=== PATIENT | male | born 1945 | race Two or more races ===

== ENCOUNTER 2017-01-09 14:53 | Inpatient (IN) | payer MEDICARE, OTHER ==
[2017-01-09 14:56] VITALS: BMI 28.7
[2017-01-09 16:26] LABS: BASO # 0.1 K/uL (0.0-0.2); BASO % 0.3 % (0.0-2.0); EOS % 0.1 % (0.0-4.0); HEMATOCRIT 32.9 % (35.0-51.0); LYMPH # 0.8 K/uL (1.0-4.3); LYMPH % 2.4 % (20.0-40.0); MEAN CELL VOLUME 80.8 fL (80.0-94.0); MEAN CORPUSCULAR HEMOGLOBIN 25.4 pg (27.0-31.0); MEAN CORPUSCULAR HGB CONC 31.5 g/dL (33.0-37.0); MEAN PLATELET VOLUME 7.7 fL (7.2-11.7); MONO # 1.6 K/uL (0.0-0.8); MONO % 4.7 % (0.0-10.0); PLATELET COUNT 362 K/uL (130-400); RED CELL DISTRIBUTION WIDTH 16.2 % (11.5-14.5)
[2017-01-09 16:31] LABS: INR 3.8; WHITE BLOOD COUNT 33.8 K/uL (4.8-10.8)
[2017-01-09 16:37] LABS: POTASSIUM 5.7 mmol/L (3.6-5.2)
[2017-01-09 16:39] LABS: ALB/GLOB RATIO 0.7 (1.0-2.1); BILIRUBIN,TOTAL 1.9 mg/dL (0.2-1.3); TOTAL PROTEIN 7.3 g/dL (6.3-8.3)
[2017-01-09 16:40] LABS: CALCIUM 8.5 mg/dl (8.6-10.4)
[2017-01-09] MEDS ORDERED: Piperacillin/Tazobact 3.375 gm 100 ML IVPB STA (16:40)
[2017-01-09 16:59] LABS: NEUTROPHIL 92 % (50-75); TOTAL CELLS COUNTED 100
[2017-01-09] MEDS ORDERED: Piperacillin/Tazobact 3.375 gm 100 ML IVPB ONE (17:29)
[2017-01-09 17:30] LABS: ERYTHROCYTE SEDIMENTATION RATE 125 mm/hr (0-15)
[2017-01-09] MEDS ORDERED: Sodium Chloride 0.9% 500 ML IV ONE ×2 (17:36→18:03)
--- NOTE | 2017-01-09 19:06 | C.PDOC ---
History Of Present Illness Pt is here for worsening diabetic foot ulcers. Time Seen by Provider: 01/09/17 15:45 Chief Complaint (Nursing): Abnormal Skin Integrity History Per: Patient Onset/Duration Of Symptoms: Days (chronic) Current Symptoms Are (Timing): Worse Location Of Injury: Right: Foot, Leg, Left: Foot, Leg Quality Of Symptoms: Painful, Swollen, Draining Severity: Severe Additional History Per: Prior Records Past Medical History Reviewed: Historical Data, Nursing Documentation, Vital Signs Vital Signs: Last Vital Signs Temp 98.0 F 01/09/17 18:46 Pulse 60 01/09/17 18:46 Resp 20 01/09/17 18:46 BP 101/45 L 01/09/17 18:46 Pulse Ox 95 01/09/17 18:46 - Medical History PMH: Atrial Fibrillation, Diabetes, HTN, Hypercholesterolemia - [facility] Procedures DRAINAGE OF LEFT HAND SKIN, EXTERNAL APPROACH (03/23/16) INSERTION OF INFUSION DEV INTO SUP VENA CAVA, PERC APPROACH (03/23/16) ULTRASONOGRAPHY OF SUPERIOR VENA CAVA, GUIDANCE (03/23/16) Family History: States: Unknown Family Hx - Social History Hx Alcohol Use: No Hx Substance Use: No - Immunization History Hx Tetanus Toxoid Vaccination: No Hx Influenza Vaccination: No Hx Pneumococcal Vaccination: No Review Of Systems Except As Marked, All Systems Reviewed And Found Negative. Constitutional: Negative for: Fever Cardiovascular: Negative for: Chest Pain Respiratory: Negative for: Shortness of Breath Gastrointestinal: Negative for: Vomiting, Abdominal Pain Musculoskeletal: Positive for: Leg Pain, Foot Pain. Negative for: Neck Pain, Back Pain Skin: Positive for: Rash Neurological: Negative for: Weakness, Seizures, Altered Mental Status Physical Exam - Physical Exam Appears: No Acute Distress, Chronically Ill Skin: Warm, Other (Multiple draining ulcers on both legs and feet.) Head: Atraumatic, Normacephalic Eye(s): bilateral: PERRL, EOMI Neck: Normal ROM, Supple Cardiovascular: Rhythm Regular Respiratory: Normal Breath Sounds, No Accessory Muscle Use Gastrointestinal/Abdominal: Soft, No Tenderness Extremity: Normal ROM, Pedal Edema, Swelling Neurological/Psych: Oriented x3, Normal Motor Gait: Other (Unable to stand) ED Course And Treatment - Laboratory Results Result Diagrams: 01/09/17 16:20 01/09/17 16:20 Lab Interpretation: Abnormal Interpretation Of Abnormal: Leukocytosis with left shift. Elevated BUN/Cr. O2 Sat by Pulse Oximetry: 95 Pulse Ox Interpretation: Normal - Radiology CXR: Interpreted by Me, Viewed By Me CXR Interpretation: Yes: No Acute Disease Progress Note: I also consulted Dr. Blum and Dr. Granger. - Physician Consult Information Physician Contacted: Corbin Davenport Outcome Of Conversation: He will see pt in the hospital. Progress - Interventions Interventions:: Observation, Intravenous fluid - Medications Administered Intravenous: Other (Abx) - Data Reviewed Data Reviewed: Lab, Diagnostic imaging, Old records - Patient Status Patient status: Partially improved - Continuity of Care Discussed patient case with:: Patient, ED Nurse, PMD, Covering for PMD Discussed pt. case with retail consultant/specialty: Infectious Disease, Podiatry, Vascular Surgery - Patient Plan Patient Plan: Admission, Telemetry Disposition Discussed With DrEmir: Jose Beal Comment: He was called at the request of the PMD Dr. Holland. He accepted pt on his service. Counseled Patient/Family Regarding: Studies Performed, Diagnosis - Disposition Disposition: HOSPITALIZED Disposition Time: 19:11 Condition: SERIOUS - Clinical Impression Clinical Impression: Diabetic foot infection, Diabetic ulcer of both lower extremities, Acute renal failure, Leukocytosis
--- NOTE | 2017-01-09 20:21 | CP.PCM.HP ---
History of Present Illness - History of Present Illness History of Present Illness: 71-year-old male patient with past medical history of uncontrolled diabetes mellitus, diabetic foot ulcer with recurrent cellulitis, hypertension, CHF presented to the ED with complaint of worsening foot ulcer over the past couple of weeks. Patient overall is a poor historian regarding details about medical history. Patient states he had the wound for over a year. Patient states "nothing has made them better". Patient reports recent increase in swelling Denies much pain to the extremity. Patient does not report numbness. Patient states there are foul-smelling at documentation have increase in drainage amount. Denies fever, chills. Present on Admission - Present on Admission Any Indicators Present on Admission: No Past Patient History - Infectious Disease Hx of Infectious Diseases: None - Past Medical History & Family History Past Medical History?: Yes - Past Social History Smoking Status: Never Smoked - CARDIAC Hx Atrial Fibrillation: Yes Hx Hypercholesterolemia: Yes Hx Hypertension: Yes - PULMONARY Hx Respiratory Disorders: No - NEUROLOGICAL Hx Neurological Disorder: No - HEENT Hx HEENT Problems: Yes Other/Comment: hard of hearing - ENDOCRINE/METABOLIC Hx Endocrine Disorders: Yes Hx Diabetes Mellitus Type 2: Yes - HEMATOLOGICAL/ONCOLOGICAL Hx Blood Disorders: No - INTEGUMENTARY Hx Dermatological Problems: No - MUSCULOSKELETAL/RHEUMATOLOGICAL Hx Musculoskeletal Disorders: No Hx Falls: No - GASTROINTESTINAL Hx Gastrointestinal Disorders: No - GENITOURINARY/GYNECOLOGICAL Hx Genitourinary Disorders: No - PSYCHIATRIC Hx Substance Use: No - SURGICAL HISTORY Hx Surgeries: Yes Hx Orthopedic Surgery: Yes (right knee sx) Other/Comment: hernia repair - ANESTHESIA Hx Anesthesia: Yes Hx Anesthesia Reactions: No Hx Malignant Hyperthermia: No Meds Allergies/Adverse Reactions: Allergies Allergy/AdvReac Type Severity Reaction Status Date / Time No Known Allergies Allergy Verified 01/09/17 14:55 Results - Vital Signs Recent Vital Signs: Last Vital Signs Temp 97.7 F 01/09/17 20:12 Pulse 62 01/09/17 20:12 Resp 20 01/09/17 20:12 BP 107/48 L 01/09/17 20:12 Pulse Ox 98 01/09/17 20:12 - Labs Result Diagrams: 01/21/17 06:37 01/21/17 06:34 Assessment & Plan (1) Abdominal distension Status: Acute (2) Acute delirium Status: Acute (3) Acute respiratory failure Status: Acute (4) Acute respiratory failure with hypercapnia Status: Acute (5) Anemia Status: Acute (6) Bacteremia Status: Acute (7) CKD stage 4 due to type 2 diabetes mellitus Status: Acute (8) Cellulitis Status: Acute (9) Coagulopathy Status: Acute (10) Diabetic foot infection Status: Acute (11) Diabetic ulcer of both lower extremities Status: Acute (12) Hypernatremia Status: Acute (13) Leg ulcer Status: Acute (14) Leukocytosis Status: Acute (15) Paronychia of left thumb Status: Acute (16) Pneumonia Status: Acute (17) Prophylactic measure Status: Acute (18) Risk and functional assessment Status: Acute (19) Severe sepsis Status: Acute (20) Urinary dysfunction Status: Acute (21) Atrial fibrillation Status: Chronic (22) Atrial fibrillation with slow ventricular response Status: Chronic (23) DM2 (diabetes mellitus, type 2) Status: Chronic (24) HTN (hypertension) Status: Chronic (25) Pacemaker Status: Chronic - Assessment and Plan (Free Text) Plan: Consult cardiology Consult ID Consult podiatry follow-up with lab Follow-up arterial duplex Aspirin Pradaxa Colace Lasix Neurontin Vancomycin Protonix
[2017-01-09] MEDS ORDERED: Vancomycin 500 mg Inj IVPB SCH (20:30)
[2017-01-09] MEDS ORDERED: (Lantus) Insulin Glargine, Recombinant SC ONE (21:31)
[2017-01-09] MEDS: (Lantus) Insulin Glargine, Recombinant SC SCH (21:33)
--- NOTE | 2017-01-09 23:05 | CP.PCM.CON ---
History of Present Illness - History of Present Illness History of Present Illness: Surgery: Dr. Granger CC: worsening DM foot ulcers HPI: Patient is a 71 y/o male who presents complaining of worsening foot ulcers over the past couple of weeks. Patient overall is a poor historian regarding details about medical history. Patient states he has had the wounds for over a year. He states "nothing has made them better". He reports recent increase swelling. He denies much pain to the extremities. He does report numbness. He states they are foul smelling and per documentation have increased in drainage amount. Patient denies f/c. PMH: uncontrolled DM, diabetic foot ulcers w/ recurrent cellulitis, HTN, CHF PSH: knee arthroscopy, pacemaker Review of Systems - Review of Systems All systems: reviewed and no additional remarkable complaints except (stated in HPI) Past Patient History - Infectious Disease Hx of Infectious Diseases: None - Past Medical History & Family History Past Medical History?: Yes - Past Social History Smoking Status: Never Smoked - CARDIAC Hx Atrial Fibrillation: Yes Hx Hypercholesterolemia: Yes Hx Hypertension: Yes - PULMONARY Hx Respiratory Disorders: No - NEUROLOGICAL Hx Neurological Disorder: No - HEENT Hx HEENT Problems: Yes Other/Comment: hard of hearing - ENDOCRINE/METABOLIC Hx Endocrine Disorders: Yes Hx Diabetes Mellitus Type 2: Yes - HEMATOLOGICAL/ONCOLOGICAL Hx Blood Disorders: No - INTEGUMENTARY Hx Dermatological Problems: No - MUSCULOSKELETAL/RHEUMATOLOGICAL Hx Musculoskeletal Disorders: No Hx Falls: No - GASTROINTESTINAL Hx Gastrointestinal Disorders: No - GENITOURINARY/GYNECOLOGICAL Hx Genitourinary Disorders: No - PSYCHIATRIC Hx Substance Use: No - SURGICAL HISTORY Hx Surgeries: Yes Hx Orthopedic Surgery: Yes (right knee sx) Other/Comment: hernia repair - ANESTHESIA Hx Anesthesia: Yes Hx Anesthesia Reactions: No Hx Malignant Hyperthermia: No Meds Allergies/Adverse Reactions: Allergies Allergy/AdvReac Type Severity Reaction Status Date / Time No Known Allergies Allergy Verified 01/09/17 14:55 - Medications Medications: Current Medications Aspirin (Aspirin) 325 mg PO DAILY [facility] Dabigatran (Pradaxa) 150 mg PO BID [facility] Last Admin: 01/09/17 21:26 Dose: 150 mg Docusate Sodium (Colace) 100 mg PO BID [facility] Furosemide (Lasix) 40 mg IVP BID [facility] Gabapentin (Neurontin) 100 mg PO TID PRN PRN Reason: Pain, moderate (4-7) Vancomycin/Sodium Chloride (Vancocin) 200 mls @ 133 mls/hr IVPB Q12H [facility] Stop: 01/15/17 06:01 Insulin Aspart (Novolog) 15 unit SC TIDAC [facility] Insulin Glargine (Lantus) 25 unit SC HS [facility] Last Admin: 01/09/17 21:33 Dose: 25 units Mupirocin (Bactroban Ointment) 1 gm TOP BID [facility] Pantoprazole Sodium (Protonix Ec Tab) 40 mg PO DAILY [facility] Piperacillin Sod/Tazobactam Sod (Zosyn 3.375 Gm Iv Premix) 3.375 gm IVPB Q8H [facility] Physical Exam - Constitutional Appears: No Acute Distress, Chronically Ill - Head Exam Head Exam: ATRAUMATIC, NORMOCEPHALIC - Eye Exam Eye Exam: Normal appearance - ENT Exam ENT Exam: Mucous Membranes Moist - Respiratory Exam Respiratory Exam: NORMAL BREATHING PATTERN. absent: Respiratory Distress - Cardiovascular Exam Cardiovascular Exam: absent: Tachycardia - Extremities Exam Extremities exam: Positive for: calf tenderness (bilaterally ), pedal edema Additional comments: multiple wounds extending from feet to mid winkler bilaterally. Cellulitic skin changes L>R. palpable popliteal pulses bilaterally. DP not palpated. - Neurological Exam Neurological exam: Alert - Psychiatric Exam Psychiatric exam: Normal Affect, Normal Mood - Skin Skin Exam: Dry, Warm Results - Vital Signs Recent Vital Signs: Last Vital Signs Temp 97.8 F 01/09/17 22:17 Pulse 87 01/09/17 22:17 Resp 18 01/09/17 22:17 BP 95/51 L 01/09/17 22:17 Pulse Ox 95 01/09/17 22:17 - Labs Result Diagrams: 01/09/17 16:20 01/09/17 16:20 Labs: Laboratory Results - last 24 hr 01/09/17 21:31 POC Glucose (mg/dL) 99 Assessment & Plan - Assessment and Plan (Free Text) Assessment: 71 y/o male w/ bilateral LE nonhealing diabetic ulcers l Plan: -f/u arterial duplex -cont abx -podiatry consult -may need further imaging to evaluate extent of PVD -f/u am labs -further recs per Dr. Elkin Foley PGY1 - Date & Time Date: 01/09/17 Time: 23:10
[2017-01-10] MEDS ORDERED: DEXTROSE IVPB SCH (01:30)
[2017-01-10] MEDS ORDERED: Piperacill/Tazo 3.375gm in Dex 50 ML IVPB SCH (01:30)
[2017-01-10] MEDS ORDERED: TAZOBACTAM IVPB SCH (01:30)
[2017-01-10] MEDS ORDERED: PIPERACILLIN IVPB SCH (01:30)
[2017-01-10] MEDS ORDERED: Pneumococcal 23-Valent Vaccine IM ONE (03:57)
[2017-01-10] MEDS ORDERED: Influenza Virus Vaccine 45 mcg/0.5 ml Syr IM ONE (03:57)
[2017-01-10] MEDS ORDERED: Vancomycin 1 gm/NS 200 ml 200 ML IVPB SCH (06:00)
[2017-01-10] MEDS: (Novolog) Insulin Aspart, Recombinant 100 u/ml 10 ml vial SC SCH ×3 (08:30→17:29)
--- NOTE | 2017-01-10 09:18 | RAD ---
HISTORY: Renal failure COMPARISON: 03/31/2016 FINDINGS: LUNGS: No active pulmonary disease. PLEURA: No significant pleural effusion identified, no pneumothorax apparent. CARDIOVASCULAR: Permanent pacemaker. OSSEOUS STRUCTURES: No significant abnormalities. VISUALIZED UPPER ABDOMEN: Normal. OTHER FINDINGS: None. IMPRESSION: No active disease.
[2017-01-10] MEDS ORDERED: Enoxaparin 40 mg Syringe SC SCH (10:00)
--- NOTE | 2017-01-10 10:05 | CP.PCM.PN ---
Subjective - Date & Time of Evaluation Date of Evaluation: 01/10/17 Time of Evaluation: 10:03 - Subjective Subjective: Surgery: Dr. Granger Patient complains of mild pain in the lower extremities bilaterally. tolerated diet. otherwise no complaints. Objective - Vital Signs/Intake and Output Vital Signs (last 24 hours): Temp Pulse Resp BP Pulse Ox 97.9 F 60 20 112/60 96 01/10/17 07:30 01/10/17 07:30 01/10/17 07:30 01/10/17 07:30 01/10/17 07:30 - Medications Medications: Current Medications Aspirin (Aspirin) 325 mg PO DAILY [facility] Dabigatran (Pradaxa) 150 mg PO BID [facility] Last Admin: 01/09/17 21:26 Dose: 150 mg Docusate Sodium (Colace) 100 mg PO BID [facility] Furosemide (Lasix) 40 mg IVP BID [facility] Gabapentin (Neurontin) 100 mg PO TID PRN PRN Reason: Pain, moderate (4-7) Vancomycin/Sodium Chloride (Vancocin) 200 mls @ 133 mls/hr IVPB Q12H [facility] Stop: 01/15/17 06:01 Last Admin: 01/10/17 05:17 Dose: Not Given Insulin Aspart (Novolog) 15 unit SC TIDAC [facility] Last Admin: 01/10/17 08:30 Dose: Not Given Insulin Glargine (Lantus) 25 unit SC HS [facility] Last Admin: 01/09/17 21:33 Dose: 25 units Mupirocin (Bactroban Ointment) 1 gm TOP BID [facility] Pantoprazole Sodium (Protonix Ec Tab) 40 mg PO DAILY [facility] Piperacillin Sod/Tazobactam Sod (Zosyn 3.375 Gm Iv Premix) 3.375 gm IVPB Q8H [facility] Last Admin: 01/10/17 01:29 Dose: 3.375 gm - Labs Labs: PT 45.5 SECONDS (9.7-12.2) H* 01/09/17 16:20 INR 3.8 01/09/17 16:20 APTT 47 SECONDS (21-34) H 01/09/17 16:20 - Constitutional Appears: No Acute Distress, Chronically Ill - Head Exam Head Exam: ATRAUMATIC, NORMOCEPHALIC - Eye Exam Eye Exam: EOMI, Normal appearance - ENT Exam ENT Exam: Mucous Membranes Moist - Respiratory Exam Respiratory Exam: NORMAL BREATHING PATTERN. absent: Respiratory Distress - Cardiovascular Exam Cardiovascular Exam: absent: Tachycardia - Extremities Exam Additional comments: multiple wounds extending from feet to mid winkler bilaterally. Cellulitic skin changes L>R. palpable popliteal pulses bilaterally. DP not palpated. - Neurological Exam Neurological Exam: Alert, Awake - Skin Skin Exam: Dry, Warm Assessment and Plan - Assessment and Plan (Free Text) Assessment: 71 y/o male w/ bilateral LE nonhealing chronic diabetic ulcers Plan: -elevated affected extremities -dressing changes/wound care per podiatry recs -f/u arterial duplex -cont abx -f/u podiatry consult -may need further imaging to evaluate extent of PVD -f/u am labs -medical management per primary -further recs per Dr. Elkin Foley PGY1
--- NOTE | 2017-01-10 10:07 | CP.PCM.CON ---
History of Present Illness - History of Present Illness History of Present Illness: Pt admitted after being told to present for admission to Hospital after visit to wound center on 12/06/16. Pt has major compliance issues with following treatment protocols ,Diabetic diet and taking medications as prescribed .Patient has been warned by ,Dr.John Hunter and myself that this behavior will result in B/l amputations of limbs . Past Patient History - Infectious Disease Hx of Infectious Diseases: None - Past Medical History & Family History Past Medical History?: Yes - Past Social History Smoking Status: Never Smoked - CARDIAC Hx Cardiac Disorders: Yes Hx Atrial Fibrillation: Yes Hx Hypercholesterolemia: Yes Hx Hypertension: Yes - PULMONARY Hx Respiratory Disorders: No - NEUROLOGICAL Hx Neurological Disorder: No - HEENT Hx HEENT Problems: Yes Other/Comment: hard of hearing - RENAL Hx Chronic Kidney Disease: Yes - ENDOCRINE/METABOLIC Hx Endocrine Disorders: Yes Hx Diabetes Mellitus Type 2: Yes - HEMATOLOGICAL/ONCOLOGICAL Hx Blood Disorders: No - INTEGUMENTARY Hx Dermatological Problems: Yes Hx Cellulitis: Yes (BLE) Other/Comment: Diabetic foot ulcers - MUSCULOSKELETAL/RHEUMATOLOGICAL Hx Falls: No - GASTROINTESTINAL Hx Gastrointestinal Disorders: No - GENITOURINARY/GYNECOLOGICAL Hx Genitourinary Disorders: No - PSYCHIATRIC Hx Substance Use: No - SURGICAL HISTORY Hx Surgeries: Yes Hx Orthopedic Surgery: Yes (right knee sx) Other/Comment: hernia repair - ANESTHESIA Hx Anesthesia: Yes Hx Anesthesia Reactions: No Hx Malignant Hyperthermia: No Has any member of the family had a problem w/ anesthesia?: No Meds Allergies/Adverse Reactions: Allergies Allergy/AdvReac Type Severity Reaction Status Date / Time No Known Allergies Allergy Verified 01/09/17 14:55 - Medications Medications: Current Medications Aspirin (Aspirin) 325 mg PO DAILY [facility] Dabigatran (Pradaxa) 150 mg PO BID [facility] Last Admin: 01/09/17 21:26 Dose: 150 mg Docusate Sodium (Colace) 100 mg PO BID [facility] Furosemide (Lasix) 40 mg IVP BID [facility] Gabapentin (Neurontin) 100 mg PO TID PRN PRN Reason: Pain, moderate (4-7) Vancomycin/Sodium Chloride (Vancocin) 200 mls @ 133 mls/hr IVPB Q12H [facility] Stop: 01/15/17 06:01 Last Admin: 01/10/17 05:17 Dose: Not Given Insulin Aspart (Novolog) 15 unit SC TIDAC [facility] Last Admin: 01/10/17 08:30 Dose: Not Given Insulin Glargine (Lantus) 25 unit SC HS [facility] Last Admin: 01/09/17 21:33 Dose: 25 units Mupirocin (Bactroban Ointment) 1 gm TOP BID [facility] Pantoprazole Sodium (Protonix Ec Tab) 40 mg PO DAILY [facility] Piperacillin Sod/Tazobactam Sod (Zosyn 3.375 Gm Iv Premix) 3.375 gm IVPB Q8H [facility] Last Admin: 01/10/17 01:29 Dose: 3.375 gm Physical Exam - Extremities Exam Additional comments: 0/Gangrenous infected pressure ulcers of heels L>>R secondary to excessive dependent position of feet in wheel chair.malodor noted. Elevated WBC . Results - Vital Signs Recent Vital Signs: Last Vital Signs Temp 97.9 F 01/10/17 07:30 Pulse 60 01/10/17 07:30 Resp 20 01/10/17 07:30 BP 112/60 01/10/17 07:30 Pulse Ox 96 01/10/17 07:30 - Labs Result Diagrams: 01/09/17 16:20 01/09/17 16:20 Labs: Laboratory Results - last 24 hr 01/09/17 01/10/17 01/10/17 21:31 01:22 07:21 POC Glucose (mg/dL) 99 88 78
--- NOTE | 2017-01-10 10:17 | CP.PCM.CON ---
History of Present Illness - History of Present Illness History of Present Illness: PODIATRY CONSULT NOTE 71 y/o male seen at bedside concerning worsening Bilateral foot and leg ulcers. Pt follows up with Attedning Dr. Davenport at [facility] for theses diabetic ulcerations. Patient overall is a poor historian regarding details about medical history, pt is accompanied by neightboor who helps tend to patient and his medical needs. Pt was orriginaly ordered by Dr. Davenport to present to emergency room for potential hospitalization 1 week ago as symptoms worsened, and has only presented as neightbor forced him as he was unable to rise from dependent position of own volition. He denies pain to the extremities due to his neuropathy. He states they are foul smelling and per documentation have increased in drainage amount. Pt denies recent f/c/n/v/cp/ sob. Brother-Nicolas Ramos contact information obtained PMH: uncontrolled DM, diabetic foot ulcers w/ recurrent cellulitis, HTN, CHF PSH: knee arthroscopy, pacemaker Past Patient History - Infectious Disease Hx of Infectious Diseases: None - Past Medical History & Family History Past Medical History?: Yes - Past Social History Smoking Status: Never Smoked - CARDIAC Hx Cardiac Disorders: Yes Hx Atrial Fibrillation: Yes Hx Hypercholesterolemia: Yes Hx Hypertension: Yes - PULMONARY Hx Respiratory Disorders: No - NEUROLOGICAL Hx Neurological Disorder: No - HEENT Hx HEENT Problems: Yes Other/Comment: hard of hearing - RENAL Hx Chronic Kidney Disease: Yes - ENDOCRINE/METABOLIC Hx Endocrine Disorders: Yes Hx Diabetes Mellitus Type 2: Yes - HEMATOLOGICAL/ONCOLOGICAL Hx Blood Disorders: No - INTEGUMENTARY Hx Dermatological Problems: Yes Hx Cellulitis: Yes (BLE) Other/Comment: Diabetic foot ulcers - MUSCULOSKELETAL/RHEUMATOLOGICAL Hx Falls: No - GASTROINTESTINAL Hx Gastrointestinal Disorders: No - GENITOURINARY/GYNECOLOGICAL Hx Genitourinary Disorders: No - PSYCHIATRIC Hx Substance Use: No - SURGICAL HISTORY Hx Surgeries: Yes Hx Orthopedic Surgery: Yes (right knee sx) Other/Comment: hernia repair - ANESTHESIA Hx Anesthesia: Yes Hx Anesthesia Reactions: No Hx Malignant Hyperthermia: No Has any member of the family had a problem w/ anesthesia?: No Meds Allergies/Adverse Reactions: Allergies Allergy/AdvReac Type Severity Reaction Status Date / Time No Known Allergies Allergy Verified 01/09/17 14:55 - Medications Medications: Current Medications Aspirin (Aspirin) 325 mg PO DAILY [facility] Dabigatran (Pradaxa) 150 mg PO BID [facility] Last Admin: 01/09/17 21:26 Dose: 150 mg Docusate Sodium (Colace) 100 mg PO BID [facility] Furosemide (Lasix) 40 mg IVP BID [facility] Gabapentin (Neurontin) 100 mg PO TID PRN PRN Reason: Pain, moderate (4-7) Vancomycin/Sodium Chloride (Vancocin) 200 mls @ 133 mls/hr IVPB Q12H [facility] Stop: 01/15/17 06:01 Last Admin: 01/10/17 05:17 Dose: Not Given Insulin Aspart (Novolog) 15 unit SC TIDAC [facility] Last Admin: 01/10/17 08:30 Dose: Not Given Insulin Glargine (Lantus) 25 unit SC HS [facility] Last Admin: 01/09/17 21:33 Dose: 25 units Mupirocin (Bactroban Ointment) 1 gm TOP BID [facility] Pantoprazole Sodium (Protonix Ec Tab) 40 mg PO DAILY [facility] Piperacillin Sod/Tazobactam Sod (Zosyn 3.375 Gm Iv Premix) 3.375 gm IVPB Q8H [facility] Last Admin: 01/10/17 01:29 Dose: 3.375 gm Physical Exam - Constitutional Appears: Non-toxic, No Acute Distress, Agitated - Extremities Exam Additional comments: Lower extremity focused. DERM: Heavy [id number] present bilaterally, with active drainage noted bilaterally. Diffuse continuous erythema noted bilaterally extending distally from level of proximal 1/3 of legs, bilaterally. No interdigital maceratin or hyperkeratotic lesion noted bilaterally. Right: Lateral leg partial thickness ulceration measuring 7.5 x 6 cm with a 60% fibrotic to 40% granular wound base. Absent undermining margins. Heel necrotic eschar with active weeping drainage from posterior margin noted. Eschar measures 6.5 x 7 cm. 5 cm lateral magin fibrotic plaque extension noted. Left: Medial 1st metatarsal head region full thickness ulceration measuring 2 x 1.9 cm with 100% fibrotic base absent undermining margins. Heel necrotic eschar with active weeping drainage from posterior margin noted. Eschar measures 9 x 7.8 cm. Lateral leg full thickness ulceration measuring 13 x 7 cm with a 80% fibrotic to 20% necrotic base. VASC: DP and PT pulses non-palpable secondary to non-pitting edema. Absent pedal hair growth. Negative Homann and Talbot's signs bilaterally. Cappilarry refill time <5 seconds to digits. NERUO: Sensation grossly diminished distal to ankle joint bilaterally. Ortho: No gross deformities noted. Largely deferred to to patients refusal to participate. - Neurological Exam Neurological exam: Alert - Psychiatric Exam Psychiatric exam: Normal Affect, Normal Mood Results - Vital Signs Recent Vital Signs: Last Vital Signs Temp 97.9 F 01/10/17 07:30 Pulse 60 01/10/17 07:30 Resp 20 01/10/17 07:30 BP 112/60 01/10/17 07:30 Pulse Ox 96 01/10/17 07:30 - Labs Result Diagrams: 01/10/17 14:38 01/10/17 19:49 Labs: Laboratory Results - last 24 hr 01/09/17 01/10/17 01/10/17 21:31 01:22 07:21 POC Glucose (mg/dL) 99 88 78 Assessment & Plan - Assessment and Plan (Free Text) Assessment: 71 year old male with infected bilateral lower extremity wounds and cellulits. 3 total Gottlieb grade 2 ulceraions & 2 total non-stagable ulcerations to heels bilaterally, all secondary to diabetic neuropathy. Plan: Pt evaluated and treated with attending, Dr. Davenport present. Charts, labs, and vitals reviewed. Leukocytosis noted. Cleansed wound sites with sterile saline. Dressed wound sites w/ 1/4 Strength Dakins Solution wet-to-dry- dressing and DSD. Pt unable to obtain MRI due to pacemaker. potnetial for bone scan to r/o OM. Wound culture results pending. Continue IV abx per ID. Podiatry will continue to follow patient while inhouse. - Date & Time Date: 01/10/17 Time: 12:30
[2017-01-10] MEDS: Pantoprazole 40 mg EC Tab PO SCH (10:43)
--- NOTE | 2017-01-10 10:44 | CARD ---
APPROVED REPORT EKG Measurement Heart [id number] <Conclusion> Electronic Paced rhythm Abnormal ECG
[2017-01-10] MEDS: Sodium Chloride 0.9% 1,000 ML IV SCH (14:13)
[2017-01-10 14:36] LABS: BASO # 0.1 K/uL (0.0-0.2); BASO % 0.4 % (0.0-2.0); EOS # 0.1 K/uL (0.0-0.7); EOS % 0.3 % (0.0-4.0); HEMATOCRIT 32.9 % (35.0-51.0); LYMPH # 0.7 K/uL (1.0-4.3); MEAN CELL VOLUME 80.1 fL (80.0-94.0); MEAN CORPUSCULAR HEMOGLOBIN 25.7 pg (27.0-31.0); MEAN CORPUSCULAR HGB CONC 32.1 g/dL (33.0-37.0); MEAN PLATELET VOLUME 7.8 fL (7.2-11.7); MONO # 0.8 K/uL (0.0-0.8); MONO % 2.3 % (0.0-10.0); PLATELET COUNT 393 K/uL (130-400); RED CELL DISTRIBUTION WIDTH 16.1 % (11.5-14.5); WHITE BLOOD COUNT 33.6 K/uL (4.8-10.8)
[2017-01-10 14:45] LABS: ALB/GLOB RATIO 0.7 (1.0-2.1)
[2017-01-10 14:46] LABS: CALCIUM 8.2 mg/dl (8.6-10.4)
[2017-01-10 15:08] LABS: NEUTROPHIL 97 % (50-75); TOTAL CELLS COUNTED 100
[2017-01-10] MEDS ORDERED: Dextrose 50% SYRINGE Inj (50 ml) IV ONE (15:26)
[2017-01-10] MEDS ORDERED: (Novolin R) Insulin Human Regular 100 units/ml vial SC ONE (15:27)
--- NOTE | 2017-01-10 15:46 | VASCLAB ---
PROCEDURE: HISTORY: diabetic foot COMPARISON: None available. TECHNIQUE: Grayscale and duplex Doppler evaluation of the bilateral common femoral, femoral, profunda femoral, popliteal, posterior tibial, anterior tibial and dorsalis pedis arteries was performed. Report prepared by CHANNING Whitney, RVT FINDINGS: RIGHT LOWER EXTREMITY: * Common Femoral Artery: Peak Systolic Velocity - 124: Doppler Waveform: Triphasic.: Plaque description - Heterogeneous * Profunda Femoral Artery: Peak Systolic Velocity - 130: Doppler Waveform: Triphasic.: Plaque description - Heterogeneous * Femoral Artery o Proximal Segment: Peak Systolic Velocity - 114: Doppler Waveform: Triphasic.: Plaque description - Heterogeneous o Middle Segment: Peak Systolic Velocity - 104: Doppler Waveform: Triphasic.: Plaque description - Heterogeneous o Distal Segment: Peak Systolic Velocity - 118: Doppler Waveform: Triphasic.: Plaque description - Heterogeneous * Popliteal Artery o Proximal Segment: Peak Systolic Velocity - 85: Doppler Waveform: Triphasic.: Plaque description - Heterogeneous o Middle Segment: Peak Systolic Velocity - 76: Doppler Waveform: Triphasic.: Plaque description - Heterogeneous o Distal Segment: Peak Systolic Velocity - 97: Doppler Waveform: Triphasic.: Plaque description - Heterogeneous LEFT LOWER EXTREMITY: * Common Femoral Artery: Peak Systolic Velocity - 125: Doppler Waveform: Triphasic.: Plaque description - Heterogeneous * Profunda Femoral Artery: Peak Systolic Velocity - 109: Doppler Waveform: Triphasic.: Plaque description - Heterogeneous * Femoral Artery o Proximal Segment: Peak Systolic Velocity - 164: Doppler Waveform: Triphasic.: Plaque description - Heterogeneous o Middle Segment: Peak Systolic Velocity - 124: Doppler Waveform: Triphasic.: Plaque description - Heterogeneous o Distal Segment: Peak Systolic Velocity - 166: Doppler Waveform: Triphasic.: Plaque description - Heterogeneous * Popliteal Artery o Proximal Segment: Peak Systolic Velocity - 224: Doppler Waveform: Triphasic.: Plaque description - Heterogeneous o Middle Segment: Peak Systolic Velocity - 159: Doppler Waveform: Triphasic.: Plaque description - Heterogeneous o Distal Segment: Peak Systolic Velocity - 150: Doppler Waveform: Triphasic.: Plaque description - Heterogeneous OTHER FINDINGS: Bilateral anterior and posterior tibial arteries were not imaged due to bandages on the calves. IMPRESSION: There is no evidence of hemodynamically significant arterial insufficiency in both lower extremities.
[2017-01-10] MEDS ORDERED: Sod Polystyrene Sulf 15 gm/60 ml Oral Susp PO ONE (15:58)
[2017-01-10] MEDS ORDERED: (Novolin R) Insulin Human Regular 100 units/ml vial IV ONE (15:59)
--- NOTE | 2017-01-10 16:09 | CP.PCM.CON ---
History of Present Illness - History of Present Illness History of Present Illness: HPI: Patient is a 71 y/o male who presents complaining of worsening foot ulcers over the past couple of weeks. Patient overall is a poor historian regarding details about medical history. Patient states he has had the wounds for over a year. He states "nothing has made them better". He reports recent increase swelling. He denies much pain to the extremities. He does report numbness. He states they are foul smelling and per documentation have increased in drainage amount. Renal eval for rising bun/creatinine. Pt noted to have creatinine of 1.5 in 2016. Unclear if he is taking NSAIDS or ARB blockers. Pt presently confused and unable to answer any questions. Noted to have moderate hyperkalemia as well. Past Patient History - Infectious Disease Hx of Infectious Diseases: None - Past Medical History & Family History Past Medical History?: Yes - Past Social History Smoking Status: Never Smoked - CARDIAC Hx Cardiac Disorders: Yes Hx Atrial Fibrillation: Yes Hx Hypercholesterolemia: Yes Hx Hypertension: Yes - PULMONARY Hx Respiratory Disorders: No - NEUROLOGICAL Hx Neurological Disorder: No - HEENT Hx HEENT Problems: Yes Other/Comment: hard of hearing - RENAL Hx Chronic Kidney Disease: Yes - ENDOCRINE/METABOLIC Hx Endocrine Disorders: Yes Hx Diabetes Mellitus Type 2: Yes - HEMATOLOGICAL/ONCOLOGICAL Hx Blood Disorders: No - INTEGUMENTARY Hx Dermatological Problems: Yes Hx Cellulitis: Yes (BLE) Other/Comment: Diabetic foot ulcers - MUSCULOSKELETAL/RHEUMATOLOGICAL Hx Falls: No - GASTROINTESTINAL Hx Gastrointestinal Disorders: No - GENITOURINARY/GYNECOLOGICAL Hx Genitourinary Disorders: No - PSYCHIATRIC Hx Substance Use: No - SURGICAL HISTORY Hx Surgeries: Yes Hx Orthopedic Surgery: Yes (right knee sx) Other/Comment: hernia repair - ANESTHESIA Hx Anesthesia: Yes Hx Anesthesia Reactions: No Hx Malignant Hyperthermia: No Has any member of the family had a problem w/ anesthesia?: No Meds Allergies/Adverse Reactions: Allergies Allergy/AdvReac Type Severity Reaction Status Date / Time No Known Allergies Allergy Verified 01/09/17 14:55 - Medications Medications: Current Medications Apixaban (Eliquis) 2.5 mg PO BID [facility] Aspirin (Aspirin) 325 mg PO DAILY [facility] Last Admin: 01/10/17 10:42 Dose: 325 mg Docusate Sodium (Colace) 100 mg PO BID [facility] Last Admin: 01/10/17 10:43 Dose: 100 mg Gabapentin (Neurontin) 100 mg PO TID PRN PRN Reason: Pain, moderate (4-7) Piperacillin Sod/Tazobactam Sod (Zosyn 3.375 Gm Iv Premix) 50 mls @ 100 mls/hr IVPB Q8H [facility] Last Admin: 01/10/17 11:12 Dose: 100 mls/hr Sodium Chloride (Sodium Chloride 0.9%) 1,000 mls @ 100 mls/hr IV .Q10H [facility] Stop: 01/11/17 08:14 Last Admin: 01/10/17 14:13 Dose: 100 mls/hr Piperacillin Sod/Tazobactam Sod (Zosyn 2.25 Gm Iv Premix) 50 mls @ 100 mls/hr IVPB Q6H [facility] Vancomycin/Sodium Chloride (Vancocin) 200 mls @ 133 mls/hr IVPB DAILY [facility] Stop: 01/16/17 10:01 Insulin Aspart (Novolog) 15 unit SC TIDAC [facility] Last Admin: 01/10/17 08:30 Dose: Not Given Insulin Glargine (Lantus) 25 unit SC [facility] Last Admin: 01/09/17 21:33 Dose: 25 units Insulin Human Regular (Novolin R) 10 unit IV ONCE ONE Stop: 01/10/17 16:00 Mupirocin (Bactroban Ointment) 1 gm TOP BID [facility] Last Admin: 01/10/17 11:11 Dose: 1 applic Pantoprazole Sodium (Protonix Ec Tab) 40 mg PO DAILY [facility] Last Admin: 01/10/17 10:43 Dose: 40 mg Sodium Hypochlorite (Dakins Solution 0.125%) 0 appl TOP DAILY [facility] Physical Exam - Constitutional Appears: Confused, Chronically Ill - Head Exam Head Exam: ATRAUMATIC - Eye Exam Eye Exam: EOMI, Normal appearance - ENT Exam ENT Exam: Mucous Membranes Dry - Neck Exam Neck exam: Positive for: Full Rom. Negative for: Lymphadenopathy - Respiratory Exam Respiratory Exam: Decreased Breath Sounds. absent: Accessory Muscle Use - Cardiovascular Exam Cardiovascular Exam: Irregular Rhythm. absent: Rubs - GI/Abdominal Exam GI & Abdominal Exam: Distended, Firm. absent: Tenderness - Extremities Exam Additional comments: legs bandaged bilaterally foul smell bandages appear dry - Neurological Exam Neurological exam: Alert Additional comments: confused Results - Vital Signs Recent Vital Signs: Last Vital Signs Temp 97.9 F 01/10/17 07:30 Pulse 60 01/10/17 07:30 Resp 20 01/10/17 07:30 BP 112/60 01/10/17 10:43 Pulse Ox 96 01/10/17 07:30 - Labs Result Diagrams: 01/10/17 14:38 01/10/17 14:26 Labs: Laboratory Results - last 24 hr 01/09/17 01/10/17 01/10/17 21:31 01:22 07:21 WBC RBC Hgb Hct MCV MCH MCHC RDW Plt Count MPV Neut % (Auto) Lymph % (Auto) Price % (Auto) Eos % (Auto) Baso % (Auto) Neut # Lymph # Price # Eos # Baso # Neutrophils % (Manual) Lymphocytes % (Manual) Monocytes % (Manual) Platelet Estimate Polychromasia Hypochromasia (manual) Anisocytosis (manual) Ovalocytes [place] Cells Sodium Potassium Chloride Carbon Dioxide Anion Gap BUN Creatinine Est GFR ( Amer) Est GFR (Non-Af Amer) POC Glucose (mg/dL) 99 88 78 Random Glucose Lactic Acid Calcium Total Bilirubin AST ALT Alkaline Phosphatase Total Protein Albumin Globulin Albumin/Globulin Ratio 01/10/17 01/10/17 01/10/17 11:16 14:21 14:26 WBC RBC Hgb Hct MCV MCH MCHC RDW Plt Count MPV Neut % (Auto) Lymph % (Auto) Price % (Auto) Eos % (Auto) Baso % (Auto) Neut # Lymph # Price # Eos # Baso # Neutrophils % (Manual) Lymphocytes % (Manual) Monocytes % (Manual) Platelet Estimate Polychromasia Hypochromasia (manual) Anisocytosis (manual) Ovalocytes [place] Cells Sodium 131 L Potassium 6.0 H Chloride 95 L Carbon Dioxide 20 L Anion Gap 22 H BUN 113 H* Creatinine 3.1 H Est GFR ( Amer) 24 Est GFR (Non-Af Amer) 20 POC Glucose (mg/dL) 102 Random Glucose 82 Lactic Acid 1.1 Calcium 8.2 L Total Bilirubin 2.0 H AST 52 ALT 28 Alkaline Phosphatase 253 H Total Protein 7.0 Albumin 2.8 L Globulin 4.2 H Albumin/Globulin Ratio 0.7 L 01/10/17 14:38 WBC 33.6 H RBC 4.10 L Hgb 10.6 L Hct 32.9 L MCV 80.1 MCH 25.7 L MCHC 32.1 L RDW 16.1 H Plt Count 393 MPV 7.8 Neut % (Auto) 95.0 H Lymph % (Auto) 2.0 L Price % (Auto) 2.3 Eos % (Auto) 0.3 Baso % (Auto) 0.4 Neut # 31.9 H Lymph # 0.7 L Price # 0.8 Eos # 0.1 Baso # 0.1 Neutrophils % (Manual) 97 H Lymphocytes % (Manual) 1 L Monocytes % (Manual) 2 Platelet Estimate Normal Polychromasia Slight Hypochromasia (manual) Slight Anisocytosis (manual) Slight Ovalocytes Slight [place] Cells Slight Sodium Potassium Chloride Carbon Dioxide Anion Gap BUN Creatinine Est GFR ( Amer) Est GFR (Non-Af Amer) POC Glucose (mg/dL) Random Glucose Lactic Acid Calcium Total Bilirubin AST ALT Alkaline Phosphatase Total Protein Albumin Globulin Albumin/Globulin Ratio - Impressions Impression: diabetes htn afib dyslipidemia pacemaker gabriela on ckd with hyperkalemia infected foot ulcers with smell and leukocytosis altered mental status ivf medical management of hyperkalemia ab,dose for gfr< 25 cc/min renal sonogram hold lasix change pradaxa to elliquis in view of hyperkalemia suggest monitor technician u/o
[2017-01-10] MEDS: Piperacill/Tazo 2.25gm in Dex 50 ML IVPB SCH ×2 (17:42→22:26)
--- NOTE | 2017-01-10 17:43 | CP.PCM.PN ---
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 orellana consulted for worsening BUN/CR for foot ulcer- Dr. Johnson on board D/W Dr. Davenport- we will order bone scan r/o osteo Pt already on vanco and and Dr. Viktoria carreno on consult for further management will transfer patient to telemetry floor the above plan discussed with Dr. Octavia Beal Objective - Vital Signs/Intake and Output Vital Signs (last 24 hours): Temp Pulse Resp BP Pulse Ox 97.6 F 66 20 105/64 96 01/10/17 11:40 01/10/17 11:40 01/10/17 11:40 01/10/17 11:40 01/10/17 07:30 - Medications Medications: Current Medications Apixaban (Eliquis) 2.5 mg PO BID [facility] Aspirin (Aspirin) 325 mg PO DAILY [facility] Last Admin: 01/10/17 10:42 Dose: 325 mg Docusate Sodium (Colace) 100 mg PO BID [facility] Last Admin: 01/10/17 10:43 Dose: 100 mg Gabapentin (Neurontin) 100 mg PO TID PRN PRN Reason: Pain, moderate (4-7) Sodium Chloride (Sodium Chloride 0.9%) 1,000 mls @ 100 mls/hr IV .Q10H [facility] Stop: 01/11/17 08:14 Last Admin: 01/10/17 14:13 Dose: 100 mls/hr Piperacillin Sod/Tazobactam Sod (Zosyn 2.25 Gm Iv Premix) 50 mls @ 100 mls/hr IVPB Q6H [facility] Vancomycin/Sodium Chloride (Vancocin) 200 mls @ 133 mls/hr IVPB DAILY [facility] Stop: 01/16/17 10:01 Insulin Aspart (Novolog) 15 unit SC TIDAC [facility] Last Admin: 01/10/17 17:29 Dose: Not Given Insulin Glargine (Lantus) 25 unit SC HS [facility] Last Admin: 01/09/17 21:33 Dose: 25 units Mupirocin (Bactroban Ointment) 1 gm TOP BID [facility] Last Admin: 01/10/17 11:11 Dose: 1 applic Pantoprazole Sodium (Protonix Ec Tab) 40 mg PO DAILY [facility] Last Admin: 01/10/17 10:43 Dose: 40 mg Sodium Hypochlorite (Dakins Solution 0.125%) 0 appl TOP DAILY [facility] - Labs Labs: 01/10/17 14:38 01/10/17 14:26 PT 45.5 SECONDS (9.7-12.2) H* 01/09/17 16:20 INR 3.8 01/09/17 16:20 APTT 47 SECONDS (21-34) H 01/09/17 16:20
--- NOTE | 2017-01-10 18:12 | CP.PCM.PN ---
Subjective - Date & Time of Evaluation Date of Evaluation: 01/10/17 Time of Evaluation: 09:40 - Subjective Subjective: clinically same Objective - Vital Signs/Intake and Output Vital Signs (last 24 hours): Temp Pulse Resp BP Pulse Ox 98.1 F 60 20 118/57 L 94 L 01/10/17 15:05 01/10/17 15:05 01/10/17 15:05 01/10/17 15:05 01/10/17 15:05 Intake and Output: 01/10/17 01/10/17 06:59 18:59 Intake Total 500 Balance 500 - Medications Medications: Current Medications Apixaban (Eliquis) 2.5 mg PO BID [facility] Aspirin (Aspirin) 325 mg PO DAILY [facility] Last Admin: 01/10/17 10:42 Dose: 325 mg Docusate Sodium (Colace) 100 mg PO BID [facility] Last Admin: 01/10/17 10:43 Dose: 100 mg Gabapentin (Neurontin) 100 mg PO TID PRN PRN Reason: Pain, moderate (4-7) Sodium Chloride (Sodium Chloride 0.9%) 1,000 mls @ 100 mls/hr IV .Q10H [facility] Stop: 01/11/17 08:14 Last Admin: 01/10/17 14:13 Dose: 100 mls/hr Piperacillin Sod/Tazobactam Sod (Zosyn 2.25 Gm Iv Premix) 50 mls @ 100 mls/hr IVPB Q6H [facility] Last Admin: 01/10/17 17:42 Dose: 100 mls/hr Vancomycin/Sodium Chloride (Vancocin) 200 mls @ 133 mls/hr IVPB DAILY [facility] Stop: 01/16/17 10:01 Insulin Aspart (Novolog) 15 unit SC TIDAC [facility] Last Admin: 01/10/17 17:29 Dose: Not Given Insulin Glargine (Lantus) 25 unit SC HS [facility] Last Admin: 01/09/17 21:33 Dose: 25 units Mupirocin (Bactroban Ointment) 1 gm TOP BID [facility] Last Admin: 01/10/17 11:11 Dose: 1 applic Pantoprazole Sodium (Protonix Ec Tab) 40 mg PO DAILY [facility] Last Admin: 01/10/17 10:43 Dose: 40 mg Sodium Hypochlorite (Dakins Solution 0.125%) 0 appl TOP DAILY [facility] - Labs Labs: 03/29/17 14:38 01/10/17 14:26 PT 45.5 SECONDS (9.7-12.2) H* 01/09/17 16:20 INR 3.8 01/09/17 16:20 APTT 47 SECONDS (21-34) H 01/09/17 16:20 - Constitutional Appears: Well - Head Exam Head Exam: ATRAUMATIC, NORMAL INSPECTION, NORMOCEPHALIC - Eye Exam Eye Exam: EOMI, Normal appearance, PERRL Pupil Exam: NORMAL ACCOMODATION, PERRL - ENT Exam ENT Exam: Mucous Membranes Moist, Normal Exam - Neck Exam Neck Exam: Full ROM, Normal Inspection. absent: Lymphadenopathy - Respiratory Exam Respiratory Exam: Decreased Breath Sounds - Cardiovascular Exam Cardiovascular Exam: REGULAR RHYTHM, +S1, +S2 - GI/Abdominal Exam GI & Abdominal Exam: Soft, Diminished Bowel Sounds - Rectal Exam Rectal Exam: Deferred Assessment and Plan (1) Abdominal distension Status: Acute (2) Acute delirium Status: Acute (3) Acute respiratory failure Status: Acute (4) Acute respiratory failure with hypercapnia Status: Acute (5) Anemia Status: Acute (6) Bacteremia Status: Acute (7) CKD stage 4 due to type 2 diabetes mellitus Status: Acute (8) Cellulitis Status: Acute (9) Coagulopathy Status: Acute (10) Diabetic foot infection Status: Acute (11) Diabetic ulcer of both lower extremities Status: Acute (12) Hypernatremia Status: Acute (13) Leg ulcer Status: Acute (14) Leukocytosis Status: Acute (15) Paronychia of left thumb Status: Acute (16) Pneumonia Status: Acute (17) Prophylactic measure Status: Acute (18) Risk and functional assessment Status: Acute (19) Severe sepsis Status: Acute (20) Urinary dysfunction Status: Acute (21) Atrial fibrillation Status: Chronic (22) Atrial fibrillation with slow ventricular response Status: Chronic (23) DM2 (diabetes mellitus, type 2) Status: Chronic (24) HTN (hypertension) Status: Chronic (25) Pacemaker Status: Chronic - Assessment and Plan (Free Text) Plan: Follow-up with ID Follow-up with podiatry Wound care Aspirin Pradaxa Colace Lasix Neurontin Antibiotics Protonix
--- NOTE | 2017-01-10 18:56 | US ---
PROCEDURE: Ultrasound of the Kidneys HISTORY: acute kidney injury COMPARISON: None available. TECHNIQUE: Grayscale imaging was performed. FINDINGS: RIGHT KIDNEY: Enlarged and measures: 16.0 cm. Normal in size, contour with diffuse increased echogenicity. There are probable cortical calcifications. No stone, solid mass lesion or hydronephrosis visualized. There is a 2.8 x 1.7 x 2.9 cm cyst in the lower pole. LEFT KIDNEY: Enlarged and measures: 14.0 cm. Normal in size, contour with diffuse increased echogenicity. There are probable cortical calcifications. No stone, solid mass lesion or hydronephrosis visualized. OTHER FINDINGS: None. IMPRESSION: Bilateral enlarged kidneys and medical renal disease.
--- NOTE | 2017-01-10 19:32 | CP.PCM.CON ---
History of Present Illness - History of Present Illness History of Present Illness: 71 y/o male who presents complaining of worsening foot ulcers over the past couple of weeks. Patient overall is a poor historian regarding details about medical history. Patient states he has had the wounds for over a year. He states "nothing has made them better". He reports recent increase swelling. He denies much pain to the extremities. He does report numbness. He states they are foul smelling and per documentation have increased in drainage amount. Patient denies f/c. PMH: uncontrolled DM, diabetic foot ulcers w/ recurrent cellulitis, HTN, CHF PSH: knee arthroscopy, pacemaker Review of Systems - Constitutional Constitutional: As Per HPI - EENT Eyes: absent: As Per HPI, Blind Spots, Blurred Vision, Change in Vision, Decreased Night Vision, Diplopia, Discharge, Dry Eye, Exophthalmos, Floaters, Irritation, Itchy Eyes, Loss of Peripheral Vision, Pain, Photophobia, Requires Corrective Lenses, Sees Flashes, Spots in Vision, Tunnel Vision, Other Visual Disturbances, Loss of Vision, Other Ears: absent: As Per HPI, Decreased Hearing, Ear Discharge, Ear Pain, Tinnitus, Abnormal Hearing, Disequilibrium, Dizziness, Other Nose/Mouth/Throat: absent: As Per HPI, Epistaxis, Nasal Congestion, Nasal Discharge, Nasal Obstruction, Nasal Trauma, Nose Pain, Post Nasal Drip, Sinus Pain, Sinus Pressure, Bleeding Gums, Change in Voice, Dental Pain, Dry Mouth, Dysphagia, Halitosis, Hoarsness, Lip Swelling, Mouth Lesions, Mouth Pain, Odynophagia, Sore Throat, Throat Swelling, Tongue Swelling, Facial Pain, Neck Pain, Neck Mass, Other - Cardiovascular Cardiovascular: As Per HPI - Respiratory Respiratory: As Per HPI - Gastrointestinal Gastrointestinal: absent: As Per HPI, Abdominal Pain, Belching, Bloating, Change in Bowel Habits, Change in Stool Character, Coffee Ground Emesis, Constipation, Cramping, Diarrhea, Dyspepsia, Dysphagia, Early Satiety, Excessive Flatus, Fecal Incontinence, Heartburn, Hematemesis, Hematochezia, Loose Stools, Melena, Nausea, Odynophagia, Temesmus, Vomiting, Other - Genitourinary Genitourinary: absent: As Per HPI, Change in Urinary Stream, Difficulty Urinating, Dysuria, Flank Pain, Hematuria, Pyuria, Nocturia, Urinary Incontinence, Urinary Frequency, Urinary Hesitance, Urinary Urgency, Voiding Freq/Small Amts, Freq UTI, Hx Renal/Bladder Calculi, Hx /Renal Surgery, Bladder Distension, Other - Reproductive: Male Reproductive:Male: As Per HPI - Musculoskeletal Musculoskeletal: As Per HPI - Integumentary Integumentary: As Per HPI, Skin Pain, Wounds - Neurological Neurological: As Per HPI, Numbness - Psychiatric Psychiatric: absent: As Per HPI, Abnormal Sleep Pattern, Anhedonia, Anxiety, Auditory Hallucinations, Behavioral Changes, Change in Appetite, Change in Libido, Confusion, Depression, Difficulty Concentrating, Hallucinations, Homicidal Ideation, Hopelessness, Irritability, Memory Loss, Mood Swings, Panic Attacks, Paranoia, Suicidal Ideation, Visual Hallucinations, Tactile Hallucinations, Other - Endocrine Endocrine: absent: As Per HPI, Change in Body Appearance, Change in Libido, Cold Intolorance, Deepening of Voice, Excessive Sweating, Fatigue, Flushing, Heat Intolorance, Increase in Ring/Shoe/Hat Size, Palpitations, Polydipsia, Polyphagia, Polyuria, Other - Hematologic/Lymphatic Hematologic: absent: As Per HPI, Easy Bleeding, Easy Bruising, Lymphadenopathy, Other Past Patient History - Infectious Disease Hx of Infectious Diseases: None - Past Medical History & Family History Past Medical History?: Yes - Past Social History Smoking Status: Never Smoked - CARDIAC Hx Cardiac Disorders: Yes Hx Atrial Fibrillation: Yes Hx Hypercholesterolemia: Yes Hx Hypertension: Yes - PULMONARY Hx Respiratory Disorders: No - NEUROLOGICAL Hx Neurological Disorder: No - HEENT Hx HEENT Problems: Yes Other/Comment: hard of hearing - RENAL Hx Chronic Kidney Disease: Yes - ENDOCRINE/METABOLIC Hx Endocrine Disorders: Yes Hx Diabetes Mellitus Type 2: Yes - HEMATOLOGICAL/ONCOLOGICAL Hx Blood Disorders: No - INTEGUMENTARY Hx Dermatological Problems: Yes Hx Cellulitis: Yes (BLE) Other/Comment: Diabetic foot ulcers - MUSCULOSKELETAL/RHEUMATOLOGICAL Hx Falls: No - GASTROINTESTINAL Hx Gastrointestinal Disorders: No - GENITOURINARY/GYNECOLOGICAL Hx Genitourinary Disorders: No - PSYCHIATRIC Hx Substance Use: No - SURGICAL HISTORY Hx Surgeries: Yes Hx Orthopedic Surgery: Yes (right knee sx) Other/Comment: hernia repair - ANESTHESIA Hx Anesthesia: Yes Hx Anesthesia Reactions: No Hx Malignant Hyperthermia: No Has any member of the family had a problem w/ anesthesia?: No Meds Allergies/Adverse Reactions: Allergies Allergy/AdvReac Type Severity Reaction Status Date / Time No Known Allergies Allergy Verified 01/09/17 14:55 - Medications Medications: Current Medications Apixaban (Eliquis) 2.5 mg PO BID [facility] Aspirin (Aspirin) 325 mg PO DAILY [facility] Last Admin: 01/10/17 10:42 Dose: 325 mg Docusate Sodium (Colace) 100 mg PO BID [facility] Last Admin: 01/10/17 10:43 Dose: 100 mg Gabapentin (Neurontin) 100 mg PO TID PRN PRN Reason: Pain, moderate (4-7) Sodium Chloride (Sodium Chloride 0.9%) 1,000 mls @ 100 mls/hr IV .Q10H [facility] Stop: 01/11/17 08:14 Last Admin: 01/10/17 14:13 Dose: 100 mls/hr Piperacillin Sod/Tazobactam Sod (Zosyn 2.25 Gm Iv Premix) 50 mls @ 100 mls/hr IVPB Q6H [facility] Last Admin: 01/10/17 17:42 Dose: 100 mls/hr Vancomycin/Sodium Chloride (Vancocin) 200 mls @ 133 mls/hr IVPB DAILY [facility] Stop: 01/16/17 10:01 Insulin Aspart (Novolog) 15 unit SC TIDAC [facility] Last Admin: 01/10/17 17:29 Dose: Not Given Insulin Glargine (Lantus) 25 unit SC HS [facility] Last Admin: 01/09/17 21:33 Dose: 25 units Mupirocin (Bactroban Ointment) 1 gm TOP BID [facility] Last Admin: 01/10/17 11:11 Dose: 1 applic Pantoprazole Sodium (Protonix Ec Tab) 40 mg PO DAILY [facility] Last Admin: 01/10/17 10:43 Dose: 40 mg Sodium Hypochlorite (Dakins Solution 0.125%) 0 appl TOP DAILY [facility] Physical Exam - Constitutional Appears: Toxic, Chronically Ill - Head Exam Head Exam: NORMOCEPHALIC - Eye Exam Eye Exam: PERRL. absent: Scleral icterus - ENT Exam ENT Exam: Mucous Membranes Dry, Normal External Ear Exam, Normal Oropharynx - Neck Exam Neck exam: Negative for: Lymphadenopathy, Thyromegaly - Respiratory Exam Respiratory Exam: Decreased Breath Sounds, Rhonchi - Cardiovascular Exam Cardiovascular Exam: REGULAR RHYTHM, +S1, +S2 - GI/Abdominal Exam GI & Abdominal Exam: Distended, Soft. absent: Tenderness - Rectal Exam Rectal Exam: Deferred - Exam Exam: NORMAL INSPECTION - Extremities Exam Extremities exam: Positive for: pedal edema, tenderness. Negative for: calf tenderness, pedal pulses present Additional comments: multiple wounds extending from feet to mid winkler bilaterally. Cellulitic skin changes L>R. palpable popliteal pulses bilaterally. DP not palpated. - Back Exam Back exam: absent: CVA tenderness (L), CVA tenderness (R) - Neurological Exam Neurological exam: Alert, CN II-XII Intact, Oriented x3, Reflexes Normal - Psychiatric Exam Psychiatric exam: Normal Mood - Skin Skin Exam: Dry Results - Vital Signs Recent Vital Signs: Last Vital Signs Temp 98.1 F 01/10/17 18:00 Pulse 61 01/10/17 18:00 Resp 21 01/10/17 18:00 BP 113/63 01/10/17 18:00 Pulse Ox 96 01/10/17 18:00 - Labs Result Diagrams: 01/10/17 14:38 01/10/17 14:26 Labs: Laboratory Results - last 24 hr 01/09/17 01/10/17 01/10/17 21:31 01:22 07:21 WBC RBC Hgb Hct MCV MCH MCHC RDW Plt Count MPV Neut % (Auto) Lymph % (Auto) Potter % (Auto) Eos % (Auto) Baso % (Auto) Neut # Lymph # Potter # Eos # Baso # Neutrophils % (Manual) Lymphocytes % (Manual) Monocytes % (Manual) Platelet Estimate Polychromasia Hypochromasia (manual) Anisocytosis (manual) Ovalocytes Flushing Cells Sodium Potassium Chloride Carbon Dioxide Anion Gap BUN Creatinine Est GFR ( Amer) Est GFR (Non-Af Amer) POC Glucose (mg/dL) 99 88 78 Random Glucose Lactic Acid Calcium Total Bilirubin AST ALT Alkaline Phosphatase Total Protein Albumin Globulin Albumin/Globulin Ratio 01/10/17 01/10/17 01/10/17 11:16 14:21 14:26 WBC RBC Hgb Hct MCV MCH MCHC RDW Plt Count MPV Neut % (Auto) Lymph % (Auto) Potter % (Auto) Eos % (Auto) Baso % (Auto) Neut # Lymph # Potter # Eos # Baso # Neutrophils % (Manual) Lymphocytes % (Manual) Monocytes % (Manual) Platelet Estimate Polychromasia Hypochromasia (manual) Anisocytosis (manual) Ovalocytes Flushing Cells Sodium 131 L Potassium 6.0 H Chloride 95 L Carbon Dioxide 20 L Anion Gap 22 H BUN 113 H* Creatinine 3.1 H Est GFR ( Amer) 24 Est GFR (Non-Af Amer) 20 POC Glucose (mg/dL) 102 Random Glucose 82 Lactic Acid 1.1 Calcium 8.2 L Total Bilirubin 2.0 H AST 52 ALT 28 Alkaline Phosphatase 253 H Total Protein 7.0 Albumin 2.8 L Globulin 4.2 H Albumin/Globulin Ratio 0.7 L 01/10/17 01/10/17 14:38 16:27 WBC 33.6 H RBC 4.10 L Hgb 10.6 L Hct 32.9 L MCV 80.1 MCH 25.7 L MCHC 32.1 L RDW 16.1 H Plt Count 393 MPV 7.8 Neut % (Auto) 95.0 H Lymph % (Auto) 2.0 L Potter % (Auto) 2.3 Eos % (Auto) 0.3 Baso % (Auto) 0.4 Neut # 31.9 H Lymph # 0.7 L Potter # 0.8 Eos # 0.1 Baso # 0.1 Neutrophils % (Manual) 97 H Lymphocytes % (Manual) 1 L Monocytes % (Manual) 2 Platelet Estimate Normal Polychromasia Slight Hypochromasia (manual) Slight Anisocytosis (manual) Slight Ovalocytes Slight Flushing Cells Slight Sodium Potassium Chloride Carbon Dioxide Anion Gap BUN Creatinine Est GFR ( Amer) Est GFR (Non-Af Amer) POC Glucose (mg/dL) 80 Random Glucose Lactic Acid Calcium Total Bilirubin AST ALT Alkaline Phosphatase Total Protein Albumin Globulin Albumin/Globulin Ratio Assessment & Plan (1) Acute renal failure Status: Acute (2) Diabetic foot infection Status: Acute (3) Diabetic ulcer of both lower extremities Status: Acute (4) Leukocytosis Status: Acute (5) ARSENIO (acute kidney injury) Status: Acute (6) Abdominal distension Status: Acute (7) Atrial fibrillation with slow ventricular response Status: Acute (8) Cellulitis Status: Acute - Assessment and Plan (Free Text) Assessment: await cultures cont iv rx podiatry and vascular and renal eval
[2017-01-10 20:05] LABS: POTASSIUM 5.9 mmol/L (3.6-5.2)
[2017-01-10 20:08] LABS: CALCIUM 7.9 mg/dl (8.6-10.4)
[2017-01-10] MEDS: (Lantus) Insulin Glargine, Recombinant SC SCH (22:02)
[2017-01-11] MEDS: Sodium Chloride 0.9% 1,000 ML IV SCH (03:30)
[2017-01-11] MEDS: Piperacill/Tazo 2.25gm in Dex 50 ML IVPB SCH ×3 (04:52→18:38)
[2017-01-11 07:26] LABS: RBC URINE 457 /hpf (0-3); URINE BACTERIA RARE (<OCC); URINE BILIRUBIN NEGATIVE (NEGATIVE); URINE BLOOD 3+ (NEGATIVE); URINE COLOR Yellow (YELLOW); URINE GLUCOSE (UA) NORMAL (Normal); URINE KETONE NEGATIVE (NEGATIVE); URINE LEUKOCYTE ESTERASE 1+ Leu/uL (Negative); URINE PROTEIN NEGATIVE (NEGATIVE); URINE UROBILINOGEN NORMAL mg/dL (0.2-1.0); WBC URINE 13 /hpf (0-5)
--- NOTE | 2017-01-11 08:28 | CP.PCM.PN ---
Subjective - Date & Time of Evaluation Date of Evaluation: 01/11/17 Time of Evaluation: 08:26 - Subjective Subjective: PGY-1 note for General Surgery, Dr. Granger Pt S&E. He is awake but confused and disoriented. He reports continued mild pain and numbness in his extremities. Pt asking for mittens to be removed. Objective - Vital Signs/Intake and Output Vital Signs (last 24 hours): Temp Pulse Resp BP Pulse Ox 98.1 F 60 20 104/57 L 96 01/11/17 00:00 01/11/17 04:06 01/11/17 00:00 01/11/17 00:00 01/11/17 00:00 Intake and Output: 01/11/17 01/11/17 06:59 18:59 Intake Total 960 Balance 960 - Medications Medications: Current Medications Apixaban (Eliquis) 2.5 mg PO BID [facility] Last Admin: 01/10/17 18:00 Dose: Not Given Aspirin (Aspirin) 325 mg PO DAILY [facility] Last Admin: 01/10/17 10:42 Dose: 325 mg Docusate Sodium (Colace) 100 mg PO BID [facility] Last Admin: 01/10/17 18:00 Dose: Not Given Gabapentin (Neurontin) 100 mg PO TID PRN PRN Reason: Pain, moderate (4-7) Piperacillin Sod/Tazobactam Sod (Zosyn 2.25 Gm Iv Premix) 50 mls @ 100 mls/hr IVPB Q6H [facility] Last Admin: 01/11/17 04:52 Dose: 100 mls/hr Vancomycin/Sodium Chloride (Vancocin) 200 mls @ 133 mls/hr IVPB DAILY [facility] Stop: 01/16/17 10:01 Insulin Aspart (Novolog) 15 unit SC TIDAC [facility] Last Admin: 01/10/17 17:29 Dose: Not Given Insulin Glargine (Lantus) 25 unit SC HS [facility] Last Admin: 01/10/17 22:02 Dose: 25 units Mupirocin (Bactroban Ointment) 1 gm TOP BID [facility] Last Admin: 01/10/17 18:02 Dose: Not Given Pantoprazole Sodium (Protonix Ec Tab) 40 mg PO DAILY [facility] Last Admin: 01/10/17 10:43 Dose: 40 mg Sodium Hypochlorite (Dakins Solution 0.125%) 0 appl TOP DAILY [facility] - Labs Labs: 01/10/17 14:38 01/10/17 19:49 PT 45.5 SECONDS (9.7-12.2) H* 01/09/17 16:20 INR 3.8 01/09/17 16:20 APTT 47 SECONDS (21-34) H 01/09/17 16:20 - Head Exam Head Exam: ATRAUMATIC, NORMOCEPHALIC - Eye Exam Eye Exam: EOMI Pupil Exam: PERRL - ENT Exam ENT Exam: Mucous Membranes Moist - Respiratory Exam Respiratory Exam: NORMAL BREATHING PATTERN. absent: Respiratory Distress - GI/Abdominal Exam GI & Abdominal Exam: Soft, Normal Bowel Sounds - Extremities Exam Additional comments: multiple wounds extending from feet to mid winkler bilaterally. Cellulitic skin changes L>R. TTP appreciated - Neurological Exam Neurological Exam: Alert, Oriented x3 - Skin Skin Exam: Normal Color, Warm Assessment and Plan - Assessment and Plan (Free Text) Assessment: Please elevate affected extremities Dressing changes/wound care per podiatry recs Arterial duplex: No evidence of hemodynamically significant arterial insufficiency. Cont abx f/u podiatry consult may need further imaging to evaluate extent of PVD medical management per primary Surgical team d/w Dr. Elkin Underwood, PGY-1
[2017-01-11] MEDS: (Novolog) Insulin Aspart, Recombinant 100 u/ml 10 ml vial SC SCH ×4 (08:30→22:34)
[2017-01-11] MEDS ORDERED: Vancomycin 1 gm/NS 200 ml 200 ML IVPB SCH (10:00)
--- NOTE | 2017-01-11 10:11 | CP.PCM.PN ---
Subjective - Date & Time of Evaluation Date of Evaluation: 01/11/17 Time of Evaluation: 10:09 - Subjective Subjective: Remains obtunded; cannot provide information Renal function about same; K remains elevated Both LEs wounds bandaged- on wound care and IV ABs for diabetic foot wounds Renal US- large echogenic kidneys c/w CKD Objective - Vital Signs/Intake and Output Vital Signs (last 24 hours): Temp Pulse Resp BP Pulse Ox 97.4 F L 60 18 105/63 97 01/11/17 08:00 01/11/17 08:00 01/11/17 08:00 01/11/17 08:00 01/11/17 08:00 Intake and Output: 01/11/17 01/11/17 06:59 18:59 Intake Total 960 Balance 960 - Medications Medications: Current Medications Apixaban (Eliquis) 2.5 mg PO BID [facility] Last Admin: 01/10/17 18:00 Dose: Not Given Aspirin (Aspirin) 325 mg PO DAILY [facility] Last Admin: 01/10/17 10:42 Dose: 325 mg Docusate Sodium (Colace) 100 mg PO BID [facility] Last Admin: 01/10/17 18:00 Dose: Not Given Gabapentin (Neurontin) 100 mg PO TID PRN PRN Reason: Pain, moderate (4-7) Piperacillin Sod/Tazobactam Sod (Zosyn 2.25 Gm Iv Premix) 50 mls @ 100 mls/hr IVPB Q6H [facility] Last Admin: 01/11/17 04:52 Dose: 100 mls/hr Vancomycin/Sodium Chloride (Vancocin) 200 mls @ 133 mls/hr IVPB DAILY [facility] Stop: 01/16/17 10:01 Insulin Aspart (Novolog) 15 unit SC TIDAC [facility] Last Admin: 01/10/17 17:29 Dose: Not Given Insulin Glargine (Lantus) 25 unit SC HS [facility] Last Admin: 01/10/17 22:02 Dose: 25 units Mupirocin (Bactroban Ointment) 1 gm TOP BID [facility] Last Admin: 01/10/17 18:02 Dose: Not Given Pantoprazole Sodium (Protonix Ec Tab) 40 mg PO DAILY [facility] Last Admin: 01/10/17 10:43 Dose: 40 mg Sodium Hypochlorite (Dakins Solution 0.125%) 0 appl TOP DAILY [facility] - Labs Labs: 01/10/17 14:38 01/10/17 19:49 PT 45.5 SECONDS (9.7-12.2) H* 01/09/17 16:20 INR 3.8 01/09/17 16:20 APTT 47 SECONDS (21-34) H 01/09/17 16:20 - Constitutional Appears: Confused, Chronically Ill - Head Exam Head Exam: ATRAUMATIC, NORMAL INSPECTION - Neck Exam Neck Exam: Normal Inspection. absent: Tenderness - Respiratory Exam Respiratory Exam: Decreased Breath Sounds, Clear to Ausculation Bilateral - Cardiovascular Exam Cardiovascular Exam: REGULAR RHYTHM, +S1 - GI/Abdominal Exam GI & Abdominal Exam: Soft. absent: Tenderness - Extremities Exam Extremities Exam: Pedal Edema, Tenderness - Neurological Exam Neurological Exam: Altered, CN II-XII Intact - Skin Skin Exam: Dry, Warm Assessment and Plan (1) Acute renal failure Status: Acute (2) Diabetic ulcer of both lower extremities Status: Acute (3) ARSENIO (acute kidney injury) Status: Acute (4) Atrial fibrillation with slow ventricular response Status: Acute (5) Cellulitis Status: Acute (6) DM2 (diabetes mellitus, type 2) Status: Acute (7) HTN (hypertension) Status: Acute (8) CKD stage 4 due to type 2 diabetes mellitus Status: Acute - Assessment and Plan (Free Text) Plan: Trial IV saline Serial chemistries, check phos, PTH Recheck for proteinuria Wound care / IV ABs for diabetic foot wounds
[2017-01-11] MEDS ORDERED: Sodium Chloride 0.9% 1,000 ML IV SCH (10:15)
--- NOTE | 2017-01-11 10:38 | CP.PCM.PN ---
Subjective - Date & Time of Evaluation Date of Evaluation: 01/11/17 Time of Evaluation: 15:00 - Subjective Subjective: 71 y/o male seen at bedside concerning worsening Bilateral foot and leg ulcers. He denies passive pain to the extremities due to his neuropathy. Pt denies recent f/c/n/v/cp/sob. Pt has no other pedal complaints. Pt more compliant this AM with podiatry service. Objective - Vital Signs/Intake and Output Vital Signs (last 24 hours): Temp Pulse Resp BP Pulse Ox 97.4 F L 60 18 105/63 97 01/11/17 08:00 01/11/17 08:00 01/11/17 08:00 01/11/17 08:00 01/11/17 08:00 Intake and Output: 01/11/17 01/11/17 06:59 18:59 Intake Total 960 Balance 960 - Medications Medications: Current Medications Apixaban (Eliquis) 2.5 mg PO BID [facility] Last Admin: 01/10/17 18:00 Dose: Not Given Aspirin (Aspirin) 325 mg PO DAILY [facility] Last Admin: 01/10/17 10:42 Dose: 325 mg Docusate Sodium (Colace) 100 mg PO BID [facility] Last Admin: 01/10/17 18:00 Dose: Not Given Gabapentin (Neurontin) 100 mg PO TID PRN PRN Reason: Pain, moderate (4-7) Piperacillin Sod/Tazobactam Sod (Zosyn 2.25 Gm Iv Premix) 50 mls @ 100 mls/hr IVPB Q6H [facility] Last Admin: 01/11/17 04:52 Dose: 100 mls/hr Vancomycin/Sodium Chloride (Vancocin) 200 mls @ 133 mls/hr IVPB DAILY [facility] Stop: 01/16/17 10:01 Sodium Chloride (Sodium Chloride 0.9%) 1,000 mls @ 75 mls/hr IV .[id number] [facility] Insulin Aspart (Novolog) 15 unit SC TIDAC [facility] Last Admin: 01/10/17 17:29 Dose: Not Given Insulin Glargine (Lantus) 25 unit SC HS [facility] Last Admin: 01/10/17 22:02 Dose: 25 units Mupirocin (Bactroban Ointment) 1 gm TOP BID [facility] Last Admin: 03/29/17 18:02 Dose: Not Given Pantoprazole Sodium (Protonix Ec Tab) 40 mg PO DAILY [facility] Last Admin: 01/10/17 10:43 Dose: 40 mg Sodium Hypochlorite (Dakins Solution 0.125%) 0 appl TOP DAILY [facility] - Labs Labs: 01/10/17 14:38 01/10/17 19:49 PT 45.5 SECONDS (9.7-12.2) H* 01/09/17 16:20 INR 3.8 01/09/17 16:20 APTT 47 SECONDS (21-34) H 01/09/17 16:20 - Constitutional Appears: Well, Non-toxic, No Acute Distress - Extremities Exam Additional comments: Lower extremity focused. DERM: Heavy [id number] present bilaterally, with active drainage noted bilaterally. Diffuse continuous erythema noted bilaterally extending distally from level of proximal 1/3 of legs, bilaterally. No interdigital maceratin or hyperkeratotic lesion noted bilaterally. Right: Lateral leg partial thickness ulceration measuring 7.5 x 6 cm with a 60% fibrotic to 40% granular wound base. Absent undermining margins. Heel necrotic eschar with active weeping drainage from posterior margin noted. Eschar measures 6.5 x 7 cm. 5 cm lateral magin fibrotic plaque extension noted. Left: Medial 1st metatarsal head region full thickness ulceration measuring 2 x 1.9 cm with 100% fibrotic base absent undermining margins. Fluctuant necrotic heel eschar with active weeping drainage from posterior margin noted. Eschar measures 9 x 7.8 cm. Lateral leg full thickness ulceration measuring 13 x 7 cm with a 80% fibrotic to 20% necrotic base. VASC: DP and PT pulses non-palpable secondary to non-pitting edema. Absent pedal hair growth. Negative Homann and Talbot's signs bilaterally. Cappilarry refill time <5 seconds to digits. NERUO: Sensation grossly diminished distal to ankle joint bilaterally. Ortho: No gross deformities noted. Largely deferred to to patients refusal to participate. - Neurological Exam Neurological Exam: Alert, Awake, Oriented x3 - Psychiatric Exam Psychiatric exam: Normal Affect, Normal Mood Assessment and Plan - Assessment and Plan (Free Text) Assessment: 71 year old male with infected bilateral lower extremity wounds and cellulits. 3 total Gottlieb grade 2 ulcerations & 2 total non-stagable ulcerations to heels bilaterally, all secondary to diabetic neuropathy. Plan: Pt evaluated and treated. Charts, labs, and vitals reviewed. Leukocytosis noted. Discussed with attending, Dr. Davenport. Cleansed wound sites with sterile saline. Dressed wound sites w/ 10/18 Strength Dakins Solution wet-to-dry- dressing and DSD. Pt unable to obtain MRI due to pacemaker. Bone scan bilaterally negative for OM. Wound culture results-pending. Continue IV abx per ID. Vascular recommending potential knee level amputation. Podiatry will continue to follow patient while inhouse.
[2017-01-11] MEDS: Pantoprazole 40 mg EC Tab PO SCH (11:00)
[2017-01-11 11:12] LABS: BASO # 0.2 K/uL (0.0-0.2); BASO % 0.6 % (0.0-2.0); EOS # 0.1 K/uL (0.0-0.7); EOS % 0.4 % (0.0-4.0); HEMATOCRIT 31.7 % (35.0-51.0); LYMPH # 0.9 K/uL (1.0-4.3); LYMPH % 2.8 % (20.0-40.0); MEAN CELL VOLUME 80.7 fL (80.0-94.0); MEAN CORPUSCULAR HEMOGLOBIN 25.6 pg (27.0-31.0); MEAN CORPUSCULAR HGB CONC 31.7 g/dL (33.0-37.0); MEAN PLATELET VOLUME 7.4 fL (7.2-11.7); MONO % 3.1 % (0.0-10.0); PLATELET COUNT 360 K/uL (130-400); RED CELL DISTRIBUTION WIDTH 16.2 % (11.5-14.5); WHITE BLOOD COUNT 31.1 K/uL (4.8-10.8)
[2017-01-11 11:20] LABS: POTASSIUM 5.6 mmol/L (3.6-5.2)
[2017-01-11 11:23] LABS: ALB/GLOB RATIO 0.6 (1.0-2.1); BILIRUBIN,TOTAL 1.6 mg/dL (0.2-1.3); CALCIUM 8.1 mg/dl (8.6-10.4)
[2017-01-11 11:44] LABS: NEUTROPHIL 94 % (50-75); TOTAL CELLS COUNTED 100
--- NOTE | 2017-01-11 12:07 | CP.PCM.PN ---
Subjective - Date & Time of Evaluation Date of Evaluation: 01/11/17 Time of Evaluation: 12:00 - Subjective Subjective: clinically same Objective - Vital Signs/Intake and Output Vital Signs (last 24 hours): Temp Pulse Resp BP Pulse Ox 97.4 F L 60 18 105/63 97 01/11/17 08:00 01/11/17 08:00 01/11/17 08:00 01/11/17 08:00 01/11/17 08:00 Intake and Output: 01/11/17 01/11/17 06:59 18:59 Intake Total 960 Balance 960 - Medications Medications: Current Medications Apixaban (Eliquis) 2.5 mg PO BID [facility] Last Admin: 01/11/17 11:00 Dose: 2.5 mg Aspirin (Aspirin) 325 mg PO DAILY [facility] Last Admin: 01/11/17 11:00 Dose: 325 mg Docusate Sodium (Colace) 100 mg PO BID [facility] Last Admin: 01/11/17 11:00 Dose: 100 mg Gabapentin (Neurontin) 100 mg PO TID PRN PRN Reason: Pain, moderate (4-7) Piperacillin Sod/Tazobactam Sod (Zosyn 2.25 Gm Iv Premix) 50 mls @ 100 mls/hr IVPB Q6H [facility] Last Admin: 01/11/17 04:52 Dose: 100 mls/hr Vancomycin/Sodium Chloride (Vancocin) 200 mls @ 133 mls/hr IVPB DAILY [facility] Stop: 01/16/17 10:01 Last Admin: 01/11/17 11:00 Dose: 133 mls/hr Sodium Chloride (Sodium Chloride 0.9%) 1,000 mls @ 75 mls/hr IV .[id number] [facility] Last Admin: 01/11/17 10:00 Dose: 75 mls/hr Insulin Aspart (Novolog) 15 unit SC TIDAC [facility] Last Admin: 01/11/17 11:38 Dose: Not Given Insulin Glargine (Lantus) 25 unit SC HS [facility] Last Admin: 01/10/17 22:02 Dose: 25 units Mupirocin (Bactroban Ointment) 1 gm TOP BID [facility] Last Admin: 01/11/17 11:00 Dose: 1 applic Pantoprazole Sodium (Protonix Ec Tab) 40 mg PO DAILY [facility] Last Admin: 01/11/17 11:00 Dose: 40 mg Sodium Hypochlorite (Dakins Solution 0.125%) 0 appl TOP DAILY [facility] - Labs Labs: 01/11/17 11:04 01/11/17 11:04 PT 45.5 SECONDS (9.7-12.2) H* 01/09/17 16:20 INR 3.8 01/09/17 16:20 APTT 47 SECONDS (21-34) H 01/09/17 16:20 - Constitutional Appears: Well - Head Exam Head Exam: ATRAUMATIC, NORMAL INSPECTION, NORMOCEPHALIC - Eye Exam Eye Exam: EOMI, Normal appearance, PERRL Pupil Exam: NORMAL ACCOMODATION, PERRL - ENT Exam ENT Exam: Mucous Membranes Moist, Normal Exam - Neck Exam Neck Exam: Full ROM, Normal Inspection. absent: Lymphadenopathy - Respiratory Exam Respiratory Exam: Decreased Breath Sounds - Cardiovascular Exam Cardiovascular Exam: REGULAR RHYTHM, +S1, +S2 - GI/Abdominal Exam GI & Abdominal Exam: Soft, Diminished Bowel Sounds - Rectal Exam Rectal Exam: Deferred Assessment and Plan - Assessment and Plan (Free Text) Plan: tried to reach family as per nurse they were there for 15 to 20 min pt is refuses lot of thinkgs and wound with foul smelling seen by foot vascular md dr. orellana for renalfailrue pt has some uri retention robert as ordered will order ivb fluid and megace for apatite tried to reach on [phone] no which si disconnected and then called [phone] area no which says they dont know anybody name by bernice..thanks
--- NOTE | 2017-01-11 14:07 | NM ---
PROCEDURE: Three-phase bone scan HISTORY: Infected diabetic ulcers bilateral lower extremities. Anatomic area of interest: Left foot. COMPARISON: 03/27/2016 three-phase bone scan. Summary of findings on the comparison examination: Osteomyelitis left great toe TECHNIQUE: Radionuclide dose: 24.2 Tc99m MDP Site of administration: Right upper extremity Technique: Three-phase FINDINGS: Flow component: Symmetrical flow/profusion visualize lower extremity/feet Blood pool component: No focal accumulation of radionuclide visualized osseous structures including distal tibia and fibula/ankles and feet. Delayed images at 3:00: Degenerative changes both knees and feet. IMPRESSION: Negative study for acute osseous process. Specifically no evidence to suggest acute osteomyelitis left foot. Findings on the left 1st toe apparent on the prior study 03/27/2016 have resolved.
[2017-01-11 14:43] LABS: RBC URINE 852 /hpf (0-3); URINE BILIRUBIN NEGATIVE (NEGATIVE); URINE BLOOD 3+ (NEGATIVE); URINE COLOR Amber (YELLOW); URINE GLUCOSE (UA) NORMAL (Normal); URINE KETONE NEGATIVE (NEGATIVE); URINE LEUKOCYTE ESTERASE TRACE Leu/uL (Negative); URINE PROTEIN NEGATIVE (NEGATIVE); URINE UROBILINOGEN NORMAL mg/dL (0.2-1.0); WBC URINE 32 /hpf (0-5)
--- NOTE | 2017-01-11 15:41 | CP.PCM.PN ---
Subjective - Date & Time of Evaluation Date of Evaluation: 01/11/17 Time of Evaluation: 15:40 - Subjective Subjective: amputation may be safest treatment for patient Objective - Vital Signs/Intake and Output Vital Signs (last 24 hours): Temp Pulse Resp BP Pulse Ox 97.4 F L 60 18 105/63 97 01/11/17 08:00 01/11/17 15:20 01/11/17 08:00 01/11/17 08:00 01/11/17 08:00 Intake and Output: 01/11/17 01/11/17 06:59 18:59 Intake Total 960 Balance 960 - Medications Medications: Current Medications Apixaban (Eliquis) 2.5 mg PO BID [facility] Last Admin: 01/11/17 11:00 Dose: 2.5 mg Aspirin (Aspirin) 325 mg PO DAILY [facility] Last Admin: 01/11/17 11:00 Dose: 325 mg Docusate Sodium (Colace) 100 mg PO BID [facility] Last Admin: 01/11/17 11:00 Dose: 100 mg Gabapentin (Neurontin) 100 mg PO TID PRN PRN Reason: Pain, moderate (4-7) Piperacillin Sod/Tazobactam Sod (Zosyn 2.25 Gm Iv Premix) 50 mls @ 100 mls/hr IVPB Q6H [facility] Last Admin: 01/11/17 13:00 Dose: 100 mls/hr Vancomycin/Sodium Chloride (Vancocin) 200 mls @ 133 mls/hr IVPB DAILY [facility] Stop: 01/16/17 10:01 Last Admin: 01/11/17 11:00 Dose: 133 mls/hr Sodium Chloride (Sodium Chloride 0.9%) 1,000 mls @ 75 mls/hr IV .[id number] [facility] Last Admin: 01/11/17 10:00 Dose: 75 mls/hr Insulin Aspart (Novolog) 15 unit SC TIDAC [facility] Last Admin: 01/11/17 11:38 Dose: Not Given Insulin Glargine (Lantus) 25 unit SC HS [facility] Last Admin: 01/10/17 22:02 Dose: 25 units Mupirocin (Bactroban Ointment) 1 gm TOP BID [facility] Last Admin: 01/11/17 11:00 Dose: 1 applic Pantoprazole Sodium (Protonix Ec Tab) 40 mg PO DAILY [facility] Last Admin: 01/11/17 11:00 Dose: 40 mg Sodium Hypochlorite (Dakins Solution 0.125%) 0 appl TOP DAILY [facility] - Labs Labs: 01/11/17 11:04 01/11/17 11:04 PT 45.5 SECONDS (9.7-12.2) H* 01/09/17 16:20 INR 3.8 01/09/17 16:20 APTT 47 SECONDS (21-34) H 01/09/17 16:20
--- NOTE | 2017-01-11 18:42 | CP.PCM.PN ---
Subjective - Date & Time of Evaluation Date of Evaluation: 01/11/17 Time of Evaluation: 07:00 - Subjective Subjective: seen by Vascular IV rx in progress wbc trending down discussed with dr salguero Objective - Vital Signs/Intake and Output Vital Signs (last 24 hours): Temp Pulse Resp BP Pulse Ox 97.8 F 61 20 115/58 L 96 01/11/17 15:54 01/11/17 15:54 01/11/17 15:54 01/11/17 15:54 01/11/17 15:54 Intake and Output: 01/11/17 01/11/17 06:59 18:59 Intake Total 960 Balance 960 - Medications Medications: Current Medications Apixaban (Eliquis) 2.5 mg PO BID [facility] Last Admin: 01/11/17 18:05 Dose: Not Given Aspirin (Aspirin) 325 mg PO DAILY [facility] Last Admin: 01/11/17 11:00 Dose: 325 mg Docusate Sodium (Colace) 100 mg PO BID [facility] Last Admin: 01/11/17 11:00 Dose: 100 mg Gabapentin (Neurontin) 100 mg PO TID PRN PRN Reason: Pain, moderate (4-7) Piperacillin Sod/Tazobactam Sod (Zosyn 2.25 Gm Iv Premix) 50 mls @ 100 mls/hr IVPB Q6H [facility] Last Admin: 01/11/17 18:38 Dose: 100 mls/hr Vancomycin/Sodium Chloride (Vancocin) 200 mls @ 133 mls/hr IVPB DAILY [facility] Stop: 01/16/17 10:01 Last Admin: 01/11/17 11:00 Dose: 133 mls/hr Sodium Chloride (Sodium Chloride 0.9%) 1,000 mls @ 75 mls/hr IV .[id number] [facility] Last Admin: 01/11/17 10:00 Dose: 75 mls/hr Insulin Aspart (Novolog) 15 unit SC TIDAC [facility] Last Admin: 01/11/17 17:59 Dose: 15 unit Insulin Glargine (Lantus) 25 unit SC HS [facility] Last Admin: 01/10/17 22:02 Dose: 25 units Mupirocin (Bactroban Ointment) 1 gm TOP BID [facility] Last Admin: 01/11/17 18:03 Dose: 1 applic Pantoprazole Sodium (Protonix Ec Tab) 40 mg PO DAILY [facility] Last Admin: 01/11/17 11:00 Dose: 40 mg Sodium Hypochlorite (Dakins Solution 0.125%) 0 appl TOP DAILY [facility] - Labs Labs: 01/11/17 11:04 01/11/17 11:04 PT 45.5 SECONDS (9.7-12.2) H* 01/09/17 16:20 INR 3.8 01/09/17 16:20 APTT 47 SECONDS (21-34) H 01/09/17 16:20 - Constitutional Appears: Non-toxic, Chronically Ill - Head Exam Head Exam: NORMOCEPHALIC - Eye Exam Eye Exam: absent: Scleral icterus - ENT Exam ENT Exam: Mucous Membranes Dry - Neck Exam Neck Exam: absent: Lymphadenopathy - Respiratory Exam Respiratory Exam: Decreased Breath Sounds, Clear to Ausculation Bilateral - Cardiovascular Exam Cardiovascular Exam: REGULAR RHYTHM - GI/Abdominal Exam GI & Abdominal Exam: Distended, Soft. absent: Tenderness - Rectal Exam Rectal Exam: Deferred - Exam Exam: NORMAL INSPECTION Assessment and Plan (1) Acute renal failure Status: Acute (2) Diabetic foot infection Status: Acute (3) Diabetic ulcer of both lower extremities Status: Acute (4) Leukocytosis Status: Acute (5) ARSENIO (acute kidney injury) Status: Acute (6) Abdominal distension Status: Acute (7) Atrial fibrillation with slow ventricular response Status: Acute (8) Cellulitis Status: Acute
[2017-01-11] MEDS ORDERED: Dextrose 5%/0.45% NS 1,000 ML IV SCH (19:15)
[2017-01-11] MEDS: (Lantus) Insulin Glargine, Recombinant SC SCH (22:31)
[2017-01-12] MEDS: Piperacill/Tazo 2.25gm in Dex 50 ML IVPB SCH ×3 (00:46→13:39)
[2017-01-12] MEDS: (Novolog) Insulin Aspart, Recombinant 100 u/ml 10 ml vial SC SCH ×4 (07:30→11:30)
[2017-01-12 07:39] LABS: BASO # 0.1 K/uL (0.0-0.2); BASO % 0.5 % (0.0-2.0); EOS # 0.2 K/uL (0.0-0.7); EOS % 0.6 % (0.0-4.0); HEMATOCRIT 31.2 % (35.0-51.0); LYMPH # 1.2 K/uL (1.0-4.3); MEAN CELL VOLUME 81.9 fL (80.0-94.0); MEAN CORPUSCULAR HEMOGLOBIN 25.4 pg (27.0-31.0); MEAN CORPUSCULAR HGB CONC 31.1 g/dL (33.0-37.0); MEAN PLATELET VOLUME 7.5 fL (7.2-11.7); MONO % 3.6 % (0.0-10.0); PLATELET COUNT 349 K/uL (130-400); RED CELL DISTRIBUTION WIDTH 16.4 % (11.5-14.5); WHITE BLOOD COUNT 28.9 K/uL (4.8-10.8)
[2017-01-12 07:50] LABS: POTASSIUM 5.8 mmol/L (3.6-5.2)
[2017-01-12 07:52] LABS: BILIRUBIN,TOTAL 1.4 mg/dL (0.2-1.3); TOTAL PROTEIN 7.1 g/dL (6.3-8.3)
[2017-01-12] MEDS ORDERED: Sod Polystyrene Sulf 15 gm/60 ml Oral Susp PO ONE (07:53)
[2017-01-12 08:01] LABS: ALB/GLOB RATIO 0.7 (1.0-2.1); CALCIUM 7.8 mg/dl (8.6-10.4); PHOSPHOROUS 7.8 mg/dL (2.5-4.5)
[2017-01-12 08:02] LABS: MAGNESIUM 2.7 mg/dL (1.6-2.3)
[2017-01-12] MEDS ORDERED: Sodium Polystyrene Sulfonate Enema 30 gm/120 ml PR STA (08:07)
--- NOTE | 2017-01-12 08:21 | CP.PCM.PN ---
Subjective - Date & Time of Evaluation Date of Evaluation: 01/12/17 Time of Evaluation: 08:13 - Subjective Subjective: PGY-1 note for General Surgery, Dr. Granger Pt S&E. Complaining of mild pain in both extremities. Pt more arousable today, but remains confused. Left foot draining purulent fluid. Transferred to ICU for elevated INR. Objective - Vital Signs/Intake and Output Vital Signs (last 24 hours): Temp Pulse Resp BP Pulse Ox 97.4 F L 60 20 125/68 96 01/11/17 23:16 01/12/17 01:12 01/11/17 23:16 01/11/17 23:16 01/11/17 23:16 Intake and Output: 01/12/17 01/12/17 06:59 18:59 Intake Total 1050 Output Total 950 Balance 100 - Medications Medications: Current Medications Apixaban (Eliquis) 2.5 mg PO BID [facility] Last Admin: 01/11/17 18:05 Dose: Not Given Aspirin (Aspirin) 325 mg PO DAILY [facility] Last Admin: 01/11/17 11:00 Dose: 325 mg Docusate Sodium (Colace) 100 mg PO BID [facility] Last Admin: 01/11/17 18:00 Dose: 100 mg Gabapentin (Neurontin) 100 mg PO TID PRN PRN Reason: Pain, moderate (4-7) Piperacillin Sod/Tazobactam Sod (Zosyn 2.25 Gm Iv Premix) 50 mls @ 100 mls/hr IVPB Q6H [facility] Last Admin: 01/12/17 05:17 Dose: 100 mls/hr Vancomycin/Sodium Chloride (Vancocin) 200 mls @ 133 mls/hr IVPB DAILY [facility] Stop: 01/16/17 10:01 Last Admin: 01/11/17 11:00 Dose: 133 mls/hr Dextrose/Sodium Chloride (Dextrose 5%/0.45% Ns 1000 Ml) 1,000 mls @ 50 mls/hr IV .Q20H [facility] Last Admin: 01/11/17 19:20 Dose: 50 mls/hr Insulin Aspart (Novolog) 15 unit SC TIDAC [facility] Last Admin: 01/11/17 17:59 Dose: 15 unit Insulin Aspart (Novolog) 0 unit SC ACHS [facility] PRN Reason: Protocol Last Admin: 01/11/17 22:34 Dose: Not Given Insulin Glargine (Lantus) 25 unit SC HS [facility] Last Admin: 01/11/17 22:31 Dose: 25 units Mupirocin (Bactroban Ointment) 1 gm TOP BID [facility] Last Admin: 01/11/17 18:03 Dose: 1 applic Pantoprazole Sodium (Protonix Ec Tab) 40 mg PO DAILY [facility] Last Admin: 01/11/17 11:00 Dose: 40 mg Sodium Hypochlorite (Dakins Solution 0.125%) 0 appl TOP DAILY [facility] Sodium Polystyrene Sulfonate (Kayexalate Oral Susp) 30 gm PO ONCE ONE Stop: 01/12/17 07:54 Sodium Polystyrene Sulfonate (Kayexalate Enema) 30 gm [place] STAT STA Stop: 01/12/17 08:08 - Labs Labs: 01/12/17 07:29 01/12/17 07:29 PT 45.5 SECONDS (9.7-12.2) H* 01/09/17 16:20 INR 3.8 01/09/17 16:20 APTT 47 SECONDS (21-34) H 01/09/17 16:20 - Constitutional Appears: No Acute Distress, Chronically Ill - Head Exam Head Exam: ATRAUMATIC, NORMOCEPHALIC - Eye Exam Eye Exam: EOMI Pupil Exam: PERRL - ENT Exam ENT Exam: Mucous Membranes Moist - Respiratory Exam Respiratory Exam: NORMAL BREATHING PATTERN. absent: Respiratory Distress - Extremities Exam Extremities Exam: absent: Normal Inspection Additional comments: multiple wounds extending from feet to mid winkler bilaterally. Cellulitic skin changes L>R. TTP appreciated Eschar noted on right heel Malodor apparent when walking into room - Neurological Exam Neurological Exam: Alert, Awake. absent: Oriented x3 Assessment and Plan - Assessment and Plan (Free Text) Assessment: 71 yo Male with b/l non-healing, worsening chronic diabetic ulcers Plan: Per dr. Granger reccomendation: amputation may be safest treatment for pt Dressing changes/wound care per podiatry recs Arterial duplex: No evidence of hemodynamically significant arterial insufficiency. - may need further imaging to evaluate extent of PVD Cont abx Bone scan negative for OM. Pt unable to have MRI due to pacemaker. - Podiatry: ordered bilateral extremity xrays medical management per primary Surgical team d/w Dr. Elkin Underwood, PGY-1
[2017-01-12 08:30] LABS: DRAW SITE RB
[2017-01-12] MEDS ORDERED: Sodium Chloride 0.9% 1,000 ML IV SCH ×2 (09:00→14:56)
[2017-01-12 09:01] LABS: EOSINOPHIL 2 % (0-4); NEUTROPHIL 79 % (50-75); REACTIVE LYMPHOCYTES 1 % (0-0); TOTAL CELLS COUNTED 100
--- NOTE | 2017-01-12 09:56 | CP.PCM.PN ---
Subjective - Date & Time of Evaluation Date of Evaluation: 01/11/17 Time of Evaluation: 09:35 - Subjective Subjective: Pt seen this AM .Sleeping . at bedside . Bandages intact.Afebrile. Objective - Vital Signs/Intake and Output Vital Signs (last 24 hours): Temp Pulse Resp BP Pulse Ox 98.8 F 60 18 111/61 97 01/12/17 08:00 01/12/17 08:00 01/12/17 08:00 01/12/17 08:00 01/12/17 08:00 Intake and Output: 01/12/17 01/12/17 06:59 18:59 Intake Total 1050 Output Total 950 Balance 100 - Medications Medications: Current Medications Apixaban (Eliquis) 2.5 mg PO BID [facility] Last Admin: 01/11/17 18:05 Dose: Not Given Aspirin (Aspirin) 325 mg PO DAILY [facility] Last Admin: 01/11/17 11:00 Dose: 325 mg Calcium Acetate (Phoslo) 667 mg PO TIDAC [facility] Docusate Sodium (Colace) 100 mg PO BID [facility] Last Admin: 01/11/17 18:00 Dose: 100 mg Gabapentin (Neurontin) 100 mg PO TID PRN PRN Reason: Pain, moderate (4-7) Piperacillin Sod/Tazobactam Sod (Zosyn 2.25 Gm Iv Premix) 50 mls @ 100 mls/hr IVPB Q6H [facility] Last Admin: 01/12/17 05:17 Dose: 100 mls/hr Vancomycin/Sodium Chloride (Vancocin) 200 mls @ 133 mls/hr IVPB DAILY [facility] Stop: 01/16/17 10:01 Last Admin: 01/11/17 11:00 Dose: 133 mls/hr Sodium Chloride (Sodium Chloride 0.9%) 1,000 mls @ 125 mls/hr IV .Q8H [facility] Last Admin: 01/12/17 09:14 Dose: 125 mls/hr Insulin Aspart (Novolog) 15 unit SC TIDAC [facility] Last Admin: 01/11/17 17:59 Dose: 15 unit Insulin Aspart (Novolog) 0 unit SC ACHS [facility] PRN Reason: Protocol Last Admin: 01/11/17 22:34 Dose: Not Given Insulin Glargine (Lantus) 25 unit SC HS [facility] Last Admin: 01/11/17 22:31 Dose: 25 units Mupirocin (Bactroban Ointment) 1 gm TOP BID [facility] Last Admin: 01/11/17 18:03 Dose: 1 applic Pantoprazole Sodium (Protonix Ec Tab) 40 mg PO DAILY [facility] Last Admin: 01/11/17 11:00 Dose: 40 mg Sodium Hypochlorite (Dakins Solution 0.125%) 0 appl TOP DAILY [facility] - Labs Labs: 01/12/17 07:29 01/12/17 07:29 PT 45.5 SECONDS (9.7-12.2) H* 01/09/17 16:20 INR 3.8 01/09/17 16:20 APTT 47 SECONDS (21-34) H 01/09/17 16:20 - Extremities Exam Additional comments: O/ B/l gangrenous infected heel wounds b/l with malodor L>>R. Leg ulcers b/l extensive . Vascular status intact. DM neuropathy Assessment and Plan - Assessment and Plan (Free Text) Assessment: A/Gangrenous Heel ulcers infected/Infected extensive leg ulcers b/l . Plan: P/ apply Dakins wet/dry dressing b/l .Discussed with .Prognosis is poor and Amputation is safest treatment for patient.
--- NOTE | 2017-01-12 10:07 | CP.PCM.PN ---
Subjective - Date & Time of Evaluation Date of Evaluation: 01/12/17 Time of Evaluation: 11:20 - Subjective Subjective: clinically same Objective - Vital Signs/Intake and Output Vital Signs (last 24 hours): Temp Pulse Resp BP Pulse Ox 98.8 F 60 18 111/61 97 01/12/17 08:00 01/12/17 08:00 01/12/17 08:00 01/12/17 08:00 01/12/17 08:00 Intake and Output: 01/12/17 01/12/17 06:59 18:59 Intake Total 1050 Output Total 950 Balance 100 - Medications Medications: Current Medications Apixaban (Eliquis) 2.5 mg PO BID [facility] Last Admin: 01/11/17 18:05 Dose: Not Given Aspirin (Aspirin) 325 mg PO DAILY [facility] Last Admin: 01/11/17 11:00 Dose: 325 mg Calcium Acetate (Phoslo) 667 mg PO TIDAC [facility] Docusate Sodium (Colace) 100 mg PO BID [facility] Last Admin: 01/11/17 18:00 Dose: 100 mg Gabapentin (Neurontin) 100 mg PO TID PRN PRN Reason: Pain, moderate (4-7) Piperacillin Sod/Tazobactam Sod (Zosyn 2.25 Gm Iv Premix) 50 mls @ 100 mls/hr IVPB Q6H [facility] Last Admin: 01/12/17 05:17 Dose: 100 mls/hr Vancomycin/Sodium Chloride (Vancocin) 200 mls @ 133 mls/hr IVPB DAILY [facility] Stop: 01/16/17 10:01 Last Admin: 01/11/17 11:00 Dose: 133 mls/hr Sodium Chloride (Sodium Chloride 0.9%) 1,000 mls @ 125 mls/hr IV .Q8H [facility] Last Admin: 01/12/17 09:14 Dose: 125 mls/hr Insulin Aspart (Novolog) 15 unit SC TIDAC [facility] Last Admin: 01/11/17 17:59 Dose: 15 unit Insulin Aspart (Novolog) 0 unit SC ACHS [facility] PRN Reason: Protocol Last Admin: 01/11/17 22:34 Dose: Not Given Insulin Glargine (Lantus) 25 unit SC HS [facility] Last Admin: 01/11/17 22:31 Dose: 25 units Mupirocin (Bactroban Ointment) 1 gm TOP BID [facility] Last Admin: 01/11/17 18:03 Dose: 1 applic Pantoprazole Sodium (Protonix Ec Tab) 40 mg PO DAILY [facility] Last Admin: 01/11/17 11:00 Dose: 40 mg Sodium Hypochlorite (Dakins Solution 0.125%) 0 appl TOP DAILY [facility] - Labs Labs: 01/12/17 07:29 01/12/17 07:29 PT 45.5 SECONDS (9.7-12.2) H* 01/09/17 16:20 INR 3.8 01/09/17 16:20 APTT 47 SECONDS (21-34) H 01/09/17 16:20 - Constitutional Appears: Well - Head Exam Head Exam: ATRAUMATIC, NORMAL INSPECTION, NORMOCEPHALIC - Eye Exam Eye Exam: EOMI, Normal appearance, PERRL Pupil Exam: NORMAL ACCOMODATION, PERRL - ENT Exam ENT Exam: Mucous Membranes Moist, Normal Exam - Neck Exam Neck Exam: Full ROM, Normal Inspection. absent: Lymphadenopathy - Respiratory Exam Respiratory Exam: Decreased Breath Sounds - Cardiovascular Exam Cardiovascular Exam: +S1 - GI/Abdominal Exam GI & Abdominal Exam: Soft, Diminished Bowel Sounds - Rectal Exam Rectal Exam: Deferred Assessment and Plan (1) Abdominal distension Status: Acute (2) Acute delirium Status: Acute (3) Acute respiratory failure Status: Acute (4) Acute respiratory failure with hypercapnia Status: Acute (5) Anemia Status: Acute (6) Bacteremia Status: Acute (7) CKD stage 4 due to type 2 diabetes mellitus Status: Acute (8) Cellulitis Status: Acute (9) Coagulopathy Status: Acute (10) Diabetic foot infection Status: Acute (11) Diabetic ulcer of both lower extremities Status: Acute (12) Hypernatremia Status: Acute (13) Leg ulcer Status: Acute (14) Leukocytosis Status: Acute (15) Paronychia of left thumb Status: Acute (16) Pneumonia Status: Acute (17) Prophylactic measure Status: Acute (18) Risk and functional assessment Status: Acute (19) Severe sepsis Status: Acute (20) Urinary dysfunction Status: Acute (21) Atrial fibrillation Status: Chronic (22) Atrial fibrillation with slow ventricular response Status: Chronic (23) DM2 (diabetes mellitus, type 2) Status: Chronic (24) HTN (hypertension) Status: Chronic (25) Pacemaker Status: Chronic - Assessment and Plan (Free Text) Plan: Patient transferred to ICU for elevated INR Follow-up cardiology Follow-up ID Wound care Arterial duplexno evidence of hemodynamically significant arterial insufficiency excellent continue antibiotics Bone scan negative for osteomyelitis Left foot may need amputation Colace Neurontin Antibiotics IV fluid
--- NOTE | 2017-01-12 11:18 | RAD ---
HISTORY: Shortness of breath COMPARISON: 01/09/2017 FINDINGS: LUNGS: There are persistent low lung volumes. There is mild pulmonary venous congestion, improved since the prior examination. PLEURA: No significant pleural effusion identified, no pneumothorax apparent. CARDIOVASCULAR: There is persistent severe cardiomegaly OSSEOUS STRUCTURES: No significant abnormalities. VISUALIZED UPPER ABDOMEN: Normal. OTHER FINDINGS: None. IMPRESSION: Persistent severe cardiomegaly and interval improvement in pulmonary venous congestion.
[2017-01-12 11:45] LABS: POTASSIUM 5.7 mmol/L (3.6-5.2)
[2017-01-12 11:49] LABS: CALCIUM 7.8 mg/dl (8.6-10.4)
[2017-01-12] MEDS ORDERED: Phytonadione 10 mg/ml Inj (Adult) IVPB STA ×2 (11:54→12:12)
[2017-01-12] MEDS ORDERED: Pantoprazole 20 mg EC Tab PO SCH (12:00)
[2017-01-12] MEDS ORDERED: Phytonadione 5 MG in Sodium Chloride 0.9% 50 ML IV ONE (12:00)
[2017-01-12 12:09] LABS: BILIRUBIN,TOTAL 1.1 mg/dL (0.2-1.3); TOTAL PROTEIN 6.7 g/dL (6.3-8.3)
[2017-01-12] MEDS ORDERED: Phytonadione 10 MG in Sodium Chloride 0.9% 50 ML IV ONE (12:15)
[2017-01-12] MEDS: Sodium Chloride 0.9% 1,000 ML IV SCH (13:00)
--- NOTE | 2017-01-12 13:03 | CT ---
PROCEDURE: CT HEAD WITHOUT CONTRAST. HISTORY: AMS COMPARISON: None available. TECHNIQUE: Axial computed tomography images were obtained through the head/brain without intravenous contrast. This CT exam was performed using one or more of the following dose reduction techniques: Automated exposure control, adjustment of the mA and/or kV according to patient size, and/or use of iterative reconstruction technique. Radiation dose: Total exam DLP = 2623.41 mGy-cm. FINDINGS: HEMORRHAGE: No intracranial hemorrhage. BRAIN: No mass effect or edema. No atrophy or chronic microvascular ischemic changes. VENTRICLES: Unremarkable. No hydrocephalus. CALVARIUM: Unremarkable. PARANASAL SINUSES: Unremarkable as visualized. No significant inflammatory changes. MASTOID AIR CELLS: Partial opacification of the right mastoid is noted. OTHER FINDINGS: None. IMPRESSION: No evidence of acute intracranial hemorrhage territorial infarct mass effect or midline shift. Partial opacification of the right mastoid.
--- NOTE | 2017-01-12 13:04 | CP.PCM.PN ---
Subjective - Date & Time of Evaluation Date of Evaluation: 01/12/17 Time of Evaluation: 11:45 - Subjective Subjective: Hospitalist Note: Patient currently on Dr. Octavia Salguero service at time of the rapid. Responded to [employer] at 11:36AM, with colleague Dr. Nick Vidal, hospitalist and resident, Dr. Garcia who is working under patient's PMD: Dr. Emily Salguero. Per nursing, patient looked lethargic and possible obtunded. Patient responds to painful stimuli. General: Patient appears pale, conjunctiva, responsive to painful stimuli, will move extremities, dehydrated S1,S2 present Soft, distended habits, +BS present b/l LE wounds; erythema, wrapped in Amee, poor nail hygiene Pupils equal round and reactive to light, +gag reflex Peripheral line placed over the right upper and left upper extemities. Spoke with Riana, patient's at bedside-->indicated to patient's INR was 15. indicated patient has a history of atrial fibrillation. Patient is currently on Eliquis 2.5mg PO daily for atrial fibrillation. Patient is on IV abx for infected leg wounds and bactermeia. Per view of labs, patient has persistent leukocytosis. Per nephrology, patient's fluids increased 125 cc/ hr. Discussed with patient's , Riana, given patient's INR is 15, patient will need reversal with FFP and Vitamin K. Discussed risks associated with given blood products with patient's including fever, chills, and anaphylaxis. verbalized understanding and consents to blood products. Patient unable to consent given altered mental status. Witness by two nurses, blood transfusion consent. Per , she was here overnight, and patient appeared agitated and fighting and rested perfectly around 330AM per . The resident spoke with Dr. Emily Salguero per his recommendations, please refer to resident's note. Patient went to CT Head w/o contrast r/o bleed given elevated INR. I was present when Dr. Emily salguero spoke with patient's who explained briefly in regards anticoagulation, patient is on baby dose of Eliquis 2.5mg Po daily in light of atrial fibrillation.; discussed patient is on IV Abx for bactermia and leg wounds. verbalized understanding and reports she has spoken with several of the consultants on the case. Patient transferred to the hospitalist service on 12:56PM on 01/13/16 per family request. Objective - Vital Signs/Intake and Output Vital Signs (last 24 hours): Temp Pulse Resp BP Pulse Ox 98.8 F 60 18 111/61 97 01/12/17 08:00 01/12/17 08:00 01/12/17 08:00 01/12/17 08:00 01/12/17 08:00 Intake and Output: 01/12/17 01/12/17 06:59 18:59 Intake Total 1050 Output Total 950 Balance 100 - Medications Medications: Current Medications Apixaban (Eliquis) 2.5 mg PO BID [facility] Last Admin: 01/11/17 18:05 Dose: Not Given Aspirin (Aspirin) 325 mg PO DAILY [facility] Last Admin: 01/11/17 11:00 Dose: 325 mg Calcium Acetate (Phoslo) 667 mg PO TIDAC [facility] Docusate Sodium (Colace) 100 mg PO BID [facility] Last Admin: 01/11/17 18:00 Dose: 100 mg Gabapentin (Neurontin) 100 mg PO TID PRN PRN Reason: Pain, moderate (4-7) Piperacillin Sod/Tazobactam Sod (Zosyn 2.25 Gm Iv Premix) 50 mls @ 100 mls/hr IVPB Q6H [facility] Last Admin: 01/12/17 05:17 Dose: 100 mls/hr Vancomycin/Sodium Chloride (Vancocin) 200 mls @ 133 mls/hr IVPB DAILY [facility] Stop: 01/16/17 10:01 Last Admin: 01/11/17 11:00 Dose: 133 mls/hr Sodium Chloride (Sodium Chloride 0.9%) 1,000 mls @ 125 mls/hr IV .Q8H [facility] Last Admin: 01/12/17 09:14 Dose: 125 mls/hr Phytonadione 10 mg/ Sodium (Chloride) 51 mls @ 153 mls/hr IV ONCE ONE Stop: 01/12/17 12:34 Insulin Aspart (Novolog) 15 unit SC TIDAC [facility] Last Admin: 01/12/17 07:30 Dose: Not Given Insulin Aspart (Novolog) 0 unit SC ACHS [facility] PRN Reason: Protocol Last Admin: 01/12/17 07:30 Dose: Not Given Insulin Glargine (Lantus) 25 unit SC HS [facility] Last Admin: 01/11/17 22:31 Dose: 25 units Mupirocin (Bactroban Ointment) 1 gm TOP BID [facility] Last Admin: 01/11/17 18:03 Dose: 1 applic Pantoprazole Sodium (Protonix Ec Tab) 20 mg PO DAILY [facility] Sodium Hypochlorite (Dakins Solution 0.125%) 0 appl TOP DAILY [facility] - Labs Labs: 01/12/17 07:29 01/12/17 11:29 PT 191.8 SECONDS (9.7-12.2) H* D 01/12/17 11:09 INR 15.0 D 01/12/17 11:09 APTT 97 SECONDS (21-34) H D 01/12/17 11:09
--- NOTE | 2017-01-12 13:20 | CP.PCM.PN ---
Subjective - Date & Time of Evaluation Date of Evaluation: 01/12/17 Time of Evaluation: 11:45 - Subjective Subjective: Rapid response note: A rapid response was called for patient due to a change in his mentation per patient's visiting family memebers and his . Also his INR was shown this morning to be over 15 as well. Patient was seen by the rapid response team he was very obtuned and unable to answer questions. Patient was hooked up to a playground monitor and his vital signs were taken. His HR 100, BP 100/67, pulse ox 97% on 2L NC, and Temp 97.6. Physical exam: He appeared very pale and dry, dry mucus membranes, pupils were round each and reactive to light, heart had a regular S1 and S2, abdomen was midly distended. and his ulcers on both legs were wrapped in a dressing with no apparent drainage. There were was a malodorous odor from his ulcers though. According to the and family member in room he was very agitated all day long yesterday but that this morning appeared very drowsy. His chart was reviewed which included paste imaging studies, lab values along with all his current medication. Fresh Frozen Plasma Plasma (6 units) was ordered and vitamin K ordered to be given 10mg IVPB over [address] Stephenson was also notified. Critical care physician Dr. Alvarez also evaluated the patient and agreed for ICU transfer. A CT of the head was then ordered and he was taken to CT scan and then transferred to ICU Dr. Cheikh Beal primary medical attending was also notified as well. Objective - Vital Signs/Intake and Output Vital Signs (last 24 hours): Temp Pulse Resp BP Pulse Ox 98.8 F 60 18 111/61 97 01/12/17 08:00 01/12/17 08:00 01/12/17 08:00 01/12/17 08:00 01/12/17 08:00 Intake and Output: 01/12/17 01/12/17 06:59 18:59 Intake Total 1050 Output Total 950 Balance 100 - Medications Medications: Current Medications Docusate Sodium (Colace) 100 mg PO BID MICHAEL Last Admin: 01/11/17 18:00 Dose: 100 mg Gabapentin (Neurontin) 100 mg PO TID PRN PRN Reason: Pain, moderate (4-7) Piperacillin Sod/Tazobactam Sod (Zosyn 2.25 Gm Iv Premix) 50 mls @ 100 mls/hr IVPB Q6H [facility] Last Admin: 01/12/17 05:17 Dose: 100 mls/hr Sodium Chloride (Sodium Chloride 0.9%) 1,000 mls @ 125 mls/hr IV .Q8H MICHAEL Last Admin: 01/12/17 09:14 Dose: 125 mls/hr Vancomycin HCl 1,500 mg/ (Sodium Chloride) 500 mls @ 166.6 mls/hr IVPB Q24H [facility] Insulin Human Regular (Novolin R) 0 unit SC Q6 [facility] PRN Reason: Protocol Mupirocin (Bactroban Ointment) 1 gm TOP BID MICHAEL Last Admin: 01/11/17 18:03 Dose: 1 applic Pantoprazole Sodium (Protonix Ec Tab) 20 mg PO DAILY [facility] Sodium Hypochlorite (Dakins Solution 0.125%) 0 appl TOP DAILY [facility] - Labs Labs: 01/12/17 07:29 01/12/17 11:29 PT 191.8 SECONDS (9.7-12.2) H* D 01/12/17 11:09 INR 15.0 D 01/12/17 11:09 APTT 97 SECONDS (21-34) H D 01/12/17 11:09 - Constitutional Appears: Unkempt, Other (obtunded) - Head Exam Head Exam: ATRAUMATIC, NORMAL INSPECTION, NORMOCEPHALIC - Eye Exam Eye Exam: EOMI, Normal appearance, PERRL. absent: Nystagmus, Scleral icterus Pupil Exam: NORMAL ACCOMODATION - ENT Exam ENT Exam: Normal Exam - Neck Exam Neck Exam: Normal Inspection - Respiratory Exam Respiratory Exam: Decreased Breath Sounds, Clear to Ausculation Bilateral, Rales. absent: Rhonchi, Wheezes - Cardiovascular Exam Cardiovascular Exam: REGULAR RHYTHM, RRR, +S1, +S2. absent: Gallop, Rubs - GI/Abdominal Exam GI & Abdominal Exam: Distended (midly), Soft, Normal Bowel Sounds
--- NOTE | 2017-01-12 13:42 | CP.PCM.PN ---
Subjective - Date & Time of Evaluation Date of Evaluation: 01/12/17 Time of Evaluation: 13:37 - Subjective Subjective: Events noted- transferred to ICU with elevated INR, foot bleeding. Remains very pre-renal, hyperkalemic Appears volume-depleted- will receive many blood products and prbcs transfusions at this point for coagulapathy and bledding Left foot remains purulent, oozing- will need amputation. Appears to have CKD based on renal US, chemistries Remains obtunded Objective - Vital Signs/Intake and Output Vital Signs (last 24 hours): Temp Pulse Resp BP Pulse Ox 98.1 F 62 20 108/66 97 01/12/17 10:00 01/12/17 10:00 01/12/17 10:00 01/12/17 10:00 01/12/17 10:00 Intake and Output: 01/12/17 01/12/17 06:59 18:59 Intake Total 1050 Output Total 950 Balance 100 - Medications Medications: Current Medications Docusate Sodium (Colace) 100 mg PO BID [facility] Last Admin: 01/11/17 18:00 Dose: 100 mg Gabapentin (Neurontin) 100 mg PO TID PRN PRN Reason: Pain, moderate (4-7) Piperacillin Sod/Tazobactam Sod (Zosyn 2.25 Gm Iv Premix) 50 mls @ 100 mls/hr IVPB Q6H [facility] Last Admin: 01/12/17 05:17 Dose: 100 mls/hr Sodium Chloride (Sodium Chloride 0.9%) 1,000 mls @ 125 mls/hr IV .Q8H [facility] Last Admin: 01/12/17 09:14 Dose: 125 mls/hr Daptomycin 540 mg/ Sodium (Chloride) 100 mls @ 100 mls/hr IV Q48H [facility] Stop: 01/12/17 14:29 Insulin Human Regular (Novolin R) 0 unit SC Q6 [facility] PRN Reason: Protocol Mupirocin (Bactroban Ointment) 1 gm TOP BID [facility] Last Admin: 01/11/17 18:03 Dose: 1 applic Pantoprazole Sodium (Protonix Ec Tab) 20 mg PO DAILY [facility] Sodium Hypochlorite (Dakins Solution 0.125%) 0 appl TOP DAILY [facility] - Labs Labs: 01/12/17 07:29 01/12/17 11:29 PT 191.8 SECONDS (9.7-12.2) H* D 01/12/17 11:09 INR 15.0 D 01/12/17 11:09 APTT 97 SECONDS (21-34) H D 01/12/17 11:09 - Constitutional Appears: Toxic, Chronically Ill - Head Exam Head Exam: ATRAUMATIC, NORMAL INSPECTION - Neck Exam Neck Exam: Normal Inspection. absent: Tenderness - Respiratory Exam Respiratory Exam: Clear to Ausculation Bilateral, NORMAL BREATHING PATTERN - Cardiovascular Exam Cardiovascular Exam: REGULAR RHYTHM, +S1 - GI/Abdominal Exam GI & Abdominal Exam: Soft. absent: Tenderness - Extremities Exam Extremities Exam: Normal Inspection, Tenderness - Neurological Exam Neurological Exam: Awake, CN II-XII Intact - Skin Skin Exam: Dry, Mottled Assessment and Plan (1) Acute renal failure Status: Acute (2) Diabetic ulcer of both lower extremities Status: Acute (3) ARSENIO (acute kidney injury) Status: Acute (4) Atrial fibrillation with slow ventricular response Status: Acute (5) Cellulitis Status: Acute (6) DM2 (diabetes mellitus, type 2) Status: Acute (7) HTN (hypertension) Status: Acute (8) CKD stage 4 due to type 2 diabetes mellitus Status: Acute - Assessment and Plan (Free Text) Plan: discussed with ICU team- agree with hydration- at present to receive blood products if hyperkalemia cannot be adequately treated or CHF ensues might need [employer]
--- NOTE | 2017-01-12 14:06 | CP.PCM.CON ---
History of Present Illness - History of Present Illness History of Present Illness: 71 year old male with a history of afib on Eliquis, chronic b/l lower extremity cellulitis, admitted for cellulitis treatment found to have increased coagulopathy. The patient is currently obtunded and I am unable to obtain a history from the patient. Review of his medical records show he was admitted with prolonged PT/PTT which greatly prolonged to an INR of 15 and PTT of 97. He has a rising WBC and progressive anemia. He is s/p vit k and currently receiving FFP. He has some bleeding from his LE wounds. Past medical, surgical, family, social history cannot be obtained from the patient. Allergies: Per documentaiton NKA Review of systems cannot be obtained from the patient. Past Patient History - Infectious Disease Hx of Infectious Diseases: None - Past Medical History & Family History Past Medical History?: Yes - Past Social History Smoking Status: Never Smoked - CARDIAC Hx Cardiac Disorders: Yes Hx Hypercholesterolemia: Yes Hx Hypertension: Yes - PULMONARY Hx Respiratory Disorders: No - NEUROLOGICAL Hx Neurological Disorder: No - HEENT Hx HEENT Problems: Yes Other/Comment: hard of hearing - RENAL Hx Chronic Kidney Disease: Yes - ENDOCRINE/METABOLIC Hx Diabetes Mellitus Type 2: Yes - HEMATOLOGICAL/ONCOLOGICAL Hx Blood Disorders: No - INTEGUMENTARY Hx Dermatological Problems: Yes Hx Cellulitis: Yes (BLE) Other/Comment: Diabetic foot ulcers - MUSCULOSKELETAL/RHEUMATOLOGICAL Hx Falls: No - GASTROINTESTINAL Hx Gastrointestinal Disorders: No - GENITOURINARY/GYNECOLOGICAL Hx Genitourinary Disorders: No - PSYCHIATRIC Hx Substance Use: No - SURGICAL HISTORY Hx Surgeries: Yes Hx Orthopedic Surgery: Yes (right knee sx) Other/Comment: hernia repair - ANESTHESIA Hx Anesthesia: Yes Hx Anesthesia Reactions: No Hx Malignant Hyperthermia: No Has any member of the family had a problem w/ anesthesia?: No Meds Allergies/Adverse Reactions: Allergies Allergy/AdvReac Type Severity Reaction Status Date / Time No Known Allergies Allergy Verified 01/09/17 14:55 - Medications Medications: Current Medications Docusate Sodium (Colace) 100 mg PO BID MICHAEL Last Admin: 01/11/17 18:00 Dose: 100 mg Gabapentin (Neurontin) 100 mg PO TID PRN PRN Reason: Pain, moderate (4-7) Piperacillin Sod/Tazobactam Sod (Zosyn 2.25 Gm Iv Premix) 50 mls @ 100 mls/hr IVPB Q6H [facility] Last Admin: 01/12/17 05:17 Dose: 100 mls/hr Sodium Chloride (Sodium Chloride 0.9%) 1,000 mls @ 125 mls/hr IV .Q8H [facility]HAEL Last Admin: 01/12/17 09:14 Dose: 125 mls/hr Daptomycin 540 mg/ Sodium (Chloride) 100 mls @ 100 mls/hr IV Q48H [facility] Stop: 01/12/17 14:29 Insulin Human Regular (Novolin R) 0 unit SC Q6 [facility]HAEL PRN Reason: Protocol Mupirocin (Bactroban Ointment) 1 gm TOP BID MICHAEL Last Admin: 01/11/17 18:03 Dose: 1 applic Pantoprazole Sodium (Protonix Ec Tab) 20 mg PO DAILY [facility] Sodium Hypochlorite (Dakins Solution 0.125%) 0 appl TOP DAILY [facility] Physical Exam - Head Exam Head Exam: ATRAUMATIC - Eye Exam Eye Exam: Normal appearance - ENT Exam ENT Exam: Mucous Membranes Dry - Respiratory Exam Respiratory Exam: Decreased Breath Sounds - Cardiovascular Exam Cardiovascular Exam: +S1, +S2 - GI/Abdominal Exam GI & Abdominal Exam: Normal Bowel Sounds - Extremities Exam Additional comments: B/L LE dressings - Neurological Exam Neurological exam: Altered - Psychiatric Exam Psychiatric exam: Depressed, Normal Affect - Skin Skin Exam: Warm Results - Vital Signs Recent Vital Signs: Last Vital Signs Temp 98.1 F 01/12/17 10:00 Pulse 62 01/12/17 10:00 Resp 20 01/12/17 10:00 BP 108/66 01/12/17 10:00 Pulse Ox 97 01/12/17 10:00 - Labs Result Diagrams: 01/13/17 07:04 01/13/17 07:08 Labs: Laboratory Results - last 24 hr 01/11/17 01/11/17 01/11/17 14:25 16:52 21:23 WBC RBC Hgb Hct MCV MCH MCHC RDW Plt Count MPV Neut % (Auto) Lymph % (Auto) Ogle % (Auto) Eos % (Auto) Baso % (Auto) Neut # Lymph # Ogle # Eos # Baso # Neutrophils % (Manual) Band Neutrophils % Lymphocytes % (Manual) Reactive Lymphs % Monocytes % (Manual) Eosinophils % (Manual) Platelet Estimate Hypochromasia (manual) Poikilocytosis (manual Anisocytosis (manual) [place] Cells PT INR APTT Puncture Site pCO2 pO2 HCO3 ABG pH ABG Total CO2 ABG O2 Saturation ABG Base Excess Carter Test ABG Potassium A-a O2 Difference Respiratory Index Glucose Lactate Liter Flow FiO2 Sodium Potassium Chloride Carbon Dioxide Anion Gap BUN Creatinine Est GFR ( Amer) Est GFR (Non-Af Amer) POC Glucose (mg/dL) 179 H 146 H Random Glucose Calcium Phosphorus Magnesium Total Bilirubin AST ALT Alkaline Phosphatase Total Creatine Kinase Total Protein Albumin Globulin Albumin/Globulin Ratio Arterial Blood Potassium Urine Color Smita Urine Clarity Hazy Urine pH 5.0 Ur Specific [place] 1.013 Urine Protein Negative Urine Glucose (UA) Normal Urine Ketones Negative Urine Blood 3+ H Urine Nitrate Negative Urine Bilirubin Negative Urine Urobilinogen Normal Ur Leukocyte Esterase Trace Urine WBC (Auto) 32 H Urine RBC (Auto) 852 H Ur Squamous Epith Cells 1 Blood Type Blood Type Confirm Antibody Screen 01/12/17 01/12/17 01/12/17 05:56 07:29 08:26 WBC 28.9 H RBC 3.81 L Hgb 9.7 L Hct 31.2 L MCV 81.9 MCH 25.4 L MCHC 31.1 L RDW 16.4 H Plt Count 349 MPV 7.5 Neut % (Auto) 91.3 H Lymph % (Auto) 4.0 L Ogle % (Auto) 3.6 Eos % (Auto) 0.6 Baso % (Auto) 0.5 Neut # 26.4 H Lymph # 1.2 Ogle # 1.0 H Eos # 0.2 Baso # 0.1 Neutrophils % (Manual) 79 H Band Neutrophils % 1 Lymphocytes % (Manual) 14 L Reactive Lymphs % 1 H Monocytes % (Manual) 3 Eosinophils % (Manual) 2 Platelet Estimate Normal Hypochromasia (manual) Slight Poikilocytosis (manual Slight Anisocytosis (manual) Slight [place] Cells Slight PT INR APTT Puncture Site Rb pCO2 36 pO2 103 H HCO3 19.2 L ABG pH 7.31 L ABG Total CO2 19.2 L ABG O2 Saturation 99.9 H ABG Base Excess -7.4 L Carter Test Na ABG Potassium 4.6 A-a O2 Difference 66.0 Respiratory Index 0.6 Glucose 139 H Lactate 0.8 Liter Flow 3.0 FiO2 30.0 Sodium 139 140.0 Potassium 5.8 H Chloride 100 115.0 H Carbon Dioxide 24 Anion Gap 21 H BUN 114 H* Creatinine 3.3 H Est GFR ( Amer) 23 Est GFR (Non-Af Amer) 19 POC Glucose (mg/dL) 168 H Random Glucose 155 H Calcium 7.8 L Phosphorus 7.8 H Magnesium 2.7 H Total Bilirubin 1.4 H AST 53 ALT 30 Alkaline Phosphatase 224 H Total Creatine Kinase 371 H Total Protein 7.1 Albumin 2.8 L Globulin 4.3 H Albumin/Globulin Ratio 0.7 L Arterial Blood Potassium 4.6 Urine Color Urine Clarity Urine pH Ur Specific [place] Urine Protein Urine Glucose (UA) Urine Ketones Urine Blood Urine Nitrate Urine Bilirubin Urine Urobilinogen Ur Leukocyte Esterase Urine WBC (Auto) Urine RBC (Auto) Ur Squamous Epith Cells Blood Type Blood Type Confirm Antibody Screen 01/12/17 01/12/17 01/12/17 11:02 11:09 11:29 WBC RBC Hgb Hct MCV MCH MCHC RDW Plt Count MPV Neut % (Auto) Lymph % (Auto) Ogle % (Auto) Eos % (Auto) Baso % (Auto) Neut # Lymph # Ogle # Eos # Baso # Neutrophils % (Manual) Band Neutrophils % Lymphocytes % (Manual) Reactive Lymphs % Monocytes % (Manual) Eosinophils % (Manual) Platelet Estimate Hypochromasia (manual) Poikilocytosis (manual Anisocytosis (manual) [place] Cells PT 191.8 H* D INR 15.0 D APTT 97 H D Puncture Site pCO2 pO2 HCO3 ABG pH ABG Total CO2 ABG O2 Saturation ABG Base Excess Carter Test ABG Potassium A-a O2 Difference Respiratory Index Glucose Lactate Liter Flow FiO2 Sodium 136 Potassium 5.7 H Chloride 101 Carbon Dioxide 21 L Anion Gap 20 BUN 119 H* Creatinine 3.1 H Est GFR ( Amer) 24 Est GFR (Non-Af Amer) 20 POC Glucose (mg/dL) 171 H Random Glucose 161 H Calcium 7.8 L Phosphorus Magnesium Total Bilirubin 1.1 AST 41 ALT 24 Alkaline Phosphatase 188 H Total Creatine Kinase Total Protein 6.7 Albumin 2.5 L Globulin Albumin/Globulin Ratio Arterial Blood Potassium Urine Color Urine Clarity Urine pH Ur Specific [place] Urine Protein Urine Glucose (UA) Urine Ketones Urine Blood Urine Nitrate Urine Bilirubin Urine Urobilinogen Ur Leukocyte Esterase Urine WBC (Auto) Urine RBC (Auto) Ur Squamous Epith Cells Blood Type Blood Type Confirm Antibody Screen 01/12/17 12:06 WBC RBC Hgb Hct MCV MCH MCHC RDW Plt Count MPV Neut % (Auto) Lymph % (Auto) Ogle % (Auto) Eos % (Auto) Baso % (Auto) Neut # Lymph # [place] # Eos # Baso # Neutrophils % (Manual) Band Neutrophils % Lymphocytes % (Manual) Reactive Lymphs % Monocytes % (Manual) Eosinophils % (Manual) Platelet Estimate Hypochromasia (manual) Poikilocytosis (manual Anisocytosis (manual) [place] Cells PT INR APTT Puncture Site pCO2 pO2 HCO3 ABG pH ABG Total CO2 ABG O2 Saturation ABG Base Excess Carter Test ABG Potassium A-a O2 Difference Respiratory Index Glucose Lactate Liter Flow FiO2 Sodium Potassium Chloride Carbon Dioxide Anion Gap BUN Creatinine Est GFR ( Amer) Est GFR (Non-Af Amer) POC Glucose (mg/dL) Random Glucose Calcium Phosphorus Magnesium Total Bilirubin AST ALT Alkaline Phosphatase Total Creatine Kinase Total Protein Albumin Globulin Albumin/Globulin Ratio Arterial Blood Potassium Urine Color Urine Clarity Urine pH Ur Specific [place] Urine Protein Urine Glucose (UA) Urine Ketones Urine Blood Urine Nitrate Urine Bilirubin Urine Urobilinogen Ur Leukocyte Esterase Urine WBC (Auto) Urine RBC (Auto) Ur Squamous Epith Cells Blood Type O POSITIVE Blood Type Confirm O POSITIVE Antibody Screen Negative Assessment & Plan (1) Coagulopathy Assessment and Plan: likely nutritional and Eliquis; Eliquis held agree with vit k and FFP given LE wound bleeding repeat coags with fibrinogen Status: Acute (2) Leukocytosis Assessment and Plan: on antibiotics Status: Acute (3) Anemia Assessment and Plan: check ferritin, retic count, b12, folate, FOBT to further characterize Thank you for this interesting consult. Status: Acute
[2017-01-12] MEDS: (Novolin R) Insulin Human Regular 100 units/ml vial SC SCH ×2 (14:12→18:52)
--- NOTE | 2017-01-12 14:44 | CP.PCM.HP ---
<Damion Salguero H - Last Filed: 01/12/17 18:56> History of Present Illness - History of Present Illness History of Present Illness: CC: "Uclers" HPI: Patient cedrick 71 year old male admitted on 01/08 for worsening bilateral lower leg ulcers. He is a patient who has been seing Dr. Cheikh Birmingham for [facility] but has not been by him since February of last year according to Dr. Birmingham's staff. Patient was admitted under Dr. Beal and given IV antibiotics Vanc and Zosyn. He also had acute kidney injury as well. There were consults for Dr. Sanchez (Nephrology), Dr. Granger (Surgery), Dr. Blum for infectious disease, and Dr. Davenport for podiatry. He was mentating normally according to the patient's who does not live with him and according to his neighbor in the room had not seen him in 5 months since before the admission. A rapid reponse was called when it was noted by the nurse that he had become less responsive since admission. It was also found that his INR was over 15 as well. Patient was taking Eliquis for afib. He was then taken to ICU for further evaluation. The patient's Neighbor says that he sees Dr. Birmingham for primary care but did not know when the last time he saw him nor does she know all of the patient's medical problems. Patient was transferred to Dr. Olivera' s service after arriving in ICU. Unable to patient history from patient because of his delirium. Per patient's and chart reivew PMD: dr. Birmingham PMH: HTN, DM, A-fib with slow ventricular response and cataracts PSH: R knee arthroscopy 30yrs ago, double hernia repair in childhood, and cholecystecomy FHX: mother - Parkinsons; father - MS, stroke Social: no known smoking history, no known etoh abuse or illicit drug use but lives in [facility] taking care of her elderly mother Allergies: NKDA Home Medication: Present on Admission - Present on Admission Any Indicators Present on Admission: Yes History of DVT/PE: No History of Uncontrolled Diabetes: Yes Urinary Catheter: No Decubitus Ulcer Present: No Review of Systems - Review of Systems Systems not reviewed;Unavailable: Acuity of Condition Past Patient History - Infectious Disease Hx of Infectious Diseases: None - Past Medical History & Family History Past Medical History?: Yes - Past Social History Smoking Status: Never Smoked - CARDIAC Hx Cardiac Disorders: Yes Hx Hypercholesterolemia: Yes Hx Hypertension: Yes - PULMONARY Hx Respiratory Disorders: No - NEUROLOGICAL Hx Neurological Disorder: No - HEENT Hx HEENT Problems: Yes Other/Comment: hard of hearing - RENAL Hx Chronic Kidney Disease: Yes - ENDOCRINE/METABOLIC Hx Diabetes Mellitus Type 2: Yes - HEMATOLOGICAL/ONCOLOGICAL Hx Blood Disorders: No - INTEGUMENTARY Hx Dermatological Problems: Yes Hx Cellulitis: Yes (BLE) Other/Comment: Diabetic foot ulcers - MUSCULOSKELETAL/RHEUMATOLOGICAL Hx Falls: No - GASTROINTESTINAL Hx Gastrointestinal Disorders: No - GENITOURINARY/GYNECOLOGICAL Hx Genitourinary Disorders: No - PSYCHIATRIC Hx Substance Use: No - SURGICAL HISTORY Hx Surgeries: Yes Hx Orthopedic Surgery: Yes (right knee sx) Other/Comment: hernia repair - ANESTHESIA Hx Anesthesia: Yes Hx Anesthesia Reactions: No Hx Malignant Hyperthermia: No Has any member of the family had a problem w/ anesthesia?: No Meds Allergies/Adverse Reactions: Allergies Allergy/AdvReac Type Severity Reaction Status Date / Time No Known Allergies Allergy Verified 01/09/17 14:55 Physical Exam - Constitutional Appears: Unkempt, Chronically Ill - Head Exam Head Exam: ATRAUMATIC, NORMAL INSPECTION, NORMOCEPHALIC - Eye Exam Eye Exam: Normal appearance, PERRL. absent: Nystagmus, Scleral icterus Pupil Exam: NORMAL ACCOMODATION, PERRL - Respiratory Exam Respiratory Exam: Clear to Auscultation Bilateral. absent: Rhonchi, Wheezes - Cardiovascular Exam Cardiovascular Exam: REGULAR RHYTHM, RRR, +S1, +S2, Systolic Murmur. absent: Gallop, Rubs - GI/Abdominal Exam GI & Abdominal Exam: Firm, Normal Bowel Sounds, Soft. absent: Tenderness - Extremities Exam Extremities exam: Positive for: normal inspection. Negative for: calf tenderness, pedal edema - Back Exam Back exam: NORMAL INSPECTION - Neurological Exam Neurological exam: Alert - Psychiatric Exam Psychiatric exam: Normal Affect, Normal Mood - Skin Skin Exam: Dry (dry), Normal Color, Pallor Results - Vital Signs Recent Vital Signs: Last Vital Signs Temp 98.1 F 01/12/17 10:00 Pulse 62 01/12/17 10:00 Resp 20 01/12/17 10:00 BP 110/47 L 01/12/17 14:06 Pulse Ox 97 01/12/17 10:00 - Labs Result Diagrams: 01/12/17 07:29 01/12/17 11:29 Labs: Laboratory Results - last 24 hr 01/11/17 01/11/17 01/11/17 14:25 16:52 21:23 WBC RBC Hgb Hct MCV MCH MCHC RDW Plt Count MPV Neut % (Auto) Lymph % (Auto) [place] % (Auto) Eos % (Auto) Baso % (Auto) Neut # Lymph # [place] # Eos # Baso # Neutrophils % (Manual) Band Neutrophils % Lymphocytes % (Manual) Reactive Lymphs % Monocytes % (Manual) Eosinophils % (Manual) Platelet Estimate Hypochromasia (manual) Poikilocytosis (manual Anisocytosis (manual) Union Cells PT INR APTT Puncture Site pCO2 pO2 HCO3 ABG pH ABG Total CO2 ABG O2 Saturation ABG Base Excess Carter Test ABG Potassium A-a O2 Difference Respiratory Index Glucose Lactate Liter Flow FiO2 Sodium Potassium Chloride Carbon Dioxide Anion Gap BUN Creatinine Est GFR ( Amer) Est GFR (Non-Af Amer) POC Glucose (mg/dL) 179 H 146 H Random Glucose Calcium Phosphorus Magnesium Total Bilirubin AST ALT Alkaline Phosphatase Total Creatine Kinase Total Protein Albumin Globulin Albumin/Globulin Ratio Arterial Blood Potassium Urine Color Smita Urine Clarity Hazy Urine pH 5.0 Ur Specific [place] 1.013 Urine Protein Negative Urine Glucose (UA) Normal Urine Ketones Negative Urine Blood 3+ H Urine Nitrate Negative Urine Bilirubin Negative Urine Urobilinogen Normal Ur Leukocyte Esterase Trace Urine WBC (Auto) 32 H Urine RBC (Auto) 852 H Ur Squamous Epith Cells 1 Blood Type Blood Type Confirm Antibody Screen 01/12/17 01/12/17 01/12/17 05:56 07:29 08:26 WBC 28.9 H RBC 3.81 L Hgb 9.7 L Hct 31.2 L MCV 81.9 MCH 25.4 L MCHC 31.1 L RDW 16.4 H Plt Count 349 MPV 7.5 Neut % (Auto) 91.3 H Lymph % (Auto) 4.0 L [place] % (Auto) 3.6 Eos % (Auto) 0.6 Baso % (Auto) 0.5 Neut # 26.4 H Lymph # 1.2 [place] # 1.0 H Eos # 0.2 Baso # 0.1 Neutrophils % (Manual) 79 H Band Neutrophils % 1 Lymphocytes % (Manual) 14 L Reactive Lymphs % 1 H Monocytes % (Manual) 3 Eosinophils % (Manual) 2 Platelet Estimate Normal Hypochromasia (manual) Slight Poikilocytosis (manual Slight Anisocytosis (manual) Slight Union Cells Slight PT INR APTT Puncture Site Rb pCO2 36 pO2 103 H HCO3 19.2 L ABG pH 7.31 L ABG Total CO2 19.2 L ABG O2 Saturation 99.9 H ABG Base Excess -7.4 L Carter Test Na ABG Potassium 4.6 A-a O2 Difference 66.0 Respiratory Index 0.6 Glucose 139 H Lactate 0.8 Liter Flow 3.0 FiO2 30.0 Sodium 139 140.0 Potassium 5.8 H Chloride 100 115.0 H Carbon Dioxide 24 Anion Gap 21 H BUN 114 H* Creatinine 3.3 H Est GFR ( Amer) 23 Est GFR (Non-Af Amer) 19 POC Glucose (mg/dL) 168 H Random Glucose 155 H Calcium 7.8 L Phosphorus 7.8 H Magnesium 2.7 H Total Bilirubin 1.4 H AST 53 ALT 30 Alkaline Phosphatase 224 H Total Creatine Kinase 371 H Total Protein 7.1 Albumin 2.8 L Globulin 4.3 H Albumin/Globulin Ratio 0.7 L Arterial Blood Potassium 4.6 Urine Color Urine Clarity Urine pH Ur Specific [place] Urine Protein Urine Glucose (UA) Urine Ketones Urine Blood Urine Nitrate Urine Bilirubin Urine Urobilinogen Ur Leukocyte Esterase Urine WBC (Auto) Urine RBC (Auto) Ur Squamous Epith Cells Blood Type Blood Type Confirm Antibody Screen 01/12/17 01/12/17 01/12/17 11:02 11:09 11:29 WBC RBC Hgb Hct MCV MCH MCHC RDW Plt Count MPV Neut % (Auto) Lymph % (Auto) [place] % (Auto) Eos % (Auto) Baso % (Auto) Neut # Lymph # [place] # Eos # Baso # Neutrophils % (Manual) Band Neutrophils % Lymphocytes % (Manual) Reactive Lymphs % Monocytes % (Manual) Eosinophils % (Manual) Platelet Estimate Hypochromasia (manual) Poikilocytosis (manual Anisocytosis (manual) Union Cells PT 191.8 H* D INR 15.0 D APTT 97 H D Puncture Site pCO2 pO2 HCO3 ABG pH ABG Total CO2 ABG O2 Saturation ABG Base Excess Carter Test ABG Potassium A-a O2 Difference Respiratory Index Glucose Lactate Liter Flow FiO2 Sodium 136 Potassium 5.7 H Chloride 101 Carbon Dioxide 21 L Anion Gap 20 BUN 119 H* Creatinine 3.1 H Est GFR ( Amer) 24 Est GFR (Non-Af Amer) 20 POC Glucose (mg/dL) 171 H Random Glucose 161 H Calcium 7.8 L Phosphorus Magnesium Total Bilirubin 1.1 AST 41 ALT 24 Alkaline Phosphatase 188 H Total Creatine Kinase Total Protein 6.7 Albumin 2.5 L Globulin Albumin/Globulin Ratio Arterial Blood Potassium Urine Color Urine Clarity Urine pH Ur Specific [place] Urine Protein Urine Glucose (UA) Urine Ketones Urine Blood Urine Nitrate Urine Bilirubin Urine Urobilinogen Ur Leukocyte Esterase Urine WBC (Auto) Urine RBC (Auto) Ur Squamous Epith Cells Blood Type Blood Type Confirm Antibody Screen 01/12/17 12:06 WBC RBC Hgb Hct MCV MCH MCHC RDW Plt Count MPV Neut % (Auto) Lymph % (Auto) [place] % (Auto) Eos % (Auto) Baso % (Auto) Neut # Lymph # [place] # Eos # Baso # Neutrophils % (Manual) Band Neutrophils % Lymphocytes % (Manual) Reactive Lymphs % Monocytes % (Manual) Eosinophils % (Manual) Platelet Estimate Hypochromasia (manual) Poikilocytosis (manual Anisocytosis (manual) Vitor Cells PT INR APTT Puncture Site pCO2 pO2 HCO3 ABG pH ABG Total CO2 ABG O2 Saturation ABG Base Excess Carter Test ABG Potassium A-a O2 Difference Respiratory Index Glucose Lactate Liter Flow FiO2 Sodium Potassium Chloride Carbon Dioxide Anion Gap BUN Creatinine Est GFR ( Amer) Est GFR (Non-Af Amer) POC Glucose (mg/dL) Random Glucose Calcium Phosphorus Magnesium Total Bilirubin AST ALT Alkaline Phosphatase Total Creatine Kinase Total Protein Albumin Globulin Albumin/Globulin Ratio Arterial Blood Potassium Urine Color Urine Clarity Urine pH Ur Specific [place] Urine Protein Urine Glucose (UA) Urine Ketones Urine Blood Urine Nitrate Urine Bilirubin Urine Urobilinogen Ur Leukocyte Esterase Urine WBC (Auto) Urine RBC (Auto) Ur Squamous Epith Cells Blood Type O POSITIVE Blood Type Confirm O POSITIVE Antibody Screen Negative Assessment & Plan (1) Coagulopathy Assessment and Plan: INR 15.0, PT 191. Patient given 10mg of Vitamin K 6 units of fresh frozen plasma. Will need to monitor patient for signs of bleeding. CT scan of the head was negative for any intracrainal bleed. Follow up on INR, PT, aPTT,. He was on Eliqius 2.5mg bid since admission which was on 01/08. Dr. Stephenson consulted for Heme Onc. Patient given 6 units of Fresh Frozen Plasma and 10mg of Vitamin K IV Status: Acute (2) Diabetic ulcer of both lower extremities Assessment and Plan: Patient has severe ulcers on both legs. bone scan and x:ray were negative for osteomyltitis His wound culture does grow back multi species drug resistant gram negative rods. Dr. Blum consulted. Patient was admitted back in March and treated for osteomylititis of left toe. He was also found to have uncontrolled DM and afib. He was sent home to have long term care phlebotomist antibiotics. IV flagyl 500mg Q8H Primaxin 500mg Q12H due to reduced renal function IV Rifampin 500mg Q48H Status: Acute (3) Leukocytosis Assessment and Plan: see note on bilateral lower leg uclers, patient's wbc is very high at 28.9 but improving, at admission is 33.1 Status: Acute (4) Bacteremia Assessment and Plan: Patient's blood culture showed gram positive cocci in clusters Patient is on IV Cefepime 1 gram Q12H for low renal clearnce reasons. He was on Vancomycin 1 gram daily since the . Will need to follow up with Dr. Granger for possible amputation follow up with Dr. Blum for course of IV or possible PO antibiotics upon discharge. Will need continued wound care managment. IV flagyl 500mg Q8H Primaxin 500mg Q12H due to reduced renal function IV Rifampin 500mg Q48H Follow up repeat blood cultures IV fluids NS 50 cc/hr. Status: Acute (5) Acute delirium Assessment and Plan: Most likely secondary to Sepsis, have ordered 1mg of Ativan Q4H prn for agitation. Status: Acute (6) Acute renal failure Assessment and Plan: Creatine is now over 3 since admission. His baseline before that was around 0.8. Dr. Sanchez is consulted. impression from the renal ultrasound is that both kidneys are enlarged. IV fluids NS 125 cc/hr. Status: Acute (7) Atrial fibrillation with slow ventricular response Status: Chronic Comment: Patient has a pace maker, he was on Eliquis on admssion, have held this medication due to his INR at 15.0 and his PT 191. He was given Vitamin K 10mg and 6 units of Fresh Frozen plasma, monitered in ICU. Monitor patient on tele monitor. Patient has a pacemaker with a paced rythm. Follow up Echo ordered. (8) DM2 (diabetes mellitus, type 2) Status: Chronic Comment: Accu checks Q6H and sliding scale insulin Q6H per protocol. (9) HTN (hypertension) Status: Acute Comment: Have held his home htn medication for now due to hypotention. (10) Prophylactic measure Assessment and Plan: IV fluids NS 50 cc/hr. Status: Acute <Lilia Olivera V - Last Filed: 01/12/17 21:44> Results - Vital Signs Recent Vital Signs: Last Vital Signs Temp 97.3 F L 01/12/17 16:00 Pulse 60 01/12/17 17:00 Resp 18 01/12/17 17:00 BP 108/48 L 01/12/17 17:00 Pulse Ox 98 01/12/17 17:00 - Labs Result Diagrams: 01/12/17 07:29 01/12/17 18:52 Labs: Laboratory Results - last 24 hr 01/11/17 01/12/17 01/12/17 21:23 05:56 07:29 WBC 28.9 H RBC 3.81 L Hgb 9.7 L Hct 31.2 L MCV 81.9 MCH 25.4 L MCHC 31.1 L RDW 16.4 H Plt Count 349 MPV 7.5 Neut % (Auto) 91.3 H Lymph % (Auto) 4.0 L [place] % (Auto) 3.6 Eos % (Auto) 0.6 Baso % (Auto) 0.5 Neut # 26.4 H Lymph # 1.2 [place] # 1.0 H Eos # 0.2 Baso # 0.1 Neutrophils % (Manual) 79 H Band Neutrophils % 1 Lymphocytes % (Manual) 14 L Reactive Lymphs % 1 H Monocytes % (Manual) 3 Eosinophils % (Manual) 2 Platelet Estimate Normal Hypochromasia (manual) Slight Poikilocytosis (manual Slight Anisocytosis (manual) Slight Vitor Cells Slight PT INR APTT Fibrinogen Fibrin Degrad Products Fibrin Degrad Prod, Qt Puncture Site pCO2 pO2 HCO3 ABG pH ABG Total CO2 ABG O2 Saturation ABG Base Excess Carter Test ABG Potassium A-a O2 Difference Respiratory Index Glucose Lactate Liter Flow FiO2 Sodium 139 Potassium 5.8 H Chloride 100 Carbon Dioxide 24 Anion Gap 21 H BUN 114 H* Creatinine 3.3 H Est GFR ( Amer) 23 Est GFR (Non-Af Amer) 19 POC Glucose (mg/dL) 146 H 168 H Random Glucose 155 H Hemoglobin A1c Calcium 7.8 L Phosphorus 7.8 H Magnesium 2.7 H Total Bilirubin 1.4 H AST 53 ALT 30 Alkaline Phosphatase 224 H Total Creatine Kinase 371 H Total Protein 7.1 Albumin 2.8 L Globulin 4.3 H Albumin/Globulin Ratio 0.7 L Procalcitonin Arterial Blood Potassium Urine Collection Time Urine Total Volume Ur Protein 24 Hr Calc Blood Type Blood Type Confirm Antibody Screen 01/12/17 01/12/17 01/12/17 08:26 11:02 11:09 WBC RBC Hgb Hct MCV MCH MCHC RDW Plt Count MPV Neut % (Auto) Lymph % (Auto) [place] % (Auto) Eos % (Auto) Baso % (Auto) Neut # Lymph # [place] # Eos # Baso # Neutrophils % (Manual) Band Neutrophils % Lymphocytes % (Manual) Reactive Lymphs % Monocytes % (Manual) Eosinophils % (Manual) Platelet Estimate Hypochromasia (manual) Poikilocytosis (manual Anisocytosis (manual) Union Cells PT 191.8 H* D INR 15.0 D APTT 97 H D Fibrinogen Fibrin Degrad Products Fibrin Degrad Prod, Qt Puncture Site Rb pCO2 36 pO2 103 H HCO3 19.2 L ABG pH 7.31 L ABG Total CO2 19.2 L ABG O2 Saturation 99.9 H ABG Base Excess -7.4 L Carter Test Na ABG Potassium 4.6 A-a O2 Difference 66.0 Respiratory Index 0.6 Glucose 139 H Lactate 0.8 Liter Flow 3.0 FiO2 30.0 Sodium 140.0 Potassium Chloride 115.0 H Carbon Dioxide Anion Gap BUN Creatinine Est GFR ( Amer) Est GFR (Non-Af Amer) POC Glucose (mg/dL) 171 H Random Glucose Hemoglobin A1c Calcium Phosphorus Magnesium Total Bilirubin AST ALT Alkaline Phosphatase Total Creatine Kinase Total Protein Albumin Globulin Albumin/Globulin Ratio Procalcitonin Arterial Blood Potassium 4.6 Urine Collection Time Urine Total Volume Ur Protein 24 Hr Calc Blood Type Blood Type Confirm Antibody Screen 01/12/17 01/12/17 01/12/17 11:29 12:06 17:09 WBC RBC Hgb Hct MCV MCH MCHC RDW Plt Count MPV Neut % (Auto) Lymph % (Auto) [place] % (Auto) Eos % (Auto) Baso % (Auto) Neut # Lymph # [place] # Eos # Baso # Neutrophils % (Manual) Band Neutrophils % Lymphocytes % (Manual) Reactive Lymphs % Monocytes % (Manual) Eosinophils % (Manual) Platelet Estimate Hypochromasia (manual) Poikilocytosis (manual Anisocytosis (manual) Union Cells PT INR APTT Fibrinogen Fibrin Degrad Products Fibrin Degrad Prod, Qt Puncture Site pCO2 pO2 HCO3 ABG pH ABG Total CO2 ABG O2 Saturation ABG Base Excess Carter Test ABG Potassium A-a O2 Difference Respiratory Index Glucose Lactate Liter Flow FiO2 Sodium 136 Potassium 5.7 H Chloride 101 Carbon Dioxide 21 L Anion Gap 20 BUN 119 H* Creatinine 3.1 H Est GFR ( Amer) 24 Est GFR (Non-Af Amer) 20 POC Glucose (mg/dL) Random Glucose 161 H Hemoglobin A1c Calcium 7.8 L Phosphorus Magnesium Total Bilirubin 1.1 AST 41 ALT 24 Alkaline Phosphatase 188 H Total Creatine Kinase Total Protein 6.7 Albumin 2.5 L Globulin Albumin/Globulin Ratio Procalcitonin Arterial Blood Potassium Urine Collection Time 24 Urine Total Volume 1225 Ur Protein 24 Hr Calc 196.0 Blood Type O POSITIVE Blood Type Confirm O POSITIVE Antibody Screen Negative 01/12/17 01/12/17 17:59 18:52 WBC RBC Hgb Hct MCV MCH MCHC RDW Plt Count MPV Neut % (Auto) Lymph % (Auto) [place] % (Auto) Eos % (Auto) Baso % (Auto) Neut # Lymph # [place] # Eos # Baso # Neutrophils % (Manual) Band Neutrophils % Lymphocytes % (Manual) Reactive Lymphs % Monocytes % (Manual) Eosinophils % (Manual) Platelet Estimate Hypochromasia (manual) Poikilocytosis (manual Anisocytosis (manual) Vitor Cells PT 30.7 H* D INR 2.6 D APTT 57 H D Fibrinogen 934 H Fibrin Degrad Products Positive H Fibrin Degrad Prod, Qt >40 H Puncture Site pCO2 pO2 HCO3 ABG pH ABG Total CO2 ABG O2 Saturation ABG Base Excess Carter Test ABG Potassium A-a O2 Difference Respiratory Index Glucose Lactate Liter Flow FiO2 Sodium 139 Potassium 5.0 Chloride 101 Carbon Dioxide 22 Anion Gap 21 H BUN 107 H* Creatinine 3.1 H Est GFR ( Amer) 24 Est GFR (Non-Af Amer) 20 POC Glucose (mg/dL) 180 H Random Glucose 156 H Hemoglobin A1c 12.4 H D Calcium 8.2 L Phosphorus Magnesium Total Bilirubin AST ALT Alkaline Phosphatase Total Creatine Kinase Total Protein Albumin Globulin Albumin/Globulin Ratio Procalcitonin 2.11 H Arterial Blood Potassium Urine Collection Time Urine Total Volume Ur Protein 24 Hr Calc Blood Type Blood Type Confirm Antibody Screen Attending/Attestation - Attestation I have personally seen and examined this patient.: Yes I have fully participated in the care of the patient.: Yes I have reviewed all pertinent clinical information: Yes Notes (Text): Patient seen, examined at the rapid response and again in the ICU. Patient transferred to the hospitalist service following rapid response this morning (resident note: Dr. salguero 01/12/17 for rapid response and my note 01/12 for further details). Patient admitted under 01/08/17 for worsening bilateral leg wounds. Per review of EMR, patient sustained gar to his legs Nov 2015, requiring hospitalization at [facility], and then requiring hospitalization in March 2016 and was treated at that point for osteomyelitis. Patient has a hx of atrial fibrillation, previously on Eliquis and in March 2016 was on Pradaza. Patient lives at home byself; his of 42 years is a primary step finisher of her mother in [place] who has a cardiac hx and ICD. Patient has a history of ICD, atrial fibrillation, uncontrolled diabetes (prior a1c: 10), hypertension and cataracts. Per discussion with patient's PMD outpatient, Dr. Wyatt, patient has not been seen in the office since february 2016. Transferred to hospitalist service as of 12:56 PM today. Discussed with patient's , Riana at bedside given elevated INR 15, patient will need FFP and Vitamin K. Patient had CT head w/o contrast which was negative for acute bleed. Patient was on small dose of Eliquis 2.5mg PO daily during current hospitalization. Patient is paced on the monitor. Patient has worsening leg wounds, oozing, b/l leg wounds, putrid odor. recommended for amputation safest option. Patient received number of blood products to help reverse INR. Continue to monitor renal function; may need dialysis (1) Severe sepsis Assessment and Plan: Criteria: leukocytosis (28.6): RR>20, and confirmed source of infection including b/l lower extremities and bactermia; symptomatic: altered mental status, lethargic, responsive to painful stimuli; creatinine >0.5, coagulation abnormalities INR>1.5 Blood culture (01/09/17): gram positive cocci X2 Wound culture (01/09/17): Enterocloace, Bacilus cerus, and pending third organism bilaterally Chest xray (01/12/17): persistent severe cardiomegaly and interval improvement in pulmonary venous congestion Abx: Daptomycin 500mg IV 48 hours (started on 01/12/17) Primaxin 500mg IV Q 12hours (started on 01/12/17) Flagyl 500mg Iv Q 8hours (started on 01/11/17) ABG (01/12): mild metabolic acidosis; lactate: 0.8 Patient appears clinically dried. Patient transferred to ICU on 01/12/17. Patient may require amputation. Patient unable to get MRI given has pacemaker. Infectious disease (Dr. Blum) on board Nephrology (Dr. Sanchez) on board Podiatry (Dr. Davenport) on board Vascular surgery (Dr. Granger) on board---amputation safest treatment; poor prognosis Status: Acute (2) Coagulopathy Assessment and Plan: possible related to sepsis Today, INR 15.0, PT 191-->INR:2.6 Patient given 10mg of Vitamin K IV over one hour and 6 units of fresh frozen plasma today Will need to monitor patient for signs of bleeding. CT scan of the head was negative (01/12/17) for any intracrainal bleed. Follow up on INR, PT, aPTT in AM He was on Eliqius 2.5mg bid since admission which was on 01/08/17-01/12/17 Heme-onc (Dr. Stephenson) consult on case given coagulopathy. Patient did have BM during rapid which was NOT black and appeared nonbloody. Status: Acute (3) Diabetic ulcer of both lower extremities Assessment and Plan: Patient has severe ulcers on both legs. Hgba1c: 12.4 (uncontrolled) Accuchecks Q 6hours Regular insulin sliding scale subq 6hours 01/11/17 Bone scan: negative study for acute osseous process. Specifically no evidence to sugest acute osteomyelitis left foot. Findings on the left 1st toe apparent on the prior study 03/27/16. Patient unable to give MRI given he has ICD. Wound culture (01/09/17): Enterocloace, Bacilus cerus, and pending third organism bilaterally Dr. Blum (infectious disease) on board-->discussed with ICU, patient to receive one dose of Daptomycin today Abx: Daptomycin 500mg IV 48 hours (started on 01/12/17) Primaxin 500mg IV Q 12hours (started on 01/12/17) Flagyl 500mg Iv Q 8hours (started on 01/11/17) Previously on Zosyn/Vancomycin/Flagyl Uncontrolled diabetes Surgery on board (Dr. Granger) on board Podiatry on board (Dr. Davenport) on board Infectious disease on board (Dr. Blum) on board Status: Acute (4) Bacteremia Assessment and Plan: Patient's blood culture (01/09/17) showed gram positive cocci in clusters Repeat blood cultures (01/12/17) ordered today Prior, patient was on IV Cefepime 1 gram Q12H and on Vancomycin 1 gram daily since the . Abx changed: Daptomycin 500mg IV 48 hours (started on 01/12/17) Primaxin 500mg IV Q 12hours (started on 01/12/17) Flagyl 500mg Iv Q 8hours (started on 01/11/17) Will order echocardiogram check LV systolic function Status: Acute (5) Acute delirium Assessment and Plan: d/c ativan PRN; patient is septic and altered. Will need to be monitored Status: Acute (6) Acute renal failure Assessment and Plan: Creatinine is now over 3 since admission. His baseline before that was around 0.8. Nephrology: Dr. Sanchez is consulted. Patient appears volume depleted. Received 6 units of FFP and 10mg IV Vitamin K today; and then gentle IV hydration NS 50cc/hr Status: Acute (7) Atrial fibrillation with slow ventricular response Status: Chronic Comment: Patient has a pace maker, he was on Eliquis 2.5mg PO daily during this current admission; Held today given INR at 15.0 and his PT 191 ordered at time of the rapid response. He was given Vitamin K 10mg and 6 units of Fresh Frozen plasma. Follow-up INR: 2.6 Patient has a pacemaker with a paced rhythm. F Follow up Echo ordered. CHADS: 2 (HTN, DM) HASBLED: 4 (HTN, abnormal renal function, labile INR, and age>65) (8) DM2 (diabetes mellitus, type 2) Status: Chronic Comment: Accu checks Q6H and sliding scale insulin Q6H per protocol. Uncontrolled; 12.4 a1c (9) HTN (hypertension) Status: Acute Comment: Have held his home htn medication for now due to hypotension monitor vitals sign in light of severe sepsis (10) Prophylactic measure Assessment and Plan: IV fluids NS 50 cc/hr. OFF VTE given elevated INR Wound Care : Dolores Romero Eyal (contact number: [phone]) Consent for blood products in the hardcopy chart Status: Acute
[2017-01-12] MEDS ORDERED: Imipenem/Cilastatin 500 MG in Dextrose 5% In Water 100 ML IVPB SCH (15:00)
[2017-01-12] MEDS ORDERED: DAPTOmycin 500 MG in Sodium Chloride 0.9% 100 ML IV SCH (18:00)
--- NOTE | 2017-01-12 18:07 | CP.PCM.PN ---
Subjective - Date & Time of Evaluation Date of Evaluation: 01/12/17 Time of Evaluation: 09:00 - Subjective Subjective: worsening sepsis in icu weak lethargic bedridde needs amputation as per vascular cultures noted Objective - Vital Signs/Intake and Output Vital Signs (last 24 hours): Temp Pulse Resp BP Pulse Ox 97.3 F L 60 18 108/48 L 98 01/12/17 16:00 01/12/17 17:00 01/12/17 17:00 01/12/17 17:00 01/12/17 17:00 Intake and Output: 01/12/17 01/12/17 06:59 18:59 Intake Total 1050 850 Output Total 950 580 Balance 100 270 - Medications Medications: Current Medications Sodium Chloride (Sodium Chloride 0.9%) 1,000 mls @ 50 mls/hr IV .Q20H [facility] Imipenem/Cilastatin Sodium 500 (mg/ Sodium Chloride) 100 mls @ 100 mls/hr IVPB Q12H [facility] Daptomycin 500 mg/ Sodium (Chloride) 100 mls @ 100 mls/hr IV Q48H [facility] Stop: 01/17/17 18:16 Metronidazole (Flagyl) 100 mls @ 100 mls/hr IVPB Q8 [facility] Insulin Human Regular (Novolin R) 0 unit SC Q6 [facility] PRN Reason: Protocol Last Admin: 01/12/17 14:12 Dose: 2 unit Lorazepam (Ativan) 1 mg IVP Q4H PRN PRN Reason: Agitation Mupirocin (Bactroban Ointment) 1 gm TOP BID [facility] Last Admin: 01/12/17 10:00 Dose: Not Given Sodium Hypochlorite (Dakins Solution 0.125%) 0 appl TOP DAILY [facility] Last Admin: 01/12/17 10:00 Dose: Not Given - Labs Labs: 01/12/17 07:29 01/12/17 11:29 PT 191.8 SECONDS (9.7-12.2) H* D 01/12/17 11:09 INR 15.0 D 01/12/17 11:09 APTT 97 SECONDS (21-34) H D 01/12/17 11:09 - Constitutional Appears: Toxic, Confused - Head Exam Head Exam: NORMOCEPHALIC - Eye Exam Eye Exam: absent: Scleral icterus - ENT Exam ENT Exam: Mucous Membranes Dry - Neck Exam Neck Exam: absent: Lymphadenopathy - Respiratory Exam Respiratory Exam: Decreased Breath Sounds, Rhonchi - Cardiovascular Exam Cardiovascular Exam: Tachycardia, REGULAR RHYTHM, +S1, +S2 - GI/Abdominal Exam GI & Abdominal Exam: Distended, Soft. absent: Tenderness - Rectal Exam Rectal Exam: Deferred - Extremities Exam Extremities Exam: Pedal Edema Additional comments: Heavy [id number] present bilaterally, with active drainage noted bilaterally. Diffuse continuous erythema noted bilaterally extending distally from level of proximal 1/3 of legs, bilaterally. No interdigital maceratin or hyperkeratotic lesion noted bilaterally. Right: Lateral leg partial thickness ulceration measuring 7.5 x 6 cm with a 60% fibrotic to 40% granular wound base. Absent undermining margins. Heel necrotic eschar with active weeping drainage from posterior margin noted. Eschar measures 6.5 x 7 cm. 5 cm lateral magin fibrotic plaque extension noted. Left: Medial 1st metatarsal head region full thickness ulceration measuring 2 x 1.9 cm with 100% fibrotic base absent undermining margins. Fluctuant necrotic heel eschar with active weeping drainage from posterior margin noted. Eschar measures 9 x 7.8 cm. Lateral leg full thickness ulceration measuring 13 x 7 cm with a 80% fibrotic to 20% necrotic base. VASC: DP and PT pulses non-palpable secondary to non-pitting edema. Absent pedal hair growth. Negative Homann and Talbot's signs bilaterally. Cappilarry refill time <5 seconds to digits. NERUO: Sensation grossly diminished distal to ankle joint bilaterally. - Back Exam Back Exam: absent: CVA tenderness (L), CVA tenderness (R) - Neurological Exam Neurological Exam: Altered. absent: Oriented x3 Neuro motor strength exam: Left Upper Extremity: 2/1, Right Upper Extremity: 2/1 , Left Lower Extremity: 2/1, Right Lower Extremity: 2/1 - Psychiatric Exam Psychiatric exam: Depressed - Skin Additional comments: Heavy [id number] present bilaterally, with active drainage noted bilaterally. Diffuse continuous erythema noted bilaterally extending distally from level of proximal 1/3 of legs, bilaterally. No interdigital maceratin or hyperkeratotic lesion noted bilaterally. Right: Lateral leg partial thickness ulceration measuring 7.5 x 6 cm with a 60% fibrotic to 40% granular wound base. Absent undermining margins. Heel necrotic eschar with active weeping drainage from posterior margin noted. Eschar measures 6.5 x 7 cm. 5 cm lateral magin fibrotic plaque extension noted. Left: Medial 1st metatarsal head region full thickness ulceration measuring 2 x 1.9 cm with 100% fibrotic base absent undermining margins. Fluctuant necrotic heel eschar with active weeping drainage from posterior margin noted. Eschar measures 9 x 7.8 cm. Lateral leg full thickness ulceration measuring 13 x 7 cm with a 80% fibrotic to 20% necrotic base. VASC: DP and PT pulses non-palpable secondary to non-pitting edema. Absent pedal hair growth. Negative Homann and Talbot's signs bilaterally. Cappilarry refill time <5 seconds to digits. NERUO: Sensation grossly diminished distal to ankle joint bilaterally. Assessment and Plan (1) Acute renal failure Status: Acute (2) Diabetic foot infection Status: Acute (3) Diabetic ulcer of both lower extremities Status: Acute (4) Leukocytosis Status: Acute (5) ARSENIO (acute kidney injury) Status: Acute (6) Abdominal distension Status: Acute (7) Atrial fibrillation with slow ventricular response Status: Acute (8) Cellulitis Status: Acute
--- NOTE | 2017-01-12 18:53 | CP.PCM.CON ---
History of Present Illness - History of Present Illness History of Present Illness: This is a 71 year old male long standing bilateral leg cellulitis with poor care. He was admitted on 01/08/2017 for worsening bilateral leg cellulitis and was stated on antibiotics. Today rapid response was called for INR 15, previous value 3.5, he is currently taking eliquis for atrial fibrillation. On my exam the patient has ams, clinically dry, vs stable. He needs a lot of nursing care and close watch and was transferred to ICU. ros: unable due to am pe: bp 111/61 mmhg, hr 60 bpm, rr 18 bpm, t 98.8, T 97% on 2 L NC awakes when stimulated s1, s2 irregularly irregular, rate controlled lungs decreased bilateral air of entry, minimal crackles abdomen global, soft, non tender legs with ulcers draining pus, also present in left foot, foul smelling a/p: cellulitis: acute on chronic, change antibiotics to daptomycin (monitor cpk weekly) and imipemen, spoke to Dr. Blum and updated about events and new culture, spoke to Dr. Granger who was previously consulted for amputation. aware and considering it seriously acute on crf: pre-renal component, hydrate and recheck bmp, give kayexalate for hyperkalemia coagulopathy: most likely from sepsis: hold eliquis, not bleeding, reverse inr, 10 mg vitamin K give in 1 hour to avoid anaphylaxis a. fib: rate controlled dm htn: hold all bp meds severe sepsis Past Patient History - Infectious Disease Hx of Infectious Diseases: None - Past Medical History & Family History Past Medical History?: Yes - Past Social History Smoking Status: Never Smoked - CARDIAC Hx Cardiac Disorders: Yes Hx Hypercholesterolemia: Yes Hx Hypertension: Yes - PULMONARY Hx Respiratory Disorders: No - NEUROLOGICAL Hx Neurological Disorder: No - HEENT Hx HEENT Problems: Yes Other/Comment: hard of hearing - RENAL Hx Chronic Kidney Disease: Yes - ENDOCRINE/METABOLIC Hx Diabetes Mellitus Type 2: Yes - HEMATOLOGICAL/ONCOLOGICAL Hx Blood Disorders: No - INTEGUMENTARY Hx Dermatological Problems: Yes Hx Cellulitis: Yes (BLE) Other/Comment: Diabetic foot ulcers - MUSCULOSKELETAL/RHEUMATOLOGICAL Hx Falls: No - GASTROINTESTINAL Hx Gastrointestinal Disorders: No - GENITOURINARY/GYNECOLOGICAL Hx Genitourinary Disorders: No - PSYCHIATRIC Hx Substance Use: No - SURGICAL HISTORY Hx Surgeries: Yes Hx Orthopedic Surgery: Yes (right knee sx) Other/Comment: hernia repair - ANESTHESIA Hx Anesthesia: Yes Hx Anesthesia Reactions: No Hx Malignant Hyperthermia: No Has any member of the family had a problem w/ anesthesia?: No Meds Allergies/Adverse Reactions: Allergies Allergy/AdvReac Type Severity Reaction Status Date / Time No Known Allergies Allergy Verified 01/09/17 14:55 - Medications Medications: Current Medications Sodium Chloride (Sodium Chloride 0.9%) 1,000 mls @ 50 mls/hr IV .Q20H [facility] Imipenem/Cilastatin Sodium 500 (mg/ Sodium Chloride) 100 mls @ 100 mls/hr IVPB Q12H [facility] Daptomycin 500 mg/ Sodium (Chloride) 100 mls @ 100 mls/hr IV Q48H [facility] Stop: 01/19/17 15:01 Metronidazole (Flagyl) 100 mls @ 100 mls/hr IVPB Q8H [facility] Insulin Human Regular (Novolin R) 0 unit SC Q6 [facility] PRN Reason: Protocol Last Admin: 01/12/17 14:12 Dose: 2 unit Lorazepam (Ativan) 1 mg IVP Q4H PRN PRN Reason: Agitation Sodium Hypochlorite (Dakins Solution 0.125%) 0 appl TOP DAILY [facility] Last Admin: 01/12/17 10:00 Dose: Not Given Results - Vital Signs Recent Vital Signs: Last Vital Signs Temp 97.3 F L 01/12/17 16:00 Pulse 60 01/12/17 17:00 Resp 18 01/12/17 17:00 BP 108/48 L 01/12/17 17:00 Pulse Ox 98 01/12/17 17:00 - Labs Result Diagrams: 01/12/17 07:29 01/12/17 11:29 Labs: Laboratory Results - last 24 hr 01/11/17 01/12/17 01/12/17 21:23 05:56 07:29 WBC 28.9 H RBC 3.81 L Hgb 9.7 L Hct 31.2 L MCV 81.9 MCH 25.4 L MCHC 31.1 L RDW 16.4 H Plt Count 349 MPV 7.5 Neut % (Auto) 91.3 H Lymph % (Auto) 4.0 L [place] % (Auto) 3.6 Eos % (Auto) 0.6 Baso % (Auto) 0.5 Neut # 26.4 H Lymph # 1.2 [place] # 1.0 H Eos # 0.2 Baso # 0.1 Neutrophils % (Manual) 79 H Band Neutrophils % 1 Lymphocytes % (Manual) 14 L Reactive Lymphs % 1 H Monocytes % (Manual) 3 Eosinophils % (Manual) 2 Platelet Estimate Normal Hypochromasia (manual) Slight Poikilocytosis (manual Slight Anisocytosis (manual) Slight Arley Cells Slight PT INR APTT Puncture Site pCO2 pO2 HCO3 ABG pH ABG Total CO2 ABG O2 Saturation ABG Base Excess Carter Test ABG Potassium A-a O2 Difference Respiratory Index Glucose Lactate Liter Flow FiO2 Sodium 139 Potassium 5.8 H Chloride 100 Carbon Dioxide 24 Anion Gap 21 H BUN 114 H* Creatinine 3.3 H Est GFR ( Amer) 23 Est GFR (Non-Af Amer) 19 POC Glucose (mg/dL) 146 H 168 H Random Glucose 155 H Calcium 7.8 L Phosphorus 7.8 H Magnesium 2.7 H Total Bilirubin 1.4 H AST 53 ALT 30 Alkaline Phosphatase 224 H Total Creatine Kinase 371 H Total Protein 7.1 Albumin 2.8 L Globulin 4.3 H Albumin/Globulin Ratio 0.7 L Arterial Blood Potassium Urine Collection Time Urine Total Volume Blood Type Blood Type Confirm Antibody Screen 01/12/17 01/12/17 01/12/17 08:26 11:02 11:09 WBC RBC Hgb Hct MCV MCH MCHC RDW Plt Count MPV Neut % (Auto) Lymph % (Auto) [place] % (Auto) Eos % (Auto) Baso % (Auto) Neut # Lymph # [place] # Eos # Baso # Neutrophils % (Manual) Band Neutrophils % Lymphocytes % (Manual) Reactive Lymphs % Monocytes % (Manual) Eosinophils % (Manual) Platelet Estimate Hypochromasia (manual) Poikilocytosis (manual Anisocytosis (manual) Arley Cells PT 191.8 H* D INR 15.0 D APTT 97 H D Puncture Site Rb pCO2 36 pO2 103 H HCO3 19.2 L ABG pH 7.31 L ABG Total CO2 19.2 L ABG O2 Saturation 99.9 H ABG Base Excess -7.4 L Carter Test Na ABG Potassium 4.6 A-a O2 Difference 66.0 Respiratory Index 0.6 Glucose 139 H Lactate 0.8 Liter Flow 3.0 FiO2 30.0 Sodium 140.0 Potassium Chloride 115.0 H Carbon Dioxide Anion Gap BUN Creatinine Est GFR ( Amer) Est GFR (Non-Af Amer) POC Glucose (mg/dL) 171 H Random Glucose Calcium Phosphorus Magnesium Total Bilirubin AST ALT Alkaline Phosphatase Total Creatine Kinase Total Protein Albumin Globulin Albumin/Globulin Ratio Arterial Blood Potassium 4.6 Urine Collection Time Urine Total Volume Blood Type Blood Type Confirm Antibody Screen 01/12/17 01/12/17 01/12/17 11:29 12:06 17:09 WBC RBC Hgb Hct MCV MCH MCHC RDW Plt Count MPV Neut % (Auto) Lymph % (Auto) [place] % (Auto) Eos % (Auto) Baso % (Auto) Neut # Lymph # [place] # Eos # Baso # Neutrophils % (Manual) Band Neutrophils % Lymphocytes % (Manual) Reactive Lymphs % Monocytes % (Manual) Eosinophils % (Manual) Platelet Estimate Hypochromasia (manual) Poikilocytosis (manual Anisocytosis (manual) Vitor Cells PT INR APTT Puncture Site pCO2 pO2 HCO3 ABG pH ABG Total CO2 ABG O2 Saturation ABG Base Excess Carter Test ABG Potassium A-a O2 Difference Respiratory Index Glucose Lactate Liter Flow FiO2 Sodium 136 Potassium 5.7 H Chloride 101 Carbon Dioxide 21 L Anion Gap 20 BUN 119 H* Creatinine 3.1 H Est GFR ( Amer) 24 Est GFR (Non-Af Amer) 20 POC Glucose (mg/dL) Random Glucose 161 H Calcium 7.8 L Phosphorus Magnesium Total Bilirubin 1.1 AST 41 ALT 24 Alkaline Phosphatase 188 H Total Creatine Kinase Total Protein 6.7 Albumin 2.5 L Globulin Albumin/Globulin Ratio Arterial Blood Potassium Urine Collection Time 24 Urine Total Volume 1225 Blood Type O POSITIVE Blood Type Confirm O POSITIVE Antibody Screen Negative 01/12/17 17:59 WBC RBC Hgb Hct MCV MCH MCHC RDW Plt Count MPV Neut % (Auto) Lymph % (Auto) [place] % (Auto) Eos % (Auto) Baso % (Auto) Neut # Lymph # [place] # Eos # Baso # Neutrophils % (Manual) Band Neutrophils % Lymphocytes % (Manual) Reactive Lymphs % Monocytes % (Manual) Eosinophils % (Manual) Platelet Estimate Hypochromasia (manual) Poikilocytosis (manual Anisocytosis (manual) Arley Cells PT INR APTT Puncture Site pCO2 pO2 HCO3 ABG pH ABG Total CO2 ABG O2 Saturation ABG Base Excess Carter Test ABG Potassium A-a O2 Difference Respiratory Index Glucose Lactate Liter Flow FiO2 Sodium Potassium Chloride Carbon Dioxide Anion Gap BUN Creatinine Est GFR ( Amer) Est GFR (Non-Af Amer) POC Glucose (mg/dL) 180 H Random Glucose Calcium Phosphorus Magnesium Total Bilirubin AST ALT Alkaline Phosphatase Total Creatine Kinase Total Protein Albumin Globulin Albumin/Globulin Ratio Arterial Blood Potassium Urine Collection Time Urine Total Volume Blood Type Blood Type Confirm Antibody Screen
[2017-01-12 19:04] LABS: CALCIUM 8.2 mg/dl (8.6-10.4)
[2017-01-12 19:06] LABS: INR 2.6
[2017-01-12 19:32] LABS: FIBRINOGEN 934 mg/dL (200-400)
[2017-01-12 19:39] LABS: FDP INTERPRETATION POSITIVE (NEGATIVE); FDP QUANTITY >40 ug/mL (<10)
[2017-01-12] MEDS ORDERED: metroNIDAZOLE IV 500 mg/100 ml 100 ML IVPB SCH (20:00)
--- NOTE | 2017-01-12 23:23 | CP.PCM.PN ---
Subjective - Date & Time of Evaluation Date of Evaluation: 01/12/17 Time of Evaluation: 23:19 - Subjective Subjective: Patient intubated as he was very lethargic, rising end tidal co2 to 66. No sedation needed, intubated with ET 8, single attempt, Mac 4 blade used, tip visualized entering cords, placement confirmed by CO2 detector with color change. ET secured at 25 at the lip. Phelgm like fluid noticed on the airway. Og tube also passed, with aspiration of the bilious gastric contents. Post procedure VS stable vent at 450/14/40%, SPO2 99% Pending CXR. Objective - Vital Signs/Intake and Output Vital Signs (last 24 hours): Temp Pulse Resp BP Pulse Ox 96.3 F L 60 21 110/47 L 96 01/12/17 20:00 01/12/17 20:00 01/12/17 20:00 01/12/17 20:00 01/12/17 20:00 Intake and Output: 01/12/17 01/13/17 18:59 06:59 Intake Total 1200 560 Output Total 300 105 Balance 900 455 - Medications Medications: Current Medications Sodium Chloride (Sodium Chloride 0.9%) 1,000 mls @ 50 mls/hr IV .Q20H [facility] Last Admin: 01/12/17 13:00 Dose: 50 mls/hr Imipenem/Cilastatin Sodium 500 (mg/ Sodium Chloride) 100 mls @ 100 mls/hr IVPB Q12H [facility] Last Admin: 01/12/17 18:53 Dose: 100 mls/hr Daptomycin 500 mg/ Sodium (Chloride) 100 mls @ 100 mls/hr IV Q48H [facility] Stop: 01/19/17 15:01 Metronidazole (Flagyl) 100 mls @ 100 mls/hr IVPB Q8H [facility] Insulin Human Regular (Novolin R) 0 unit SC Q6 [facility] PRN Reason: Protocol Last Admin: 01/12/17 18:52 Dose: 2 unit Sodium Hypochlorite (Dakins Solution 0.125%) 0 appl TOP DAILY [facility] Last Admin: 01/12/17 10:00 Dose: Not Given - Labs Labs: 01/12/17 07:29 01/12/17 18:52 PT 30.7 SECONDS (9.7-12.2) H* D 01/12/17 18:52 INR 2.6 D 01/12/17 18:52 APTT 57 SECONDS (21-34) H D 01/12/17 18:52
[2017-01-12] MEDS: metroNIDAZOLE IV 500 mg/100 ml 100 ML IVPB SCH (23:52)
[2017-01-13] MEDS ORDERED: Sodium Chloride 0.9% 500 ML IV ONE (00:10)
[2017-01-13] MEDS: (Novolin R) Insulin Human Regular 100 units/ml vial SC SCH ×4 (00:47→17:34)
[2017-01-13] MEDS: Sodium Chloride 0.9% 1,000 ML IV SCH ×3 (00:53→20:17)
[2017-01-13 05:31] LABS: ABG ALLEN TEST POS; ABG MECHANICAL RATE 14; ARTERIAL BLOOD HGB O2 SAT 96.2 % (95.0-98.0); ATERIAL BLOOD GAS PEEP 5; CARBOXYHEMOGLOBIN 2.2 % (0.5-1.5); DRAW SITE RRAD; HHB 0.2 % (0.0-5.0); METHEMOGLOBIN 1.5 % (0.0-3.0)
[2017-01-13 07:15] LABS: BASO # 0.1 K/uL (0.0-0.2); BASO % 0.4 % (0.0-2.0); EOS # 0.1 K/uL (0.0-0.7); EOS % 0.5 % (0.0-4.0); HEMATOCRIT 25.8 % (35.0-51.0); LYMPH # 1.2 K/uL (1.0-4.3); LYMPH % 5.6 % (20.0-40.0); MEAN CORPUSCULAR HEMOGLOBIN 25.5 pg (27.0-31.0); MEAN CORPUSCULAR HGB CONC 31.5 g/dL (33.0-37.0); MEAN PLATELET VOLUME 7.3 fL (7.2-11.7); MONO # 0.8 K/uL (0.0-0.8); MONO % 3.6 % (0.0-10.0); PLATELET COUNT 270 K/uL (130-400); RED CELL DISTRIBUTION WIDTH 16.3 % (11.5-14.5); WHITE BLOOD COUNT 21.6 K/uL (4.8-10.8)
[2017-01-13 07:17] LABS: INR 1.8
--- NOTE | 2017-01-13 07:49 | RAD ---
HISTORY: post intubation COMPARISON: Comparison is made to the previous study dated 01/12/2017 FINDINGS: LUNGS: The ET tube is seen at appropriate position. [id number] pulmonary vascular congestion are noted. PLEURA: Possible small right pleural effusion. CARDIOVASCULAR: The cardiac silhouette is enlarged. OSSEOUS STRUCTURES: No significant abnormalities. VISUALIZED UPPER ABDOMEN: Normal. OTHER FINDINGS: Left-sided single wire ACD is again seen in place. IMPRESSION: Appropriate position of the ETT. Moderate pulmonary vascular congestion and cardiomegaly suspicious for CHF.
[2017-01-13 08:31] LABS: POTASSIUM 4.8 mmol/L (3.6-5.2)
[2017-01-13 08:33] LABS: ALB/GLOB RATIO 0.7 (1.0-2.1); BILIRUBIN,TOTAL 1.4 mg/dL (0.2-1.3); TOTAL PROTEIN 6.6 g/dL (6.3-8.3)
[2017-01-13 08:34] LABS: CALCIUM 7.8 mg/dl (8.6-10.4); MAGNESIUM 2.8 mg/dL (1.6-2.3); PHOSPHOROUS 7.3 mg/dL (2.5-4.5)
--- NOTE | 2017-01-13 08:39 | CP.PCM.PN ---
Subjective - Date & Time of Evaluation Date of Evaluation: 01/13/17 Time of Evaluation: 08:10 - Subjective Subjective: Medical Attending Note: Follow-up: severe sepsis, bactermia, coagulopathy, b/l cellulitis, diabetic foot ulcers and strong suspicion for osteomyelitis, atrial fibrillation; pacemaker Patient seen, examined, and discussed with ICU. Events noted overnight. Patient intubated on vent; Fio4:40% at bedside. Spoke with patient's at bedside regarding patient including downtrending white count, improving INR, and possibility of surgery for the legs. Patient's request to speak with Acid Pump Operator Sure regarding code status and discussion of POLST; Dolores () would like to make DNR but would like to go over POLST form. Sedated Objective - Vital Signs/Intake and Output Vital Signs (last 24 hours): Temp Pulse Resp BP Pulse Ox 96.3 F L 60 21 110/47 L 96 01/12/17 20:00 01/12/17 20:00 01/12/17 20:00 01/12/17 20:00 01/12/17 20:00 Intake and Output: 01/13/17 01/13/17 06:59 18:59 Intake Total 1710 100 Output Total 890 70 Balance 820 30 - Medications Medications: Current Medications Imipenem/Cilastatin Sodium 500 (mg/ Sodium Chloride) 100 mls @ 100 mls/hr IVPB Q12H [facility] Last Admin: 01/13/17 05:00 Dose: 100 mls/hr Daptomycin 500 mg/ Sodium (Chloride) 100 mls @ 100 mls/hr IV Q48H [facility] Stop: 01/19/17 15:01 Metronidazole (Flagyl) 100 mls @ 100 mls/hr IVPB Q8H [facility] Last Admin: 01/12/17 23:52 Dose: 100 mls/hr Propofol (Diprivan) 100 mls @ 2.722 mls/hr IV .Q24H PRN; Protocol; 5 MCG/KG/MIN PRN Reason: TITRATE PER MD ORDER Last Titration: 01/13/17 03:15 Dose: 10 mcg/kg/min Sodium Chloride (Sodium Chloride 0.9%) 1,000 mls @ 100 mls/hr IV .Q10H [facility] Last Admin: 01/13/17 00:53 Dose: 100 mls/hr Insulin Human Regular (Novolin R) 0 unit SC Q6 [facility] PRN Reason: Protocol Last Admin: 01/13/17 06:00 Dose: Not Given Sodium Hypochlorite (Dakins Solution 0.125%) 0 appl TOP DAILY [facility] Last Admin: 01/12/17 10:00 Dose: Not Given - Labs Labs: 01/13/17 07:04 01/13/17 07:08 PT 20.4 SECONDS (9.7-12.2) H D 01/13/17 07:04 INR 1.8 D 01/13/17 07:04 APTT 57 SECONDS (21-34) H D 01/12/17 18:52 - Constitutional Appears: Agitated, Chronically Ill - Head Exam Head Exam: NORMAL INSPECTION - Eye Exam Eye Exam: EOMI - ENT Exam ENT Exam: Mucous Membranes Dry - Respiratory Exam Respiratory Exam: Decreased Breath Sounds. absent: Rales, Rhonchi, Wheezes, Respiratory Distress Additional comments: intubated, vented - Cardiovascular Exam Cardiovascular Exam: REGULAR RHYTHM, +S1, +S2 - GI/Abdominal Exam GI & Abdominal Exam: Soft, Normal Bowel Sounds. absent: Distended, Firm, Guarding, Rigid, Tenderness, Rebound - Neurological Exam Additional comments: on sedation - Skin Skin Exam: Pallor, Warm Additional comments: b/l lower extremities; Wrapped in yue dressing; putrid foul smelling; associated erythema Assessment and Plan - Assessment and Plan (Free Text) Assessment: (1) Severe sepsis Assessment and Plan: Criteria: leukocytosis (28.6): RR>20, and confirmed source of infection including b/l lower extremities; bactermia and likely osteomyelitis and/or gangrene; symptomatic: altered mental status, lethargic, responsive to painful stimuli; creatinine >0.5, coagulation abnormalities INR>1.5 01/13: WBC: 21; afebrile, Cr: 2.7 Blood culture (01/09/17): gram positive, gram positive cocci in chains-->I spoke with lab 01/13 results should be finalized tomorrow Wound culture (01/09/17): Enterocloace X2, Bacilus cerus, Chest xray (01/12/17): persistent severe cardiomegaly and interval improvement in pulmonary venous congestion Abx: Daptomycin 500mg IV 48 hours (started on 01/12/17) Primaxin 500mg IV Q 12hours (started on 01/12/17) Flagyl 500mg Iv Q 8hours (started on 01/11/17) ABG (01/12): mild metabolic acidosis; lactate: 0.8 Patient appears clinically dried at time of rapid. Patient transferred to ICU on 01/12/17. Patient may require amputation. Patient unable to get MRI given has pacemaker. Infectious disease (Dr. Blum) on board Nephrology (Dr. Sanchez) on board Podiatry (Dr. Davenport) on board Vascular surgery (Dr. Granger) on board---amputation safest treatment; poor prognosis Procalcitonin: 2.11 Status: Acute (2) Coagulopathy Assessment and Plan: possible related to sepsis INR 15.0, PT 191-->INR:2.6-->1.8 Patient given 10mg of Vitamin K IV over one hour and 6 units of fresh frozen plasma 01/12 Patient to given additional 2 units of FFP prior central line placement for inr : 1.8 Will need to monitor patient for signs of bleeding. CT scan of the head was negative (01/12/17) for any intracrainal bleed. He was on Eliqius 2.5mg bid since admission which was on 01/08/17-01/12/17 for history of atrial fibrillation Heme-onc (Dr. Stephenson) consult on case given coagulopathy. Patient did have BM during rapid which was NOT black and appeared nonbloody. Status: Acute (3) Diabetic ulcer of both lower extremities Assessment and Plan: Patient has severe ulcers on both legs. Hgba1c: 12.4 (uncontrolled) Accuchecks Q 6hours Regular insulin sliding scale subq 6hours 01/11/17 Bone scan: negative study for acute osseous process. Specifically no evidence to suggest acute osteomyelitis left foot. Findings on the left 1st toe apparent on the prior study 03/27/16. Patient unable to give MRI given he has ICD Wound culture (01/09/17): Enterocloace, Bacilus cerus, and pending third organism bilaterally Dr. Blum (infectious disease) on board-->discussed with ICU, patient to receive one dose of Daptomycin today Abx: Daptomycin 500mg IV 48 hours (started on 01/12/17) Primaxin 500mg IV Q 12hours (started on 01/12/17) Flagyl 500mg Iv Q 8hours (started on 01/11/17) Previously on Zosyn/Vancomycin/Flagyl Uncontrolled diabetes Surgery on board (Dr. Granger) on board Podiatry on board (Dr. Davenport) on board Infectious disease on board (Dr. Blum) on board Status: Acute (4) Bacteremia Assessment and Plan: Patient's blood culture (01/09/17): gram positive, gram positive cocci in chains- ->I spoke with lab 01/13 results should be finalized tomorrow Repeat blood cultures (01/12/17) ordered Prior, patient was on IV Cefepime 1 gram Q12H and on Vancomycin 1 gram daily since the . Abx changed: Daptomycin 500mg IV 48 hours (started on 01/12/17) Primaxin 500mg IV Q 12hours (started on 01/12/17) Flagyl 500mg Iv Q 8hours (started on 01/11/17) Will order echocardiogram check LV systolic function-->pending Status: Acute (5) Acute delirium Assessment and Plan: d/c ativan PRN; patient is septic and altered. Will need to be monitored Status: Acute (6) Acute renal failure Assessment and Plan: monitor BUN/Cr; C 2.7 Cr baseline before that was around 0.8. Nephrology: Dr. Sanchez is consulted. Patient appears volume depleted. Received 6 units of FFP and 10mg IV Vitamin K and then gentle IV hydration NS 50cc/hr Will receive additional 2 units of FFP 01/13/17 Status: Acute (7) Atrial fibrillation with slow ventricular response Status: Chronic Comment: Patient has a pace maker, he was on Eliquis 2.5mg PO daily during this current admission; Held given INR at 15.0 and his PT 191 ordered at time of the rapid response. He was given Vitamin K 10mg and 6 units of Fresh Frozen plasma. Follow-up INR: 2.6 Patient has a pacemaker with a paced rhythm. Follow up Echo ordered. CHADS: 2 (HTN, DM) HASBLED: 4 (HTN, abnormal renal function, labile INR, and age>65) (8) DM2 (diabetes mellitus, type 2) Status: Chronic Comment: Accu checks Q6H and sliding scale insulin Q6H per protocol. Uncontrolled; 12.4 a1c (9) HTN (hypertension) Status: Acute Comment: Have held his home htn medication for now due to hypotension monitor vitals sign in light of severe sepsis (10) Prophylactic measure Assessment and Plan: IV fluids NS 100 cc/hr. OFF VTE given elevated INR Wound Care : Dolores Birch (contact number: [phone]) Consent for blood products in the hardcopy chart Intubated 01/12 Status: Acute Attending/Attestation - Attestation I have personally seen and examined this patient.: Yes I have fully participated in the care of the patient.: Yes I have reviewed all pertinent clinical information, including history, physical exam and plan: Yes
[2017-01-13] MEDS: metroNIDAZOLE IV 500 mg/100 ml 100 ML IVPB SCH ×3 (08:58→23:36)
[2017-01-13 09:45] LABS: NEUTROPHIL 90 % (50-75); TOTAL CELLS COUNTED 100
[2017-01-13 09:48] LABS: SPHEROCYTES SLIGHT
--- NOTE | 2017-01-13 10:46 | RAD ---
PROCEDURE: Bilateral Feet Radiographs. HISTORY: r/o gas COMPARISON: No prior similar exam available for comparison. FINDINGS: BONES: Right Foot: No evidence of acute fracture. Irregularity seen at the inferior aspect of the proximal calcaneus bone. Left Foot: No evidence of acute fracture. Small calcaneal spur and irregularity seen at the cortex of the inferior aspect of the calcaneus bone JOINTS: Right Foot: Arthritic degenerative changes Left Foot: Arthritic degenerative changes. SOFT TISSUES: Right Foot: Small subcutaneous air/emphysema seen at the right healed and plantar aspect of the proximal right foot. Left Foot: Moderate amount of subcutaneous and deep soft tissue gas/ emphysema seen at the plantar aspect of the proximal left foot. OTHER FINDINGS: None. IMPRESSION: Bilateral subcutaneous gas seen at the plantar aspect of the proximal feet larger on the left. The possibility of infection should be considered. The possibility of fasciitis also should be considered. Further assessment is recommended.
--- NOTE | 2017-01-13 10:50 | RAD ---
PROCEDURE: Radiographs of the bilateral Tibiae and Fibulae. HISTORY: r/o gas COMPARISON: Comparison is made to the previous bone scan dated 01/11/2017 TECHNIQUE: Frontal and lateral views obtained. FINDINGS: BONES: RIGHT TIBIA: No fracture or destructive lesion. No evidence of acute pathology. LEFT TIBIA: No fracture or destructive lesion. No evidence of acute pathology JOINT SPACES: RIGHT TIBIA: Degenerative changes LEFT TIBIA: Degenerative changes SOFT TISSUES: RIGHT TIBIA: Skin defect and subcutaneous irregularity seen at the anterior aspect of the mid to lower right William LEFT TIBIA: Subcutaneus lucency and irregularity seen at the anterior mid to lower left William. OTHER FINDINGS: None. IMPRESSION: No evidence of acute pathology in the osseous structures. Diffuse vascular calcification. Suspicious for skin ulcer and subcutaneous soft tissue heterogeneous density seen at the right mid to distal right leg.
--- NOTE | 2017-01-13 11:07 | CP.PCM.PN ---
Subjective - Date & Time of Evaluation Date of Evaluation: 01/13/17 Time of Evaluation: 10:45 - Subjective Subjective: intubated overnight for respiratory distress + blood cultures amputation planned for Sunday Unable to obtain ROS Objective - Vital Signs/Intake and Output Vital Signs (last 24 hours): Temp Pulse Resp BP Pulse Ox 97.1 F L 60 20 111/56 L 100 01/13/17 08:00 01/13/17 10:00 01/13/17 10:00 01/13/17 10:00 01/13/17 10:00 Intake and Output: 01/13/17 01/13/17 06:59 18:59 Intake Total 1710 416.2 Output Total 890 270 Balance 820 146.2 - Medications Medications: Current Medications Imipenem/Cilastatin Sodium 500 (mg/ Sodium Chloride) 100 mls @ 100 mls/hr IVPB Q12H [facility] Last Admin: 01/13/17 05:00 Dose: 100 mls/hr Daptomycin 500 mg/ Sodium (Chloride) 100 mls @ 100 mls/hr IV Q48H [facility] Stop: 01/19/17 15:01 Metronidazole (Flagyl) 100 mls @ 100 mls/hr IVPB Q8H [facility] Last Admin: 01/13/17 08:58 Dose: 100 mls/hr Propofol (Diprivan) 100 mls @ 2.722 mls/hr IV .Q24H PRN; Protocol; 5 MCG/KG/MIN PRN Reason: TITRATE PER MD ORDER Last Admin: 01/13/17 08:50 Dose: 5.443 mls/hr Sodium Chloride (Sodium Chloride 0.9%) 1,000 mls @ 100 mls/hr IV .Q10H [facility] Last Admin: 01/13/17 00:53 Dose: 100 mls/hr Insulin Human Regular (Novolin R) 0 unit SC Q6 [facility] PRN Reason: Protocol Last Admin: 01/13/17 06:00 Dose: Not Given Pantoprazole Sodium (Protonix Inj) 40 mg IVP DAILY [facility] Sodium Hypochlorite (Dakins Solution 0.125%) 0 appl TOP DAILY [facility] Last Admin: 01/12/17 10:00 Dose: Not Given - Labs Labs: 01/13/17 07:04 01/13/17 07:08 PT 20.4 SECONDS (9.7-12.2) H D 04/01/17 07:04 INR 1.8 D 01/13/17 07:04 APTT 57 SECONDS (21-34) H D 01/12/17 18:52 - Constitutional Appears: Unkempt - Head Exam Head Exam: ATRAUMATIC Additional comments: endotracheal intubation - Respiratory Exam Respiratory Exam: Clear to Ausculation Bilateral. absent: Accessory Muscle Use - Cardiovascular Exam Cardiovascular Exam: Tachycardia, REGULAR RHYTHM - GI/Abdominal Exam GI & Abdominal Exam: Distended, Soft. absent: Tenderness - Extremities Exam Additional comments: bilateral dressings on legs, malodorous Assessment and Plan - Assessment and Plan (Free Text) Assessment: gabriela on ckd, stable with appropriate u/o on ivf, may consider reducing rate, given xray with pvc septic from infected leg ulcers, on AB, for probable amputation on Sunday
--- NOTE | 2017-01-13 12:54 | CP.PCM.PN ---
Subjective - Date & Time of Evaluation Date of Evaluation: 01/13/17 Time of Evaluation: 11:50 - Subjective Subjective: 71 y/o male seen at bedside concerning worsening Bilateral foot and leg ulcers with attending Dr. Davenport present. Pt remains sedated and intubated, unable to communicate. Patient appears comfortably in bed with no acute distress at the time of visit. Dressing to bilateral lower extremities remain clean dry and intact Objective - Vital Signs/Intake and Output Vital Signs (last 24 hours): Temp Pulse Resp BP Pulse Ox 97.1 F L 60 20 111/56 L 100 01/13/17 08:00 01/13/17 10:00 01/13/17 10:00 01/13/17 10:00 01/13/17 10:00 Intake and Output: 01/13/17 01/13/17 06:59 18:59 Intake Total 1710 416.2 Output Total 890 270 Balance 820 146.2 - Medications Medications: Current Medications Imipenem/Cilastatin Sodium 500 (mg/ Sodium Chloride) 100 mls @ 100 mls/hr IVPB Q12H [facility] Last Admin: 01/13/17 05:00 Dose: 100 mls/hr Daptomycin 500 mg/ Sodium (Chloride) 100 mls @ 100 mls/hr IV Q48H [facility] Stop: 01/19/17 15:01 Metronidazole (Flagyl) 100 mls @ 100 mls/hr IVPB Q8H [facility] Last Admin: 01/13/17 08:58 Dose: 100 mls/hr Propofol (Diprivan) 100 mls @ 2.722 mls/hr IV .Q24H [facility]; Protocol; 5 MCG/KG/MIN PRN Reason: TITRATE PER MD ORDER Last Admin: 01/13/17 08:50 Dose: 5.443 mls/hr Sodium Chloride (Sodium Chloride 0.9%) 1,000 mls @ 100 mls/hr IV .Q10H [facility] Last Admin: 01/13/17 00:53 Dose: 100 mls/hr Insulin Human Regular (Novolin R) 0 unit SC Q6 [facility] PRN Reason: Protocol Last Admin: 01/13/17 06:00 Dose: Not Given Pantoprazole Sodium (Protonix Inj) 40 mg IVP DAILY [facility] Sodium Hypochlorite (Dakins Solution 0.125%) 0 appl TOP DAILY [facility] Last Admin: 01/12/17 10:00 Dose: Not Given - Labs Labs: 01/13/17 07:04 01/13/17 07:08 PT 20.4 SECONDS (9.7-12.2) H D 01/13/17 07:04 INR 1.8 D 01/13/17 07:04 APTT 57 SECONDS (21-34) H D 01/12/17 18:52 - Constitutional Appears: Well, Non-toxic, No Acute Distress - Extremities Exam Additional comments: Lower extremity focused. DERM: Heavy [id number] present bilaterally, with active drainage noted bilaterally. Diffuse continuous erythema noted bilaterally extending distally from level of proximal 1/3 of legs, bilaterally. No interdigital maceratin or hyperkeratotic lesion noted bilaterally. Right: Lateral leg partial thickness ulceration measuring 7.5 x 6 cm with a 60% fibrotic to 40% granular wound base. Absent undermining margins. Heel necrotic eschar with active weeping drainage from posterior margin noted. Eschar measures 6.5 x 7 cm. 5 cm lateral magin fibrotic plaque extension noted. Left: Medial 1st metatarsal head region full thickness ulceration measuring 2 x 1.9 cm with 100% fibrotic base absent undermining margins. Fluctuant necrotic heel eschar with active weeping drainage from posterior margin noted. Eschar measures 9 x 7.8 cm. Lateral leg full thickness ulceration measuring 13 x 7 cm with a 80% fibrotic to 20% necrotic base. VASC: DP and PT pulses non-palpable secondary to non-pitting edema. Absent pedal hair growth. Negative Homann and Talbot's signs bilaterally. Cappilarry refill time <5 seconds to digits. NERUO: Sensation grossly diminished distal to ankle joint bilaterally. Ortho: No gross deformities noted. Largely deferred to to patients refusal to participate. Assessment and Plan - Assessment and Plan (Free Text) Assessment: 71 year old male with infected bilateral lower extremity wounds and cellulits. 3 total Gottlieb grade 2 ulcerations & 2 total non-stagable ulcerations to heels bilaterally, all secondary to diabetic neuropathy. Plan: Pt evaluated and treated with attending Dr. Davenport present Charts, labs, and vitals reviewed. Leukocytosis noted. Cleansed wound sites with sterile saline. Dressed wound sites w/ 1/4 Strength Dakins Solution wet-to-dry- dressing and DSD. Pt unable to obtain MRI due to pacemaker. Bone scan bilaterally negative for OM. Wound culture results- Enterobacter Cloacae, Bacillus species Continue IV abx per ID. Vascular recommending potential knee level amputation, Dr. Davenport aware Podiatry will continue to follow patient while inhouse.
--- NOTE | 2017-01-13 13:25 | CP.PCM.PCO ---
Physician Communication Note - Physician Communication Note Physician Communication Note: If pt medically optimized, will plan for amputation Sunday
--- NOTE | 2017-01-13 14:57 | CP.CCUPN ---
CCU Subjective - Physician Review Events Since Last Encounter (Free Text): 01/13/17 14:53 Patient seen and examined in the intensive care unit. Chart reviewed and previous events noted. This is a 71 year old male long standing bilateral leg cellulitis with poor care. He was admitted on 01/08/2017 for worsening bilateral foot and leg ulcer and was started on antibiotics. yesterday rapid response was called for INR 15, previous value 3.5, taking eliquis for atrial fibrillation. Status post transfusion of FFP. Overnight patient was intubated for extreme lethargy and placed on ventilatory support. This morning the wanted to sign DNR after discussion with manager academic. Vascular recommending potential knee level amputation CCU Objective - Vital Signs / Intake & Output Intake and Output (Last 8hrs): Intake & Output 01/12/17 01/13/17 01/13/17 22:59 06:59 14:59 Intake Total 1560 1100 1001.8 Output Total 340 715 550 Balance 1220 385 451.8 Intake: Intake, IV Amount 500 1100 751.8 Left Forearm 500 1100 700 Right Forearm 51.8 Blood Product 1060 250 Output: Urine 340 715 550 Urethral (Conner) 340 715 550 Emesis 0 0 Other: # Bowel Movements 0 0 0 - Physical Exam Head: Positive for: Atraumatic, Normocephalic Mouth: Positive for: Moist Mucous Membranes Neck: Positive for: Trachea Midline Respiratory/Chest: Positive for: Clear to Auscultation Cardiovascular: Positive for: Regular Rate and Rhythm Abdomen: Positive for: Normal Bowel Sounds Upper Extremity: Positive for: Normal Inspection, Edema Neurological: Positive for: Other - Medications Active Medications: Active Medications Generic Name Dose Route Start Last Admin Trade Name Freq PRN Reason Stop Dose Admin Imipenem/Cilastatin Sodium 500 100 mls @ 100 mls/hr 01/12/17 17:00 01/13/17 05: 00 mg/ Sodium Chloride IVPB 100 mls/hr Q12H MICHAEL Administration Daptomycin 500 mg/ Sodium 100 mls @ 100 mls/hr 01/14/17 15:00 Chloride IV 01/19/17 15:01 Q48H MICHAEL Metronidazole 100 mls @ 100 mls/hr 01/12/17 23:30 01/13/17 08:58 Flagyl IVPB 100 mls/hr Q8H MICHAEL Administration Propofol 100 mls @ 2.722 mls/hr 01/13/17 00:10 01/13/17 08:50 Diprivan IV 5.443 mls/hr .Q24H PRN Administration TITRATE PER MD ORDER Protocol 5 MCG/KG/MIN Sodium Chloride 1,000 mls @ 100 mls/hr 01/13/17 00:17 01/13/17 00:53 Sodium Chloride 0.9% IV 100 mls/hr .Q10H MICHAEL Administration Insulin Human Regular 0 unit 01/12/17 13:15 01/13/17 13:00 Novolin R SC Not Given Q6 MICHAEL Protocol Pantoprazole Sodium 40 mg 01/13/17 10:00 01/13/17 13:38 Protonix Inj IVP 40 mg DAILY MICHAEL Administration Sodium Hypochlorite 0 appl 01/11/17 10:00 01/12/17 10:00 Dakins Solution 0.125% TOP Not Given DAILY MICHAEL - Patient Studies Lab Studies: Microbiology Studies 01/12/17 Unknown Urine Culture - Final Urine No Growth (<1,000 CFU/ML) Lab Studies 01/13/17 01/13/17 01/13/17 Range/Units 12:01 07:09 07:08 WBC (4.8-10.8) K/uL RBC (4.40-5.90) Mil/uL Hgb (12.0-18.0) g/dL Hct (35.0-51.0) % MCV (80.0-94.0) fL MCH (27.0-31.0) pg MCHC (33.0-37.0) g/dL RDW (11.5-14.5) % Plt Count (130-400) K/uL MPV (7.2-11.7) fL Neut % (Auto) (50.0-75.0) % Lymph % (Auto) (20.0-40.0) % [place] % (Auto) (0.0-10.0) % Eos % (Auto) (0.0-4.0) % Baso % (Auto) (0.0-2.0) % Neut # (1.8-7.0) K/uL Lymph # (1.0-4.3) K/uL [place] # (0.0-0.8) K/uL Eos # (0.0-0.7) K/uL Baso # (0.0-0.2) K/uL Neutrophils % (Manual) (50-75) % Band Neutrophils % (0-2) % Lymphocytes % (Manual) (20-40) % Monocytes % (Manual) (0-10) % Platelet Estimate (NORMAL) Hypochromasia (manual) Poikilocytosis (manual Anisocytosis (manual) Microcytosis (manual) Macrocytosis (manual) Spherocytes Tear Drop Cells Ovalocytes PT (9.7-12.2) SECONDS INR APTT (21-34) SECONDS Fibrinogen (200-400) mg/dL Fibrin Degrad Products (NEGATIVE) Fibrin Degrad Prod, Qt (<10) ug/mL Puncture Site pCO2 (35-45) mm/Hg pO2 (80-100) mm/Hg HCO3 (21-28) mmol/L ABG pH (7.35-7.45) ABG Total CO2 (22-28) mmol/L ABG O2 Saturation (95-98) % ABG Base Excess (-2.0-3.0) mmol/L ABG Hemoglobin (11.7-17.4) g/dL ABG Carboxyhemoglobin (0.5-1.5) % POC ABG HHb (Measured) (0.0-5.0) % ABG Methemoglobin (0.0-3.0) % Carter Test A-a O2 Difference mm/Hg Respiratory Index Hgb O2 Saturation (95.0-98.0) % Mechanical Rate FiO2 % Tidal Volume PEEP Sodium 140 (132-148) mmol/L Potassium 4.8 (3.6-5.2) mmol/L Chloride 104 (98-107) mmol/L Carbon Dioxide 20 L (22-30) mmol/L Anion Gap 21 H (10-20) BUN 109 H* (9-20) mg/dL Creatinine 2.7 H (0.8-1.5) MG/DL Est GFR ( Amer) 28 Est GFR (Non-Af Amer) 24 POC Glucose (mg/dL) 127 H 113 H (65-110) mg/dL Random Glucose 101 (75-110) mg/dL Hemoglobin A1c (4.2-6.5) % Calcium 7.8 L (8.6-10.4) mg/dl Phosphorus 7.3 H (2.5-4.5) mg/dL Magnesium 2.8 H (1.6-2.3) mg/dL Total Bilirubin 1.4 H (0.2-1.3) mg/dL AST 37 (17-59) U/L ALT 26 (21-72) U/L Alkaline Phosphatase 153 H (38-126) U/L Total Protein 6.6 (6.3-8.3) g/dL Albumin 2.7 L (3.5-5.0) g/dL Globulin 3.9 (2.2-3.9) gm/dL Albumin/Globulin Ratio 0.7 L (1.0-2.1) Procalcitonin (0.19-0.49) NG/ML Urine Collection Time HRS Urine Total Volume mL Ur Protein 24 Hr Calc (42-225) mg/24hr 01/13/17 01/13/17 01/13/17 Range/Units 07:04 05:15 00:42 WBC 21.6 H (4.8-10.8) K/uL RBC 3.18 L (4.40-5.90) Mil/uL Hgb 8.1 L (12.0-18.0) g/dL Hct 25.8 L (35.0-51.0) % MCV 81.0 (80.0-94.0) fL MCH 25.5 L (27.0-31.0) pg MCHC 31.5 L (33.0-37.0) g/dL RDW 16.3 H (11.5-14.5) % Plt Count 270 (130-400) K/uL MPV 7.3 (7.2-11.7) fL Neut % (Auto) 89.9 H (50.0-75.0) % Lymph % (Auto) 5.6 L (20.0-40.0) % [place] % (Auto) 3.6 (0.0-10.0) % Eos % (Auto) 0.5 (0.0-4.0) % Baso % (Auto) 0.4 (0.0-2.0) % Neut # 19.4 H (1.8-7.0) K/uL Lymph # 1.2 (1.0-4.3) K/uL [place] # 0.8 (0.0-0.8) K/uL Eos # 0.1 (0.0-0.7) K/uL Baso # 0.1 (0.0-0.2) K/uL Neutrophils % (Manual) 90 H (50-75) % Band Neutrophils % 2 (0-2) % Lymphocytes % (Manual) 5 L (20-40) % Monocytes % (Manual) 3 (0-10) % Platelet Estimate Normal (NORMAL) Hypochromasia (manual) Slight Poikilocytosis (manual Slight Anisocytosis (manual) Slight Microcytosis (manual) Slight Macrocytosis (manual) Slight Spherocytes Slight Tear Drop Cells Slight Ovalocytes Slight PT 20.4 H D (9.7-12.2) SECONDS INR 1.8 D APTT (21-34) SECONDS Fibrinogen (200-400) mg/dL Fibrin Degrad Products (NEGATIVE) Fibrin Degrad Prod, Qt (<10) ug/mL Puncture Site Rrad pCO2 37 (35-45) mm/Hg pO2 142 H (80-100) mm/Hg HCO3 23.1 (21-28) mmol/L ABG pH 7.39 (7.35-7.45) ABG Total CO2 23.5 (22-28) mmol/L ABG O2 Saturation 99.8 H (95-98) % ABG Base Excess -2.3 L (-2.0-3.0) mmol/L ABG Hemoglobin 8.6 L (11.7-17.4) g/dL ABG Carboxyhemoglobin 2.2 H (0.5-1.5) % POC ABG HHb (Measured) 0.2 (0.0-5.0) % ABG Methemoglobin 1.5 (0.0-3.0) % Carter Test Pos A-a O2 Difference 97.0 mm/Hg Respiratory Index 0.7 Hgb O2 Saturation 96.2 (95.0-98.0) % Mechanical Rate 14 FiO2 40.0 % Tidal Volume 450 PEEP 5 Sodium (132-148) mmol/L Potassium (3.6-5.2) mmol/L Chloride (98-107) mmol/L Carbon Dioxide (22-30) mmol/L Anion Gap (10-20) BUN (9-20) mg/dL Creatinine (0.8-1.5) MG/DL Est GFR ( Amer) Est GFR (Non-Af Amer) POC Glucose (mg/dL) 140 H (65-110) mg/dL Random Glucose (75-110) mg/dL Hemoglobin A1c (4.2-6.5) % Calcium (8.6-10.4) mg/dl Phosphorus (2.5-4.5) mg/dL Magnesium (1.6-2.3) mg/dL Total Bilirubin (0.2-1.3) mg/dL AST (17-59) U/L ALT (21-72) U/L Alkaline Phosphatase (38-126) U/L Total Protein (6.3-8.3) g/dL Albumin (3.5-5.0) g/dL Globulin (2.2-3.9) gm/dL Albumin/Globulin Ratio (1.0-2.1) Procalcitonin (0.19-0.49) NG/ML Urine Collection Time HRS Urine Total Volume mL Ur Protein 24 Hr Calc (42-225) mg/24hr 01/12/17 01/12/17 01/12/17 Range/Units 18:52 17:59 17:09 WBC (4.8-10.8) K/uL RBC (4.40-5.90) Mil/uL Hgb (12.0-18.0) g/dL Hct (35.0-51.0) % MCV (80.0-94.0) fL MCH (27.0-31.0) pg MCHC (33.0-37.0) g/dL RDW (11.5-14.5) % Plt Count (130-400) K/uL MPV (7.2-11.7) fL Neut % (Auto) (50.0-75.0) % Lymph % (Auto) (20.0-40.0) % [place] % (Auto) (0.0-10.0) % Eos % (Auto) (0.0-4.0) % Baso % (Auto) (0.0-2.0) % Neut # (1.8-7.0) K/uL Lymph # (1.0-4.3) K/uL [place] # (0.0-0.8) K/uL Eos # (0.0-0.7) K/uL Baso # (0.0-0.2) K/uL Neutrophils % (Manual) (50-75) % Band Neutrophils % (0-2) % Lymphocytes % (Manual) (20-40) % Monocytes % (Manual) (0-10) % Platelet Estimate (NORMAL) Hypochromasia (manual) Poikilocytosis (manual Anisocytosis (manual) Microcytosis (manual) Macrocytosis (manual) Spherocytes Tear Drop Cells Ovalocytes PT 30.7 H* D (9.7-12.2) SECONDS INR 2.6 D APTT 57 H D (21-34) SECONDS Fibrinogen 934 H (200-400) mg/dL Fibrin Degrad Products Positive H (NEGATIVE) Fibrin Degrad Prod, Qt >40 H (<10) ug/mL Puncture Site pCO2 (35-45) mm/Hg pO2 (80-100) mm/Hg HCO3 (21-28) mmol/L ABG pH (7.35-7.45) ABG Total CO2 (22-28) mmol/L ABG O2 Saturation (95-98) % ABG Base Excess (-2.0-3.0) mmol/L ABG Hemoglobin (11.7-17.4) g/dL ABG Carboxyhemoglobin (0.5-1.5) % POC ABG HHb (Measured) (0.0-5.0) % ABG Methemoglobin (0.0-3.0) % Carter Test A-a O2 Difference mm/Hg Respiratory Index Hgb O2 Saturation (95.0-98.0) % Mechanical Rate FiO2 % Tidal Volume PEEP Sodium 139 (132-148) mmol/L Potassium 5.0 (3.6-5.2) mmol/L Chloride 101 (98-107) mmol/L Carbon Dioxide 22 (22-30) mmol/L Anion Gap 21 H (10-20) BUN 107 H* (9-20) mg/dL Creatinine 3.1 H (0.8-1.5) MG/DL Est GFR ( Amer) 24 Est GFR (Non-Af Amer) 20 POC Glucose (mg/dL) 180 H (65-110) mg/dL Random Glucose 156 H (75-110) mg/dL Hemoglobin A1c 12.4 H D (4.2-6.5) % Calcium 8.2 L (8.6-10.4) mg/dl Phosphorus (2.5-4.5) mg/dL Magnesium (1.6-2.3) mg/dL Total Bilirubin (0.2-1.3) mg/dL AST (17-59) U/L ALT (21-72) U/L Alkaline Phosphatase (38-126) U/L Total Protein (6.3-8.3) g/dL Albumin (3.5-5.0) g/dL Globulin (2.2-3.9) gm/dL Albumin/Globulin Ratio (1.0-2.1) Procalcitonin 2.11 H (0.19-0.49) NG/ML Urine Collection Time 24 HRS Urine Total Volume 1225 mL Ur Protein 24 Hr Calc 196.0 (42-225) mg/24hr Laboratory Results - last 24 hr 01/12/17 01/12/17 01/12/17 17:09 17:59 18:52 WBC RBC Hgb Hct MCV MCH MCHC RDW Plt Count MPV Neut % (Auto) Lymph % (Auto) [place] % (Auto) Eos % (Auto) Baso % (Auto) Neut # Lymph # [place] # Eos # Baso # Neutrophils % (Manual) Band Neutrophils % Lymphocytes % (Manual) Monocytes % (Manual) Platelet Estimate Hypochromasia (manual) Poikilocytosis (manual Anisocytosis (manual) Microcytosis (manual) Macrocytosis (manual) Spherocytes Tear Drop Cells Ovalocytes PT 30.7 H* D INR 2.6 D APTT 57 H D Fibrinogen 934 H Fibrin Degrad Products Positive H Fibrin Degrad Prod, Qt >40 H Puncture Site pCO2 pO2 HCO3 ABG pH ABG Total CO2 ABG O2 Saturation ABG Base Excess ABG Hemoglobin ABG Carboxyhemoglobin POC ABG HHb (Measured) ABG Methemoglobin Carter Test A-a O2 Difference Respiratory Index Hgb O2 Saturation Mechanical Rate FiO2 Tidal Volume PEEP Sodium 139 Potassium 5.0 Chloride 101 Carbon Dioxide 22 Anion Gap 21 H BUN 107 H* Creatinine 3.1 H Est GFR ( Amer) 24 Est GFR (Non-Af Amer) 20 POC Glucose (mg/dL) 180 H Random Glucose 156 H Hemoglobin A1c 12.4 H D Calcium 8.2 L Phosphorus Magnesium Total Bilirubin AST ALT Alkaline Phosphatase Total Protein Albumin Globulin Albumin/Globulin Ratio Procalcitonin 2.11 H Urine Collection Time 24 Urine Total Volume 1225 Ur Protein 24 Hr Calc 196.0 01/13/17 01/13/17 01/13/17 00:42 05:15 07:04 WBC 21.6 H RBC 3.18 L Hgb 8.1 L Hct 25.8 L MCV 81.0 MCH 25.5 L MCHC 31.5 L RDW 16.3 H Plt Count 270 MPV 7.3 Neut % (Auto) 89.9 H Lymph % (Auto) 5.6 L [place] % (Auto) 3.6 Eos % (Auto) 0.5 Baso % (Auto) 0.4 Neut # 19.4 H Lymph # 1.2 [place] # 0.8 Eos # 0.1 Baso # 0.1 Neutrophils % (Manual) 90 H Band Neutrophils % 2 Lymphocytes % (Manual) 5 L Monocytes % (Manual) 3 Platelet Estimate Normal Hypochromasia (manual) Slight Poikilocytosis (manual Slight Anisocytosis (manual) Slight Microcytosis (manual) Slight Macrocytosis (manual) Slight Spherocytes Slight Tear Drop Cells Slight Ovalocytes Slight PT 20.4 H D INR 1.8 D APTT Fibrinogen Fibrin Degrad Products Fibrin Degrad Prod, Qt Puncture Site Rrad pCO2 37 pO2 142 H HCO3 23.1 ABG pH 7.39 ABG Total CO2 23.5 ABG O2 Saturation 99.8 H ABG Base Excess -2.3 L ABG Hemoglobin 8.6 L ABG Carboxyhemoglobin 2.2 H POC ABG HHb (Measured) 0.2 ABG Methemoglobin 1.5 Carter Test Pos A-a O2 Difference 97.0 Respiratory Index 0.7 Hgb O2 Saturation 96.2 Mechanical Rate 14 FiO2 40.0 Tidal Volume 450 PEEP 5 Sodium Potassium Chloride Carbon Dioxide Anion Gap BUN Creatinine Est GFR ( Amer) Est GFR (Non-Af Amer) POC Glucose (mg/dL) 140 H Random Glucose Hemoglobin A1c Calcium Phosphorus Magnesium Total Bilirubin AST ALT Alkaline Phosphatase Total Protein Albumin Globulin Albumin/Globulin Ratio Procalcitonin Urine Collection Time Urine Total Volume Ur Protein 24 Hr Calc 01/13/17 01/13/17 01/13/17 07:08 07:09 12:01 WBC RBC Hgb Hct MCV MCH MCHC RDW Plt Count MPV Neut % (Auto) Lymph % (Auto) [place] % (Auto) Eos % (Auto) Baso % (Auto) Neut # Lymph # [place] # Eos # Baso # Neutrophils % (Manual) Band Neutrophils % Lymphocytes % (Manual) Monocytes % (Manual) Platelet Estimate Hypochromasia (manual) Poikilocytosis (manual Anisocytosis (manual) Microcytosis (manual) Macrocytosis (manual) Spherocytes Tear Drop Cells Ovalocytes PT INR APTT Fibrinogen Fibrin Degrad Products Fibrin Degrad Prod, Qt Puncture Site pCO2 pO2 HCO3 ABG pH ABG Total CO2 ABG O2 Saturation ABG Base Excess ABG Hemoglobin ABG Carboxyhemoglobin POC ABG HHb (Measured) ABG Methemoglobin Carter Test A-a O2 Difference Respiratory Index Hgb O2 Saturation Mechanical Rate FiO2 Tidal Volume PEEP Sodium 140 Potassium 4.8 Chloride 104 Carbon Dioxide 20 L Anion Gap 21 H BUN 109 H* Creatinine 2.7 H Est GFR ( Amer) 28 Est GFR (Non-Af Amer) 24 POC Glucose (mg/dL) 113 H 127 H Random Glucose 101 Hemoglobin A1c Calcium 7.8 L Phosphorus 7.3 H Magnesium 2.8 H Total Bilirubin 1.4 H AST 37 ALT 26 Alkaline Phosphatase 153 H Total Protein 6.6 Albumin 2.7 L Globulin 3.9 Albumin/Globulin Ratio 0.7 L Procalcitonin Urine Collection Time Urine Total Volume Ur Protein 24 Hr Calc Fingerstick Blood Sugar Results: 127 Review of Systems - Review of Systems Systems not reviewed;Unavailable: Intubated Critical Care Progress Note - Ventilator Checklist Head of Bed 30 Degrees: Yes Daily Spontaneous Breathing Trial: No PUD Prophalyxis: Yes DVT Prophylaxis: Yes - Vent Settings MODE:: PRVC - Nutrition Nutrition: Nutrition Category Date Time Status Consistent Carbohydrate [DIET] Diets 01/10/17 Breakfast Active Assessment/Plan (1) Acute respiratory failure with hypercapnia Current Visit: Yes Status: Acute Comment: Continue ventilatory support and reduce FiO2 as tolerated Continue IV antibiotics (2) Diabetic ulcer of both lower extremities Current Visit: Yes Status: Acute Comment: Vascular recommending potential knee level amputation Continue antibiotics for now wants to sign DNR after discussing with manager academic (3) Bacteremia Current Visit: Yes Status: Acute (4) CKD stage 4 due to type 2 diabetes mellitus Current Visit: Yes Status: Acute (5) Coagulopathy Current Visit: Yes Status: Acute (6) Diabetic foot infection Current Visit: Yes Status: Acute
--- NOTE | 2017-01-13 20:21 | OP ---
PROCEDURE DATE: 01/13/2017 PROCEDURE: Triple lumen catheter insertion. DESCRIPTION OF PROCEDURE: After obtaining consent from , explaining risks and benefits, the proc edure was done under local anesthesia, sterile conditions, right internal jugular vein using Sel[place] r technique without any complications. The patient tolerated the procedure. Chacho Figueroa MD cc: 9 TT: 01/13/2017 20:20:31 dn
--- NOTE | 2017-01-13 21:28 | CP.PCM.PN ---
Subjective - Date & Time of Evaluation Date of Evaluation: 01/13/17 Time of Evaluation: 18:00 - Subjective Subjective: Vented Objective - Vital Signs/Intake and Output Vital Signs (last 24 hours): Temp Pulse Resp BP Pulse Ox 97.5 F L 68 23 126/60 98 01/13/17 20:00 01/13/17 20:00 01/13/17 20:00 01/13/17 20:00 01/13/17 20:00 Intake and Output: 01/13/17 01/14/17 18:59 06:59 Intake Total 1842.7 398.2 Output Total 940 180 Balance 902.7 218.2 - Medications Medications: Current Medications Imipenem/Cilastatin Sodium 500 (mg/ Sodium Chloride) 100 mls @ 100 mls/hr IVPB Q12H [facility] Last Admin: 01/13/17 17:22 Dose: 100 mls/hr Daptomycin 500 mg/ Sodium (Chloride) 100 mls @ 100 mls/hr IV Q48H MICHAEL Stop: 01/19/17 15:01 Metronidazole (Flagyl) 100 mls @ 100 mls/hr IVPB Q8H [facility] Last Admin: 01/13/17 16:00 Dose: 100 mls/hr Propofol (Diprivan) 100 mls @ 2.722 mls/hr IV .Q24H PRN; Protocol; 5 MCG/KG/MIN PRN Reason: TITRATE PER MD ORDER Last Admin: 01/13/17 17:28 Dose: 10.9 mls/hr Sodium Chloride (Sodium Chloride 0.9%) 1,000 mls @ 100 mls/hr IV .Q10H [facility] Last Admin: 01/13/17 15:30 Dose: 100 mls/hr Insulin Human Regular (Novolin R) 0 unit SC Q6 MICHAEL PRN Reason: Protocol Last Admin: 01/13/17 17:34 Dose: Not Given Pantoprazole Sodium (Protonix Inj) 40 mg IVP DAILY [facility] Last Admin: 01/13/17 13:38 Dose: 40 mg Sodium Hypochlorite (Dakins Solution 0.125%) 0 appl TOP DAILY [facility] Last Admin: 01/13/17 17:34 Dose: Not Given - Labs Labs: 01/13/17 07:04 01/13/17 07:08 PT 20.4 SECONDS (9.7-12.2) H D 04/01/17 07:04 INR 1.8 D 01/13/17 07:04 APTT 57 SECONDS (21-34) H D 01/12/17 18:52 - Head Exam Head Exam: ATRAUMATIC - Eye Exam Eye Exam: Normal appearance - ENT Exam ENT Exam: Mucous Membranes Dry - Respiratory Exam Respiratory Exam: NORMAL BREATHING PATTERN - Cardiovascular Exam Cardiovascular Exam: +S1, +S2 - GI/Abdominal Exam GI & Abdominal Exam: Normal Bowel Sounds - Extremities Exam Additional comments: b/l LE dressing Assessment and Plan (1) Coagulopathy Assessment & Plan: improved, nutritional s/p vit k and FFP Eliquis held Status: Acute (2) Leukocytosis Assessment & Plan: improving with antibiotics. Status: Acute (3) Anemia Assessment & Plan: f/u work up Status: Acute
[2017-01-14 05:24] LABS: ABG ALLEN TEST POS; ABG MECHANICAL RATE 14; ARTERIAL BLOOD HGB O2 SAT 97.1 % (95.0-98.0); ATERIAL BLOOD GAS PEEP 5; CARBOXYHEMOGLOBIN 1.8 % (0.5-1.5); DRAW SITE RRAD; HHB 0.4 % (0.0-5.0); METHEMOGLOBIN 0.7 % (0.0-3.0)
[2017-01-14] MEDS: Sodium Chloride 0.9% 1,000 ML IV SCH ×3 (06:30→22:42)
[2017-01-14] MEDS: (Novolin R) Insulin Human Regular 100 units/ml vial SC SCH ×4 (06:40→18:43)
[2017-01-14 07:30] LABS: FOLATE 11.4 ng/mL
[2017-01-14] MEDS: metroNIDAZOLE IV 500 mg/100 ml 100 ML IVPB SCH ×3 (07:49→22:42)
--- NOTE | 2017-01-14 08:33 | RAD ---
HISTORY: post tlc insertion COMPARISON: Comparison is made to the previous study dated 01/12/2017 FINDINGS: LUNGS: The ET tube is again seen at appropriate position. Interval worsening of right perihilar and left lower lobe opacities since the previous exam. PLEURA: Possible left pleural effusion. CARDIOVASCULAR: Normal. OSSEOUS STRUCTURES: No significant abnormalities. VISUALIZED UPPER ABDOMEN: The distal portion of the NG tube is not clearly visualized. OTHER FINDINGS: There is right jugular central line seen in place. IMPRESSION: Interval insertion of right jugular central line. No evidence of pneumothorax. Interval worsening of right perihilar and left lower lobe opacities since the previous exam.
[2017-01-14 09:07] LABS: BASO # 0.1 K/uL (0.0-0.2); BASO % 0.5 % (0.0-2.0); EOS # 0.2 K/uL (0.0-0.7); LYMPH # 1.2 K/uL (1.0-4.3); LYMPH % 7.7 % (20.0-40.0); MEAN CORPUSCULAR HEMOGLOBIN 25.6 pg (27.0-31.0); MEAN CORPUSCULAR HGB CONC 31.3 g/dL (33.0-37.0); MEAN PLATELET VOLUME 7.4 fL (7.2-11.7); MONO # 0.7 K/uL (0.0-0.8); MONO % 4.4 % (0.0-10.0); NRBC % 0.1 % (0.0-2.0); PLATELET COUNT 248 K/uL (130-400); RED CELL DISTRIBUTION WIDTH 16.3 % (11.5-14.5); WHITE BLOOD COUNT 16.1 K/uL (4.8-10.8)
[2017-01-14 09:11] LABS: POTASSIUM 4.5 mmol/L (3.6-5.2)
[2017-01-14 09:14] LABS: ALB/GLOB RATIO 0.7 (1.0-2.1); BILIRUBIN,TOTAL 1.3 mg/dL (0.2-1.3); CALCIUM 7.9 mg/dl (8.6-10.4); TOTAL PROTEIN 6.7 g/dL (6.3-8.3)
[2017-01-14 09:43] LABS: EOSINOPHIL 1 % (0-4); NEUTROPHIL 86 % (50-75); TOTAL CELLS COUNTED 100
[2017-01-14 09:44] LABS: LARGE PLATELETS PRESENT
--- NOTE | 2017-01-14 11:14 | CP.PCM.PN ---
<Niles Modi - Last Filed: 01/14/17 11:10> Subjective - Date & Time of Evaluation Date of Evaluation: 01/14/17 Time of Evaluation: 08:25 - Subjective Subjective: General Surgery Pt S&E, intubated and sedated. Opens eyes to voice. Objective - Vital Signs/Intake and Output Vital Signs (last 24 hours): Temp Pulse Resp BP Pulse Ox 98.1 F 60 19 115/44 L 98 01/14/17 08:00 01/14/17 08:00 01/14/17 08:00 01/14/17 08:00 01/14/17 08:00 Intake and Output: 01/14/17 01/14/17 06:59 18:59 Intake Total 1886.2 287.2 Output Total 910 90 Balance 976.2 197.2 - Medications Medications: Current Medications Imipenem/Cilastatin Sodium 500 (mg/ Sodium Chloride) 100 mls @ 100 mls/hr IVPB Q12H [facility] Last Admin: 01/14/17 04:51 Dose: 100 mls/hr Daptomycin 500 mg/ Sodium (Chloride) 100 mls @ 100 mls/hr IV Q48H [facility] Stop: 01/19/17 15:01 Metronidazole (Flagyl) 100 mls @ 100 mls/hr IVPB Q8H [facility] Last Admin: 01/14/17 07:49 Dose: 100 mls/hr Propofol (Diprivan) 100 mls @ 2.722 mls/hr IV .Q24H PRN; Protocol; 5 MCG/KG/MIN PRN Reason: TITRATE PER MD ORDER Last Admin: 01/14/17 06:22 Dose: 13.6 mls/hr Sodium Chloride (Sodium Chloride 0.9%) 1,000 mls @ 100 mls/hr IV .Q10H [facility] Last Admin: 01/14/17 06:30 Dose: 100 mls/hr Insulin Human Regular (Novolin R) 0 unit SC Q6 MICHAEL PRN Reason: Protocol Last Admin: 01/14/17 06:40 Dose: 2 unit Pantoprazole Sodium (Protonix Inj) 40 mg IVP DAILY [facility] Last Admin: 01/14/17 09:48 Dose: 40 mg Sodium Hypochlorite (Dakins Solution 0.125%) 0 appl TOP DAILY [facility] Last Admin: 01/13/17 17:34 Dose: Not Given - Labs Labs: 01/14/17 09:03 01/14/17 09:04 PT 20.4 SECONDS (9.7-12.2) H D 01/13/17 07:04 INR 1.8 D 01/13/17 07:04 APTT 57 SECONDS (21-34) H D 01/12/17 18:52 - Constitutional Appears: No Acute Distress, Chronically Ill - Head Exam Head Exam: ATRAUMATIC, NORMOCEPHALIC - Respiratory Exam Respiratory Exam: NORMAL BREATHING PATTERN (on vent). absent: Respiratory Distress - Extremities Exam Additional comments: multiple wounds extending from feet to mid winkler bilaterally. Podiatry dressings in place. Malodor apparent when walking into room - Neurological Exam Neurological Exam: Awake Assessment and Plan - Assessment and Plan (Free Text) Assessment: 71M with b/l non-healing, worsening chronic diabetic ulcers Plan: Once medically stable planning for OR for amputation Possibly Sunday D/W Dr. Elkin Modi PGY3 <Lilia Olivera V - Last Filed: 01/17/17 15:08> Subjective - Subjective Subjective: Per surgery note under dr. Johnson service; please refer to medical attending note for my actual note; due to [employer] error unable to remove my name from this document. Objective - Vital Signs/Intake and Output Vital Signs (last 24 hours): Temp Pulse Resp BP Pulse Ox 98.1 F 60 19 115/44 L 98 01/14/17 08:00 01/14/17 08:00 01/14/17 08:00 01/14/17 08:00 01/14/17 08:00 Intake and Output: 01/14/17 01/14/17 06:59 18:59 Intake Total 1886.2 287.2 Output Total 910 90 Balance 976.2 197.2 - Medications Medications: Current Medications Imipenem/Cilastatin Sodium 500 (mg/ Sodium Chloride) 100 mls @ 100 mls/hr IVPB Q12H [facility] Last Admin: 01/14/17 04:51 Dose: 100 mls/hr Daptomycin 500 mg/ Sodium (Chloride) 100 mls @ 100 mls/hr IV Q48H [facility] Stop: 01/19/17 15:01 Metronidazole (Flagyl) 100 mls @ 100 mls/hr IVPB Q8H MICHAEL Last Admin: 01/14/17 07:49 Dose: 100 mls/hr Propofol (Diprivan) 100 mls @ 2.722 mls/hr IV .Q24H PRN; Protocol; 5 MCG/KG/MIN PRN Reason: TITRATE PER MD ORDER Last Admin: 01/14/17 06:22 Dose: 13.6 mls/hr Sodium Chloride (Sodium Chloride 0.9%) 1,000 mls @ 100 mls/hr IV .Q10H MICHAEL Last Admin: 01/14/17 06:30 Dose: 100 mls/hr Insulin Human Regular (Novolin R) 0 unit SC Q6 MICHAEL PRN Reason: Protocol Last Admin: 01/14/17 06:40 Dose: 2 unit Pantoprazole Sodium (Protonix Inj) 40 mg IVP DAILY MCIHAEL Last Admin: 01/14/17 09:48 Dose: 40 mg Sodium Hypochlorite (Dakins Solution 0.125%) 0 appl TOP DAILY MICHAEL Last Admin: 01/13/17 17:34 Dose: Not Given - Labs Labs: 01/14/17 09:03 01/14/17 09:04 PT 20.4 SECONDS (9.7-12.2) H D 01/13/17 07:04 INR 1.8 D 01/13/17 07:04 APTT 57 SECONDS (21-34) H D 01/12/17 18:52
--- NOTE | 2017-01-14 12:00 | CP.PCM.PN ---
Subjective - Date & Time of Evaluation Date of Evaluation: 01/14/17 Time of Evaluation: 11:10 - Subjective Subjective: 71 y/o male seen at bedside concerning worsening Bilateral foot and leg ulcers this AM. Patient's was present at bedside at the time of visit. Pt remains sedated and intubated, unable to communicate. Patient appears comfortably in bed with no acute distress at the time of visit. Dressing to bilateral lower extremities remain clean dry and intact Objective - Vital Signs/Intake and Output Vital Signs (last 24 hours): Temp Pulse Resp BP Pulse Ox 98.1 F 60 19 115/44 L 98 01/14/17 08:00 01/14/17 08:00 01/14/17 08:00 01/14/17 08:00 01/14/17 08:00 Intake and Output: 01/14/17 01/14/17 06:59 18:59 Intake Total 1886.2 287.2 Output Total 910 90 Balance 976.2 197.2 - Medications Medications: Current Medications Imipenem/Cilastatin Sodium 500 (mg/ Sodium Chloride) 100 mls @ 100 mls/hr IVPB Q12H [facility] Last Admin: 01/14/17 04:51 Dose: 100 mls/hr Daptomycin 500 mg/ Sodium (Chloride) 100 mls @ 100 mls/hr IV Q48H [facility] Stop: 01/19/17 15:01 Metronidazole (Flagyl) 100 mls @ 100 mls/hr IVPB Q8H [facility] Last Admin: 01/14/17 07:49 Dose: 100 mls/hr Propofol (Diprivan) 100 mls @ 2.722 mls/hr IV .Q24H PRN; Protocol; 5 MCG/KG/MIN PRN Reason: TITRATE PER MD ORDER Last Admin: 01/14/17 06:22 Dose: 13.6 mls/hr Sodium Chloride (Sodium Chloride 0.9%) 1,000 mls @ 100 mls/hr IV .Q10H [facility] Last Admin: 01/14/17 06:30 Dose: 100 mls/hr Insulin Human Regular (Novolin R) 0 unit SC Q6 [facility] PRN Reason: Protocol Last Admin: 01/14/17 06:40 Dose: 2 unit Pantoprazole Sodium (Protonix Inj) 40 mg IVP DAILY [facility] Last Admin: 04/02/17 09:48 Dose: 40 mg Sodium Hypochlorite (Dakins Solution 0.125%) 0 appl TOP DAILY [facility] Last Admin: 01/13/17 17:34 Dose: Not Given - Labs Labs: 01/14/17 09:03 01/14/17 09:04 PT 20.4 SECONDS (9.7-12.2) H D 01/13/17 07:04 INR 1.8 D 01/13/17 07:04 APTT 57 SECONDS (21-34) H D 01/12/17 18:52 - Extremities Exam Additional comments: Lower extremity focused. DERM: Heavy [id number] present bilaterally, with active drainage noted bilaterally. Diffuse continuous erythema noted bilaterally extending distally from level of proximal 1/3 of legs, bilaterally. No interdigital maceratin or hyperkeratotic lesion noted bilaterally. Right: Lateral leg partial thickness ulceration measuring 7.5 x 6 cm with a 60% fibrotic to 40% granular wound base. Absent undermining margins. Heel necrotic eschar with active weeping drainage from posterior margin noted. Eschar measures 6.5 x 7 cm. 5 cm lateral magin fibrotic plaque extension noted. Left: Medial 1st metatarsal head region full thickness ulceration measuring 2 x 1.9 cm with 100% fibrotic base absent undermining margins. Fluctuant necrotic heel eschar with active weeping drainage from posterior margin noted. Eschar measures 9 x 7.8 cm. Lateral leg full thickness ulceration measuring 13 x 7 cm with a 80% fibrotic to 20% necrotic base. VASC: DP and PT pulses non-palpable secondary to non-pitting edema. Absent pedal hair growth. Negative Homann and Talbot's signs bilaterally. Cappilarry refill time <5 seconds to digits. NERUO: Sensation grossly diminished distal to ankle joint bilaterally. Ortho: No gross deformities noted. Largely deferred to to patients refusal to participate. Assessment and Plan - Assessment and Plan (Free Text) Assessment: 71 year old male with infected bilateral lower extremity wounds and cellulits. 3 total Gottlieb grade 2 ulcerations & 2 total non-stagable ulcerations to heels bilaterally, all secondary to diabetic neuropathy. Plan: Pt evaluated and treated Charts, labs, and vitals reviewed. Leukocytosis noted. WBC 16.1 today Cleansed wound sites with sterile saline. Dressed wound sites w/ 1/4 Strength Dakins Solution wet-to-dry- dressing and DSD. Pt unable to obtain MRI due to pacemaker. Bone scan bilaterally negative for OM. Wound culture results- Enterobacter Cloacae, Bacillus species Continue IV abx per ID. Vascular recommending potential knee level amputation, Dr. Davenport aware Podiatry will continue to follow patient while inhouse.
--- NOTE | 2017-01-14 12:06 | CP.PCM.PN ---
Subjective - Date & Time of Evaluation Date of Evaluation: 01/14/17 Time of Evaluation: 11:50 - Subjective Subjective: Medical Attending Note Follow-up: severe sepsis, bactermia, coagulopathy, b/l cellulitis, diabetic foot ulcers and strong suspicion for osteomyelitis, atrial fibrillation; pacemaker Patient seen, examined and discussed with ICU. Patient seen at bedside with podiatry resident during dressing change. Patient has areas of necrosis over bilateral heels, pus and oozing with lower extremities, and erythema and edema associated with lower extremities. Discussed briefly with , Dolores at bedside who reports she is going to speak with Hydraulic Pile Hammer Operator tomorrow and would like to speak with the surgeon regarding amputation. She reports to me she is unsure in terms of the quality if patient has amputation. I explained briefly to the that part of his sepsis picture is that he has infection that are quite deep in the leg which can affect the bone and can spread. Discussed with ICU, will given blood transfusion today given the drop in hemoglobin. Cardiology consulted (Dr. Lerma) for cardiac clearance. Objective - Vital Signs/Intake and Output Vital Signs (last 24 hours): Temp Pulse Resp BP Pulse Ox 98.1 F 60 19 115/44 L 98 01/14/17 08:00 01/14/17 08:00 01/14/17 08:00 01/14/17 08:00 01/14/17 08:00 Intake and Output: 01/14/17 01/14/17 06:59 18:59 Intake Total 1886.2 287.2 Output Total 910 90 Balance 976.2 197.2 - Medications Medications: Current Medications Imipenem/Cilastatin Sodium 500 (mg/ Sodium Chloride) 100 mls @ 100 mls/hr IVPB Q12H [facility] Last Admin: 01/14/17 04:51 Dose: 100 mls/hr Daptomycin 500 mg/ Sodium (Chloride) 100 mls @ 100 mls/hr IV Q48H [facility] Stop: 01/19/17 15:01 Metronidazole (Flagyl) 100 mls @ 100 mls/hr IVPB Q8H [facility] Last Admin: 01/14/17 07:49 Dose: 100 mls/hr Propofol (Diprivan) 100 mls @ 2.722 mls/hr IV .Q24H PRN; Protocol; 5 MCG/KG/MIN PRN Reason: TITRATE PER MD ORDER Last Admin: 01/14/17 06:22 Dose: 13.6 mls/hr Sodium Chloride (Sodium Chloride 0.9%) 1,000 mls @ 100 mls/hr IV .Q10H [facility] Last Admin: 01/14/17 06:30 Dose: 100 mls/hr Insulin Human Regular (Novolin R) 0 unit SC Q6 [facility] PRN Reason: Protocol Last Admin: 01/14/17 06:40 Dose: 2 unit Pantoprazole Sodium (Protonix Inj) 40 mg IVP DAILY [facility] Last Admin: 01/14/17 09:48 Dose: 40 mg Sodium Hypochlorite (Dakins Solution 0.125%) 0 appl TOP DAILY [facility] Last Admin: 01/13/17 17:34 Dose: Not Given - Labs Labs: 01/14/17 09:03 01/14/17 09:04 PT 20.4 SECONDS (9.7-12.2) H D 01/13/17 07:04 INR 1.8 D 01/13/17 07:04 APTT 57 SECONDS (21-34) H D 01/12/17 18:52 - Constitutional Appears: Unkempt, Agitated, Chronically Ill - Head Exam Head Exam: NORMAL INSPECTION - Eye Exam Eye Exam: EOMI - ENT Exam ENT Exam: Mucous Membranes Dry - Respiratory Exam Respiratory Exam: absent: Rales, Rhonchi, Wheezes Additional comments: intubated on vent - Cardiovascular Exam Cardiovascular Exam: Irregular Rhythm, +S1, +S2 - GI/Abdominal Exam GI & Abdominal Exam: Soft, Normal Bowel Sounds. absent: Distended, Firm, Guarding, Rigid, Tenderness, Rebound - Extremities Exam Additional comments: Patient's permitted photos to be taken during the exam. DERM: Heavy malodor present bilaterally, with active drainage noted bilaterally. Diffuse continuous erythema noted bilaterally extending distally from level of proximal 1/3 of legs, bilaterally. No interdigital maceration or hyperkeratotic lesion noted bilaterally. Right: Lateral leg partial thickness ulceration measuring 7.5 x 6 cm with a 60% fibrotic to 40% granular wound base. Absent undermining margins. Heel necrotic eschar with active weeping drainage from posterior margin noted. Eschar measures 6.5 x 7 cm. 5 cm lateral margin fibrotic plaque extension noted. Left: Medial 1st metatarsal head region full thickness ulceration measuring 2 x 1.9 cm with 100% fibrotic base absent undermining margins. Fluctuant necrotic heel eschar with active weeping drainage from posterior margin noted. Eschar measures 9 x 7.8 cm. Lateral leg full thickness ulceration measuring 13 x 7 cm with a 80% fibrotic to 20% necrotic base. VASC: DP and PT pulses non-palpable secondary to non-pitting edema. Absent pedal hair growth. NERUO: Sensation grossly diminished distal to ankle joint bilaterally. . - Neurological Exam Neurological Exam: Altered - Psychiatric Exam Psychiatric exam: Agitated Assessment and Plan - Assessment and Plan (Free Text) Assessment: Assessment: (1) Severe sepsis Assessment and Plan: 01/14 WBC: 16.5; afebrile: Cr: 2.2 01/13: WBC: 21; afebrile, Cr: 2.7 Criteria: leukocytosis (28.6): RR>20, and confirmed source of infection including b/l lower extremities; bactermia and likely osteomyelitis and/or gangrene; symptomatic: altered mental status, lethargic, responsive to painful stimuli; creatinine >0.5, coagulation abnormalities INR>1.5 Blood culture (01/09/17): gram positive, gram positive cocci in chains-->I spoke with lab 01/13 results should be finalized 01/15 Wound culture (01/09/17): Enterocloace X2, Bacilus cerus, Chest xray (01/12/17): persistent severe cardiomegaly and interval improvement in pulmonary venous congestion Blood culture (01/12/17): no growth after 24hours X2 Urine culture (01/12/17): no growth Abx: Daptomycin 500mg IV 48 hours (started on 01/12/17) Primaxin 500mg IV Q 12hours (started on 01/12/17) Flagyl 500mg Iv Q 8hours (started on 01/11/17) ABG (01/12): mild metabolic acidosis; lactate: 0.8 Patient appears clinically dried at time of rapid. Patient transferred to ICU on 01/12/17. Patient may require amputation. Patient unable to get MRI given has pacemaker. Infectious disease (Dr. Blum) on board Nephrology (Dr. Sanchez) on board Podiatry (Dr. Davenport) on board Vascular surgery (Dr. Granger) on board---amputation safest treatment; poor prognosis Cardiology (Dr. Lerma) for cardiac clearance Procalcitonin: 2.11 Status: Acute (2) Coagulopathy Assessment and Plan: possible related to sepsis INR 15.0, PT 191-->INR:2.6-->1.8-->pending Patient given 10mg of Vitamin K IV over one hour and 6 units of fresh frozen plasma on 01/12 Patient to given additional 2 units of FFP prior central line placement for inr : 1.8 on 01/13 Will be given 1 unit of PRBC today on 01/14 Will need to monitor patient for signs of bleeding. CT scan of the head was negative (01/12/17) for any intracrainal bleed. He was on Eliqius 2.5mg bid since admission which was on 01/08/17-01/12/17 for history of atrial fibrillation Heme-onc (Dr. Stephenson) consult on case given coagulopathy. Patient did have BM during rapid which was NOT black and appeared nonbloody. Status: Acute (3) Diabetic ulcer of both lower extremities Assessment and Plan: Patient has severe ulcers on both legs. Hgba1c: 12.4 (uncontrolled) Accuchecks Q 6hours Regular insulin sliding scale subq 6hours 01/11/17 Bone scan: negative study for acute osseous process. Specifically no evidence to suggest acute osteomyelitis left foot. Findings on the left 1st toe apparent on the prior study 03/27/16. Patient unable to give MRI given he has ICD Wound culture (01/09/17): Enterocloace, Bacilus cerus, and pending third organism bilaterally Dr. Blum (infectious disease) on board-->discussed with ICU, patient to receive one dose of Daptomycin today Abx: Daptomycin 500mg IV 48 hours (started on 01/12/17) Primaxin 500mg IV Q 12hours (started on 01/12/17) Flagyl 500mg Iv Q 8hours (started on 01/11/17) Previously on Zosyn/Vancomycin/Flagyl Uncontrolled diabetes Surgery on board (Dr. Granger) on board Podiatry on board (Dr. Davenport) on board Infectious disease on board (Dr. Blum) on board Status: Acute (4) Bacteremia Assessment and Plan: Patient's blood culture (01/09/17): gram positive, gram positive cocci in chains- ->I spoke with lab 01/13 results should be finalized tomorrow Repeat blood cultures (01/12/17) NO growth X2 Prior, patient was on IV Cefepime 1 gram Q12H and on Vancomycin 1 gram daily since the . Abx changed: Daptomycin 500mg IV 48 hours (started on 01/12/17) Primaxin 500mg IV Q 12hours (started on 01/12/17) Flagyl 500mg Iv Q 8hours (started on 01/11/17) Will order echocardiogram check LV systolic function-->pending read Status: Acute (5) Acute delirium Assessment and Plan: d/c ativan PRN; patient is septic and altered. Will need to be monitored Status: Acute (6) Acute renal failure Assessment and Plan: monitor BUN/Cr; C 2.2 Cr baseline before that was around 0.8. Nephrology: Dr. Sanchez is consulted. Patient appears volume depleted. Received 6 units of FFP and 10mg IV Vitamin K and then gentle IV hydration NS 50cc/hr Will receive additional 2 units of FFP 01/13/17 Status: Acute (7) Atrial fibrillation with slow ventricular response Status: Chronic Comment: Patient has a pace maker, he was on Eliquis 2.5mg PO daily during this current admission; Held given INR at 15.0 and his PT 191 ordered at time of the rapid response. 01/12 He was given Vitamin K 10mg and 6 units of Fresh Frozen plasma. Follow-up INR: 2.6 01/13 Given additional 2 units of FFP; INR: 1.8 01/14 pending INR Patient has a pacemaker with a paced rhythm. Echo completed pending read CHADS: 2 (HTN, DM) HASBLED: 4 (HTN, abnormal renal function, labile INR, and age>65) Patient has PPM; will need to find out information regarding pacemaker Cardiology (Dr. Lerma) for cardiac clearance for possible amputation (8) DM2 (diabetes mellitus, type 2) Status: Chronic Comment: Accu checks Q6H and sliding scale insulin Q6H per protocol. Uncontrolled; 12.4 a1c (9) HTN (hypertension) Status: Acute Comment: Have held his home htn medication for now due to hypotension monitor vitals sign in light of severe sepsis (10) Prophylactic measure Assessment and Plan: IV fluids NS 100 cc/hr. OFF VTE given elevated INR Wound Care : Dolorescyndi Birch (contact number: [phone]) Consent for blood products in the hardcopy chart Intubated 01/12 On sedation Status: Acute
[2017-01-14 12:35] LABS: INR 1.6
--- NOTE | 2017-01-14 13:29 | CP.PCM.CON ---
History of Present Illness - History of Present Illness History of Present Illness: 71 y/o male in ICU due to sepsis from b/l infected LE wounds. Pt is intubated secondary to delirium from sepsis. Hx per who is at bedside. Per pt has not complained of chest pain or garcia recently. pt does not have a hx of MA, PCI or CABG. no hx of cad. pt had ppm placed secondary to tachy mikhail and afib. pts ekg shows a v paced rhythm. currently patient is I and S. He is scheduled to go for b/l le amputations in near future. labs and echo reviewed. Review of Systems - Review of Systems Review of Systems: OBTAINED FROM - Constitutional Constitutional: Malaise, Weakness. absent: As Per HPI, Anorexia, Chills, Daytime Sleepiness, Excessive Sweating, Fatigue, Fever, Frequent Falls, Headache , Increased Appetite, Lethargy, Night Sweats, Snoring, Sleep Apnea, Weight Gain , Weight Loss, Other - EENT Eyes: absent: As Per HPI, Blind Spots, Blurred Vision, Change in Vision, Decreased Night Vision, Diplopia, Discharge, Dry Eye, Exophthalmos, Floaters, Irritation, Itchy Eyes, Loss of Peripheral Vision, Pain, Photophobia, Requires Corrective Lenses, Sees Flashes, Spots in Vision, Tunnel Vision, Other Visual Disturbances, Loss of Vision, Other Ears: absent: As Per HPI, Decreased Hearing, Ear Discharge, Ear Pain, Tinnitus, Abnormal Hearing, Disequilibrium, Dizziness, Other Nose/Mouth/Throat: absent: As Per HPI, Epistaxis, Nasal Congestion, Nasal Discharge, Nasal Obstruction, Nasal Trauma, Nose Pain, Post Nasal Drip, Sinus Pain, Sinus Pressure, Bleeding Gums, Change in Voice, Dental Pain, Dry Mouth, Dysphagia, Halitosis, Hoarsness, Lip Swelling, Mouth Lesions, Mouth Pain, Odynophagia, Sore Throat, Throat Swelling, Tongue Swelling, Facial Pain, Neck Pain, Neck Mass, Other - Cardiovascular Cardiovascular: Leg Edema, Slow Heart Rate. absent: As Per HPI, Acrocyanosis, Chest Pain, Chest Pain at Rest, Chest Pain with Activity, Claudication, Diaphoresis, Dyspnea, Dyspnea on Exertion, Edema, Irregular Heart Rhythm, Pain Radiating to Arm/Neck/Jaw, Leg Ulcers, Lightheadedness, Orthopnea, Palpitations , Paroxysmal Nocturnal Dyspnea, Pedal Edema, Radiating Pain, Rapid Heart Rate, Syncope, Other - Respiratory Respiratory: As Per HPI. absent: Cough, Dyspnea, Hemoptysis, Dyspnea on Exertion, Wheezing, Snoring, Stridor, Pain on Inspiration, Chest Congestion, Excessive Mucous Production, Change in Mucous Color, Pain with Coughing, Other - Gastrointestinal Gastrointestinal: absent: As Per HPI, Abdominal Pain, Belching, Bloating, Change in Bowel Habits, Change in Stool Character, Coffee Ground Emesis, Constipation, Cramping, Diarrhea, Dyspepsia, Dysphagia, Early Satiety, Excessive Flatus, Fecal Incontinence, Heartburn, Hematemesis, Hematochezia, Loose Stools, Melena, Nausea, Odynophagia, Temesmus, Vomiting, Other - Genitourinary Genitourinary: absent: As Per HPI, Change in Urinary Stream, Difficulty Urinating, Dysuria, Flank Pain, Hematuria, Pyuria, Nocturia, Urinary Incontinence, Urinary Frequency, Urinary Hesitance, Urinary Urgency, Voiding Freq/Small Amts, Freq UTI, Hx Renal/Bladder Calculi, Hx /Renal Surgery, Bladder Distension, Other - Musculoskeletal Musculoskeletal: As Per HPI - Integumentary Integumentary: As Per HPI - Neurological Neurological: absent: As Per HPI, Abnormal Gait, Abnormal Hearing, Abnormal Movements, Abnormal Speech, Behavioral Changes, Burning Sensations, Confusion, Convulsions, Disequilibrium, Dizziness, Numbness, Focal Weakness, Frequent Falls , Headaches, Lack of Coordination, Loss of Vision, Memory Loss, Paresthesias, Radicular Pain, Restless Legs, Sensory Deficit, Syncope, Tingling, Tremor, Vertigo, Weakness, Other Visual Disturbances, Other - Psychiatric Psychiatric: absent: As Per HPI, Abnormal Sleep Pattern, Anhedonia, Anxiety, Auditory Hallucinations, Behavioral Changes, Change in Appetite, Change in Libido, Confusion, Depression, Difficulty Concentrating, Hallucinations, Homicidal Ideation, Hopelessness, Irritability, Memory Loss, Mood Swings, Panic Attacks, Paranoia, Suicidal Ideation, Visual Hallucinations, Tactile Hallucinations, Other - Endocrine Endocrine: absent: As Per HPI, Change in Body Appearance, Change in Libido, Cold Intolorance, Deepening of Voice, Excessive Sweating, Fatigue, Flushing, Heat Intolorance, Increase in Ring/Shoe/Hat Size, Palpitations, Polydipsia, Polyphagia, Polyuria, Other - Hematologic/Lymphatic Hematologic: absent: As Per HPI, Easy Bleeding, Easy Bruising, Lymphadenopathy, Other Past Patient History - Infectious Disease Hx of Infectious Diseases: None - Past Medical History & Family History Past Medical History?: Yes - Past Social History Smoking Status: Never Smoked Alcohol: None Drugs: Denies Home Situation {Lives}: With Family - CARDIAC Hx Cardiac Disorders: Yes Hx Hypercholesterolemia: Yes Hx Hypertension: Yes - PULMONARY Hx Respiratory Disorders: No - NEUROLOGICAL Hx Neurological Disorder: No - HEENT Hx HEENT Problems: Yes Other/Comment: hard of hearing - RENAL Hx Chronic Kidney Disease: Yes - ENDOCRINE/METABOLIC Hx Diabetes Mellitus Type 2: Yes - HEMATOLOGICAL/ONCOLOGICAL Hx Blood Disorders: No - INTEGUMENTARY Hx Dermatological Problems: Yes Hx Cellulitis: Yes (BLE) Other/Comment: Diabetic foot ulcers - MUSCULOSKELETAL/RHEUMATOLOGICAL Hx Falls: No - GASTROINTESTINAL Hx Gastrointestinal Disorders: No - GENITOURINARY/GYNECOLOGICAL Hx Genitourinary Disorders: No - PSYCHIATRIC Hx Substance Use: No - SURGICAL HISTORY Hx Surgeries: Yes Hx Orthopedic Surgery: Yes (right knee sx) Other/Comment: hernia repair - ANESTHESIA Hx Anesthesia: Yes Hx Anesthesia Reactions: No Hx Malignant Hyperthermia: No Has any member of the family had a problem w/ anesthesia?: No Meds Allergies/Adverse Reactions: Allergies Allergy/AdvReac Type Severity Reaction Status Date / Time No Known Allergies Allergy Verified 01/09/17 14:55 - Medications Medications: Current Medications Imipenem/Cilastatin Sodium 500 (mg/ Sodium Chloride) 100 mls @ 100 mls/hr IVPB Q12H [facility] Last Admin: 01/14/17 04:51 Dose: 100 mls/hr Daptomycin 500 mg/ Sodium (Chloride) 100 mls @ 100 mls/hr IV Q48H [facility] Stop: 01/19/17 15:01 Metronidazole (Flagyl) 100 mls @ 100 mls/hr IVPB Q8H [facility] Last Admin: 01/14/17 07:49 Dose: 100 mls/hr Propofol (Diprivan) 100 mls @ 2.722 mls/hr IV .Q24H PRN; Protocol; 5 MCG/KG/MIN PRN Reason: TITRATE PER MD ORDER Last Admin: 01/14/17 13:24 Dose: 21.772 mls/hr Sodium Chloride (Sodium Chloride 0.9%) 1,000 mls @ 100 mls/hr IV .Q10H [facility] Last Admin: 01/14/17 06:30 Dose: 100 mls/hr Insulin Human Regular (Novolin R) 0 unit SC Q6 [facility] PRN Reason: Protocol Last Admin: 01/14/17 12:52 Dose: 2 unit Pantoprazole Sodium (Protonix Inj) 40 mg IVP DAILY [facility] Last Admin: 01/14/17 09:48 Dose: 40 mg Sodium Hypochlorite (Dakins Solution 0.125%) 0 appl TOP DAILY [facility] Last Admin: 01/13/17 17:34 Dose: Not Given Physical Exam - Constitutional Appears: Agitated - Head Exam Head Exam: ATRAUMATIC, NORMAL INSPECTION, NORMOCEPHALIC - Eye Exam Eye Exam: EOMI, Normal appearance, PERRL Pupil Exam: NORMAL ACCOMODATION, PERRL - Neck Exam Neck exam: Positive for: Normal Inspection - Respiratory Exam Respiratory Exam: Clear to Auscultation Bilateral, NORMAL BREATHING PATTERN - Cardiovascular Exam Cardiovascular Exam: Tachycardia, Irregular Rhythm, Systolic Murmur. absent: Bradycardia, Clicks, Diastolic murmur, Gallop, REGULAR RHYTHM, JVD, RRR, Rubs, + S1, +S2, +S4 - GI/Abdominal Exam GI & Abdominal Exam: Normal Bowel Sounds, Soft. absent: Tenderness - Extremities Exam Additional comments: MULTIPLE B/L LE INFECTED WOUNDS - Back Exam Back exam: NORMAL INSPECTION - Neurological Exam Additional comments: SEDATED Results - Vital Signs Recent Vital Signs: Last Vital Signs Temp 97 F L 01/14/17 13:18 Pulse 60 01/14/17 13:18 Resp 25 H 01/14/17 13:18 BP 144/58 L 01/14/17 13:18 Pulse Ox 98 01/14/17 08:00 - Labs Result Diagrams: 01/14/17 09:03 01/14/17 09:04 Labs: Laboratory Results - last 24 hr 01/12/17 01/13/17 01/14/17 12:06 17:23 00:37 WBC RBC Hgb Hct MCV MCH MCHC RDW Plt Count MPV Neut % (Auto) Lymph % (Auto) Kendall % (Auto) Eos % (Auto) Baso % (Auto) Neut # Lymph # Kendall # Eos # Baso # Neutrophils % (Manual) Band Neutrophils % Lymphocytes % (Manual) Monocytes % (Manual) Eosinophils % (Manual) Platelet Estimate Large Platelets Anisocytosis (manual) Ovalocytes Retic Count PT INR APTT Puncture Site pCO2 pO2 HCO3 ABG pH ABG Total CO2 ABG O2 Saturation ABG Base Excess ABG Hemoglobin ABG Carboxyhemoglobin POC ABG HHb (Measured) ABG Methemoglobin Carter Test A-a O2 Difference Respiratory Index Hgb O2 Saturation Mechanical Rate FiO2 Tidal Volume PEEP Sodium Potassium Chloride Carbon Dioxide Anion Gap BUN Creatinine Est GFR ( Amer) Est GFR (Non-Af Amer) POC Glucose (mg/dL) 131 H 174 H Random Glucose Calcium Ferritin Total Bilirubin AST ALT Alkaline Phosphatase Total Protein Albumin Globulin Albumin/Globulin Ratio Vitamin B12 Folate Blood Type O POSITIVE Blood Type Confirm O POSITIVE Antibody Screen Negative 01/14/17 01/14/17 01/14/17 05:16 06:04 06:08 WBC RBC Hgb Hct MCV MCH MCHC RDW Plt Count MPV Neut % (Auto) Lymph % (Auto) Kendall % (Auto) Eos % (Auto) Baso % (Auto) Neut # Lymph # Kendall # Eos # Baso # Neutrophils % (Manual) Band Neutrophils % Lymphocytes % (Manual) Monocytes % (Manual) Eosinophils % (Manual) Platelet Estimate Large Platelets Anisocytosis (manual) Ovalocytes Retic Count 1.5 PT INR APTT Puncture Site Rrad pCO2 32 L pO2 128 H HCO3 23.3 ABG pH 7.44 ABG Total CO2 22.7 ABG O2 Saturation 99.6 H ABG Base Excess -2.1 L ABG Hemoglobin 8.0 L ABG Carboxyhemoglobin 1.8 H POC ABG HHb (Measured) 0.4 ABG Methemoglobin 0.7 Carter Test Pos A-a O2 Difference 117.0 Respiratory Index 0.9 Hgb O2 Saturation 97.1 Mechanical Rate 14 FiO2 40.0 Tidal Volume 450 PEEP 5 Sodium Potassium Chloride Carbon Dioxide Anion Gap BUN Creatinine Est GFR ( Amer) Est GFR (Non-Af Amer) POC Glucose (mg/dL) 152 H Random Glucose Calcium Ferritin 431.0 Total Bilirubin AST ALT Alkaline Phosphatase Total Protein Albumin Globulin Albumin/Globulin Ratio Vitamin B12 986 H Folate 11.4 Blood Type Blood Type Confirm Antibody Screen 01/14/17 01/14/17 01/14/17 09:03 09:04 11:55 WBC 16.1 H RBC 3.05 L Hgb 7.8 L Hct 25.0 L MCV 82.0 MCH 25.6 L MCHC 31.3 L RDW 16.3 H Plt Count 248 MPV 7.4 Neut % (Auto) 86.4 H Lymph % (Auto) 7.7 L Kendall % (Auto) 4.4 Eos % (Auto) 1.0 Baso % (Auto) 0.5 Neut # 13.9 H Lymph # 1.2 Kendall # 0.7 Eos # 0.2 Baso # 0.1 Neutrophils % (Manual) 86 H Band Neutrophils % 1 Lymphocytes % (Manual) 10 L Monocytes % (Manual) 2 Eosinophils % (Manual) 1 Platelet Estimate Normal Large Platelets Present Anisocytosis (manual) Slight Ovalocytes Slight Retic Count PT INR APTT Puncture Site pCO2 pO2 HCO3 ABG pH ABG Total CO2 ABG O2 Saturation ABG Base Excess ABG Hemoglobin ABG Carboxyhemoglobin POC ABG HHb (Measured) ABG Methemoglobin Carter Test A-a O2 Difference Respiratory Index Hgb O2 Saturation Mechanical Rate FiO2 Tidal Volume PEEP Sodium 144 Potassium 4.5 Chloride 107 Carbon Dioxide 23 Anion Gap 19 BUN 99 H Creatinine 2.2 H Est GFR ( Amer) 36 Est GFR (Non-Af Amer) 30 POC Glucose (mg/dL) 199 H Random Glucose 134 H Calcium 7.9 L Ferritin Total Bilirubin 1.3 AST 60 H D ALT 25 Alkaline Phosphatase 178 H Total Protein 6.7 Albumin 2.7 L Globulin 4.0 H Albumin/Globulin Ratio 0.7 L Vitamin B12 Folate Blood Type Blood Type Confirm Antibody Screen 01/14/17 12:23 WBC RBC Hgb Hct MCV MCH MCHC RDW Plt Count MPV Neut % (Auto) Lymph % (Auto) Kendall % (Auto) Eos % (Auto) Baso % (Auto) Neut # Lymph # Kendall # Eos # Baso # Neutrophils % (Manual) Band Neutrophils % Lymphocytes % (Manual) Monocytes % (Manual) Eosinophils % (Manual) Platelet Estimate Large Platelets Anisocytosis (manual) Ovalocytes Retic Count PT 18.0 H INR 1.6 APTT 37 H D Puncture Site pCO2 pO2 HCO3 ABG pH ABG Total CO2 ABG O2 Saturation ABG Base Excess ABG Hemoglobin ABG Carboxyhemoglobin POC ABG HHb (Measured) ABG Methemoglobin Carter Test A-a O2 Difference Respiratory Index Hgb O2 Saturation Mechanical Rate FiO2 Tidal Volume PEEP Sodium Potassium Chloride Carbon Dioxide Anion Gap BUN Creatinine Est GFR ( Amer) Est GFR (Non-Af Amer) POC Glucose (mg/dL) Random Glucose Calcium Ferritin Total Bilirubin AST ALT Alkaline Phosphatase Total Protein Albumin Globulin Albumin/Globulin Ratio Vitamin B12 Folate Blood Type Blood Type Confirm Antibody Screen Assessment & Plan (1) Acute delirium Status: Acute (2) Diabetic foot infection Status: Acute (3) Diabetic ulcer of both lower extremities Status: Acute (4) HTN (hypertension) Status: Chronic (5) Pacemaker Status: Chronic (6) Atrial fibrillation Status: Chronic (7) Risk and functional assessment Status: Acute - Assessment and Plan (Free Text) Plan: PT WITHOUT ACTIVE CAD OR HX OF CAD SURGERY IS NECESSARY FOR SEPSIS PT MAY PROCEED WITH AMPUTATIONS, HE IS LOW TO INTERMEDIATE RISK. WOULD USE IV BB'S TO CONTROL HR AND BP INTRA AND RU OPERATIVELY. TO D/W PASTORAL CARE WHETHER TO PROCEED WITH SURGERY. 55 MIN OF TOTAL EVAL.
[2017-01-14] MEDS ORDERED: DAPTOmycin 500 MG in Sodium Chloride 0.9% 100 ML IV SCH (15:00)
--- NOTE | 2017-01-14 15:11 | CP.CCUPN ---
CCU Subjective - Physician Review Events Since Last Encounter (Free Text): 01/14/17 15:08 Patient seen and examined in the intensive care unit. He remains intubated on ventilatory support. Saturation 98% on FiO2 of 50% Sedated on Diprivan Seen by cardiology for clearance Afebrile CCU Objective - Vital Signs / Intake & Output Vital Signs (Last 4 hours): Vital Signs Temp Pulse Resp BP Pulse Ox 01/14/17 14:18 97.2 F L 61 28 H 137/60 01/14/17 13:48 97.2 F L 60 30 H 146/61 01/14/17 13:33 97 F L 60 30 H 138/58 L 01/14/17 13:18 97 F L 60 25 H 144/58 L 01/14/17 13:05 60 17 144/58 L 99 01/14/17 12:01 60 18 112/49 L 99 01/14/17 12:00 98.5 F Intake and Output (Last 8hrs): Intake & Output 01/14/17 01/14/17 01/14/17 06:59 14:59 22:59 Intake Total 1151.6 958.9 Output Total 620 740 Balance 531.6 218.9 Intake: Intake, IV Amount 911.6 708.9 Left Forearm 800 600 Right Forearm 111.6 108.9 Tube Feeding 240 250 Blood Product 0 Red Blood Cells Cpd As1 0 Lr Unit [id number] Output: Urine 620 740 Urethral (Conner) 620 740 Other: # Bowel Movements 0 0 - Physical Exam Head: Positive for: Atraumatic, Normocephalic Mouth: Positive for: Moist Mucous Membranes Neck: Positive for: Trachea Midline Respiratory/Chest: Positive for: Clear to Auscultation Cardiovascular: Positive for: Regular Rate and Rhythm Abdomen: Positive for: Normal Bowel Sounds Upper Extremity: Positive for: Normal Inspection, Edema Neurological: Positive for: Other - Medications Active Medications: Active Medications Generic Name Dose Route Start Last Admin Trade Name Freq PRN Reason Stop Dose Admin Imipenem/Cilastatin Sodium 500 100 mls @ 100 mls/hr 01/12/17 17:00 01/14/17 04: 51 mg/ Sodium Chloride IVPB 100 mls/hr Q12H MICHAEL Administration Daptomycin 500 mg/ Sodium 100 mls @ 100 mls/hr 01/14/17 15:00 Chloride IV 04/07/17 15:01 Q48H IMCHAEL Metronidazole 100 mls @ 100 mls/hr 01/12/17 23:30 01/14/17 07:49 Flagyl IVPB 100 mls/hr Q8H MICHAEL Administration Propofol 100 mls @ 2.722 mls/hr 01/13/17 00:10 01/14/17 13:24 Diprivan IV 21.772 mls/hr .Q24H PRN Administration TITRATE PER MD ORDER Protocol 5 MCG/KG/MIN Sodium Chloride 1,000 mls @ 100 mls/hr 01/13/17 00:17 01/14/17 06:30 Sodium Chloride 0.9% IV 100 mls/hr .Q10H MICHAEL Administration Insulin Human Regular 0 unit 01/12/17 13:15 01/14/17 12:52 Novolin R SC 2 unit Q6 MICHAEL Administration Protocol Pantoprazole Sodium 40 mg 01/13/17 10:00 01/14/17 09:48 Protonix Inj IVP 40 mg DAILY MICHAEL Administration Sodium Hypochlorite 0 appl 01/11/17 10:00 01/13/17 17:34 Dakins Solution 0.125% TOP Not Given DAILY MICHAEL - Patient Studies Lab Studies: Microbiology Studies 01/12/17 03:30 Blood Culture - Preliminary Blood NO GROWTH AFTER 24 HOURS 01/12/17 03:45 Blood Culture - Preliminary Blood NO GROWTH AFTER 24 HOURS Lab Studies 01/14/17 01/14/17 01/14/17 Range/Units 12:23 11:55 09:04 WBC (4.8-10.8) K/uL RBC (4.40-5.90) Mil/uL Hgb (12.0-18.0) g/dL Hct (35.0-51.0) % MCV (80.0-94.0) fL MCH (27.0-31.0) pg MCHC (33.0-37.0) g/dL RDW (11.5-14.5) % Plt Count (130-400) K/uL MPV (7.2-11.7) fL Neut % (Auto) (50.0-75.0) % Lymph % (Auto) (20.0-40.0) % Rowan % (Auto) (0.0-10.0) % Eos % (Auto) (0.0-4.0) % Baso % (Auto) (0.0-2.0) % Neut # (1.8-7.0) K/uL Lymph # (1.0-4.3) K/uL Rowan # (0.0-0.8) K/uL Eos # (0.0-0.7) K/uL Baso # (0.0-0.2) K/uL Neutrophils % (Manual) (50-75) % Band Neutrophils % (0-2) % Lymphocytes % (Manual) (20-40) % Monocytes % (Manual) (0-10) % Eosinophils % (Manual) (0-4) % Platelet Estimate (NORMAL) Large Platelets Anisocytosis (manual) Ovalocytes Retic Count (0.5-1.5) % PT 18.0 H (9.7-12.2) SECONDS INR 1.6 APTT 37 H D (21-34) SECONDS Puncture Site pCO2 (35-45) mm/Hg pO2 (80-100) mm/Hg HCO3 (21-28) mmol/L ABG pH (7.35-7.45) ABG Total CO2 (22-28) mmol/L ABG O2 Saturation (95-98) % ABG Base Excess (-2.0-3.0) mmol/L ABG Hemoglobin (11.7-17.4) g/dL ABG Carboxyhemoglobin (0.5-1.5) % POC ABG HHb (Measured) (0.0-5.0) % ABG Methemoglobin (0.0-3.0) % Carter Test A-a O2 Difference mm/Hg Respiratory Index Hgb O2 Saturation (95.0-98.0) % Mechanical Rate FiO2 % Tidal Volume PEEP Sodium 144 (132-148) mmol/L Potassium 4.5 (3.6-5.2) mmol/L Chloride 107 (98-107) mmol/L Carbon Dioxide 23 (22-30) mmol/L Anion Gap 19 (10-20) BUN 99 H (9-20) mg/dL Creatinine 2.2 H (0.8-1.5) MG/DL Est GFR ( Amer) 36 Est GFR (Non-Af Amer) 30 POC Glucose (mg/dL) 199 H (65-110) mg/dL Random Glucose 134 H (75-110) mg/dL Calcium 7.9 L (8.6-10.4) mg/dl Ferritin ng/mL Total Bilirubin 1.3 (0.2-1.3) mg/dL AST 60 H D (17-59) U/L ALT 25 (21-72) U/L Alkaline Phosphatase 178 H (38-126) U/L Total Protein 6.7 (6.3-8.3) g/dL Albumin 2.7 L (3.5-5.0) g/dL Globulin 4.0 H (2.2-3.9) gm/dL Albumin/Globulin Ratio 0.7 L (1.0-2.1) Vitamin B12 (239-931) pg/mL Folate ng/mL Blood Type Blood Type Confirm Antibody Screen 01/14/17 01/14/17 01/14/17 Range/Units 09:03 06:08 06:04 WBC 16.1 H (4.8-10.8) K/uL RBC 3.05 L (4.40-5.90) Mil/uL Hgb 7.8 L (12.0-18.0) g/dL Hct 25.0 L (35.0-51.0) % MCV 82.0 (80.0-94.0) fL MCH 25.6 L (27.0-31.0) pg MCHC 31.3 L (33.0-37.0) g/dL RDW 16.3 H (11.5-14.5) % Plt Count 248 (130-400) K/uL MPV 7.4 (7.2-11.7) fL Neut % (Auto) 86.4 H (50.0-75.0) % Lymph % (Auto) 7.7 L (20.0-40.0) % Rowan % (Auto) 4.4 (0.0-10.0) % Eos % (Auto) 1.0 (0.0-4.0) % Baso % (Auto) 0.5 (0.0-2.0) % Neut # 13.9 H (1.8-7.0) K/uL Lymph # 1.2 (1.0-4.3) K/uL Rowan # 0.7 (0.0-0.8) K/uL Eos # 0.2 (0.0-0.7) K/uL Baso # 0.1 (0.0-0.2) K/uL Neutrophils % (Manual) 86 H (50-75) % Band Neutrophils % 1 (0-2) % Lymphocytes % (Manual) 10 L (20-40) % Monocytes % (Manual) 2 (0-10) % Eosinophils % (Manual) 1 (0-4) % Platelet Estimate Normal (NORMAL) Large Platelets Present Anisocytosis (manual) Slight Ovalocytes Slight Retic Count 1.5 (0.5-1.5) % PT (9.7-12.2) SECONDS INR APTT (21-34) SECONDS Puncture Site pCO2 (35-45) mm/Hg pO2 (80-100) mm/Hg HCO3 (21-28) mmol/L ABG pH (7.35-7.45) ABG Total CO2 (22-28) mmol/L ABG O2 Saturation (95-98) % ABG Base Excess (-2.0-3.0) mmol/L ABG Hemoglobin (11.7-17.4) g/dL ABG Carboxyhemoglobin (0.5-1.5) % POC ABG HHb (Measured) (0.0-5.0) % ABG Methemoglobin (0.0-3.0) % Carter Test A-a O2 Difference mm/Hg Respiratory Index Hgb O2 Saturation (95.0-98.0) % Mechanical Rate FiO2 % Tidal Volume PEEP Sodium (132-148) mmol/L Potassium (3.6-5.2) mmol/L Chloride (98-107) mmol/L Carbon Dioxide (22-30) mmol/L Anion Gap (10-20) BUN (9-20) mg/dL Creatinine (0.8-1.5) MG/DL Est GFR ( Amer) Est GFR (Non-Af Amer) POC Glucose (mg/dL) (65-110) mg/dL Random Glucose (75-110) mg/dL Calcium (8.6-10.4) mg/dl Ferritin 431.0 ng/mL Total Bilirubin (0.2-1.3) mg/dL AST (17-59) U/L ALT (21-72) U/L Alkaline Phosphatase (38-126) U/L Total Protein (6.3-8.3) g/dL Albumin (3.5-5.0) g/dL Globulin (2.2-3.9) gm/dL Albumin/Globulin Ratio (1.0-2.1) Vitamin B12 986 H (239-931) pg/mL Folate 11.4 ng/mL Blood Type Blood Type Confirm Antibody Screen 01/14/17 01/14/17 01/13/17 Range/Units 05:16 00:37 17:23 WBC (4.8-10.8) K/uL RBC (4.40-5.90) Mil/uL Hgb (12.0-18.0) g/dL Hct (35.0-51.0) % MCV (80.0-94.0) fL MCH (27.0-31.0) pg MCHC (33.0-37.0) g/dL RDW (11.5-14.5) % Plt Count (130-400) K/uL MPV (7.2-11.7) fL Neut % (Auto) (50.0-75.0) % Lymph % (Auto) (20.0-40.0) % Rowan % (Auto) (0.0-10.0) % Eos % (Auto) (0.0-4.0) % Baso % (Auto) (0.0-2.0) % Neut # (1.8-7.0) K/uL Lymph # (1.0-4.3) K/uL Rowan # (0.0-0.8) K/uL Eos # (0.0-0.7) K/uL Baso # (0.0-0.2) K/uL Neutrophils % (Manual) (50-75) % Band Neutrophils % (0-2) % Lymphocytes % (Manual) (20-40) % Monocytes % (Manual) (0-10) % Eosinophils % (Manual) (0-4) % Platelet Estimate (NORMAL) Large Platelets Anisocytosis (manual) Ovalocytes Retic Count (0.5-1.5) % PT (9.7-12.2) SECONDS INR APTT (21-34) SECONDS Puncture Site Rrad pCO2 32 L (35-45) mm/Hg pO2 128 H (80-100) mm/Hg HCO3 23.3 (21-28) mmol/L ABG pH 7.44 (7.35-7.45) ABG Total CO2 22.7 (22-28) mmol/L ABG O2 Saturation 99.6 H (95-98) % ABG Base Excess -2.1 L (-2.0-3.0) mmol/L ABG Hemoglobin 8.0 L (11.7-17.4) g/dL ABG Carboxyhemoglobin 1.8 H (0.5-1.5) % POC ABG HHb (Measured) 0.4 (0.0-5.0) % ABG Methemoglobin 0.7 (0.0-3.0) % Carter Test Pos A-a O2 Difference 117.0 mm/Hg Respiratory Index 0.9 Hgb O2 Saturation 97.1 (95.0-98.0) % Mechanical Rate 14 FiO2 40.0 % Tidal Volume 450 PEEP 5 Sodium (132-148) mmol/L Potassium (3.6-5.2) mmol/L Chloride (98-107) mmol/L Carbon Dioxide (22-30) mmol/L Anion Gap (10-20) BUN (9-20) mg/dL Creatinine (0.8-1.5) MG/DL Est GFR ( Amer) Est GFR (Non-Af Amer) POC Glucose (mg/dL) 152 H 174 H 131 H (65-110) mg/dL Random Glucose (75-110) mg/dL Calcium (8.6-10.4) mg/dl Ferritin ng/mL Total Bilirubin (0.2-1.3) mg/dL AST (17-59) U/L ALT (21-72) U/L Alkaline Phosphatase (38-126) U/L Total Protein (6.3-8.3) g/dL Albumin (3.5-5.0) g/dL Globulin (2.2-3.9) gm/dL Albumin/Globulin Ratio (1.0-2.1) Vitamin B12 (239-931) pg/mL Folate ng/mL Blood Type Blood Type Confirm Antibody Screen 01/12/17 Range/Units 12:06 WBC (4.8-10.8) K/uL RBC (4.40-5.90) Mil/uL Hgb (12.0-18.0) g/dL Hct (35.0-51.0) % MCV (80.0-94.0) fL MCH (27.0-31.0) pg MCHC (33.0-37.0) g/dL RDW (11.5-14.5) % Plt Count (130-400) K/uL MPV (7.2-11.7) fL Neut % (Auto) (50.0-75.0) % Lymph % (Auto) (20.0-40.0) % Rowan % (Auto) (0.0-10.0) % Eos % (Auto) (0.0-4.0) % Baso % (Auto) (0.0-2.0) % Neut # (1.8-7.0) K/uL Lymph # (1.0-4.3) K/uL Rowan # (0.0-0.8) K/uL Eos # (0.0-0.7) K/uL Baso # (0.0-0.2) K/uL Neutrophils % (Manual) (50-75) % Band Neutrophils % (0-2) % Lymphocytes % (Manual) (20-40) % Monocytes % (Manual) (0-10) % Eosinophils % (Manual) (0-4) % Platelet Estimate (NORMAL) Large Platelets Anisocytosis (manual) Ovalocytes Retic Count (0.5-1.5) % PT (9.7-12.2) SECONDS INR APTT (21-34) SECONDS Puncture Site pCO2 (35-45) mm/Hg pO2 (80-100) mm/Hg HCO3 (21-28) mmol/L ABG pH (7.35-7.45) ABG Total CO2 (22-28) mmol/L ABG O2 Saturation (95-98) % ABG Base Excess (-2.0-3.0) mmol/L ABG Hemoglobin (11.7-17.4) g/dL ABG Carboxyhemoglobin (0.5-1.5) % POC ABG HHb (Measured) (0.0-5.0) % ABG Methemoglobin (0.0-3.0) % Carter Test A-a O2 Difference mm/Hg Respiratory Index Hgb O2 Saturation (95.0-98.0) % Mechanical Rate FiO2 % Tidal Volume PEEP Sodium (132-148) mmol/L Potassium (3.6-5.2) mmol/L Chloride (98-107) mmol/L Carbon Dioxide (22-30) mmol/L Anion Gap (10-20) BUN (9-20) mg/dL Creatinine (0.8-1.5) MG/DL Est GFR ( Amer) Est GFR (Non-Af Amer) POC Glucose (mg/dL) (65-110) mg/dL Random Glucose (75-110) mg/dL Calcium (8.6-10.4) mg/dl Ferritin ng/mL Total Bilirubin (0.2-1.3) mg/dL AST (17-59) U/L ALT (21-72) U/L Alkaline Phosphatase (38-126) U/L Total Protein (6.3-8.3) g/dL Albumin (3.5-5.0) g/dL Globulin (2.2-3.9) gm/dL Albumin/Globulin Ratio (1.0-2.1) Vitamin B12 (239-931) pg/mL Folate ng/mL Blood Type O POSITIVE Blood Type Confirm O POSITIVE Antibody Screen Negative Laboratory Results - last 24 hr 01/12/17 01/13/17 01/14/17 12:06 17:23 00:37 WBC RBC Hgb Hct MCV MCH MCHC RDW Plt Count MPV Neut % (Auto) Lymph % (Auto) Rowan % (Auto) Eos % (Auto) Baso % (Auto) Neut # Lymph # Rowan # Eos # Baso # Neutrophils % (Manual) Band Neutrophils % Lymphocytes % (Manual) Monocytes % (Manual) Eosinophils % (Manual) Platelet Estimate Large Platelets Anisocytosis (manual) Ovalocytes Retic Count PT INR APTT Puncture Site pCO2 pO2 HCO3 ABG pH ABG Total CO2 ABG O2 Saturation ABG Base Excess ABG Hemoglobin ABG Carboxyhemoglobin POC ABG HHb (Measured) ABG Methemoglobin Carter Test A-a O2 Difference Respiratory Index Hgb O2 Saturation Mechanical Rate FiO2 Tidal Volume PEEP Sodium Potassium Chloride Carbon Dioxide Anion Gap BUN Creatinine Est GFR ( Amer) Est GFR (Non-Af Amer) POC Glucose (mg/dL) 131 H 174 H Random Glucose Calcium Ferritin Total Bilirubin AST ALT Alkaline Phosphatase Total Protein Albumin Globulin Albumin/Globulin Ratio Vitamin B12 Folate Blood Type O POSITIVE Blood Type Confirm O POSITIVE Antibody Screen Negative 01/14/17 01/14/17 01/14/17 05:16 06:04 06:08 WBC RBC Hgb Hct MCV MCH MCHC RDW Plt Count MPV Neut % (Auto) Lymph % (Auto) Rowan % (Auto) Eos % (Auto) Baso % (Auto) Neut # Lymph # Rowan # Eos # Baso # Neutrophils % (Manual) Band Neutrophils % Lymphocytes % (Manual) Monocytes % (Manual) Eosinophils % (Manual) Platelet Estimate Large Platelets Anisocytosis (manual) Ovalocytes Retic Count 1.5 PT INR APTT Puncture Site Rrad pCO2 32 L pO2 128 H HCO3 23.3 ABG pH 7.44 ABG Total CO2 22.7 ABG O2 Saturation 99.6 H ABG Base Excess -2.1 L ABG Hemoglobin 8.0 L ABG Carboxyhemoglobin 1.8 H POC ABG HHb (Measured) 0.4 ABG Methemoglobin 0.7 Carter Test Pos A-a O2 Difference 117.0 Respiratory Index 0.9 Hgb O2 Saturation 97.1 Mechanical Rate 14 FiO2 40.0 Tidal Volume 450 PEEP 5 Sodium Potassium Chloride Carbon Dioxide Anion Gap BUN Creatinine Est GFR ( Amer) Est GFR (Non-Af Amer) POC Glucose (mg/dL) 152 H Random Glucose Calcium Ferritin 431.0 Total Bilirubin AST ALT Alkaline Phosphatase Total Protein Albumin Globulin Albumin/Globulin Ratio Vitamin B12 986 H Folate 11.4 Blood Type Blood Type Confirm Antibody Screen 01/14/17 01/14/17 01/14/17 09:03 09:04 11:55 WBC 16.1 H RBC 3.05 L Hgb 7.8 L Hct 25.0 L MCV 82.0 MCH 25.6 L MCHC 31.3 L RDW 16.3 H Plt Count 248 MPV 7.4 Neut % (Auto) 86.4 H Lymph % (Auto) 7.7 L Rowan % (Auto) 4.4 Eos % (Auto) 1.0 Baso % (Auto) 0.5 Neut # 13.9 H Lymph # 1.2 Rowan # 0.7 Eos # 0.2 Baso # 0.1 Neutrophils % (Manual) 86 H Band Neutrophils % 1 Lymphocytes % (Manual) 10 L Monocytes % (Manual) 2 Eosinophils % (Manual) 1 Platelet Estimate Normal Large Platelets Present Anisocytosis (manual) Slight Ovalocytes Slight Retic Count PT INR APTT Puncture Site pCO2 pO2 HCO3 ABG pH ABG Total CO2 ABG O2 Saturation ABG Base Excess ABG Hemoglobin ABG Carboxyhemoglobin POC ABG HHb (Measured) ABG Methemoglobin Carter Test A-a O2 Difference Respiratory Index Hgb O2 Saturation Mechanical Rate FiO2 Tidal Volume PEEP Sodium 144 Potassium 4.5 Chloride 107 Carbon Dioxide 23 Anion Gap 19 BUN 99 H Creatinine 2.2 H Est GFR ( Amer) 36 Est GFR (Non-Af Amer) 30 POC Glucose (mg/dL) 199 H Random Glucose 134 H Calcium 7.9 L Ferritin Total Bilirubin 1.3 AST 60 H D ALT 25 Alkaline Phosphatase 178 H Total Protein 6.7 Albumin 2.7 L Globulin 4.0 H Albumin/Globulin Ratio 0.7 L Vitamin B12 Folate Blood Type Blood Type Confirm Antibody Screen 01/14/17 12:23 WBC RBC Hgb Hct MCV MCH MCHC RDW Plt Count MPV Neut % (Auto) Lymph % (Auto) Rowan % (Auto) Eos % (Auto) Baso % (Auto) Neut # Lymph # Rowan # Eos # Baso # Neutrophils % (Manual) Band Neutrophils % Lymphocytes % (Manual) Monocytes % (Manual) Eosinophils % (Manual) Platelet Estimate Large Platelets Anisocytosis (manual) Ovalocytes Retic Count PT 18.0 H INR 1.6 APTT 37 H D Puncture Site pCO2 pO2 HCO3 ABG pH ABG Total CO2 ABG O2 Saturation ABG Base Excess ABG Hemoglobin ABG Carboxyhemoglobin POC ABG HHb (Measured) ABG Methemoglobin Carter Test A-a O2 Difference Respiratory Index Hgb O2 Saturation Mechanical Rate FiO2 Tidal Volume PEEP Sodium Potassium Chloride Carbon Dioxide Anion Gap BUN Creatinine Est GFR ( Amer) Est GFR (Non-Af Amer) POC Glucose (mg/dL) Random Glucose Calcium Ferritin Total Bilirubin AST ALT Alkaline Phosphatase Total Protein Albumin Globulin Albumin/Globulin Ratio Vitamin B12 Folate Blood Type Blood Type Confirm Antibody Screen Fingerstick Blood Sugar Results: 127 Review of Systems - Review of Systems Systems not reviewed;Unavailable: Intubated Critical Care Progress Note - Ventilator Checklist Head of Bed 30 Degrees: Yes Daily Sedation Vacation: No Daily Assessment of Readiness to Wean: No Daily Spontaneous Breathing Trial: No PUD Prophalyxis: Yes DVT Prophylaxis: Yes - Vent Settings MODE:: PRVC - Nutrition Nutrition: Nutrition Category Date Time Status Consistent Carbohydrate [DIET] Diets 01/10/17 Breakfast Active Assessment/Plan (1) Acute respiratory failure with hypercapnia Current Visit: Yes Status: Acute Comment: Continue ventilatory support and reduce FiO2 as tolerated, no weaning Continue IV antibiotics Transfuse packed RBCs and follow up CBC Follow-up culture and sensitivity (2) Diabetic ulcer of both lower extremities Current Visit: Yes Status: Acute Comment: Vascular recommending potential knee level amputation Continue antibiotics for now wants to decide for surgery after discussing with emergency room physician (3) Bacteremia Current Visit: Yes Status: Acute (4) CKD stage 4 due to type 2 diabetes mellitus Current Visit: Yes Status: Acute (5) Coagulopathy Current Visit: Yes Status: Acute (6) Diabetic foot infection Current Visit: Yes Status: Acute
--- NOTE | 2017-01-14 15:58 | CP.PCM.PN ---
Subjective - Date & Time of Evaluation Date of Evaluation: 01/14/17 Time of Evaluation: 09:00 - Subjective Subjective: AFEBRILE ON IV ANTIBIOTICS ALL CULTURES REVIEWED Objective - Vital Signs/Intake and Output Vital Signs (last 24 hours): Temp Pulse Resp BP Pulse Ox 97.2 F L 60 24 129/57 L 99 01/14/17 15:15 01/14/17 15:15 01/14/17 15:15 01/14/17 15:15 01/14/17 13:05 Intake and Output: 01/14/17 01/14/17 06:59 18:59 Intake Total 1886.2 1383.9 Output Total 910 740 Balance 976.2 643.9 - Medications Medications: Current Medications Imipenem/Cilastatin Sodium 500 (mg/ Sodium Chloride) 100 mls @ 100 mls/hr IVPB Q12H [facility] Last Admin: 01/14/17 04:51 Dose: 100 mls/hr Daptomycin 500 mg/ Sodium (Chloride) 100 mls @ 100 mls/hr IV Q48H MICHAEL Stop: 01/19/17 15:01 Last Admin: 01/14/17 15:30 Dose: 100 mls/hr Metronidazole (Flagyl) 100 mls @ 100 mls/hr IVPB Q8H MICHAEL Last Admin: 01/14/17 15:37 Dose: 100 mls/hr Propofol (Diprivan) 100 mls @ 2.722 mls/hr IV .Q24H PRN; Protocol; 5 MCG/KG/MIN PRN Reason: TITRATE PER MD ORDER Last Admin: 01/14/17 13:24 Dose: 21.772 mls/hr Sodium Chloride (Sodium Chloride 0.9%) 1,000 mls @ 100 mls/hr IV .Q10H [facility] Last Admin: 01/14/17 06:30 Dose: 100 mls/hr Insulin Human Regular (Novolin R) 0 unit SC Q6 MICHAEL PRN Reason: Protocol Last Admin: 01/14/17 12:52 Dose: 2 unit Pantoprazole Sodium (Protonix Inj) 40 mg IVP DAILY [facility] Last Admin: 01/14/17 09:48 Dose: 40 mg Sodium Hypochlorite (Dakins Solution 0.125%) 0 appl TOP DAILY [facility] Last Admin: 01/13/17 17:34 Dose: Not Given - Labs Labs: 01/14/17 09:03 01/14/17 09:04 PT 18.0 SECONDS (9.7-12.2) H 01/14/17 12:23 INR 1.6 01/14/17 12:23 APTT 37 SECONDS (21-34) H D 01/14/17 12:23 - Constitutional Appears: Non-toxic, Chronically Ill - Head Exam Head Exam: NORMOCEPHALIC - Eye Exam Eye Exam: absent: Scleral icterus - ENT Exam ENT Exam: Mucous Membranes Dry - Neck Exam Neck Exam: absent: Lymphadenopathy, Thyromegaly - Respiratory Exam Respiratory Exam: Decreased Breath Sounds, Rhonchi - Cardiovascular Exam Cardiovascular Exam: REGULAR RHYTHM, +S1, +S2 - GI/Abdominal Exam GI & Abdominal Exam: Distended, Soft. absent: Tenderness - Rectal Exam Rectal Exam: Deferred - Exam Exam: absent: NORMAL INSPECTION - Extremities Exam Extremities Exam: Pedal Edema, Tenderness. absent: Calf Tenderness - Back Exam Back Exam: absent: CVA tenderness (L), CVA tenderness (R) - Neurological Exam Neurological Exam: Altered - Psychiatric Exam Psychiatric exam: Depressed - Skin Additional comments: WOUNDS DRAINING BILATERALLY Assessment and Plan (1) Acute renal failure Status: Acute (2) Diabetic foot infection Status: Acute (3) Diabetic ulcer of both lower extremities Status: Acute (4) Leukocytosis Status: Acute (5) ARSENIO (acute kidney injury) Status: Acute (6) Abdominal distension Status: Acute (7) Atrial fibrillation with slow ventricular response Status: Chronic (8) Cellulitis Status: Acute - Assessment and Plan (Free Text) Assessment: SEVERE NECROTIC WOUNDS NEEDS BKA WHICH FAMILY HAS NOT CONSENTED TO CONSIDER LIMITED DEBRIDEMENT FOR NOW
--- NOTE | 2017-01-14 18:11 | RAD ---
HISTORY: follow up COMPARISON: Comparison is made to the previous study dated 01/13/2017 FINDINGS: LUNGS: Interval improvement in the lungs since the previous exam. The ET tube seen at the appropriate position. PLEURA: Blunting of both costophrenic angles larger on the left. CARDIOVASCULAR: The cardiac silhouette is mildly enlarged. OSSEOUS STRUCTURES: No significant abnormalities. VISUALIZED UPPER ABDOMEN: The NG tube seen extending to the abdomen. OTHER FINDINGS: Right jugular central line seen in place. IMPRESSION: Interval improvement in the lungs since the previous exam. Otherwise no change
[2017-01-15] MEDS: (Novolin R) Insulin Human Regular 100 units/ml vial SC SCH ×3 (00:57→15:13)
[2017-01-15 05:56] LABS: ABG ALLEN TEST POS; ABG MECHANICAL RATE 14; ARTERIAL BLOOD HGB O2 SAT 94.5 % (95.0-98.0); ATERIAL BLOOD GAS PEEP 5; CARBOXYHEMOGLOBIN 1.9 % (0.5-1.5); DRAW SITE RB; HHB 2.1 % (0.0-5.0); METHEMOGLOBIN 1.4 % (0.0-3.0)
[2017-01-15] MEDS: metroNIDAZOLE IV 500 mg/100 ml 100 ML IVPB SCH ×3 (06:49→23:05)
[2017-01-15 06:52] LABS: BASO # 0.1 K/uL (0.0-0.2); BASO % 0.5 % (0.0-2.0); EOS % 0.2 % (0.0-4.0); HEMATOCRIT 27.7 % (35.0-51.0); LYMPH # 1.4 K/uL (1.0-4.3); LYMPH % 7.9 % (20.0-40.0); MEAN CELL VOLUME 83.2 fL (80.0-94.0); MEAN CORPUSCULAR HEMOGLOBIN 26.1 pg (27.0-31.0); MEAN CORPUSCULAR HGB CONC 31.4 g/dL (33.0-37.0); MEAN PLATELET VOLUME 7.6 fL (7.2-11.7); MONO # 0.7 K/uL (0.0-0.8); MONO % 4.3 % (0.0-10.0); PLATELET COUNT 229 K/uL (130-400); RED CELL DISTRIBUTION WIDTH 16.4 % (11.5-14.5); WHITE BLOOD COUNT 17.6 K/uL (4.8-10.8)
[2017-01-15] MEDS: Sodium Chloride 0.9% 1,000 ML IV SCH ×3 (06:57→23:00)
[2017-01-15 06:59] LABS: INR 1.7
--- NOTE | 2017-01-15 07:13 | CP.CCUPN ---
CCU Subjective - Physician Review Subjective (Free Text): 01/15/17 16:00 Pt seen and examined in no acute distress. Pt still intubated and sedated at this time. Patient's spoke with [employer] Consultant Sue this morning and indicated that patient would not like his legs amputated. In addition POLST forms were signed for DNR. Pt can not comply with ROS at the moment due to clinical status. CCU Objective - Vital Signs / Intake & Output Vital Signs (Last 4 hours): Vital Signs Temp Pulse Resp BP Pulse Ox 01/15/17 06:00 60 23 145/62 98 01/15/17 05:00 60 23 135/49 L 97 01/15/17 04:00 99.8 F H 60 20 133/97 H 98 Intake and Output (Last 8hrs): Intake & Output 01/14/17 01/15/17 01/15/17 22:59 06:59 14:59 Intake Total 1902.0 1508.8 Output Total 760 490 Balance 1142.0 1018.8 Intake: Intake, IV Amount 917.0 908.8 Right Proximal Port 117.0 108.8 Internal Jugular Right Medial Port 800 800 Internal Jugular Tube Feeding 360 400 Blood Product 325 Red Blood Cells Cpd As1 325 Lr Unit [id number] Other 300 200 Red Blood Cells Cpd As1 100 Lr Unit [id number] Output: Urine 760 490 Urethral (Conner) 760 490 - Physical Exam Head: Positive for: Atraumatic, Normocephalic Mouth: Positive for: Moist Mucous Membranes Respiratory/Chest: Positive for: Clear to Auscultation Cardiovascular: Positive for: Regular Rate and Rhythm Abdomen: Positive for: Normal Bowel Sounds Upper Extremity: Positive for: Normal Inspection, Edema Lower Extremity: Positive for: Edema, Other (LE dressing b/l; malodorous scent noted) Neurological: Positive for: Other Skin: Positive for: Dry, Rashes, Erythematous, Abrasion Psychiatric: Negative for: Alert, Oriented x 3 - Medications Active Medications: Active Medications Generic Name Dose Route Start Last Admin Trade Name Freq PRN Reason Stop Dose Admin Imipenem/Cilastatin Sodium 500 100 mls @ 100 mls/hr 01/12/17 17:00 01/15/17 04: 55 mg/ Sodium Chloride IVPB 100 mls/hr Q12H MICHAEL Administration Daptomycin 500 mg/ Sodium 100 mls @ 100 mls/hr 01/14/17 15:00 01/14/17 15:30 Chloride IV 01/19/17 15:01 100 mls/hr Q48H MICHAEL Administration Metronidazole 100 mls @ 100 mls/hr 01/12/17 23:30 01/15/17 06:49 Flagyl IVPB 100 mls/hr Q8H MICHAEL Administration Propofol 100 mls @ 2.722 mls/hr 01/13/17 00:10 01/14/17 19:00 Diprivan IV 13.6 mls/hr .Q24H PRN Administration TITRATE PER MD ORDER Protocol 5 MCG/KG/MIN Sodium Chloride 1,000 mls @ 100 mls/hr 01/13/17 00:17 01/15/17 06:57 Sodium Chloride 0.9% IV Not Given .Q10H MICHAEL Insulin Human Regular 0 unit 01/12/17 13:15 01/15/17 06:54 Novolin R SC 4 unit Q6 MICHAEL Administration Protocol Pantoprazole Sodium 40 mg 01/13/17 10:00 01/14/17 09:48 Protonix Inj IVP 40 mg DAILY MICHAEL Administration Sodium Hypochlorite 0 appl 01/11/17 10:00 01/14/17 17:45 Dakins Solution 0.125% TOP Not Given DAILY MICHAEL - Patient Studies Lab Studies: Microbiology Studies 01/12/17 03:30 Blood Culture - Preliminary Blood NO GROWTH AFTER 48 HOURS 01/12/17 03:45 Blood Culture - Preliminary Blood NO GROWTH AFTER 48 HOURS Lab Studies 01/15/17 01/15/17 01/15/17 Range/Units 06:45 05:21 05:17 WBC 17.6 H (4.8-10.8) K/uL RBC 3.33 L (4.40-5.90) Mil/uL Hgb 8.7 L (12.0-18.0) g/dL Hct 27.7 L (35.0-51.0) % MCV 83.2 (80.0-94.0) fL MCH 26.1 L (27.0-31.0) pg MCHC 31.4 L (33.0-37.0) g/dL RDW 16.4 H (11.5-14.5) % Plt Count 229 (130-400) K/uL MPV 7.6 (7.2-11.7) fL Neut % (Auto) 87.1 H (50.0-75.0) % Lymph % (Auto) 7.9 L (20.0-40.0) % Ida % (Auto) 4.3 (0.0-10.0) % Eos % (Auto) 0.2 (0.0-4.0) % Baso % (Auto) 0.5 (0.0-2.0) % Neut # 15.3 H (1.8-7.0) K/uL Lymph # 1.4 (1.0-4.3) K/uL Ida # 0.7 (0.0-0.8) K/uL Eos # 0.0 (0.0-0.7) K/uL Baso # 0.1 (0.0-0.2) K/uL Neutrophils % (Manual) (50-75) % Band Neutrophils % (0-2) % Lymphocytes % (Manual) (20-40) % Monocytes % (Manual) (0-10) % Eosinophils % (Manual) (0-4) % Platelet Estimate (NORMAL) Large Platelets Anisocytosis (manual) Ovalocytes PT 19.9 H (9.7-12.2) SECONDS INR 1.7 APTT 39 H (21-34) SECONDS Puncture Site Rb pCO2 34 L (35-45) mm/Hg pO2 78 L (80-100) mm/Hg HCO3 23.8 (21-28) mmol/L ABG pH 7.43 (7.35-7.45) ABG Total CO2 23.6 (22-28) mmol/L ABG O2 Saturation 97.8 (95-98) % ABG Base Excess -1.4 (-2.0-3.0) mmol/L ABG Hemoglobin 9.4 L (11.7-17.4) g/dL ABG Carboxyhemoglobin 1.9 H (0.5-1.5) % POC ABG HHb (Measured) 2.1 (0.0-5.0) % ABG Methemoglobin 1.4 (0.0-3.0) % Carter Test Pos A-a O2 Difference 165.0 mm/Hg Respiratory Index 2.1 Hgb O2 Saturation 94.5 L (95.0-98.0) % Mechanical Rate 14 FiO2 40.0 % Tidal Volume 450 PEEP 5 Sodium (132-148) mmol/L Potassium (3.6-5.2) mmol/L Chloride (98-107) mmol/L Carbon Dioxide (22-30) mmol/L Anion Gap (10-20) BUN (9-20) mg/dL Creatinine (0.8-1.5) MG/DL Est GFR ( Amer) Est GFR (Non-Af Amer) POC Glucose (mg/dL) 209 H (65-110) mg/dL Random Glucose (75-110) mg/dL Calcium (8.6-10.4) mg/dl Ferritin ng/mL Total Bilirubin (0.2-1.3) mg/dL AST (17-59) U/L ALT (21-72) U/L Alkaline Phosphatase (38-126) U/L Total Protein (6.3-8.3) g/dL Albumin (3.5-5.0) g/dL Globulin (2.2-3.9) gm/dL Albumin/Globulin Ratio (1.0-2.1) Vitamin B12 (239-931) pg/mL Folate ng/mL Blood Type Blood Type Confirm Antibody Screen 01/15/17 01/14/17 01/14/17 Range/Units 00:42 18:37 12:23 WBC (4.8-10.8) K/uL RBC (4.40-5.90) Mil/uL Hgb (12.0-18.0) g/dL Hct (35.0-51.0) % MCV (80.0-94.0) fL MCH (27.0-31.0) pg MCHC (33.0-37.0) g/dL RDW (11.5-14.5) % Plt Count (130-400) K/uL MPV (7.2-11.7) fL Neut % (Auto) (50.0-75.0) % Lymph % (Auto) (20.0-40.0) % Ida % (Auto) (0.0-10.0) % Eos % (Auto) (0.0-4.0) % Baso % (Auto) (0.0-2.0) % Neut # (1.8-7.0) K/uL Lymph # (1.0-4.3) K/uL Ida # (0.0-0.8) K/uL Eos # (0.0-0.7) K/uL Baso # (0.0-0.2) K/uL Neutrophils % (Manual) (50-75) % Band Neutrophils % (0-2) % Lymphocytes % (Manual) (20-40) % Monocytes % (Manual) (0-10) % Eosinophils % (Manual) (0-4) % Platelet Estimate (NORMAL) Large Platelets Anisocytosis (manual) Ovalocytes PT 18.0 H (9.7-12.2) SECONDS INR 1.6 APTT 37 H D (21-34) SECONDS Puncture Site pCO2 (35-45) mm/Hg pO2 (80-100) mm/Hg HCO3 (21-28) mmol/L ABG pH (7.35-7.45) ABG Total CO2 (22-28) mmol/L ABG O2 Saturation (95-98) % ABG Base Excess (-2.0-3.0) mmol/L ABG Hemoglobin (11.7-17.4) g/dL ABG Carboxyhemoglobin (0.5-1.5) % POC ABG HHb (Measured) (0.0-5.0) % ABG Methemoglobin (0.0-3.0) % Carter Test A-a O2 Difference mm/Hg Respiratory Index Hgb O2 Saturation (95.0-98.0) % Mechanical Rate FiO2 % Tidal Volume PEEP Sodium (132-148) mmol/L Potassium (3.6-5.2) mmol/L Chloride (98-107) mmol/L Carbon Dioxide (22-30) mmol/L Anion Gap (10-20) BUN (9-20) mg/dL Creatinine (0.8-1.5) MG/DL Est GFR ( Amer) Est GFR (Non-Af Amer) POC Glucose (mg/dL) 237 H 217 H (65-110) mg/dL Random Glucose (75-110) mg/dL Calcium (8.6-10.4) mg/dl Ferritin ng/mL Total Bilirubin (0.2-1.3) mg/dL AST (17-59) U/L ALT (21-72) U/L Alkaline Phosphatase (38-126) U/L Total Protein (6.3-8.3) g/dL Albumin (3.5-5.0) g/dL Globulin (2.2-3.9) gm/dL Albumin/Globulin Ratio (1.0-2.1) Vitamin B12 (239-931) pg/mL Folate ng/mL Blood Type Blood Type Confirm Antibody Screen 01/14/17 01/14/17 01/14/17 Range/Units 11:55 09:04 09:03 WBC 16.1 H (4.8-10.8) K/uL RBC 3.05 L (4.40-5.90) Mil/uL Hgb 7.8 L (12.0-18.0) g/dL Hct 25.0 L (35.0-51.0) % MCV 82.0 (80.0-94.0) fL MCH 25.6 L (27.0-31.0) pg MCHC 31.3 L (33.0-37.0) g/dL RDW 16.3 H (11.5-14.5) % Plt Count 248 (130-400) K/uL MPV 7.4 (7.2-11.7) fL Neut % (Auto) 86.4 H (50.0-75.0) % Lymph % (Auto) 7.7 L (20.0-40.0) % Ida % (Auto) 4.4 (0.0-10.0) % Eos % (Auto) 1.0 (0.0-4.0) % Baso % (Auto) 0.5 (0.0-2.0) % Neut # 13.9 H (1.8-7.0) K/uL Lymph # 1.2 (1.0-4.3) K/uL Ida # 0.7 (0.0-0.8) K/uL Eos # 0.2 (0.0-0.7) K/uL Baso # 0.1 (0.0-0.2) K/uL Neutrophils % (Manual) 86 H (50-75) % Band Neutrophils % 1 (0-2) % Lymphocytes % (Manual) 10 L (20-40) % Monocytes % (Manual) 2 (0-10) % Eosinophils % (Manual) 1 (0-4) % Platelet Estimate Normal (NORMAL) Large Platelets Present Anisocytosis (manual) Slight Ovalocytes Slight PT (9.7-12.2) SECONDS INR APTT (21-34) SECONDS Puncture Site pCO2 (35-45) mm/Hg pO2 (80-100) mm/Hg HCO3 (21-28) mmol/L ABG pH (7.35-7.45) ABG Total CO2 (22-28) mmol/L ABG O2 Saturation (95-98) % ABG Base Excess (-2.0-3.0) mmol/L ABG Hemoglobin (11.7-17.4) g/dL ABG Carboxyhemoglobin (0.5-1.5) % POC ABG HHb (Measured) (0.0-5.0) % ABG Methemoglobin (0.0-3.0) % Carter Test A-a O2 Difference mm/Hg Respiratory Index Hgb O2 Saturation (95.0-98.0) % Mechanical Rate FiO2 % Tidal Volume PEEP Sodium 144 (132-148) mmol/L Potassium 4.5 (3.6-5.2) mmol/L Chloride 107 (98-107) mmol/L Carbon Dioxide 23 (22-30) mmol/L Anion Gap 19 (10-20) BUN 99 H (9-20) mg/dL Creatinine 2.2 H (0.8-1.5) MG/DL Est GFR ( Amer) 36 Est GFR (Non-Af Amer) 30 POC Glucose (mg/dL) 199 H (65-110) mg/dL Random Glucose 134 H (75-110) mg/dL Calcium 7.9 L (8.6-10.4) mg/dl Ferritin ng/mL Total Bilirubin 1.3 (0.2-1.3) mg/dL AST 60 H D (17-59) U/L ALT 25 (21-72) U/L Alkaline Phosphatase 178 H (38-126) U/L Total Protein 6.7 (6.3-8.3) g/dL Albumin 2.7 L (3.5-5.0) g/dL Globulin 4.0 H (2.2-3.9) gm/dL Albumin/Globulin Ratio 0.7 L (1.0-2.1) Vitamin B12 (239-931) pg/mL Folate ng/mL Blood Type Blood Type Confirm Antibody Screen 01/14/17 01/12/17 Range/Units 06:04 12:06 WBC (4.8-10.8) K/uL RBC (4.40-5.90) Mil/uL Hgb (12.0-18.0) g/dL Hct (35.0-51.0) % MCV (80.0-94.0) fL MCH (27.0-31.0) pg MCHC (33.0-37.0) g/dL RDW (11.5-14.5) % Plt Count (130-400) K/uL MPV (7.2-11.7) fL Neut % (Auto) (50.0-75.0) % Lymph % (Auto) (20.0-40.0) % Ida % (Auto) (0.0-10.0) % Eos % (Auto) (0.0-4.0) % Baso % (Auto) (0.0-2.0) % Neut # (1.8-7.0) K/uL Lymph # (1.0-4.3) K/uL Ida # (0.0-0.8) K/uL Eos # (0.0-0.7) K/uL Baso # (0.0-0.2) K/uL Neutrophils % (Manual) (50-75) % Band Neutrophils % (0-2) % Lymphocytes % (Manual) (20-40) % Monocytes % (Manual) (0-10) % Eosinophils % (Manual) (0-4) % Platelet Estimate (NORMAL) Large Platelets Anisocytosis (manual) Ovalocytes PT (9.7-12.2) SECONDS INR APTT (21-34) SECONDS Puncture Site pCO2 (35-45) mm/Hg pO2 (80-100) mm/Hg HCO3 (21-28) mmol/L ABG pH (7.35-7.45) ABG Total CO2 (22-28) mmol/L ABG O2 Saturation (95-98) % ABG Base Excess (-2.0-3.0) mmol/L ABG Hemoglobin (11.7-17.4) g/dL ABG Carboxyhemoglobin (0.5-1.5) % POC ABG HHb (Measured) (0.0-5.0) % ABG Methemoglobin (0.0-3.0) % Carter Test A-a O2 Difference mm/Hg Respiratory Index Hgb O2 Saturation (95.0-98.0) % Mechanical Rate FiO2 % Tidal Volume PEEP Sodium (132-148) mmol/L Potassium (3.6-5.2) mmol/L Chloride (98-107) mmol/L Carbon Dioxide (22-30) mmol/L Anion Gap (10-20) BUN (9-20) mg/dL Creatinine (0.8-1.5) MG/DL Est GFR ( Amer) Est GFR (Non-Af Amer) POC Glucose (mg/dL) (65-110) mg/dL Random Glucose (75-110) mg/dL Calcium (8.6-10.4) mg/dl Ferritin 431.0 ng/mL Total Bilirubin (0.2-1.3) mg/dL AST (17-59) U/L ALT (21-72) U/L Alkaline Phosphatase (38-126) U/L Total Protein (6.3-8.3) g/dL Albumin (3.5-5.0) g/dL Globulin (2.2-3.9) gm/dL Albumin/Globulin Ratio (1.0-2.1) Vitamin B12 986 H (239-931) pg/mL Folate 11.4 ng/mL Blood Type O POSITIVE Blood Type Confirm O POSITIVE Antibody Screen Negative Laboratory Results - last 24 hr 01/12/17 01/14/17 01/14/17 12:06 06:04 09:03 WBC 16.1 H RBC 3.05 L Hgb 7.8 L Hct 25.0 L MCV 82.0 MCH 25.6 L MCHC 31.3 L RDW 16.3 H Plt Count 248 MPV 7.4 Neut % (Auto) 86.4 H Lymph % (Auto) 7.7 L Ida % (Auto) 4.4 Eos % (Auto) 1.0 Baso % (Auto) 0.5 Neut # 13.9 H Lymph # 1.2 Ida # 0.7 Eos # 0.2 Baso # 0.1 Neutrophils % (Manual) 86 H Band Neutrophils % 1 Lymphocytes % (Manual) 10 L Monocytes % (Manual) 2 Eosinophils % (Manual) 1 Platelet Estimate Normal Large Platelets Present Anisocytosis (manual) Slight Ovalocytes Slight PT INR APTT Puncture Site pCO2 pO2 HCO3 ABG pH ABG Total CO2 ABG O2 Saturation ABG Base Excess ABG Hemoglobin ABG Carboxyhemoglobin POC ABG HHb (Measured) ABG Methemoglobin Carter Test A-a O2 Difference Respiratory Index Hgb O2 Saturation Mechanical Rate FiO2 Tidal Volume PEEP Sodium Potassium Chloride Carbon Dioxide Anion Gap BUN Creatinine Est GFR ( Amer) Est GFR (Non-Af Amer) POC Glucose (mg/dL) Random Glucose Calcium Ferritin 431.0 Total Bilirubin AST ALT Alkaline Phosphatase Total Protein Albumin Globulin Albumin/Globulin Ratio Vitamin B12 986 H Folate 11.4 Blood Type O POSITIVE Blood Type Confirm O POSITIVE Antibody Screen Negative 01/14/17 01/14/17 01/14/17 09:04 11:55 12:23 WBC RBC Hgb Hct MCV MCH MCHC RDW Plt Count MPV Neut % (Auto) Lymph % (Auto) Ida % (Auto) Eos % (Auto) Baso % (Auto) Neut # Lymph # Ida # Eos # Baso # Neutrophils % (Manual) Band Neutrophils % Lymphocytes % (Manual) Monocytes % (Manual) Eosinophils % (Manual) Platelet Estimate Large Platelets Anisocytosis (manual) Ovalocytes PT 18.0 H INR 1.6 APTT 37 H D Puncture Site pCO2 pO2 HCO3 ABG pH ABG Total CO2 ABG O2 Saturation ABG Base Excess ABG Hemoglobin ABG Carboxyhemoglobin POC ABG HHb (Measured) ABG Methemoglobin Carter Test A-a O2 Difference Respiratory Index Hgb O2 Saturation Mechanical Rate FiO2 Tidal Volume PEEP Sodium 144 Potassium 4.5 Chloride 107 Carbon Dioxide 23 Anion Gap 19 BUN 99 H Creatinine 2.2 H Est GFR ( Amer) 36 Est GFR (Non-Af Amer) 30 POC Glucose (mg/dL) 199 H Random Glucose 134 H Calcium 7.9 L Ferritin Total Bilirubin 1.3 AST 60 H D ALT 25 Alkaline Phosphatase 178 H Total Protein 6.7 Albumin 2.7 L Globulin 4.0 H Albumin/Globulin Ratio 0.7 L Vitamin B12 Folate Blood Type Blood Type Confirm Antibody Screen 01/14/17 01/15/17 01/15/17 18:37 00:42 05:17 WBC RBC Hgb Hct MCV MCH MCHC RDW Plt Count MPV Neut % (Auto) Lymph % (Auto) Ida % (Auto) Eos % (Auto) Baso % (Auto) Neut # Lymph # Ida # Eos # Baso # Neutrophils % (Manual) Band Neutrophils % Lymphocytes % (Manual) Monocytes % (Manual) Eosinophils % (Manual) Platelet Estimate Large Platelets Anisocytosis (manual) Ovalocytes PT INR APTT Puncture Site pCO2 pO2 HCO3 ABG pH ABG Total CO2 ABG O2 Saturation ABG Base Excess ABG Hemoglobin ABG Carboxyhemoglobin POC ABG HHb (Measured) ABG Methemoglobin Carter Test A-a O2 Difference Respiratory Index Hgb O2 Saturation Mechanical Rate FiO2 Tidal Volume PEEP Sodium Potassium Chloride Carbon Dioxide Anion Gap BUN Creatinine Est GFR ( Amer) Est GFR (Non-Af Amer) POC Glucose (mg/dL) 217 H 237 H 209 H Random Glucose Calcium Ferritin Total Bilirubin AST ALT Alkaline Phosphatase Total Protein Albumin Globulin Albumin/Globulin Ratio Vitamin B12 Folate Blood Type Blood Type Confirm Antibody Screen 01/15/17 01/15/17 05:21 06:45 WBC 17.6 H RBC 3.33 L Hgb 8.7 L Hct 27.7 L MCV 83.2 MCH 26.1 L MCHC 31.4 L RDW 16.4 H Plt Count 229 MPV 7.6 Neut % (Auto) 87.1 H Lymph % (Auto) 7.9 L Ida % (Auto) 4.3 Eos % (Auto) 0.2 Baso % (Auto) 0.5 Neut # 15.3 H Lymph # 1.4 Ida # 0.7 Eos # 0.0 Baso # 0.1 Neutrophils % (Manual) Band Neutrophils % Lymphocytes % (Manual) Monocytes % (Manual) Eosinophils % (Manual) Platelet Estimate Large Platelets Anisocytosis (manual) Ovalocytes PT 19.9 H INR 1.7 APTT 39 H Puncture Site Rb pCO2 34 L pO2 78 L HCO3 23.8 ABG pH 7.43 ABG Total CO2 23.6 ABG O2 Saturation 97.8 ABG Base Excess -1.4 ABG Hemoglobin 9.4 L ABG Carboxyhemoglobin 1.9 H POC ABG HHb (Measured) 2.1 ABG Methemoglobin 1.4 Carter Test Pos A-a O2 Difference 165.0 Respiratory Index 2.1 Hgb O2 Saturation 94.5 L Mechanical Rate 14 FiO2 40.0 Tidal Volume 450 PEEP 5 Sodium Potassium Chloride Carbon Dioxide Anion Gap BUN Creatinine Est GFR ( Amer) Est GFR (Non-Af Amer) POC Glucose (mg/dL) Random Glucose Calcium Ferritin Total Bilirubin AST ALT Alkaline Phosphatase Total Protein Albumin Globulin Albumin/Globulin Ratio Vitamin B12 Folate Blood Type Blood Type Confirm Antibody Screen Fingerstick Blood Sugar Results: 209 Review of Systems - Review of Systems Systems not reviewed;Unavailable: Intubated Review of Systems: see subjective Critical Care Progress Note - Nutrition Nutrition: Nutrition Category Date Time Status Consistent Carbohydrate [DIET] Diets 01/10/17 Breakfast Active Assessment/Plan - Assessment and Plan (Free Text) Assessment: 71 year old patient with PMHx significant for HTN, DM, A-fib with slow ventricular response and cataracts initially presented with worsening bilateral LE cellulitis for which patient was septic. Pt also had elevated INR of 15. Patient admitted to ICU for close monitoring. Plan: Neuro: sedated at this time Cardio: Hypotension at times- BP meds held If BP remains stable, low dose betablocker can be added on per Cardiology Pulm: Acute respiratory failure secondary to severe sepsis secondary to bilateral LE cellulitis Patient to attempt CPAP trial today. May attempt extubation if pt can tolerate GI: Diabetisource with water flushes 200cc Q8h Nephro/: Renal insufficiency noted however improved today UO greater than 2L Continue IV fluids Nephro on the case Heme: stable, cont to monitor H/H Endo: Diabetic ulcers of lower extremities noted ID: Initially presented with severe sepsis On Flagyl, Daptomycin and Imipenem (Monitor CPK weekly) ID Dr. Blum on the case MSK: Recommendations for BKA surgery however patient's has decoded against the procedure bc she feels that the patient would not consent to losing his legs. Dressing changes per Podiatry No MRI at this point due to hx of pacemaker Prophylaxis: PPI daily DVT prophylaxis held in light of initial elevated INR. Will check coags in the AM and then restart appropriate agent. Palliative: signed POLST DNR forms . May request DNI at a later undetermined time. will not consent for BKA at this time.
[2017-01-15 08:26] LABS: NEUTROPHIL 85 % (50-75); TOTAL CELLS COUNTED 100
--- NOTE | 2017-01-15 08:44 | RAD ---
HISTORY: vent COMPARISON: 01/14/2017 FINDINGS: LUNGS: Lines and tubes stable position. Moderate venous congestion with bibasilar airspace opacities and small to moderate left pleural effusion. PLEURA: As above. CARDIOVASCULAR: Cardiomegaly. Calcification at the aortic knob. Left-sided pacemaker. OSSEOUS STRUCTURES: No significant abnormalities. VISUALIZED UPPER ABDOMEN: Normal. OTHER FINDINGS: None. IMPRESSION: Lines and tubes stable position. Moderate venous congestion with bibasilar airspace opacities and small to moderate left pleural effusion.
[2017-01-15 10:21] LABS: POTASSIUM 4.5 mmol/L (3.6-5.2)
--- NOTE | 2017-01-15 10:21 | CP.PCM.PN ---
Subjective - Date & Time of Evaluation Date of Evaluation: 01/15/17 Time of Evaluation: 10:19 - Subjective Subjective: Remains on vent; sedated BUN decreasing with IV saline IV fluids Renal function improved overall; has no significant proteinuria UO >2200ml Afebrile - needs BKA, family has not consented Objective - Vital Signs/Intake and Output Vital Signs (last 24 hours): Temp Pulse Resp BP Pulse Ox 100 F H 60 1 L 160/76 H 98 01/15/17 08:00 01/15/17 09:00 01/15/17 09:00 01/15/17 09:00 01/15/17 09:00 Intake and Output: 01/15/17 01/15/17 06:59 18:59 Intake Total 2363.2 320.6 Output Total 810 200 Balance 1553.2 120.6 - Medications Medications: Current Medications Imipenem/Cilastatin Sodium 500 (mg/ Sodium Chloride) 100 mls @ 100 mls/hr IVPB Q12H [facility] Last Admin: 01/15/17 04:55 Dose: 100 mls/hr Daptomycin 500 mg/ Sodium (Chloride) 100 mls @ 100 mls/hr IV Q48H [facility] Stop: 01/19/17 15:01 Last Admin: 01/14/17 15:30 Dose: 100 mls/hr Metronidazole (Flagyl) 100 mls @ 100 mls/hr IVPB Q8H [facility] Last Admin: 01/15/17 06:49 Dose: 100 mls/hr Propofol (Diprivan) 100 mls @ 2.722 mls/hr IV .Q24H PRN; Protocol; 5 MCG/KG/MIN PRN Reason: TITRATE PER MD ORDER Last Admin: 01/15/17 09:58 Dose: 13.6 mls/hr Sodium Chloride (Sodium Chloride 0.9%) 1,000 mls @ 100 mls/hr IV .Q10H [facility] Last Admin: 01/15/17 06:57 Dose: Not Given Insulin Human Regular (Novolin R) 0 unit SC Q6 MICHAEL PRN Reason: Protocol Last Admin: 01/15/17 06:54 Dose: 4 unit Pantoprazole Sodium (Protonix Inj) 40 mg IVP DAILY [facility] Last Admin: 01/15/17 09:57 Dose: 40 mg Sodium Hypochlorite (Dakins Solution 0.125%) 0 appl TOP DAILY MICHAEL Last Admin: 01/15/17 09:57 Dose: Not Given - Labs Labs: 01/15/17 06:45 01/14/17 09:04 PT 19.9 SECONDS (9.7-12.2) H 01/15/17 06:45 INR 1.7 01/15/17 06:45 APTT 39 SECONDS (21-34) H 01/15/17 06:45 - Constitutional Appears: Chronically Ill - Head Exam Head Exam: ATRAUMATIC, NORMAL INSPECTION - Neck Exam Neck Exam: Normal Inspection. absent: Tenderness - Respiratory Exam Respiratory Exam: Clear to Ausculation Bilateral, Respiratory Distress - Cardiovascular Exam Cardiovascular Exam: REGULAR RHYTHM, +S1 - GI/Abdominal Exam GI & Abdominal Exam: Soft. absent: Tenderness - Extremities Exam Extremities Exam: Normal Inspection. absent: Pedal Edema - Neurological Exam Neurological Exam: Altered, Motor Sensory Deficit - Skin Skin Exam: Dry, Warm Assessment and Plan (1) Diabetic ulcer of both lower extremities Status: Acute (2) ARSENIO (acute kidney injury) Status: Resolved (3) Atrial fibrillation with slow ventricular response Status: Chronic (4) Cellulitis Status: Acute (5) DM2 (diabetes mellitus, type 2) Status: Chronic (6) HTN (hypertension) Status: Chronic (7) CKD stage 4 due to type 2 diabetes mellitus Status: Acute - Assessment and Plan (Free Text) Plan: Would continue IV saline for now as chemistries improving Will monitor ARSENIO; lytes, pre-renal azotemia
[2017-01-15 10:23] LABS: ALB/GLOB RATIO 0.6 (1.0-2.1); TOTAL PROTEIN 7.1 g/dL (6.3-8.3)
[2017-01-15 10:24] LABS: CALCIUM 7.7 mg/dl (8.6-10.4); MAGNESIUM 2.8 mg/dL (1.6-2.3); PHOSPHOROUS 3.1 mg/dL (2.5-4.5)
--- NOTE | 2017-01-15 10:33 | CP.PCM.PN ---
Subjective - Date & Time of Evaluation Date of Evaluation: 01/15/17 Time of Evaluation: 08:00 - Subjective Subjective: events noted await family decision for bka cultures reviewed renal function improved remains intbated Objective - Vital Signs/Intake and Output Vital Signs (last 24 hours): Temp Pulse Resp BP Pulse Ox 100 F H 60 1 L 160/76 H 98 01/15/17 08:00 01/15/17 09:00 01/15/17 09:00 01/15/17 09:00 01/15/17 09:00 Intake and Output: 01/15/17 01/15/17 06:59 18:59 Intake Total 2363.2 320.6 Output Total 810 200 Balance 1553.2 120.6 - Medications Medications: Current Medications Imipenem/Cilastatin Sodium 500 (mg/ Sodium Chloride) 100 mls @ 100 mls/hr IVPB Q12H [facility] Last Admin: 01/15/17 04:55 Dose: 100 mls/hr Daptomycin 500 mg/ Sodium (Chloride) 100 mls @ 100 mls/hr IV Q48H MICHEAL Stop: 01/19/17 15:01 Last Admin: 01/14/17 15:30 Dose: 100 mls/hr Metronidazole (Flagyl) 100 mls @ 100 mls/hr IVPB Q8H MICHAEL Last Admin: 01/15/17 06:49 Dose: 100 mls/hr Propofol (Diprivan) 100 mls @ 2.722 mls/hr IV .Q24H PRN; Protocol; 5 MCG/KG/MIN PRN Reason: TITRATE PER MD ORDER Last Admin: 01/15/17 09:58 Dose: 13.6 mls/hr Sodium Chloride (Sodium Chloride 0.9%) 1,000 mls @ 100 mls/hr IV .Q10H MICHAEL Last Admin: 01/15/17 06:57 Dose: Not Given Insulin Human Regular (Novolin R) 0 unit SC Q6 MICHAEL PRN Reason: Protocol Last Admin: 01/15/17 06:54 Dose: 4 unit Pantoprazole Sodium (Protonix Inj) 40 mg IVP DAILY MICHAEL Last Admin: 01/15/17 09:57 Dose: 40 mg Sodium Hypochlorite (Dakins Solution 0.125%) 0 appl TOP DAILY IMCHAEL Last Admin: 01/15/17 09:57 Dose: Not Given - Labs Labs: 01/15/17 06:45 01/15/17 06:45 PT 19.9 SECONDS (9.7-12.2) H 01/15/17 06:45 INR 1.7 01/15/17 06:45 APTT 39 SECONDS (21-34) H 01/15/17 06:45 - Constitutional Appears: Non-toxic, Chronically Ill - Head Exam Head Exam: NORMOCEPHALIC - Eye Exam Eye Exam: PERRL. absent: Scleral icterus - ENT Exam ENT Exam: Mucous Membranes Dry - Neck Exam Neck Exam: absent: Lymphadenopathy - Respiratory Exam Respiratory Exam: Decreased Breath Sounds, Rhonchi - Cardiovascular Exam Cardiovascular Exam: REGULAR RHYTHM, +S1, +S2 - GI/Abdominal Exam GI & Abdominal Exam: Distended, Soft. absent: Tenderness - Rectal Exam Rectal Exam: Deferred - Exam Exam: NORMAL INSPECTION Assessment and Plan (1) Acute renal failure Status: Resolved (2) Diabetic foot infection Status: Acute (3) Diabetic ulcer of both lower extremities Status: Acute (4) Leukocytosis Status: Acute (5) ARSENIO (acute kidney injury) Status: Resolved (6) Abdominal distension Status: Acute (7) Atrial fibrillation with slow ventricular response Status: Chronic (8) Cellulitis Status: Acute
--- NOTE | 2017-01-15 12:02 | CP.PCM.PN ---
Subjective - Date & Time of Evaluation Date of Evaluation: 01/15/17 Time of Evaluation: 12:00 - Subjective Subjective: Surgery: Dr. Granger Patient remains intubated and sedated in ICU. No acute events overnight. Family undecided regarding surgery or continuation of care. Objective - Vital Signs/Intake and Output Vital Signs (last 24 hours): Temp Pulse Resp BP Pulse Ox 100 F H 60 10 L 136/53 L 96 01/15/17 08:00 01/15/17 11:00 01/15/17 11:00 01/15/17 11:00 01/15/17 11:00 Intake and Output: 01/15/17 01/15/17 06:59 18:59 Intake Total 2363.2 640.5 Output Total 810 300 Balance 1553.2 340.5 - Medications Medications: Current Medications Imipenem/Cilastatin Sodium 500 (mg/ Sodium Chloride) 100 mls @ 100 mls/hr IVPB Q12H [facility] Last Admin: 01/15/17 04:55 Dose: 100 mls/hr Daptomycin 500 mg/ Sodium (Chloride) 100 mls @ 100 mls/hr IV Q48H [facility] Stop: 01/19/17 15:01 Last Admin: 01/14/17 15:30 Dose: 100 mls/hr Metronidazole (Flagyl) 100 mls @ 100 mls/hr IVPB Q8H [facility] Last Admin: 01/15/17 06:49 Dose: 100 mls/hr Propofol (Diprivan) 100 mls @ 2.722 mls/hr IV .Q24H PRN; Protocol; 5 MCG/KG/MIN PRN Reason: TITRATE PER MD ORDER Last Admin: 01/15/17 09:58 Dose: 13.6 mls/hr Sodium Chloride (Sodium Chloride 0.9%) 1,000 mls @ 100 mls/hr IV .Q10H [facility] Last Admin: 01/15/17 06:57 Dose: Not Given Insulin Human Regular (Novolin R) 0 unit SC Q6 MICHAEL PRN Reason: Protocol Last Admin: 01/15/17 06:54 Dose: 4 unit Pantoprazole Sodium (Protonix Inj) 40 mg IVP DAILY [facility] Last Admin: 01/15/17 09:57 Dose: 40 mg Sodium Hypochlorite (Dakins Solution 0.125%) 0 appl TOP DAILY [facility] Last Admin: 01/15/17 09:57 Dose: Not Given - Labs Labs: 01/15/17 06:45 01/15/17 06:45 PT 19.9 SECONDS (9.7-12.2) H 01/15/17 06:45 INR 1.7 01/15/17 06:45 APTT 39 SECONDS (21-34) H 01/15/17 06:45 - Constitutional Appears: Chronically Ill - Head Exam Head Exam: ATRAUMATIC, NORMOCEPHALIC Additional comments: intubated - Respiratory Exam Additional comments: on mechanical ventilation - Extremities Exam Additional comments: chronic nonhealing wounds from midshin to foot. dressing CDI. malodorous Assessment and Plan - Assessment and Plan (Free Text) Assessment: 71 y/o male w/ bilateral LE nonhealing chronic diabetic ulcers Plan: -recommend surgery however family decision regarding continuation of care -will follow until decision regarding surgery is made -further recs per Dr. Elkin Foley PGY1
--- NOTE | 2017-01-15 13:52 | CP.PCM.CON ---
History of Present Illness - History of Present Illness History of Present Illness: Palliative consult for goals of care discussion Requested by Chelsea BURTON Patient is a 71 yo male admitted with worsening B/L diabetic foot infection. Few days after admission patient sustained respiratory distress requiring support from MV. The wound cultures from both feet came back positive. patient is placed on triple Iv antibiotics. 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 Palliative care was called to assist patient's with decision making process. PMH: A Fib, DM, HTN Soc. Hx: , lives at home, [facility] Fam. Hx: unknown Review of Systems - Review of Systems Systems not reviewed;Unavailable: Intubated Past Patient History - Infectious Disease Hx of Infectious Diseases: None - Past Medical History & Family History Past Medical History?: Yes - Past Social History Smoking Status: Never Smoked Alcohol: None Drugs: Denies Home Situation {Lives}: With Family - CARDIAC Hx Cardiac Disorders: Yes Hx Hypercholesterolemia: Yes Hx Hypertension: Yes - PULMONARY Hx Respiratory Disorders: No - NEUROLOGICAL Hx Neurological Disorder: No - HEENT Hx HEENT Problems: Yes Other/Comment: hard of hearing - RENAL Hx Chronic Kidney Disease: Yes - ENDOCRINE/METABOLIC Hx Diabetes Mellitus Type 2: Yes - HEMATOLOGICAL/ONCOLOGICAL Hx Blood Disorders: No - INTEGUMENTARY Hx Dermatological Problems: Yes Hx Cellulitis: Yes (BLE) Other/Comment: Diabetic foot ulcers - MUSCULOSKELETAL/RHEUMATOLOGICAL Hx Falls: No - GASTROINTESTINAL Hx Gastrointestinal Disorders: No - GENITOURINARY/GYNECOLOGICAL Hx Genitourinary Disorders: No - PSYCHIATRIC Hx Substance Use: No - SURGICAL HISTORY Hx Surgeries: Yes Hx Orthopedic Surgery: Yes (right knee sx) Other/Comment: hernia repair - ANESTHESIA Hx Anesthesia: Yes Hx Anesthesia Reactions: No Hx Malignant Hyperthermia: No Has any member of the family had a problem w/ anesthesia?: No Meds Allergies/Adverse Reactions: Allergies Allergy/AdvReac Type Severity Reaction Status Date / Time No Known Allergies Allergy Verified 01/09/17 14:55 - Medications Medications: Current Medications Imipenem/Cilastatin Sodium 500 (mg/ Sodium Chloride) 100 mls @ 100 mls/hr IVPB Q12H [facility] Last Admin: 01/15/17 04:55 Dose: 100 mls/hr Daptomycin 500 mg/ Sodium (Chloride) 100 mls @ 100 mls/hr IV Q48H [facility] Stop: 01/19/17 15:01 Last Admin: 01/14/17 15:30 Dose: 100 mls/hr Metronidazole (Flagyl) 100 mls @ 100 mls/hr IVPB Q8H [facility] Last Admin: 01/15/17 06:49 Dose: 100 mls/hr Propofol (Diprivan) 100 mls @ 2.722 mls/hr IV .Q24H PRN; Protocol; 5 MCG/KG/MIN PRN Reason: TITRATE PER MD ORDER Last Admin: 01/15/17 09:58 Dose: 13.6 mls/hr Sodium Chloride (Sodium Chloride 0.9%) 1,000 mls @ 100 mls/hr IV .Q10H [facility] Last Admin: 01/15/17 06:57 Dose: Not Given Insulin Human Regular (Novolin R) 0 unit SC Q6 MICHAEL PRN Reason: Protocol Last Admin: 01/15/17 06:54 Dose: 4 unit Pantoprazole Sodium (Protonix Inj) 40 mg IVP DAILY [facility] Last Admin: 01/15/17 09:57 Dose: 40 mg Sodium Hypochlorite (Dakins Solution 0.125%) 0 appl TOP DAILY [facility] Last Admin: 01/15/17 09:57 Dose: Not Given Physical Exam - Constitutional Appears: Chronically Ill - Head Exam Head Exam: ATRAUMATIC - Eye Exam Eye Exam: Normal appearance Pupil Exam: NORMAL ACCOMODATION - ENT Exam ENT Exam: Normal Exam Additional comments: OT tube and feeding tube - Neck Exam Neck exam: Positive for: Normal Inspection - Respiratory Exam Additional comments: On MV - Cardiovascular Exam Cardiovascular Exam: REGULAR RHYTHM - GI/Abdominal Exam GI & Abdominal Exam: Distended, Hypoactive Bowel Sounds - Rectal Exam Rectal Exam: Deferred - Exam Additional comments: Conner cath - Extremities Exam Additional comments: Multi superficial small open wounds to lower extremities, dry dressing to both calfs, odor from infected wounds - Back Exam Back exam: NORMAL INSPECTION - Neurological Exam Neurological exam: Alert, Altered - Skin Skin Exam: Pallor Results - Vital Signs Recent Vital Signs: Last Vital Signs Temp 101.1 F H 01/15/17 12:00 Pulse 62 01/15/17 13:00 Resp 13 01/15/17 13:00 BP 136/55 L 01/15/17 13:00 Pulse Ox 99 01/15/17 13:00 - Labs Result Diagrams: 01/15/17 06:45 01/15/17 06:45 Labs: Laboratory Results - last 24 hr 01/12/17 01/14/17 01/15/17 07:29 18:37 00:42 WBC RBC Hgb Hct MCV MCH MCHC RDW Plt Count MPV Neut % (Auto) Lymph % (Auto) Morrow % (Auto) Eos % (Auto) Baso % (Auto) Neut # Lymph # Morrow # Eos # Baso # Neutrophils % (Manual) Band Neutrophils % Lymphocytes % (Manual) Monocytes % (Manual) Platelet Estimate Poikilocytosis (manual Anisocytosis (manual) PT INR APTT Puncture Site pCO2 pO2 HCO3 ABG pH ABG Total CO2 ABG O2 Saturation ABG Base Excess ABG Hemoglobin ABG Carboxyhemoglobin POC ABG HHb (Measured) ABG Methemoglobin Carter Test A-a O2 Difference Respiratory Index Hgb O2 Saturation Mechanical Rate FiO2 Tidal Volume PEEP Sodium Potassium Chloride Carbon Dioxide Anion Gap BUN Creatinine Est GFR ( Amer) Est GFR (Non-Af Amer) POC Glucose (mg/dL) 217 H 237 H Random Glucose Calcium Phosphorus Magnesium Total Bilirubin AST ALT Alkaline Phosphatase Total Protein Albumin Globulin Albumin/Globulin Ratio PTH Intact Whole Molec 55 01/15/17 01/15/17 01/15/17 05:17 05:21 06:45 WBC 17.6 H RBC 3.33 L Hgb 8.7 L Hct 27.7 L MCV 83.2 MCH 26.1 L MCHC 31.4 L RDW 16.4 H Plt Count 229 MPV 7.6 Neut % (Auto) 87.1 H Lymph % (Auto) 7.9 L Morrow % (Auto) 4.3 Eos % (Auto) 0.2 Baso % (Auto) 0.5 Neut # 15.3 H Lymph # 1.4 Morrow # 0.7 Eos # 0.0 Baso # 0.1 Neutrophils % (Manual) 85 H Band Neutrophils % 3 H Lymphocytes % (Manual) 10 L Monocytes % (Manual) 2 Platelet Estimate Normal Poikilocytosis (manual Slight Anisocytosis (manual) Slight PT 19.9 H INR 1.7 APTT 39 H Puncture Site Rb pCO2 34 L pO2 78 L HCO3 23.8 ABG pH 7.43 ABG Total CO2 23.6 ABG O2 Saturation 97.8 ABG Base Excess -1.4 ABG Hemoglobin 9.4 L ABG Carboxyhemoglobin 1.9 H POC ABG HHb (Measured) 2.1 ABG Methemoglobin 1.4 Carter Test Pos A-a O2 Difference 165.0 Respiratory Index 2.1 Hgb O2 Saturation 94.5 L Mechanical Rate 14 FiO2 40.0 Tidal Volume 450 PEEP 5 Sodium 148 Potassium 4.5 Chloride 115 H Carbon Dioxide 21 L Anion Gap 17 BUN 73 H Creatinine 1.7 H Est GFR ( Amer) 49 Est GFR (Non-Af Amer) 40 POC Glucose (mg/dL) 209 H Random Glucose 237 H Calcium 7.7 L Phosphorus 3.1 Magnesium 2.8 H Total Bilirubin 1.0 AST 39 ALT 31 Alkaline Phosphatase 204 H Total Protein 7.1 Albumin 2.5 L Globulin 4.5 H Albumin/Globulin Ratio 0.6 L PTH Intact Whole Molec 01/15/17 11:52 WBC RBC Hgb Hct MCV MCH MCHC RDW Plt Count MPV Neut % (Auto) Lymph % (Auto) Morrow % (Auto) Eos % (Auto) Baso % (Auto) Neut # Lymph # Morrow # Eos # Baso # Neutrophils % (Manual) Band Neutrophils % Lymphocytes % (Manual) Monocytes % (Manual) Platelet Estimate Poikilocytosis (manual Anisocytosis (manual) PT INR APTT Puncture Site pCO2 pO2 HCO3 ABG pH ABG Total CO2 ABG O2 Saturation ABG Base Excess ABG Hemoglobin ABG Carboxyhemoglobin POC ABG HHb (Measured) ABG Methemoglobin Carter Test A-a O2 Difference Respiratory Index Hgb O2 Saturation Mechanical Rate FiO2 Tidal Volume PEEP Sodium Potassium Chloride Carbon Dioxide Anion Gap BUN Creatinine Est GFR ( Amer) Est GFR (Non-Af Amer) POC Glucose (mg/dL) 276 H Random Glucose Calcium Phosphorus Magnesium Total Bilirubin AST ALT Alkaline Phosphatase Total Protein Albumin Globulin Albumin/Globulin Ratio PTH Intact Whole Molec Assessment & Plan - Assessment and Plan (Free Text) Assessment: Code status prior to consult was Full code. PPS 10%. There was not advance directive on chart. DAMIEN unobtainable from the patient due to condition. I reviewed medical records, all diagnostic studies, and examined patient in the bed. Total time spent, 55 min. Goals of care discussion with patient's at bed side. Additional 30 min time spent. Patient is alert, altered, agitated on MV. patient is signaling that OT tube is bothering him. Mittens on to prevent extubation. There is a bad odor in room coming from infected wounds. Skin is pale. Hb 8.7. Wound Cs and blood Cs , both positive. WBC 17.6. Patient afebrile BP 136/55, HR 62. O2Sat 99% on FiO2 of 50%. Discussed respiratory status with Doctor Tran. He is planing C- Pap for today. Abdomen is largely distended with hypoactive bowel sounds. Conner drains 950 cc of urine. BUN 73, Body And Fender Worker 1.7. With patient's at bed side, I reviewed patient's clinical presentation and elicited her impression. Mrs. Ramos was very clear that she would want her to " with dignity". Earlier today, she signed POLST with Enrober Sue. I reviewed the POLST with the . Mrs. Ramos was specific against CPR and surgical interventions, including the amputation of infected feet. I discussed the MV support and suggested that OT is only temporal way of providing O2. I specifically asked about terminal weaning if the patient was unable to be weaned of the MV. Mrs. Ramos said that patient , himself would not want to be in this condition. She hopes, that patient will tolerate weaning. If, the support of MV becomes the retirement need, she would consider terminal extubation than. I shared this with Doctor Tran and the ICU Resident. I offered my concerns regarding the severe infection of both feet and suggested that infection could affect the entire body and make the whole situation worse. Mrs. Ramos agreed and admitted readiness to make any appropriate decision when the time is right, in order to promote dignity for her . Impression * Very bad chronic infection of diabetic feet * Acute respiratory failure requiring MV support * Patient's wishes about end of life care are not known. Patient's advocates for the patient * chose DNR * is open to discuss terminal weaning if it becomes necessary * Patient decided against amputation Suggestion * Symptomatic therapy * Supportive care * Continue weaning trials * Allow natural * palliative care continue to fallow patient and his during this decision making process Thank you very much for consulting Palliative care
--- NOTE | 2017-01-15 14:53 | CARD ---
APPROVED REPORT EXAM: Two-dimensional and M-mode echocardiogram with Doppler and color Doppler. Other Information Quality : GoodRhythm : INDICATION Atrial Fibrillation check lv function RISK FACTORS Hypertension Obesity Diabetes M-Mode DIMENSIONS Left Atrium (MM)5.93 (2.5-4.0cm)IVSd1.24 (0.7-1.1cm) Aortic Root3.38 (2.2-3.7cm)LVDd7.25 (4.0-5.6cm) Aortic Cusp Exc.1.56 (1.5-2.0cm)PWd1.29 (0.7-1.1cm) FS (%) 30 %LVDs5.11 (2.0-3.8cm) LVEF (%)55 (>50%) Mitral Valve E/A ratio0.0 TDI E/Lateral E'0.0E/Medial E'0.0 Tricuspid Valve TR Peak [id number] Peak [id number] LEFT VENTRICLE The left ventricle is normal size. There is normal left ventricular wall thickness. The left ventricular function is normal. The left ventricular ejection fraction is within the normal range. There is normal LV segmental wall motion. RIGHT VENTRICLE The right ventricle is normal size. ATRIA The left atrium is moderately dilated. The right atrium size is normal. AORTIC VALVE The aortic valve is normal in structure. MITRAL VALVE Mitral regurgitation is trace. TRICUSPID VALVE There is mild to moderate tricuspid regurgitation. <Conclusion> Normal LV systolic function. Dilated LA. Trace MR. Moderate TR.
[2017-01-15] MEDS: Acetaminophen 650mg/20.3ml solution UD PO PRN (15:12)
--- NOTE | 2017-01-15 15:23 | CP.PCM.CON ---
History of Present Illness - History of Present Illness History of Present Illness: 71 y/o male with pmhx of a. fib, pacemaker, DMII, HTN, and hypercholersterolemia presented to [facility] ED for generalized weakness and b/l foot ulcers. History is obtained via at bedside due to pt AMS and intubated. reports acute on chronic foot cellulitis ongoing for 1 year. Per , patient is non-compliant with medications and management from physicians. Pt is an uncontrolled DMII with associated neuropathy and poor healing. 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 Pulmonary consult was placed for surgical clearance for b/l lower extremity amputation. denies history of smoking, chronic lung disease, or asthma. reports pt had several episodes of pneumonia as a child never requiring intubation. Currently pt is intubated after end tidal CO2 rising to 66 on 01/12/17. At this time, reports that she is does not want surgery for pt and would like to continue medical management. 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, lives with , never smoked, no drug alcohol hx Review of Systems - Review of Systems Systems not reviewed;Unavailable: Altered Mental Status, Intubated Past Patient History - Infectious Disease Hx of Infectious Diseases: None - Past Medical History & Family History Past Medical History?: Yes - Past Social History Smoking Status: Never Smoked Alcohol: None Drugs: Denies Home Situation {Lives}: With Family - CARDIAC Hx Cardiac Disorders: Yes Hx Hypercholesterolemia: Yes Hx Hypertension: Yes - PULMONARY Hx Respiratory Disorders: No - NEUROLOGICAL Hx Neurological Disorder: No - HEENT Hx HEENT Problems: Yes Other/Comment: hard of hearing - RENAL Hx Chronic Kidney Disease: Yes - ENDOCRINE/METABOLIC Hx Diabetes Mellitus Type 2: Yes - HEMATOLOGICAL/ONCOLOGICAL Hx Blood Disorders: No - INTEGUMENTARY Hx Dermatological Problems: Yes Hx Cellulitis: Yes (BLE) Other/Comment: Diabetic foot ulcers - MUSCULOSKELETAL/RHEUMATOLOGICAL Hx Falls: No - GASTROINTESTINAL Hx Gastrointestinal Disorders: No - GENITOURINARY/GYNECOLOGICAL Hx Genitourinary Disorders: No - PSYCHIATRIC Hx Substance Use: No - SURGICAL HISTORY Hx Surgeries: Yes Hx Orthopedic Surgery: Yes (right knee sx) Other/Comment: hernia repair - ANESTHESIA Hx Anesthesia: Yes Hx Anesthesia Reactions: No Hx Malignant Hyperthermia: No Has any member of the family had a problem w/ anesthesia?: No Meds Allergies/Adverse Reactions: Allergies Allergy/AdvReac Type Severity Reaction Status Date / Time No Known Allergies Allergy Verified 01/09/17 14:55 - Medications Medications: Current Medications Acetaminophen (Tylenol 650mg/20.3ml Solution Ud) 650 mg PO Q6 PRN PRN Reason: Fever >100.4 F Imipenem/Cilastatin Sodium 500 (mg/ Sodium Chloride) 100 mls @ 100 mls/hr IVPB Q12H [facility] Last Admin: 01/15/17 04:55 Dose: 100 mls/hr Daptomycin 500 mg/ Sodium (Chloride) 100 mls @ 100 mls/hr IV Q48H [facility] Stop: 01/19/17 15:01 Last Admin: 01/14/17 15:30 Dose: 100 mls/hr Metronidazole (Flagyl) 100 mls @ 100 mls/hr IVPB Q8H [facility] Last Admin: 01/15/17 06:49 Dose: 100 mls/hr Propofol (Diprivan) 100 mls @ 2.722 mls/hr IV .Q24H PRN; Protocol; 5 MCG/KG/MIN PRN Reason: TITRATE PER MD ORDER Last Admin: 01/15/17 09:58 Dose: 13.6 mls/hr Sodium Chloride (Sodium Chloride 0.9%) 1,000 mls @ 100 mls/hr IV .Q10H [facility] Last Admin: 01/15/17 06:57 Dose: Not Given Insulin Human Regular (Novolin R) 0 unit SC Q6 MICHAEL PRN Reason: Protocol Last Admin: 01/15/17 06:54 Dose: 4 unit Pantoprazole Sodium (Protonix Inj) 40 mg IVP DAILY [facility] Last Admin: 01/15/17 09:57 Dose: 40 mg Sodium Hypochlorite (Dakins Solution 0.125%) 0 appl TOP DAILY [facility] Last Admin: 01/15/17 09:57 Dose: Not Given Physical Exam - Constitutional Appears: Non-toxic, Older Than Stated Age - Head Exam Head Exam: ATRAUMATIC, NORMOCEPHALIC - Eye Exam Eye Exam: Normal appearance - ENT Exam ENT Exam: Mucous Membranes Moist - Neck Exam Neck exam: Positive for: Normal Inspection. Negative for: Thyromegaly - Respiratory Exam Respiratory Exam: absent: Accessory Muscle Use, Rales, Rhonchi, Wheezes Additional comments: Intubated coarse breath sounds - Cardiovascular Exam Cardiovascular Exam: +S1, +S2. absent: Gallop, REGULAR RHYTHM (A. fib), JVD - GI/Abdominal Exam GI & Abdominal Exam: Normal Bowel Sounds, Soft. absent: Tenderness - Extremities Exam Extremities exam: Positive for: pedal edema Additional comments: erythema of b/l extremities Bandages c/d/i over b/l extremities Foul smell - Neurological Exam Neurological exam: Altered Additional comments: Sedated on profolol - Skin Skin Exam: Erythema, Rash, Warm Results - Vital Signs Recent Vital Signs: Last Vital Signs Temp 101.1 F H 01/15/17 12:00 Pulse 62 01/15/17 13:00 Resp 13 01/15/17 13:00 BP 136/55 L 01/15/17 13:00 Pulse Ox 99 01/15/17 13:00 - Labs Result Diagrams: 01/15/17 06:45 01/15/17 06:45 Labs: Laboratory Results - last 24 hr 01/12/17 01/14/17 01/15/17 07:29 18:37 00:42 WBC RBC Hgb Hct MCV MCH MCHC RDW Plt Count MPV Neut % (Auto) Lymph % (Auto) Gage % (Auto) Eos % (Auto) Baso % (Auto) Neut # Lymph # Gage # Eos # Baso # Neutrophils % (Manual) Band Neutrophils % Lymphocytes % (Manual) Monocytes % (Manual) Platelet Estimate Poikilocytosis (manual Anisocytosis (manual) PT INR APTT Puncture Site pCO2 pO2 HCO3 ABG pH ABG Total CO2 ABG O2 Saturation ABG Base Excess ABG Hemoglobin ABG Carboxyhemoglobin POC ABG HHb (Measured) ABG Methemoglobin Carter Test A-a O2 Difference Respiratory Index Hgb O2 Saturation Mechanical Rate FiO2 Tidal Volume PEEP Sodium Potassium Chloride Carbon Dioxide Anion Gap BUN Creatinine Est GFR ( Amer) Est GFR (Non-Af Amer) POC Glucose (mg/dL) 217 H 237 H Random Glucose Calcium Phosphorus Magnesium Total Bilirubin AST ALT Alkaline Phosphatase Total Protein Albumin Globulin Albumin/Globulin Ratio PTH Intact Whole Molec 55 01/15/17 01/15/17 01/15/17 05:17 05:21 06:45 WBC 17.6 H RBC 3.33 L Hgb 8.7 L Hct 27.7 L MCV 83.2 MCH 26.1 L MCHC 31.4 L RDW 16.4 H Plt Count 229 MPV 7.6 Neut % (Auto) 87.1 H Lymph % (Auto) 7.9 L Gage % (Auto) 4.3 Eos % (Auto) 0.2 Baso % (Auto) 0.5 Neut # 15.3 H Lymph # 1.4 Gage # 0.7 Eos # 0.0 Baso # 0.1 Neutrophils % (Manual) 85 H Band Neutrophils % 3 H Lymphocytes % (Manual) 10 L Monocytes % (Manual) 2 Platelet Estimate Normal Poikilocytosis (manual Slight Anisocytosis (manual) Slight PT 19.9 H INR 1.7 APTT 39 H Puncture Site Rb pCO2 34 L pO2 78 L HCO3 23.8 ABG pH 7.43 ABG Total CO2 23.6 ABG O2 Saturation 97.8 ABG Base Excess -1.4 ABG Hemoglobin 9.4 L ABG Carboxyhemoglobin 1.9 H POC ABG HHb (Measured) 2.1 ABG Methemoglobin 1.4 Carter Test Pos A-a O2 Difference 165.0 Respiratory Index 2.1 Hgb O2 Saturation 94.5 L Mechanical Rate 14 FiO2 40.0 Tidal Volume 450 PEEP 5 Sodium 148 Potassium 4.5 Chloride 115 H Carbon Dioxide 21 L Anion Gap 17 BUN 73 H Creatinine 1.7 H Est GFR ( Amer) 49 Est GFR (Non-Af Amer) 40 POC Glucose (mg/dL) 209 H Random Glucose 237 H Calcium 7.7 L Phosphorus 3.1 Magnesium 2.8 H Total Bilirubin 1.0 AST 39 ALT 31 Alkaline Phosphatase 204 H Total Protein 7.1 Albumin 2.5 L Globulin 4.5 H Albumin/Globulin Ratio 0.6 L PTH Intact Whole Molec 01/15/17 11:52 WBC RBC Hgb Hct MCV MCH MCHC RDW Plt Count MPV Neut % (Auto) Lymph % (Auto) Gage % (Auto) Eos % (Auto) Baso % (Auto) Neut # Lymph # Gage # Eos # Baso # Neutrophils % (Manual) Band Neutrophils % Lymphocytes % (Manual) Monocytes % (Manual) Platelet Estimate Poikilocytosis (manual Anisocytosis (manual) PT INR APTT Puncture Site pCO2 pO2 HCO3 ABG pH ABG Total CO2 ABG O2 Saturation ABG Base Excess ABG Hemoglobin ABG Carboxyhemoglobin POC ABG HHb (Measured) ABG Methemoglobin Carter Test A-a O2 Difference Respiratory Index Hgb O2 Saturation Mechanical Rate FiO2 Tidal Volume PEEP Sodium Potassium Chloride Carbon Dioxide Anion Gap BUN Creatinine Est GFR ( Amer) Est GFR (Non-Af Amer) POC Glucose (mg/dL) 276 H Random Glucose Calcium Phosphorus Magnesium Total Bilirubin AST ALT Alkaline Phosphatase Total Protein Albumin Globulin Albumin/Globulin Ratio PTH Intact Whole Molec Assessment & Plan (1) Acute respiratory failure with hypercapnia Assessment and Plan: Acute respiratory failure due to severe sepsis from b/l leg cellulitis Status improving, tolerating 4 hours of CPAP trial at time of evaluation CXR 01/15/17 shows moderate venous congestion with bibasilar opacities. f/u morning ABG Weaning trials with sedation vacation daily. Vent settings per ICU management is currently declining surgery and has signed DNR and may request DNI at later time. Stable from pulmonary perspective for bilateral amputation to remove source of infection due to benefit of surgery outweighs risk at this time. Status: Acute (2) Diabetic ulcer of both lower extremities Status: Acute (3) Bacteremia Status: Acute (4) CKD stage 4 due to type 2 diabetes mellitus Status: Acute (5) Coagulopathy Status: Acute (6) Diabetic foot infection Status: Acute
--- NOTE | 2017-01-15 15:49 | CP.PCM.PN ---
Subjective - Date & Time of Evaluation Date of Evaluation: 01/15/17 Time of Evaluation: 13:00 - Subjective Subjective: intubated and sedated. no fam present. chart reviewed. Objective - Vital Signs/Intake and Output Vital Signs (last 24 hours): Temp Pulse Resp BP Pulse Ox 101.1 F H 60 12 138/56 L 96 01/15/17 12:00 01/15/17 15:00 01/15/17 15:00 01/15/17 15:00 01/15/17 15:00 Intake and Output: 01/15/17 01/15/17 06:59 18:59 Intake Total 2363.2 1523.0 Output Total 810 650 Balance 1553.2 873.0 - Medications Medications: Current Medications Acetaminophen (Tylenol 650mg/20.3ml Solution Ud) 650 mg PO Q6 PRN PRN Reason: Fever >100.4 F Last Admin: 01/15/17 15:12 Dose: 650 mg Imipenem/Cilastatin Sodium 500 (mg/ Sodium Chloride) 100 mls @ 100 mls/hr IVPB Q12H [facility] Last Admin: 01/15/17 04:55 Dose: 100 mls/hr Daptomycin 500 mg/ Sodium (Chloride) 100 mls @ 100 mls/hr IV Q48H [facility] Stop: 01/19/17 15:01 Last Admin: 01/14/17 15:30 Dose: 100 mls/hr Metronidazole (Flagyl) 100 mls @ 100 mls/hr IVPB Q8H [facility] Last Admin: 01/15/17 15:12 Dose: 100 mls/hr Propofol (Diprivan) 100 mls @ 2.722 mls/hr IV .Q24H PRN; Protocol; 5 MCG/KG/MIN PRN Reason: TITRATE PER MD ORDER Last Titration: 01/15/17 14:00 Dose: 24.98 mcg/kg/min Sodium Chloride (Sodium Chloride 0.9%) 1,000 mls @ 100 mls/hr IV .Q10H [facility] Last Admin: 01/15/17 15:23 Dose: Not Given Insulin Human Regular (Novolin R) 0 unit SC Q6 [facility] PRN Reason: Protocol Last Admin: 01/15/17 15:13 Dose: 6 unit Pantoprazole Sodium (Protonix Inj) 40 mg IVP DAILY [facility] Last Admin: 01/15/17 09:57 Dose: 40 mg Sodium Hypochlorite (Dakins Solution 0.125%) 0 appl TOP DAILY [facility] Last Admin: 01/15/17 09:57 Dose: Not Given - Labs Labs: 01/15/17 06:45 01/15/17 06:45 PT 19.9 SECONDS (9.7-12.2) H 01/15/17 06:45 INR 1.7 01/15/17 06:45 APTT 39 SECONDS (21-34) H 01/15/17 06:45 - Constitutional Appears: No Acute Distress - Head Exam Head Exam: ATRAUMATIC, NORMAL INSPECTION, NORMOCEPHALIC - Eye Exam Eye Exam: EOMI, Normal appearance, PERRL Pupil Exam: NORMAL ACCOMODATION, PERRL - ENT Exam ENT Exam: Mucous Membranes Moist, Normal Exam - Neck Exam Neck Exam: Full ROM, Normal Inspection. absent: Lymphadenopathy - Respiratory Exam Respiratory Exam: Clear to Ausculation Bilateral, NORMAL BREATHING PATTERN - Cardiovascular Exam Cardiovascular Exam: REGULAR RHYTHM, +S1, +S2, Murmur - GI/Abdominal Exam GI & Abdominal Exam: Soft, Normal Bowel Sounds. absent: Tenderness - Extremities Exam Extremities Exam: Pedal Edema. absent: Joint Swelling Additional comments: multiple nonhealing ulcers - Back Exam Back Exam: NORMAL INSPECTION - Psychiatric Exam Psychiatric exam: Normal Affect, Normal Mood - Skin Skin Exam: Dry, Intact, Normal Color, Warm Assessment and Plan (1) Acute delirium Status: Acute (2) Diabetic foot infection Status: Acute (3) Diabetic ulcer of both lower extremities Status: Acute (4) HTN (hypertension) Status: Chronic (5) Pacemaker Status: Chronic (6) Atrial fibrillation Status: Chronic (7) Risk and functional assessment Status: Acute - Assessment and Plan (Free Text) Plan: family will decide about amputation. no bp meds given recent hypotension if bp remains stable then will add low dose bb.
--- NOTE | 2017-01-15 19:43 | CP.PCM.PN ---
Subjective - Date & Time of Evaluation Date of Evaluation: 01/15/17 Time of Evaluation: 19:38 - Subjective Subjective: 71 y/o male seen and evaluated with sepsis secondary to b/l infected leg ulcerations. Patient has no family present at this nasreen and is sedated so no ROS done. Charts reviewed. Objective - Vital Signs/Intake and Output Vital Signs (last 24 hours): Temp Pulse Resp BP Pulse Ox 98.9 F 61 8 L 127/48 L 98 01/15/17 16:00 01/15/17 18:00 01/15/17 18:00 01/15/17 17:00 01/15/17 18:00 Intake and Output: 01/15/17 01/16/17 18:59 06:59 Intake Total 2013.8 Output Total 1000 Balance 1013.8 - Medications Medications: Current Medications Acetaminophen (Tylenol 650mg/20.3ml Solution Ud) 650 mg PO Q6 PRN PRN Reason: Fever >100.4 F Last Admin: 01/15/17 15:12 Dose: 650 mg Imipenem/Cilastatin Sodium 500 (mg/ Sodium Chloride) 100 mls @ 100 mls/hr IVPB Q12H [facility] Last Admin: 01/15/17 17:57 Dose: 100 mls/hr Daptomycin 500 mg/ Sodium (Chloride) 100 mls @ 100 mls/hr IV Q48H [facility] Stop: 01/19/17 15:01 Last Admin: 01/14/17 15:30 Dose: 100 mls/hr Metronidazole (Flagyl) 100 mls @ 100 mls/hr IVPB Q8H [facility] Last Admin: 01/15/17 15:12 Dose: 100 mls/hr Propofol (Diprivan) 100 mls @ 2.722 mls/hr IV .Q24H PRN; Protocol; 5 MCG/KG/MIN PRN Reason: TITRATE PER MD ORDER Last Admin: 01/15/17 17:57 Dose: 13.6 mls/hr Sodium Chloride (Sodium Chloride 0.9%) 1,000 mls @ 100 mls/hr IV .Q10H [facility] Last Admin: 01/15/17 15:23 Dose: Not Given Insulin Human Regular (Novolin R) 0 unit SC Q6 [facility] PRN Reason: Protocol Last Admin: 01/15/17 15:13 Dose: 6 unit Pantoprazole Sodium (Protonix Inj) 40 mg IVP DAILY [facility] Last Admin: 01/15/17 09:57 Dose: 40 mg Sodium Hypochlorite (Dakins Solution 0.125%) 0 appl TOP DAILY [facility] Last Admin: 01/15/17 09:57 Dose: Not Given - Labs Labs: 01/15/17 06:45 01/15/17 06:45 PT 19.9 SECONDS (9.7-12.2) H 01/15/17 06:45 INR 1.7 01/15/17 06:45 APTT 39 SECONDS (21-34) H 01/15/17 06:45 - Constitutional Appears: Toxic - Additional Findings Additional findings: Lower extremity focused. DERM: Heavy [id number] present bilaterally, with active drainage noted bilaterally. Diffuse continuous erythema noted bilaterally extending distally from level of proximal 1/3 of legs, bilaterally. No interdigital maceratin or hyperkeratotic lesion noted bilaterally. Right: Lateral leg partial thickness ulceration measuring 7.5 x 6 cm with a 60% fibrotic to 40% granular wound base. Absent undermining margins. Heel necrotic eschar with active weeping drainage from posterior margin noted. Eschar measures 6.5 x 7 cm. 5 cm lateral magin fibrotic plaque extension noted. Left: Medial 1st metatarsal head region full thickness ulceration measuring 2 x 1.9 cm with 100% fibrotic base absent undermining margins. Fluctuant necrotic heel eschar with active weeping drainage from posterior margin noted. Eschar measures 9 x 7.8 cm. Lateral leg full thickness ulceration measuring 13 x 7 cm with a 80% fibrotic to 20% necrotic base. VASC: DP and PT pulses non-palpable secondary to non-pitting edema. Absent pedal hair growth. Negative Homann and Talbot's signs bilaterally. Cappilarry refill time <5 seconds to digits. NERUO: Sensation grossly diminished distal to ankle joint bilaterally. Ortho: No gross deformities noted. Largely deferred to to patients refusal to participate. Assessment and Plan - Assessment and Plan (Free Text) Assessment: 71 year old male with infected bilateral lower extremity wounds and cellulits. 3 total Gottlieb grade 2 ulcerations & 2 total non-stagable ulcerations to heels bilaterally, all secondary to diabetic neuropathy. Plan: Patient evaluated and chart reviewed. Discussed with Dr. Davenport in detail. Cleased with sterile saline and dakins soluntion. Redressed with 4x4, YAHIR, Tiffanie. At this time family refusing bka even though recommended. It seems she is aware of the outcomes this may have and a continued discussoin with be had with her regarding the surgery Will continue wound care while in house.
--- NOTE | 2017-01-15 22:14 | CP.PCM.PN ---
Subjective - Date & Time of Evaluation Date of Evaluation: 01/15/17 Time of Evaluation: 20:00 - Subjective Subjective: Vented Objective - Vital Signs/Intake and Output Vital Signs (last 24 hours): Temp Pulse Resp BP Pulse Ox 98.9 F 60 10 L 127/56 L 98 01/15/17 16:00 01/15/17 19:00 01/15/17 19:00 01/15/17 19:00 01/15/17 19:00 Intake and Output: 01/15/17 01/16/17 18:59 06:59 Intake Total 2013.8 163.6 Output Total 1000 50 Balance 1013.8 113.6 - Medications Medications: Current Medications Acetaminophen (Tylenol 650mg/20.3ml Solution Ud) 650 mg PO Q6 PRN PRN Reason: Fever >100.4 F Last Admin: 01/15/17 15:12 Dose: 650 mg Imipenem/Cilastatin Sodium 500 (mg/ Sodium Chloride) 100 mls @ 100 mls/hr IVPB Q12H [facility] Last Admin: 01/15/17 17:57 Dose: 100 mls/hr Daptomycin 500 mg/ Sodium (Chloride) 100 mls @ 100 mls/hr IV Q48H [facility] Stop: 01/19/17 15:01 Last Admin: 01/14/17 15:30 Dose: 100 mls/hr Metronidazole (Flagyl) 100 mls @ 100 mls/hr IVPB Q8H [facility] Last Admin: 01/15/17 15:12 Dose: 100 mls/hr Propofol (Diprivan) 100 mls @ 2.722 mls/hr IV .Q24H PRN; Protocol; 5 MCG/KG/MIN PRN Reason: TITRATE PER MD ORDER Last Admin: 01/15/17 17:57 Dose: 13.6 mls/hr Sodium Chloride (Sodium Chloride 0.9%) 1,000 mls @ 100 mls/hr IV .Q10H [facility] Last Admin: 01/15/17 15:23 Dose: Not Given Insulin Human Regular (Novolin R) 0 unit SC Q6 [facility] PRN Reason: Protocol Last Admin: 01/15/17 15:13 Dose: 6 unit Pantoprazole Sodium (Protonix Inj) 40 mg IVP DAILY [facility] Last Admin: 01/15/17 09:57 Dose: 40 mg Sodium Hypochlorite (Dakins Solution 0.125%) 0 appl TOP DAILY [facility] Last Admin: 01/15/17 09:57 Dose: Not Given - Labs Labs: 01/15/17 06:45 01/15/17 06:45 PT 19.9 SECONDS (9.7-12.2) H 01/15/17 06:45 INR 1.7 01/15/17 06:45 APTT 39 SECONDS (21-34) H 01/15/17 06:45 - Head Exam Head Exam: ATRAUMATIC - Eye Exam Eye Exam: Normal appearance - ENT Exam ENT Exam: Mucous Membranes Dry - Respiratory Exam Respiratory Exam: NORMAL BREATHING PATTERN - Cardiovascular Exam Cardiovascular Exam: +S1, +S2 - GI/Abdominal Exam GI & Abdominal Exam: Normal Bowel Sounds - Extremities Exam Additional comments: B/L LE dressing Assessment and Plan (1) Coagulopathy Assessment & Plan: nutritional, prior anticoagulation s/p vit k and FFP can redose vit k PRN Status: Acute (2) Leukocytosis Assessment & Plan: on antibiotics Status: Acute (3) Anemia Assessment & Plan: will check ferritin, retic count, b12, folate to further characterize Status: Acute
[2017-01-16 04:49] LABS: ABG ALLEN TEST POS; ABG MECHANICAL RATE 14; ARTERIAL BLOOD HGB O2 SAT 96.6 % (95.0-98.0); ATERIAL BLOOD GAS PEEP 5; CARBOXYHEMOGLOBIN 1.8 % (0.5-1.5); DRAW SITE RR; HHB 0.8 % (0.0-5.0); METHEMOGLOBIN 0.8 % (0.0-3.0)
[2017-01-16] MEDS: (Novolin R) Insulin Human Regular 100 units/ml vial SC SCH ×5 (06:30→18:03)
[2017-01-16 06:53] LABS: BASO # 0.1 K/uL (0.0-0.2); BASO % 0.6 % (0.0-2.0); EOS # 0.1 K/uL (0.0-0.7); EOS % 0.4 % (0.0-4.0); HEMATOCRIT 28.8 % (35.0-51.0); LYMPH # 1.6 K/uL (1.0-4.3); LYMPH % 7.5 % (20.0-40.0); MEAN CORPUSCULAR HEMOGLOBIN 26.1 pg (27.0-31.0); MEAN PLATELET VOLUME 7.7 fL (7.2-11.7); MONO # 0.8 K/uL (0.0-0.8); MONO % 3.6 % (0.0-10.0); PLATELET COUNT 228 K/uL (130-400); RED CELL DISTRIBUTION WIDTH 16.8 % (11.5-14.5); WHITE BLOOD COUNT 21.4 K/uL (4.8-10.8)
[2017-01-16 06:59] LABS: CHLORIDE 116 mmol/L (98-107)
[2017-01-16] MEDS: metroNIDAZOLE IV 500 mg/100 ml 100 ML IVPB SCH ×3 (06:59→22:00)
[2017-01-16 07:00] LABS: POTASSIUM 4.8 mmol/L (3.6-5.2); SODIUM 152 mmol/L (132-148)
[2017-01-16 07:02] LABS: ALB/GLOB RATIO 0.6 (1.0-2.1); ALKALINE PHOSPHATASE 182 U/L (38-126); AST/SGOT 32 U/L (17-59); BILIRUBIN,TOTAL 0.9 mg/dL (0.2-1.3); CARBON DIOXIDE 24 mmol/L (22-30); GFR AFRICAN-AMERICAN > 60
[2017-01-16 07:03] LABS: ALT/SGPT 21 U/L (21-72); BLOOD UREA NITROGEN 52 mg/dL (9-20); CALCIUM 7.7 mg/dl (8.6-10.4); GLUCOSE,RANDOM 286 mg/dL (75-110); MAGNESIUM 2.8 mg/dL (1.6-2.3); PHOSPHOROUS 2.5 mg/dL (2.5-4.5)
[2017-01-16] MEDS: Sodium Chloride 0.9% 1,000 ML IV SCH (07:12)
[2017-01-16 08:05] LABS: FOLATE 14.6 ng/mL
[2017-01-16] MEDS: Acetaminophen 650mg/20.3ml solution UD PO PRN (08:23)
[2017-01-16 08:53] LABS: NEUTROPHIL 87 % (50-75); TOTAL CELLS COUNTED 100
--- NOTE | 2017-01-16 10:25 | CP.PCM.PN ---
Subjective - Date & Time of Evaluation Date of Evaluation: 01/16/17 Time of Evaluation: 11:01 - Subjective Subjective: 71 y/o male seen with b/l deep infected leg ulcerations with underlying sepsis. Patient is on vent. was not at the bedside at this time. Charts reviewed. Objective - Vital Signs/Intake and Output Vital Signs (last 24 hours): Temp Pulse Resp BP Pulse Ox 101.9 F H 60 28 H 141/53 L 100 01/16/17 08:00 01/16/17 09:00 01/16/17 09:00 01/16/17 09:00 01/16/17 09:00 Intake and Output: 01/16/17 01/16/17 06:59 18:59 Intake Total 1963.2 327.2 Output Total 930 150 Balance 1033.2 177.2 - Medications Medications: Current Medications Acetaminophen (Tylenol 650mg/20.3ml Solution Ud) 650 mg PO Q6 PRN PRN Reason: Fever >100.4 F Last Admin: 01/16/17 08:23 Dose: 650 mg Imipenem/Cilastatin Sodium 500 (mg/ Sodium Chloride) 100 mls @ 100 mls/hr IVPB Q12H [facility] Last Admin: 01/16/17 05:05 Dose: 100 mls/hr Daptomycin 500 mg/ Sodium (Chloride) 100 mls @ 100 mls/hr IV Q48H [facility] Stop: 01/19/17 15:01 Last Admin: 01/14/17 15:30 Dose: 100 mls/hr Metronidazole (Flagyl) 100 mls @ 100 mls/hr IVPB Q8H [facility] Last Admin: 01/16/17 06:59 Dose: 100 mls/hr Propofol (Diprivan) 100 mls @ 2.722 mls/hr IV .Q24H PRN; Protocol; 5 MCG/KG/MIN PRN Reason: TITRATE PER MD ORDER Last Admin: 01/16/17 07:22 Dose: 13.6 mls/hr Insulin Glargine (Lantus) 10 unit SC HS [facility] Insulin Human Regular (Novolin R) 0 unit SC Q6 MICHAEL PRN Reason: Protocol Last Admin: 01/16/17 06:40 Dose: 1 unit Pantoprazole Sodium (Protonix Inj) 40 mg IVP DAILY [facility] Last Admin: 01/15/17 09:57 Dose: 40 mg Sodium Hypochlorite (Dakins Solution 0.125%) 0 appl TOP DAILY [facility] Last Admin: 01/15/17 09:57 Dose: Not Given - Labs Labs: 01/16/17 06:44 01/16/17 06:44 PT 19.9 SECONDS (9.7-12.2) H 01/15/17 06:45 INR 1.7 01/15/17 06:45 APTT 39 SECONDS (21-34) H 01/15/17 06:45 - Constitutional Appears: Toxic - Neurological Exam Neurological Exam: absent: Alert, Awake, Oriented x3 - Additional Findings Additional findings: Lower extremity focused. DERM: Heavy [id number] present bilaterally, with active drainage noted bilaterally. Diffuse continuous erythema noted bilaterally extending distally from level of proximal 1/3 of legs, bilaterally. No interdigital maceratin or hyperkeratotic lesion noted bilaterally. Right: Lateral leg partial thickness ulceration measuring 7.5 x 6 cm with a 60% fibrotic to 40% granular wound base. Absent undermining margins. Heel necrotic eschar with active weeping drainage from posterior margin noted. Eschar measures 6.5 x 7 cm. 5 cm lateral magin fibrotic plaque extension noted. Left: Medial 1st metatarsal head region full thickness ulceration measuring 2 x 1.9 cm with 100% fibrotic base absent undermining margins. Fluctuant necrotic heel eschar with active weeping drainage from posterior margin noted. Eschar measures 9 x 7.8 cm. Lateral leg full thickness ulceration measuring 13 x 7 cm with a 80% fibrotic to 20% necrotic base. VASC: DP and PT pulses non-palpable secondary to non-pitting edema. Absent pedal hair growth. Negative Homann and Talbot's signs bilaterally. Cappilarry refill time <5 seconds to digits. NERUO: Sensation grossly diminished distal to ankle joint bilaterally. Ortho: No gross deformities noted. Largely deferred to to patients refusal to participate. Assessment and Plan - Assessment and Plan (Free Text) Assessment: 71 year old male with infected bilateral lower extremity wounds and cellulits. 3 total Gottlieb grade 2 ulcerations & 2 total non-stagable ulcerations to heels bilaterally, all secondary to diabetic neuropathy. Plan: patient evaluated and chart reviewed Discussed with Dr. Davenport in detail. still refusing bka. WBc 21.4; elevated from yesteday Febrile; Continued conservative wound care; rx placed for new dakins. Will continue to follow
[2017-01-16] MEDS ORDERED: Morphine 4 MG/ML VIAL IV ONE (11:22)
--- NOTE | 2017-01-16 11:48 | CP.PCM.PN ---
Subjective - Date & Time of Evaluation Date of Evaluation: 01/16/17 Time of Evaluation: 08:00 - Subjective Subjective: discussed on rounds with HERNANDEZ Leonard IV rx in progress fevers persist but less severe poor prognosis without surgery conseider de-escalating antibiotic rx Objective - Vital Signs/Intake and Output Vital Signs (last 24 hours): Temp Pulse Resp BP Pulse Ox 98.4 F 60 28 H 141/53 L 100 01/16/17 09:23 01/16/17 09:00 01/16/17 09:00 01/16/17 09:00 01/16/17 09:00 Intake and Output: 01/16/17 01/16/17 06:59 18:59 Intake Total 1963.2 327.2 Output Total 930 150 Balance 1033.2 177.2 - Medications Medications: Current Medications Acetaminophen (Tylenol 650mg/20.3ml Solution Ud) 650 mg PO Q6 PRN PRN Reason: Fever >100.4 F Last Admin: 01/16/17 08:23 Dose: 650 mg Imipenem/Cilastatin Sodium 500 (mg/ Sodium Chloride) 100 mls @ 100 mls/hr IVPB Q12H [facility] Last Admin: 01/16/17 05:05 Dose: 100 mls/hr Daptomycin 500 mg/ Sodium (Chloride) 100 mls @ 100 mls/hr IV Q48H [facility] Stop: 01/19/17 15:01 Last Admin: 01/14/17 15:30 Dose: 100 mls/hr Metronidazole (Flagyl) 100 mls @ 100 mls/hr IVPB Q8H [facility] Last Admin: 01/16/17 06:59 Dose: 100 mls/hr Propofol (Diprivan) 100 mls @ 2.722 mls/hr IV .Q24H PRN; Protocol; 5 MCG/KG/MIN PRN Reason: TITRATE PER MD ORDER Last Admin: 01/16/17 07:22 Dose: 13.6 mls/hr Insulin Glargine (Lantus) 10 unit SC HS [facility] Insulin Human Regular (Novolin R) 0 unit SC Q6 [facility] PRN Reason: Protocol Last Admin: 01/16/17 06:40 Dose: 1 unit Pantoprazole Sodium (Protonix Inj) 40 mg IVP DAILY [facility] Last Admin: 01/16/17 10:43 Dose: 40 mg Sodium Hypochlorite (Dakins Solution 0.125%) 0 appl TOP DAILY [facility] - Labs Labs: 01/16/17 06:44 01/16/17 06:44 PT 19.9 SECONDS (9.7-12.2) H 01/15/17 06:45 INR 1.7 01/15/17 06:45 APTT 39 SECONDS (21-34) H 01/15/17 06:45 - Constitutional Appears: Toxic - Head Exam Head Exam: NORMOCEPHALIC - Eye Exam Eye Exam: absent: Nystagmus, Scleral icterus - ENT Exam ENT Exam: Mucous Membranes Dry - Neck Exam Neck Exam: absent: Lymphadenopathy - Respiratory Exam Respiratory Exam: Decreased Breath Sounds, Rhonchi - Cardiovascular Exam Cardiovascular Exam: REGULAR RHYTHM, +S1, +S2 - GI/Abdominal Exam GI & Abdominal Exam: Distended, Soft. absent: Tenderness - Rectal Exam Rectal Exam: Deferred - Exam Exam: NORMAL INSPECTION Assessment and Plan (1) Acute renal failure Status: Resolved (2) Diabetic foot infection Status: Acute (3) Diabetic ulcer of both lower extremities Status: Acute (4) Leukocytosis Status: Acute (5) ARSENIO (acute kidney injury) Status: Resolved (6) Abdominal distension Status: Acute (7) Atrial fibrillation with slow ventricular response Status: Chronic (8) Cellulitis Status: Acute
[2017-01-16] MEDS: Piperacill/Tazo 3.375gm in Dex 50 ML IVPB SCH ×3 (12:34→23:36)
--- NOTE | 2017-01-16 12:54 | CP.CCUPN ---
<Barbara Barksdale - Last Filed: 01/16/17 12:51> CCU Subjective - Physician Review Subjective (Free Text): 01/15/17 16:00 Pt seen and examined in no acute distress. Pt still intubated and sedated at this time. Patient's spoke with Metal Flow Coordinator Sue this morning and indicated that patient would not like his legs amputated. In addition POLST forms were signed for DNR. Pt can not comply with ROS at the moment due to clinical status. 01/16/17 12:51 Pt seen and examined in no apparent distress. Patient remains intubated and sedated. Patient's more open to DNI measures though no final decision yet. Pt still intubated and sedated and cannot comply to ROS due to clinical state. CCU Objective - Vital Signs / Intake & Output Vital Signs (Last 4 hours): Vital Signs Temp Pulse Resp BP Pulse Ox 01/16/17 12:00 99.9 F H 60 26 H 142/66 97 01/16/17 11:00 60 25 H 139/51 L 95 01/16/17 10:00 60 28 H 161/32 H 93 L 01/16/17 09:23 98.4 F 01/16/17 09:00 60 28 H 141/53 L 100 Intake and Output (Last 8hrs): Intake & Output 01/15/17 01/16/17 01/16/17 22:59 06:59 14:59 Intake Total 1358.8 1308.8 868.0 Output Total 665 690 400 Balance 693.8 618.8 468.0 Intake: Intake, IV Amount 908.8 908.8 568.0 Right Proximal Port 108.8 108.8 68.0 Internal Jugular Right Medial Port 800 800 500 Internal Jugular Tube Feeding 400 400 250 Other 50 50 Output: Urine 665 690 400 Urethral (Conner) 665 690 400 - Physical Exam Head: Positive for: Atraumatic, Normocephalic Mouth: Positive for: Moist Mucous Membranes Neck: Positive for: Trachea Midline Respiratory/Chest: Positive for: Clear to Auscultation Cardiovascular: Positive for: Regular Rate and Rhythm Abdomen: Positive for: Normal Bowel Sounds Upper Extremity: Positive for: Normal Inspection, Edema Lower Extremity: Positive for: Edema, Capillary Refill < 2 s, Other (LE dressing b/l; malodorous scent noted). Negative for: NORMAL PULSES Neurological: Positive for: Other Skin: Positive for: Dry, Rashes, Erythematous, Abrasion Psychiatric: Negative for: Alert, Oriented x 3 - Medications Active Medications: Active Medications Generic Name Dose Route Start Last Admin Trade Name Freq PRN Reason Stop Dose Admin Acetaminophen 650 mg 01/15/17 13:53 01/16/17 08:23 Tylenol 650mg/20.3ml Solution Ud PO 650 mg Q6 PRN Administration Fever >100.4 F Metronidazole 100 mls @ 100 mls/hr 01/12/17 23:30 01/16/17 06:59 Flagyl IVPB 100 mls/hr Q8H MICHAEL Administration Propofol 100 mls @ 2.722 mls/hr 01/13/17 00:10 01/16/17 07:22 Diprivan IV 13.6 mls/hr .Q24H PRN Administration TITRATE PER MD ORDER Protocol 5 MCG/KG/MIN Ciprofloxacin 200 mls @ 133 mls/hr 01/16/17 12:00 Cipro 400mg/200ml Dsw IVPB Q12H MICHAEL Piperacillin Sod/Tazobactam Sod 50 mls @ 100 mls/hr 01/16/17 12:00 01/16/17 12: 34 Zosyn 3.375 Gm Iv Premix IVPB 100 mls/hr Q6H MICHAEL Administration Insulin Glargine 10 unit 01/16/17 22:00 Lantus SC HS MICHAEL Insulin Human Regular 0 unit 01/12/17 13:15 01/16/17 12:35 Novolin R SC 8 unit Q6 MICHAEL Administration Protocol Pantoprazole Sodium 40 mg 01/13/17 10:00 01/16/17 10:43 Protonix Inj IVP 40 mg DAILY MICHAEL Administration Sodium Hypochlorite 0 appl 01/17/17 10:00 Dakins Solution 0.125% TOP DAILY MICHAEL - Patient Studies Lab Studies: Microbiology Studies 01/12/17 03:30 Blood Culture - Preliminary Blood NO GROWTH AFTER 3 DAYS 01/12/17 03:45 Blood Culture - Preliminary Blood NO GROWTH AFTER 3 DAYS Lab Studies 01/16/17 01/16/17 01/16/17 Range/Units 06:44 06:41 04:25 WBC 21.4 H (4.8-10.8) K/uL RBC 3.43 L (4.40-5.90) Mil/uL Hgb 8.9 L (12.0-18.0) g/dL Hct 28.8 L (35.0-51.0) % MCV 84.0 (80.0-94.0) fL MCH 26.1 L (27.0-31.0) pg MCHC 31.0 L (33.0-37.0) g/dL RDW 16.8 H (11.5-14.5) % Plt Count 228 (130-400) K/uL MPV 7.7 (7.2-11.7) fL Neut % (Auto) 87.9 H (50.0-75.0) % Lymph % (Auto) 7.5 L (20.0-40.0) % Wilkes % (Auto) 3.6 (0.0-10.0) % Eos % (Auto) 0.4 (0.0-4.0) % Baso % (Auto) 0.6 (0.0-2.0) % Neut # 18.8 H (1.8-7.0) K/uL Lymph # 1.6 (1.0-4.3) K/uL Wilkes # 0.8 (0.0-0.8) K/uL Eos # 0.1 (0.0-0.7) K/uL Baso # 0.1 (0.0-0.2) K/uL Neutrophils % (Manual) 87 H (50-75) % Band Neutrophils % 3 H (0-2) % Lymphocytes % (Manual) 6 L (20-40) % Monocytes % (Manual) 4 (0-10) % Platelet Estimate Normal (NORMAL) Hypochromasia (manual) Slight Poikilocytosis (manual Slight Anisocytosis (manual) Slight Target Cells Slight Tear Drop Cells Slight Ovalocytes Slight Retic Count 1.2 (0.5-1.5) % Puncture Site Rr pCO2 34 L (35-45) mm/Hg pO2 88 (80-100) mm/Hg HCO3 24.8 (21-28) mmol/L ABG pH 7.45 (7.35-7.45) ABG Total CO2 24.6 (22-28) mmol/L ABG O2 Saturation 99.2 H (95-98) % ABG Base Excess -0.2 (-2.0-3.0) mmol/L ABG Hemoglobin 7.6 L (11.7-17.4) g/dL ABG Carboxyhemoglobin 1.8 H (0.5-1.5) % POC ABG HHb (Measured) 0.8 (0.0-5.0) % ABG Methemoglobin 0.8 (0.0-3.0) % Carter Test Pos A-a O2 Difference 155.0 mm/Hg Respiratory Index 1.8 Hgb O2 Saturation 96.6 (95.0-98.0) % Mechanical Rate 14 FiO2 40.0 % Tidal Volume 450 PEEP 5 Sodium 152 H (132-148) mmol/L Potassium 4.8 (3.6-5.2) mmol/L Chloride 116 H (98-107) mmol/L Carbon Dioxide 24 (22-30) mmol/L Anion Gap 17 (10-20) BUN 52 H (9-20) mg/dL Creatinine 1.4 (0.8-1.5) MG/DL Est GFR ( Amer) > 60 Est GFR (Non-Af Amer) 50 POC Glucose (mg/dL) 312 H (65-110) mg/dL Random Glucose 286 H (75-110) mg/dL Calcium 7.7 L (8.6-10.4) mg/dl Phosphorus 2.5 (2.5-4.5) mg/dL Magnesium 2.8 H (1.6-2.3) mg/dL Ferritin 453.0 ng/mL Total Bilirubin 0.9 (0.2-1.3) mg/dL AST 32 (17-59) U/L ALT 21 D (21-72) U/L Alkaline Phosphatase 182 H (38-126) U/L Total Protein 7.0 (6.3-8.3) g/dL Albumin 2.7 L (3.5-5.0) g/dL Globulin 4.3 H (2.2-3.9) gm/dL Albumin/Globulin Ratio 0.6 L (1.0-2.1) Vitamin B12 902 (239-931) pg/mL Folate 14.6 ng/mL PTH Intact Whole Molec (14-64) pg/mL 01/15/17 01/15/1717 Range/Units 23:39 18:06 07:29 WBC (4.8-10.8) K/uL RBC (4.40-5.90) Mil/uL Hgb (12.0-18.0) g/dL Hct (35.0-51.0) % MCV (80.0-94.0) fL MCH (27.0-31.0) pg MCHC (33.0-37.0) g/dL RDW (11.5-14.5) % Plt Count (130-400) K/uL MPV (7.2-11.7) fL Neut % (Auto) (50.0-75.0) % Lymph % (Auto) (20.0-40.0) % Wilkes % (Auto) (0.0-10.0) % Eos % (Auto) (0.0-4.0) % Baso % (Auto) (0.0-2.0) % Neut # (1.8-7.0) K/uL Lymph # (1.0-4.3) K/uL Wilkes # (0.0-0.8) K/uL Eos # (0.0-0.7) K/uL Baso # (0.0-0.2) K/uL Neutrophils % (Manual) (50-75) % Band Neutrophils % (0-2) % Lymphocytes % (Manual) (20-40) % Monocytes % (Manual) (0-10) % Platelet Estimate (NORMAL) Hypochromasia (manual) Poikilocytosis (manual Anisocytosis (manual) Target Cells Tear Drop Cells Ovalocytes Retic Count (0.5-1.5) % Puncture Site pCO2 (35-45) mm/Hg pO2 (80-100) mm/Hg HCO3 (21-28) mmol/L ABG pH (7.35-7.45) ABG Total CO2 (22-28) mmol/L ABG O2 Saturation (95-98) % ABG Base Excess (-2.0-3.0) mmol/L ABG Hemoglobin (11.7-17.4) g/dL ABG Carboxyhemoglobin (0.5-1.5) % POC ABG HHb (Measured) (0.0-5.0) % ABG Methemoglobin (0.0-3.0) % Carter Test A-a O2 Difference mm/Hg Respiratory Index Hgb O2 Saturation (95.0-98.0) % Mechanical Rate FiO2 % Tidal Volume PEEP Sodium (132-148) mmol/L Potassium (3.6-5.2) mmol/L Chloride (98-107) mmol/L Carbon Dioxide (22-30) mmol/L Anion Gap (10-20) BUN (9-20) mg/dL Creatinine (0.8-1.5) MG/DL Est GFR ( Amer) Est GFR (Non-Af Amer) POC Glucose (mg/dL) 264 H 370 H (65-110) mg/dL Random Glucose (75-110) mg/dL Calcium (8.6-10.4) mg/dl Phosphorus (2.5-4.5) mg/dL Magnesium (1.6-2.3) mg/dL Ferritin ng/mL Total Bilirubin (0.2-1.3) mg/dL AST (17-59) U/L ALT (21-72) U/L Alkaline Phosphatase (38-126) U/L Total Protein (6.3-8.3) g/dL Albumin (3.5-5.0) g/dL Globulin (2.2-3.9) gm/dL Albumin/Globulin Ratio (1.0-2.1) Vitamin B12 (239-931) pg/mL Folate ng/mL PTH Intact Whole Molec 55 (14-64) pg/mL Laboratory Results - last 24 hr 01/12/17 01/15/17 01/15/17 07:29 18:06 23:39 WBC RBC Hgb Hct MCV MCH MCHC RDW Plt Count MPV Neut % (Auto) Lymph % (Auto) Wilkes % (Auto) Eos % (Auto) Baso % (Auto) Neut # Lymph # Wilkes # Eos # Baso # Neutrophils % (Manual) Band Neutrophils % Lymphocytes % (Manual) Monocytes % (Manual) Platelet Estimate Hypochromasia (manual) Poikilocytosis (manual Anisocytosis (manual) Target Cells Tear Drop Cells Ovalocytes Retic Count Puncture Site pCO2 pO2 HCO3 ABG pH ABG Total CO2 ABG O2 Saturation ABG Base Excess ABG Hemoglobin ABG Carboxyhemoglobin POC ABG HHb (Measured) ABG Methemoglobin Carter Test A-a O2 Difference Respiratory Index Hgb O2 Saturation Mechanical Rate FiO2 Tidal Volume PEEP Sodium Potassium Chloride Carbon Dioxide Anion Gap BUN Creatinine Est GFR ( Amer) Est GFR (Non-Af Amer) POC Glucose (mg/dL) 370 H 264 H Random Glucose Calcium Phosphorus Magnesium Ferritin Total Bilirubin AST ALT Alkaline Phosphatase Total Protein Albumin Globulin Albumin/Globulin Ratio Vitamin B12 Folate PTH Intact Whole Molec 55 01/16/17 01/16/17 01/16/17 04:25 06:41 06:44 WBC 21.4 H RBC 3.43 L Hgb 8.9 L Hct 28.8 L MCV 84.0 MCH 26.1 L MCHC 31.0 L RDW 16.8 H Plt Count 228 MPV 7.7 Neut % (Auto) 87.9 H Lymph % (Auto) 7.5 L Wilkes % (Auto) 3.6 Eos % (Auto) 0.4 Baso % (Auto) 0.6 Neut # 18.8 H Lymph # 1.6 Wilkes # 0.8 Eos # 0.1 Baso # 0.1 Neutrophils % (Manual) 87 H Band Neutrophils % 3 H Lymphocytes % (Manual) 6 L Monocytes % (Manual) 4 Platelet Estimate Normal Hypochromasia (manual) Slight Poikilocytosis (manual Slight Anisocytosis (manual) Slight Target Cells Slight Tear Drop Cells Slight Ovalocytes Slight Retic Count 1.2 Puncture Site Rr pCO2 34 L pO2 88 HCO3 24.8 ABG pH 7.45 ABG Total CO2 24.6 ABG O2 Saturation 99.2 H ABG Base Excess -0.2 ABG Hemoglobin 7.6 L ABG Carboxyhemoglobin 1.8 H POC ABG HHb (Measured) 0.8 ABG Methemoglobin 0.8 Carter Test Pos A-a O2 Difference 155.0 Respiratory Index 1.8 Hgb O2 Saturation 96.6 Mechanical Rate 14 FiO2 40.0 Tidal Volume 450 PEEP 5 Sodium 152 H Potassium 4.8 Chloride 116 H Carbon Dioxide 24 Anion Gap 17 BUN 52 H Creatinine 1.4 Est GFR ( Amer) > 60 Est GFR (Non-Af Amer) 50 POC Glucose (mg/dL) 312 H Random Glucose 286 H Calcium 7.7 L Phosphorus 2.5 Magnesium 2.8 H Ferritin 453.0 Total Bilirubin 0.9 AST 32 ALT 21 D Alkaline Phosphatase 182 H Total Protein 7.0 Albumin 2.7 L Globulin 4.3 H Albumin/Globulin Ratio 0.6 L Vitamin B12 902 Folate 14.6 PTH Intact Whole Molec Fingerstick Blood Sugar Results: 347 Review of Systems - Review of Systems Systems not reviewed;Unavailable: Intubated Critical Care Progress Note - Nutrition Nutrition: Nutrition Category Date Time Status Consistent Carbohydrate [DIET] Diets 01/10/17 Breakfast Active Assessment/Plan - Assessment and Plan (Free Text) Assessment: 71 year old patient with PMHx significant for HTN, DM, A-fib with slow ventricular response and cataracts initially presented with worsening bilateral LE cellulitis for which patient was septic. Pt also had elevated INR of 15. Patient admitted to ICU for close monitoring. Plan: Neuro: sedated at this time. will try to wean off propofol. Cardio: Hypotension at times- BP meds held If BP remains stable, low dose betablocker can be added on per Cardiology Pulm: Acute respiratory failure secondary to severe sepsis secondary to bilateral LE cellulitis Patient to attempt CPAP trial again today. May attempt extubation if pt can tolerate GI: Diabetisource with water flushes 200cc Q8h Nephro/: Renal insufficiency noted however improved today Hypernatremia- Free water flushes 250cc Q6 UO greater than 2L Continue IV fluids Nephro on the case Heme: stable, cont to monitor H/H Endo: Diabetic ulcers of lower extremities noted Accuchecks Lantus 10 units QHS ISS Monitor ID: WBC increase noted, Bands 3 ( stable) Initially presented with severe sepsis On Ricci Marks Cipro ID Dr. Blum on the case MSK: Recommendations for BKA surgery however patient's has decided against the procedure bc she feels that the patient would not consent to amputation. She is acting in his best interests ( as per his expected wishes). Dressing changes per Podiatry- Continued conservative care No MRI at this point due to hx of pacemaker Palliative: signed POLST DNR forms . More open to DNI but no definitive decision yet. will not consent for BKA at this time. Prophylaxis: PPI daily DVT prophylaxis held in light of initial elevated INR. Will check coags in the AM and then restart appropriate agent. <Chacho Figueroa - Last Filed: 01/16/17 16:49> CCU Objective - Vital Signs / Intake & Output Vital Signs (Last 4 hours): Vital Signs Pulse Resp BP Pulse Ox 01/16/17 14:00 60 25 H 137/37 L 99 01/16/17 13:00 60 27 H Intake and Output (Last 8hrs): Intake & Output 01/16/17 01/16/17 01/16/17 06:59 14:59 22:59 Intake Total 1308.8 1581.6 163.6 Output Total 690 625 75 Balance 618.8 956.6 88.6 Intake: Intake, IV Amount 908.8 931.6 113.6 Right Proximal Port 108.8 81.6 13.6 Internal Jugular Right Medial Port 800 850 100 Internal Jugular Tube Feeding 400 400 50 Other 250 Output: Urine 690 625 75 Urethral (Conner) 690 625 75 - Medications Active Medications: Active Medications Generic Name Dose Route Start Last Admin Trade Name Freq PRN Reason Stop Dose Admin Acetaminophen 650 mg 01/15/17 13:53 01/16/17 08:23 Tylenol 650mg/20.3ml Solution Ud PO 650 mg Q6 PRN Administration Fever >100.4 F Metronidazole 100 mls @ 100 mls/hr 01/12/17 23:30 01/16/17 14:31 Flagyl IVPB 100 mls/hr Q8H MICHAEL Administration Propofol 100 mls @ 2.722 mls/hr 01/13/17 00:10 01/16/17 15:32 Diprivan IV 13.6 mls/hr .Q24H PRN Administration TITRATE PER MD ORDER Protocol 5 MCG/KG/MIN Ciprofloxacin 200 mls @ 133 mls/hr 01/16/17 12:00 01/16/17 13:15 Cipro 400mg/200ml Dsw IVPB 133 mls/hr Q12H MICHAEL Administration Piperacillin Sod/Tazobactam Sod 50 mls @ 100 mls/hr 01/16/17 12:00 01/16/17 12: 34 Zosyn 3.375 Gm Iv Premix IVPB 100 mls/hr Q6H MICHAEL Administration Insulin Glargine 10 unit 01/16/17 22:00 Lantus SC HS MICHAEL Insulin Human Regular 0 unit 01/12/17 13:15 01/16/17 12:35 Novolin R SC 8 unit Q6 MICHAEL Administration Protocol Pantoprazole Sodium 40 mg 01/13/17 10:00 01/16/17 10:43 Protonix Inj IVP 40 mg DAILY MICHAEL Administration Sodium Hypochlorite 0 appl 01/17/17 10:00 Dakins Solution 0.125% TOP DAILY MICHAEL - Patient Studies Lab Studies: Microbiology Studies 01/12/17 03:30 Blood Culture - Preliminary Blood NO GROWTH AFTER 3 DAYS 01/12/17 03:45 Blood Culture - Preliminary Blood NO GROWTH AFTER 3 DAYS Lab Studies 01/16/17 01/16/17 01/16/17 Range/Units 11:53 06:44 06:41 WBC 21.4 H (4.8-10.8) K/uL RBC 3.43 L (4.40-5.90) Mil/uL Hgb 8.9 L (12.0-18.0) g/dL Hct 28.8 L (35.0-51.0) % MCV 84.0 (80.0-94.0) fL MCH 26.1 L (27.0-31.0) pg MCHC 31.0 L (33.0-37.0) g/dL RDW 16.8 H (11.5-14.5) % Plt Count 228 (130-400) K/uL MPV 7.7 (7.2-11.7) fL Neut % (Auto) 87.9 H (50.0-75.0) % Lymph % (Auto) 7.5 L (20.0-40.0) % Wilkes % (Auto) 3.6 (0.0-10.0) % Eos % (Auto) 0.4 (0.0-4.0) % Baso % (Auto) 0.6 (0.0-2.0) % Neut # 18.8 H (1.8-7.0) K/uL Lymph # 1.6 (1.0-4.3) K/uL Wilkes # 0.8 (0.0-0.8) K/uL Eos # 0.1 (0.0-0.7) K/uL Baso # 0.1 (0.0-0.2) K/uL Neutrophils % (Manual) 87 H (50-75) % Band Neutrophils % 3 H (0-2) % Lymphocytes % (Manual) 6 L (20-40) % Monocytes % (Manual) 4 (0-10) % Platelet Estimate Normal (NORMAL) Hypochromasia (manual) Slight Poikilocytosis (manual Slight Anisocytosis (manual) Slight Target Cells Slight Tear Drop Cells Slight Ovalocytes Slight Retic Count 1.2 (0.5-1.5) % Puncture Site pCO2 (35-45) mm/Hg pO2 (80-100) mm/Hg HCO3 (21-28) mmol/L ABG pH (7.35-7.45) ABG Total CO2 (22-28) mmol/L ABG O2 Saturation (95-98) % ABG Base Excess (-2.0-3.0) mmol/L ABG Hemoglobin (11.7-17.4) g/dL ABG Carboxyhemoglobin (0.5-1.5) % POC ABG HHb (Measured) (0.0-5.0) % ABG Methemoglobin (0.0-3.0) % Carter Test A-a O2 Difference mm/Hg Respiratory Index Hgb O2 Saturation (95.0-98.0) % Mechanical Rate FiO2 % Tidal Volume PEEP Sodium 152 H (132-148) mmol/L Potassium 4.8 (3.6-5.2) mmol/L Chloride 116 H (98-107) mmol/L Carbon Dioxide 24 (22-30) mmol/L Anion Gap 17 (10-20) BUN 52 H (9-20) mg/dL Creatinine 1.4 (0.8-1.5) MG/DL Est GFR ( Amer) > 60 Est GFR (Non-Af Amer) 50 POC Glucose (mg/dL) 347 H 312 H (65-110) mg/dL Random Glucose 286 H (75-110) mg/dL Calcium 7.7 L (8.6-10.4) mg/dl Phosphorus 2.5 (2.5-4.5) mg/dL Magnesium 2.8 H (1.6-2.3) mg/dL Ferritin 453.0 ng/mL Total Bilirubin 0.9 (0.2-1.3) mg/dL AST 32 (17-59) U/L ALT 21 D (21-72) U/L Alkaline Phosphatase 182 H (38-126) U/L Total Protein 7.0 (6.3-8.3) g/dL Albumin 2.7 L (3.5-5.0) g/dL Globulin 4.3 H (2.2-3.9) gm/dL Albumin/Globulin Ratio 0.6 L (1.0-2.1) Vitamin B12 902 (239-931) pg/mL Folate 14.6 ng/mL 01/16/17 01/15/17 01/15/17 Range/Units 04:25 23:39 18:06 WBC (4.8-10.8) K/uL RBC (4.40-5.90) Mil/uL Hgb (12.0-18.0) g/dL Hct (35.0-51.0) % MCV (80.0-94.0) fL MCH (27.0-31.0) pg MCHC (33.0-37.0) g/dL RDW (11.5-14.5) % Plt Count (130-400) K/uL MPV (7.2-11.7) fL Neut % (Auto) (50.0-75.0) % Lymph % (Auto) (20.0-40.0) % Wilkes % (Auto) (0.0-10.0) % Eos % (Auto) (0.0-4.0) % Baso % (Auto) (0.0-2.0) % Neut # (1.8-7.0) K/uL Lymph # (1.0-4.3) K/uL Wilkes # (0.0-0.8) K/uL Eos # (0.0-0.7) K/uL Baso # (0.0-0.2) K/uL Neutrophils % (Manual) (50-75) % Band Neutrophils % (0-2) % Lymphocytes % (Manual) (20-40) % Monocytes % (Manual) (0-10) % Platelet Estimate (NORMAL) Hypochromasia (manual) Poikilocytosis (manual Anisocytosis (manual) Target Cells Tear Drop Cells Ovalocytes Retic Count (0.5-1.5) % Puncture Site Rr pCO2 34 L (35-45) mm/Hg pO2 88 (80-100) mm/Hg HCO3 24.8 (21-28) mmol/L ABG pH 7.45 (7.35-7.45) ABG Total CO2 24.6 (22-28) mmol/L ABG O2 Saturation 99.2 H (95-98) % ABG Base Excess -0.2 (-2.0-3.0) mmol/L ABG Hemoglobin 7.6 L (11.7-17.4) g/dL ABG Carboxyhemoglobin 1.8 H (0.5-1.5) % POC ABG HHb (Measured) 0.8 (0.0-5.0) % ABG Methemoglobin 0.8 (0.0-3.0) % Carter Test Pos A-a O2 Difference 155.0 mm/Hg Respiratory Index 1.8 Hgb O2 Saturation 96.6 (95.0-98.0) % Mechanical Rate 14 FiO2 40.0 % Tidal Volume 450 PEEP 5 Sodium (132-148) mmol/L Potassium (3.6-5.2) mmol/L Chloride (98-107) mmol/L Carbon Dioxide (22-30) mmol/L Anion Gap (10-20) BUN (9-20) mg/dL Creatinine (0.8-1.5) MG/DL Est GFR ( Amer) Est GFR (Non-Af Amer) POC Glucose (mg/dL) 264 H 370 H (65-110) mg/dL Random Glucose (75-110) mg/dL Calcium (8.6-10.4) mg/dl Phosphorus (2.5-4.5) mg/dL Magnesium (1.6-2.3) mg/dL Ferritin ng/mL Total Bilirubin (0.2-1.3) mg/dL AST (17-59) U/L ALT (21-72) U/L Alkaline Phosphatase (38-126) U/L Total Protein (6.3-8.3) g/dL Albumin (3.5-5.0) g/dL Globulin (2.2-3.9) gm/dL Albumin/Globulin Ratio (1.0-2.1) Vitamin B12 (239-931) pg/mL Folate ng/mL Laboratory Results - last 24 hr 01/15/17 01/15/17 01/16/17 18:06 23:39 04:25 WBC RBC Hgb Hct MCV MCH MCHC RDW Plt Count MPV Neut % (Auto) Lymph % (Auto) Wilkes % (Auto) Eos % (Auto) Baso % (Auto) Neut # Lymph # Wilkes # Eos # Baso # Neutrophils % (Manual) Band Neutrophils % Lymphocytes % (Manual) Monocytes % (Manual) Platelet Estimate Hypochromasia (manual) Poikilocytosis (manual Anisocytosis (manual) Target Cells Tear Drop Cells Ovalocytes Retic Count Puncture Site Rr pCO2 34 L pO2 88 HCO3 24.8 ABG pH 7.45 ABG Total CO2 24.6 ABG O2 Saturation 99.2 H ABG Base Excess -0.2 ABG Hemoglobin 7.6 L ABG Carboxyhemoglobin 1.8 H POC ABG HHb (Measured) 0.8 ABG Methemoglobin 0.8 Carter Test Pos A-a O2 Difference 155.0 Respiratory Index 1.8 Hgb O2 Saturation 96.6 Mechanical Rate 14 FiO2 40.0 Tidal Volume 450 PEEP 5 Sodium Potassium Chloride Carbon Dioxide Anion Gap BUN Creatinine Est GFR ( Amer) Est GFR (Non-Af Amer) POC Glucose (mg/dL) 370 H 264 H Random Glucose Calcium Phosphorus Magnesium Ferritin Total Bilirubin AST ALT Alkaline Phosphatase Total Protein Albumin Globulin Albumin/Globulin Ratio Vitamin B12 Folate 01/16/17 01/16/17 01/16/17 06:41 06:44 11:53 WBC 21.4 H RBC 3.43 L Hgb 8.9 L Hct 28.8 L MCV 84.0 MCH 26.1 L MCHC 31.0 L RDW 16.8 H Plt Count 228 MPV 7.7 Neut % (Auto) 87.9 H Lymph % (Auto) 7.5 L Wilkes % (Auto) 3.6 Eos % (Auto) 0.4 Baso % (Auto) 0.6 Neut # 18.8 H Lymph # 1.6 Wilkes # 0.8 Eos # 0.1 Baso # 0.1 Neutrophils % (Manual) 87 H Band Neutrophils % 3 H Lymphocytes % (Manual) 6 L Monocytes % (Manual) 4 Platelet Estimate Normal Hypochromasia (manual) Slight Poikilocytosis (manual Slight Anisocytosis (manual) Slight Target Cells Slight Tear Drop Cells Slight Ovalocytes Slight Retic Count 1.2 Puncture Site pCO2 pO2 HCO3 ABG pH ABG Total CO2 ABG O2 Saturation ABG Base Excess ABG Hemoglobin ABG Carboxyhemoglobin POC ABG HHb (Measured) ABG Methemoglobin Carter Test A-a O2 Difference Respiratory Index Hgb O2 Saturation Mechanical Rate FiO2 Tidal Volume PEEP Sodium 152 H Potassium 4.8 Chloride 116 H Carbon Dioxide 24 Anion Gap 17 BUN 52 H Creatinine 1.4 Est GFR ( Amer) > 60 Est GFR (Non-Af Amer) 50 POC Glucose (mg/dL) 312 H 347 H Random Glucose 286 H Calcium 7.7 L Phosphorus 2.5 Magnesium 2.8 H Ferritin 453.0 Total Bilirubin 0.9 AST 32 ALT 21 D Alkaline Phosphatase 182 H Total Protein 7.0 Albumin 2.7 L Globulin 4.3 H Albumin/Globulin Ratio 0.6 L Vitamin B12 902 Folate 14.6 Critical Care Progress Note - Nutrition Nutrition: Nutrition Category Date Time Status Consistent Carbohydrate [DIET] Diets 01/10/17 Breakfast Active Assessment/Plan (1) Acute respiratory failure with hypercapnia Current Visit: Yes Status: Acute Comment: Continue ventilatory support and reduce FiO2 as tolerated, no weaning Continue IV antibiotics Transfuse packed RBCs and follow up CBC Follow-up culture and sensitivity (2) Diabetic ulcer of both lower extremities Current Visit: Yes Status: Acute Comment: Vascular recommending potential knee level amputation Continue antibiotics for now wants to decide for surgery after discussing with statistical clerk (3) Bacteremia Current Visit: Yes Status: Acute (4) CKD stage 4 due to type 2 diabetes mellitus Current Visit: Yes Status: Acute (5) Coagulopathy Current Visit: Yes Status: Acute (6) Diabetic foot infection Current Visit: Yes Status: Acute Attending/Attestation - Attestation I have personally seen and examined this patient.: Yes I have fully participated in the care of the patient.: Yes I have reviewed all pertinent clinical information: Yes Notes (Text): 01/16/17 16:43 patient seen and examined in the intensive care unit. Case discussed with house staff in the morning rounds. Not tolerating weaning Intubated on ventilatory support signed DNR DNI No surgical intervention Continue IV antibiotics Continue feeding
[2017-01-16] MEDS: Ciprofloxacin 400mg/200ml D5W 200 ML IVPB SCH (13:15)
--- NOTE | 2017-01-16 15:19 | CP.PCM.PN ---
Subjective - Date & Time of Evaluation Date of Evaluation: 01/16/17 Time of Evaluation: 15:13 - Subjective Subjective: seen and examined, at bedside intubated and sedated good uop, creatinine trending down Objective - Vital Signs/Intake and Output Vital Signs (last 24 hours): Temp Pulse Resp BP Pulse Ox 99.9 F H 60 25 H 137/37 L 99 01/16/17 12:00 01/16/17 14:00 01/16/17 14:00 01/16/17 14:00 01/16/17 14:00 Intake and Output: 01/16/17 01/16/17 06:59 18:59 Intake Total 1963.2 868.0 Output Total 930 400 Balance 1033.2 468.0 - Medications Medications: Current Medications Acetaminophen (Tylenol 650mg/20.3ml Solution Ud) 650 mg PO Q6 PRN PRN Reason: Fever >100.4 F Last Admin: 01/16/17 08:23 Dose: 650 mg Metronidazole (Flagyl) 100 mls @ 100 mls/hr IVPB Q8H [facility] Last Admin: 01/16/17 14:31 Dose: 100 mls/hr Propofol (Diprivan) 100 mls @ 2.722 mls/hr IV .Q24H PRN; Protocol; 5 MCG/KG/MIN PRN Reason: TITRATE PER MD ORDER Last Admin: 01/16/17 07:22 Dose: 13.6 mls/hr Ciprofloxacin (Cipro 400mg/200ml Dsw) 200 mls @ 133 mls/hr IVPB Q12H [facility] Last Admin: 01/16/17 13:15 Dose: 133 mls/hr Piperacillin Sod/Tazobactam Sod (Zosyn 3.375 Gm Iv Premix) 50 mls @ 100 mls/hr IVPB Q6H [facility] Last Admin: 01/16/17 12:34 Dose: 100 mls/hr Insulin Glargine (Lantus) 10 unit SC HS [facility] Insulin Human Regular (Novolin R) 0 unit SC Q6 [facility] PRN Reason: Protocol Last Admin: 01/16/17 12:35 Dose: 8 unit Pantoprazole Sodium (Protonix Inj) 40 mg IVP DAILY [facility] Last Admin: 01/16/17 10:43 Dose: 40 mg Sodium Hypochlorite (Dakins Solution 0.125%) 0 appl TOP DAILY [facility] - Labs Labs: 01/16/17 06:44 01/16/17 06:44 PT 19.9 SECONDS (9.7-12.2) H 01/15/17 06:45 INR 1.7 01/15/17 06:45 APTT 39 SECONDS (21-34) H 01/15/17 06:45 - Constitutional Appears: No Acute Distress, Chronically Ill (intubated sedated) - Head Exam Head Exam: NORMAL INSPECTION - Eye Exam Eye Exam: Normal appearance - ENT Exam Additional comments: et tube - Neck Exam Neck Exam: Normal Inspection - Respiratory Exam Additional comments: b/l coarse breath sounds - Cardiovascular Exam Cardiovascular Exam: REGULAR RHYTHM, RRR - Extremities Exam Extremities Exam: Pedal Edema Additional comments: erythema Assessment and Plan (1) Acute respiratory failure with hypercapnia Status: Acute (2) Bacteremia Status: Acute (3) CKD stage 4 due to type 2 diabetes mellitus Status: Acute (4) Diabetic foot infection Status: Acute (5) Diabetic ulcer of both lower extremities Status: Acute (6) Acute renal failure Status: Resolved (7) Hypernatremia Status: Acute - Assessment and Plan (Free Text) Assessment: recommend free water via ngt, maintain gentle hypotonic fluids, 1/2NS. goals of care to be discussed w/
--- NOTE | 2017-01-16 15:57 | RAD ---
HISTORY: Intubated. Technique: Single view portable semi erect @ 06:45. COMPARISON: Multiple serial examinations preceding the most recent study: Micro yesterday FINDINGS: LUNGS: No significant interval change compared to the prior examination(s). PLEURA: No significant interval change compared to the prior examination(s). CARDIOVASCULAR: Cardiomegaly. No evidence of acute, significant cardiovascular disease. Venous access catheter in stable, satisfactory position. Position/ configuration of pacemaker^ OSSEOUS STRUCTURES: No significant abnormalities. VISUALIZED UPPER ABDOMEN: Normal. OTHER FINDINGS: Stable SLAC satisfactory position endotracheal tube. IMPRESSION: No significant interval change compared to the prior examination(s).
--- NOTE | 2017-01-16 16:29 | CP.PCM.PN ---
Subjective - Date & Time of Evaluation Date of Evaluation: 01/15/17 Time of Evaluation: 16:29 - Subjective Subjective: non verbal on vent foul smelling infected feet gangrene b/l lower ext Objective - Vital Signs/Intake and Output Vital Signs (last 24 hours): Temp Pulse Resp BP Pulse Ox 99.9 F H 60 25 H 137/37 L 99 01/16/17 12:00 01/16/17 14:00 01/16/17 14:00 01/16/17 14:00 01/16/17 14:00 Intake and Output: 01/16/17 01/16/17 06:59 18:59 Intake Total 1963.2 1745.2 Output Total 930 700 Balance 1033.2 1045.2 - Medications Medications: Current Medications Acetaminophen (Tylenol 650mg/20.3ml Solution Ud) 650 mg PO Q6 PRN PRN Reason: Fever >100.4 F Last Admin: 01/16/17 08:23 Dose: 650 mg Metronidazole (Flagyl) 100 mls @ 100 mls/hr IVPB Q8H [facility] Last Admin: 01/16/17 14:31 Dose: 100 mls/hr Propofol (Diprivan) 100 mls @ 2.722 mls/hr IV .Q24H PRN; Protocol; 5 MCG/KG/MIN PRN Reason: TITRATE PER MD ORDER Last Admin: 01/16/17 15:32 Dose: 13.6 mls/hr Ciprofloxacin (Cipro 400mg/200ml Dsw) 200 mls @ 133 mls/hr IVPB Q12H [facility] Last Admin: 01/16/17 13:15 Dose: 133 mls/hr Piperacillin Sod/Tazobactam Sod (Zosyn 3.375 Gm Iv Premix) 50 mls @ 100 mls/hr IVPB Q6H [facility] Last Admin: 01/16/17 12:34 Dose: 100 mls/hr Insulin Glargine (Lantus) 10 unit SC HS MICHAEL Insulin Human Regular (Novolin R) 0 unit SC Q6 [facility]EL PRN Reason: Protocol Last Admin: 01/16/17 12:35 Dose: 8 unit Pantoprazole Sodium (Protonix Inj) 40 mg IVP DAILY [facility] Last Admin: 01/16/17 10:43 Dose: 40 mg Sodium Hypochlorite (Dakins Solution 0.125%) 0 appl TOP DAILY [facility] - Labs Labs: 01/16/17 06:44 01/16/17 06:44 PT 19.9 SECONDS (9.7-12.2) H 01/15/17 06:45 INR 1.7 01/15/17 06:45 APTT 39 SECONDS (21-34) H 01/15/17 06:45 - Constitutional Appears: Non-toxic - Head Exam Head Exam: ATRAUMATIC - ENT Exam Additional comments: ET tube - Respiratory Exam Additional comments: coarse bs on vent - Cardiovascular Exam Cardiovascular Exam: REGULAR RHYTHM, +S1, +S2 - GI/Abdominal Exam GI & Abdominal Exam: Soft, Normal Bowel Sounds. absent: Tenderness - Neurological Exam Neurological Exam: absent: Alert, Awake, Oriented x3 - Skin Additional comments: lower ext gangrene toes foul smelling Assessment and Plan - Assessment and Plan (Free Text) Assessment: 71 year old patient with PMHx significant for HTN, DM, A-fib with slow ventricular response and cataracts initially presented with worsening bilateral LE cellulitis for which patient was septic. Pt also had elevated INR of 15. Patient admitted to ICU for close monitoring. Plan: Neuro: sedated at this time Cardio: Hypotension at times- BP meds held If BP remains stable, low dose betablocker can be added on per Cardiology Pulm: Acute respiratory failure secondary to severe sepsis secondary to bilateral LE cellulitis Patient to attempt CPAP trial today. May attempt extubation if pt can tolerate GI: Diabetisource with water flushes 200cc Q8h Nephro/: Renal insufficiency noted however improved today UO greater than 2L Continue IV fluids Nephro on the case Heme: stable, cont to monitor H/H Endo: Diabetic ulcers of lower extremities noted ID: Initially presented with severe sepsis On Flagyl, Daptomycin and Imipenem (Monitor CPK weekly) ID Dr. Blum on the case MSK: Recommendations for BKA surgery however patient's has decoded against the procedure bc she feels that the patient would not consent to losing his legs. Dressing changes per Podiatry No MRI at this point due to hx of pacemaker Prophylaxis: PPI daily DVT prophylaxis held in light of initial elevated INR. Will check coags in the AM and then restart appropriate agent. Palliative: signed POLST DNR forms . May request DNI at a later undetermined time. will not consent for BKA at this time.
--- NOTE | 2017-01-16 16:35 | CP.PCM.PN ---
Subjective - Date & Time of Evaluation Date of Evaluation: 01/16/17 Time of Evaluation: 16:32 - Subjective Subjective: patient non verbal on vent Objective - Vital Signs/Intake and Output Vital Signs (last 24 hours): Temp Pulse Resp BP Pulse Ox 99.9 F H 60 25 H 137/37 L 99 01/16/17 12:00 01/16/17 14:00 01/16/17 14:00 01/16/17 14:00 01/16/17 14:00 Intake and Output: 01/16/17 01/16/17 06:59 18:59 Intake Total 1963.2 1745.2 Output Total 930 700 Balance 1033.2 1045.2 - Medications Medications: Current Medications Acetaminophen (Tylenol 650mg/20.3ml Solution Ud) 650 mg PO Q6 PRN PRN Reason: Fever >100.4 F Last Admin: 01/16/17 08:23 Dose: 650 mg Metronidazole (Flagyl) 100 mls @ 100 mls/hr IVPB Q8H [facility] Last Admin: 01/16/17 14:31 Dose: 100 mls/hr Propofol (Diprivan) 100 mls @ 2.722 mls/hr IV .Q24H PRN; Protocol; 5 MCG/KG/MIN PRN Reason: TITRATE PER MD ORDER Last Admin: 01/16/17 15:32 Dose: 13.6 mls/hr Ciprofloxacin (Cipro 400mg/200ml Dsw) 200 mls @ 133 mls/hr IVPB Q12H [facility] Last Admin: 01/16/17 13:15 Dose: 133 mls/hr Piperacillin Sod/Tazobactam Sod (Zosyn 3.375 Gm Iv Premix) 50 mls @ 100 mls/hr IVPB Q6H [facility] Last Admin: 01/16/17 12:34 Dose: 100 mls/hr Insulin Glargine (Lantus) 10 unit SC HS [facility] Insulin Human Regular (Novolin R) 0 unit SC Q6 [facility]HAEL PRN Reason: Protocol Last Admin: 01/16/17 12:35 Dose: 8 unit Pantoprazole Sodium (Protonix Inj) 40 mg IVP DAILY [facility] Last Admin: 01/16/17 10:43 Dose: 40 mg Sodium Hypochlorite (Dakins Solution 0.125%) 0 appl TOP DAILY [facility] - Labs Labs: 01/16/17 06:44 01/16/17 06:44 PT 19.9 SECONDS (9.7-12.2) H 01/15/17 06:45 INR 1.7 01/15/17 06:45 APTT 39 SECONDS (21-34) H 01/15/17 06:45 - Constitutional Appears: Non-toxic, No Acute Distress, Chronically Ill - Head Exam Head Exam: ATRAUMATIC - Eye Exam Additional comments: et tube - Cardiovascular Exam Cardiovascular Exam: REGULAR RHYTHM, +S1, +S2 - GI/Abdominal Exam GI & Abdominal Exam: Soft. absent: Tenderness Additional comments: obese - Neurological Exam Neurological Exam: absent: Alert, Awake, Oriented x3 Assessment and Plan - Assessment and Plan (Free Text) Assessment: 71 year old patient with PMHx significant for HTN, DM, A-fib with slow ventricular response and cataracts initially presented with worsening bilateral LE cellulitis for which patient was septic. Pt also had elevated INR of 15. Patient admitted to ICU for close monitoring. Plan: Neuro: sedated at this time Cardio: Hypotension at times- BP meds held If BP remains stable, low dose betablocker can be added on per Cardiology Pulm: Acute respiratory failure secondary to severe sepsis secondary to bilateral LE cellulitis Patient to attempt CPAP trial today. May attempt extubation if pt can tolerate GI: Diabetisource with water flushes 200cc q 6hrs increased from q 8 hrs Nephro/: monitor hypernatremia Renal insufficiency noted however improving UO greater than 2L Continue IV fluids Nephro on the case Heme: stable, cont to monitor H/H Endo: Diabetic ulcers of lower extremities noted ID: Initially presented with severe sepsis On Flagyl, Daptomycin and Imipenem (Monitor CPK weekly) ID Dr. Blum on the case MSK: Recommendations for BKA surgery however patient's has decoded against the procedure bc she feels that the patient would not consent to losing his legs. Dressing changes per Podiatry No MRI at this point due to hx of pacemaker Prophylaxis: PPI daily DVT prophylaxis held in light of initial elevated INR. Will check coags in the AM and then restart appropriate agent. Palliative: signed POLST DNR forms . May request DNI at a later undetermined time. will not consent for BKA at this time.
[2017-01-16] MEDS ORDERED: Magnesium Hydroxide Susp 30 ml UD PO ONE (18:16)
[2017-01-16] MEDS ORDERED: (Lantus) Insulin Glargine, Recombinant SC SCH (22:00)
--- NOTE | 2017-01-16 22:39 | CP.PCM.PN ---
Subjective - Date & Time of Evaluation Date of Evaluation: 01/16/17 Time of Evaluation: 17:20 - Subjective Subjective: Vented Objective - Vital Signs/Intake and Output Vital Signs (last 24 hours): Temp Pulse Resp BP Pulse Ox 97.5 F L 60 23 137/64 98 01/16/17 19:00 01/16/17 21:00 01/16/17 21:00 01/16/17 21:00 01/16/17 21:00 Intake and Output: 01/16/17 01/17/17 18:59 06:59 Intake Total 2194.2 315.4 Output Total 1000 255 Balance 1194.2 60.4 - Medications Medications: Current Medications Acetaminophen (Tylenol 650mg/20.3ml Solution Ud) 650 mg PO Q6 PRN PRN Reason: Fever >100.4 F Last Admin: 01/16/17 08:23 Dose: 650 mg Metronidazole (Flagyl) 100 mls @ 100 mls/hr IVPB Q8H [facility] Last Admin: 01/16/17 14:31 Dose: 100 mls/hr Propofol (Diprivan) 100 mls @ 2.722 mls/hr IV .Q24H PRN; Protocol; 5 MCG/KG/MIN PRN Reason: TITRATE PER MD ORDER Last Admin: 01/16/17 19:34 Dose: 21.8 mls/hr Ciprofloxacin (Cipro 400mg/200ml Dsw) 200 mls @ 133 mls/hr IVPB Q12H [facility] Last Admin: 01/16/17 13:15 Dose: 133 mls/hr Piperacillin Sod/Tazobactam Sod (Zosyn 3.375 Gm Iv Premix) 50 mls @ 100 mls/hr IVPB Q6H [facility] Last Admin: 01/16/17 17:16 Dose: 100 mls/hr Insulin Glargine (Lantus) 10 unit SC HS [facility] Insulin Human Regular (Novolin R) 0 unit SC Q6 MICHAEL PRN Reason: Protocol Last Admin: 01/16/17 18:03 Dose: 4 unit Pantoprazole Sodium (Protonix Inj) 40 mg IVP DAILY [facility] Last Admin: 01/16/17 10:43 Dose: 40 mg Sodium Hypochlorite (Dakins Solution 0.125%) 0 appl TOP DAILY [facility] - Labs Labs: 01/16/17 06:44 01/16/17 06:44 PT 19.9 SECONDS (9.7-12.2) H 01/15/17 06:45 INR 1.7 01/15/17 06:45 APTT 39 SECONDS (21-34) H 01/15/17 06:45 - Head Exam Head Exam: ATRAUMATIC - Eye Exam Eye Exam: Normal appearance - ENT Exam ENT Exam: Mucous Membranes Dry - Respiratory Exam Respiratory Exam: NORMAL BREATHING PATTERN - Cardiovascular Exam Cardiovascular Exam: +S1, +S2 - GI/Abdominal Exam GI & Abdominal Exam: Normal Bowel Sounds - Extremities Exam Additional comments: B/L LE dressings Assessment and Plan (1) Coagulopathy Assessment & Plan: nutritional prior anticoagulation Status: Acute (2) Leukocytosis Assessment & Plan: on antibiotics Status: Acute (3) Anemia Assessment & Plan: chronic disease Status: Acute
[2017-01-17] MEDS: Ciprofloxacin 400mg/200ml D5W 200 ML IVPB SCH ×2 (00:05→13:09)
[2017-01-17] MEDS: (Novolin R) Insulin Human Regular 100 units/ml vial SC SCH ×4 (00:15→18:13)
[2017-01-17 04:30] LABS: ABG ALLEN TEST POS; ABG MECHANICAL RATE 14; ARTERIAL BLOOD HGB O2 SAT 95.2 % (95.0-98.0); ATERIAL BLOOD GAS PEEP 5; CARBOXYHEMOGLOBIN 2.1 % (0.5-1.5); DRAW SITE RR; HHB 1.4 % (0.0-5.0); METHEMOGLOBIN 1.3 % (0.0-3.0)
[2017-01-17] MEDS: Piperacill/Tazo 3.375gm in Dex 50 ML IVPB SCH ×3 (05:00→18:15)
[2017-01-17] MEDS: metroNIDAZOLE IV 500 mg/100 ml 100 ML IVPB SCH ×3 (06:30→23:00)
[2017-01-17 06:56] LABS: CHLORIDE 118 mmol/L (98-107)
[2017-01-17 06:57] LABS: POTASSIUM 4.9 mmol/L (3.6-5.2); SODIUM 154 mmol/L (132-148)
[2017-01-17 06:59] LABS: ALB/GLOB RATIO 0.6 (1.0-2.1); BILIRUBIN,TOTAL 1.2 mg/dL (0.2-1.3); CARBON DIOXIDE 23 mmol/L (22-30); GFR AFRICAN-AMERICAN > 60; TOTAL PROTEIN 7.5 g/dL (6.3-8.3)
[2017-01-17 07:00] LABS: ALKALINE PHOSPHATASE 168 U/L (38-126); ALT/SGPT 21 U/L (21-72); AST/SGOT 33 U/L (17-59); BLOOD UREA NITROGEN 48 mg/dL (9-20); CALCIUM 7.7 mg/dl (8.6-10.4); GLUCOSE,RANDOM 297 mg/dL (75-110); PHOSPHOROUS 3.1 mg/dL (2.5-4.5)
[2017-01-17 07:01] LABS: MAGNESIUM 2.8 mg/dL (1.6-2.3)
[2017-01-17 07:08] LABS: BASO # 0.2 K/uL (0.0-0.2); BASO % 0.9 % (0.0-2.0); EOS # 0.4 K/uL (0.0-0.7); HEMATOCRIT 28.6 % (35.0-51.0); LYMPH # 1.3 K/uL (1.0-4.3); LYMPH % 6.6 % (20.0-40.0); MEAN CELL VOLUME 83.3 fL (80.0-94.0); MEAN CORPUSCULAR HEMOGLOBIN 25.8 pg (27.0-31.0); MEAN PLATELET VOLUME 8.1 fL (7.2-11.7); MONO # 0.6 K/uL (0.0-0.8); MONO % 2.8 % (0.0-10.0); PLATELET COUNT 243 K/uL (130-400); RED CELL DISTRIBUTION WIDTH 17.1 % (11.5-14.5); WHITE BLOOD COUNT 19.8 K/uL (4.8-10.8)
[2017-01-17 08:20] LABS: EOSINOPHIL 2 % (0-4); TOTAL CELLS COUNTED 100
[2017-01-17 08:22] LABS: NEUTROPHIL 86 % (50-75)
--- NOTE | 2017-01-17 10:45 | RAD ---
HISTORY: intubated COMPARISON: 01/16/2017 FINDINGS: LUNGS: No infiltrate. PLEURA: Probable small bilateral pleural effusion. CARDIOVASCULAR: Normal heart size. Permanent pacemaker. ET tube, NG tube and right IJ central venous catheter are again noted without significant interval change. OSSEOUS STRUCTURES: No significant abnormalities. VISUALIZED UPPER ABDOMEN: Normal. OTHER FINDINGS: None. IMPRESSION: Small bilateral pleural effusion. No infiltrate. Lines and tubes unchanged.
--- NOTE | 2017-01-17 11:52 | CP.PCM.PN ---
Subjective - Date & Time of Evaluation Date of Evaluation: 01/17/17 Time of Evaluation: 11:00 - Subjective Subjective: IS OPPOSED TO BKA THIS IS WHAT PT WOULD REFUSE. 100% CARDIAC PACED. NO ACUTE CV EVENTS. Objective - Vital Signs/Intake and Output Vital Signs (last 24 hours): Temp Pulse Resp BP Pulse Ox 97 F L 60 18 114/52 L 97 01/17/17 04:00 01/17/17 08:02 01/17/17 08:02 01/17/17 08:02 01/17/17 08:02 Intake and Output: 01/17/17 01/17/17 06:59 18:59 Intake Total 1611.6 359.0 Output Total 820 565 Balance 791.6 -206.0 - Medications Medications: Current Medications Acetaminophen (Tylenol 650mg/20.3ml Solution Ud) 650 mg PO Q6 PRN PRN Reason: Fever >100.4 F Last Admin: 01/16/17 08:23 Dose: 650 mg Metronidazole (Flagyl) 100 mls @ 100 mls/hr IVPB Q8H [facility] Last Admin: 01/17/17 06:30 Dose: 100 mls/hr Propofol (Diprivan) 100 mls @ 2.722 mls/hr IV .Q24H PRN; Protocol; 5 MCG/KG/MIN PRN Reason: TITRATE PER MD ORDER Last Admin: 01/17/17 07:16 Dose: 21.8 mls/hr Ciprofloxacin (Cipro 400mg/200ml Dsw) 200 mls @ 133 mls/hr IVPB Q12H [facility] Last Admin: 01/17/17 00:05 Dose: 133 mls/hr Piperacillin Sod/Tazobactam Sod (Zosyn 3.375 Gm Iv Premix) 50 mls @ 100 mls/hr IVPB Q6H [facility] Last Admin: 01/17/17 11:43 Dose: 100 mls/hr Insulin Glargine (Lantus) 10 unit SC HS [facility] Last Admin: 01/16/17 22:35 Dose: 10 units Insulin Human Regular (Novolin R) 0 unit SC Q6 [facility]HAEL PRN Reason: Protocol Last Admin: 01/17/17 06:39 Dose: 8 unit Pantoprazole Sodium (Protonix Inj) 40 mg IVP DAILY [facility] Last Admin: 01/17/17 10:09 Dose: 40 mg Sodium Hypochlorite (Dakins Solution 0.125%) 0 appl TOP DAILY [facility] - Labs Labs: 01/17/17 06:42 01/17/17 06:42 PT 19.9 SECONDS (9.7-12.2) H 01/15/17 06:45 INR 1.7 01/15/17 06:45 APTT 39 SECONDS (21-34) H 01/15/17 06:45 - Constitutional Appears: Other - Head Exam Head Exam: ATRAUMATIC, NORMAL INSPECTION, NORMOCEPHALIC - Eye Exam Eye Exam: EOMI, Normal appearance, PERRL Pupil Exam: NORMAL ACCOMODATION, PERRL - ENT Exam ENT Exam: Mucous Membranes Moist, Normal Exam - Neck Exam Neck Exam: Full ROM, Normal Inspection. absent: Lymphadenopathy - Respiratory Exam Respiratory Exam: Clear to Ausculation Bilateral Additional comments: ON VENT - Cardiovascular Exam Cardiovascular Exam: REGULAR RHYTHM, +S1, +S2, Murmur - GI/Abdominal Exam GI & Abdominal Exam: Soft, Normal Bowel Sounds. absent: Tenderness - Extremities Exam Extremities Exam: Joint Swelling, Pedal Edema Additional comments: B/L WOUNDS - Back Exam Back Exam: NORMAL INSPECTION - Neurological Exam Additional comments: INTUBATED Assessment and Plan (1) Acute delirium Status: Acute (2) Diabetic foot infection Status: Acute (3) Diabetic ulcer of both lower extremities Status: Acute (4) HTN (hypertension) Status: Chronic (5) Pacemaker Status: Chronic (6) Atrial fibrillation Status: Chronic (7) Risk and functional assessment Status: Acute - Assessment and Plan (Free Text) Plan: FAMILY OPPOSED TO BKA. 100% V PACED RHYTHM NO ACUTE CARDIAC ISSUES AT THIS POINT. WILL SIGN OFF, PLEASE RECALL IF ANYTHING DEVELOPS OR IS NEEDED. THANK YOU. 35 MIN
--- NOTE | 2017-01-17 12:58 | CP.PCM.PN ---
Subjective - Date & Time of Evaluation Date of Evaluation: 01/17/17 Time of Evaluation: 12:55 - Subjective Subjective: Remains intubated, sedated On treatment for sepsis ARSENIO improving; hypernatremia worse-154 Unable to obtain ROS Objective - Vital Signs/Intake and Output Vital Signs (last 24 hours): Temp Pulse Resp BP Pulse Ox 97 F L 60 18 114/52 L 97 01/17/17 04:00 01/17/17 08:02 01/17/17 08:02 01/17/17 08:02 01/17/17 08:02 Intake and Output: 01/17/17 01/17/17 06:59 18:59 Intake Total 1611.6 359.0 Output Total 820 565 Balance 791.6 -206.0 - Medications Medications: Current Medications Acetaminophen (Tylenol 650mg/20.3ml Solution Ud) 650 mg PO Q6 PRN PRN Reason: Fever >100.4 F Last Admin: 01/16/17 08:23 Dose: 650 mg Metronidazole (Flagyl) 100 mls @ 100 mls/hr IVPB Q8H [facility] Last Admin: 01/17/17 06:30 Dose: 100 mls/hr Propofol (Diprivan) 100 mls @ 2.722 mls/hr IV .Q24H PRN; Protocol; 5 MCG/KG/MIN PRN Reason: TITRATE PER MD ORDER Last Admin: 01/17/17 07:16 Dose: 21.8 mls/hr Ciprofloxacin (Cipro 400mg/200ml Dsw) 200 mls @ 133 mls/hr IVPB Q12H [facility] Last Admin: 01/17/17 00:05 Dose: 133 mls/hr Piperacillin Sod/Tazobactam Sod (Zosyn 3.375 Gm Iv Premix) 50 mls @ 100 mls/hr IVPB Q6H [facility] Last Admin: 01/17/17 11:43 Dose: 100 mls/hr Insulin Glargine (Lantus) 10 unit SC HS [facility] Last Admin: 01/16/17 22:35 Dose: 10 units Insulin Human Regular (Novolin R) 0 unit SC Q6 [facility]HAEL PRN Reason: Protocol Last Admin: 01/17/17 06:39 Dose: 8 unit Pantoprazole Sodium (Protonix Inj) 40 mg IVP DAILY [facility] Last Admin: 01/17/17 10:09 Dose: 40 mg Sodium Hypochlorite (Dakins Solution 0.125%) 0 appl TOP DAILY [facility] - Labs Labs: 01/17/17 06:42 01/17/17 06:42 PT 19.9 SECONDS (9.7-12.2) H 01/15/17 06:45 INR 1.7 01/15/17 06:45 APTT 39 SECONDS (21-34) H 01/15/17 06:45 - Constitutional Appears: Chronically Ill - Head Exam Head Exam: ATRAUMATIC, NORMAL INSPECTION - Eye Exam Eye Exam: EOMI, Normal appearance - Neck Exam Neck Exam: Normal Inspection. absent: Tenderness - Respiratory Exam Respiratory Exam: Rhonchi, Respiratory Distress - Cardiovascular Exam Cardiovascular Exam: REGULAR RHYTHM, +S1 - GI/Abdominal Exam GI & Abdominal Exam: Soft. absent: Tenderness - Extremities Exam Extremities Exam: Pedal Edema, Tenderness - Neurological Exam Neurological Exam: Altered, Motor Sensory Deficit - Skin Skin Exam: Dry, Warm Assessment and Plan (1) Diabetic ulcer of both lower extremities Status: Acute (2) ARSENIO (acute kidney injury) Status: Resolved (3) Atrial fibrillation with slow ventricular response Status: Chronic (4) Cellulitis Status: Acute (5) DM2 (diabetes mellitus, type 2) Status: Chronic (6) HTN (hypertension) Status: Chronic (7) CKD stage 4 due to type 2 diabetes mellitus Status: Acute (8) Hypernatremia Status: Acute - Assessment and Plan (Free Text) Plan: Increase free water flushes Monitor lytes / renal function Continue IV ABs
--- NOTE | 2017-01-17 14:44 | CP.PCM.PN ---
Subjective - Date & Time of Evaluation Date of Evaluation: 01/17/17 Time of Evaluation: 13:40 - Subjective Subjective: Medical Attending Note Follow-up: severe sepsis, bactermia, coagulopathy, b/l cellulitis, diabetic foot ulcers and strong suspicion for osteomyelitis, atrial fibrillation; pacemaker Patient seen, examined at bedside. Patient underwent CPAP trial last night. Discussed with palliative care, patient is DNR, and will allow natural if unable to wean off vent. Patient 's refuses amputation. Unable to assess ROS given clinical state--intubated /sedated. Discussed with as well who re-affirmed. Objective - Vital Signs/Intake and Output Vital Signs (last 24 hours): Temp Pulse Resp BP Pulse Ox 97 F L 60 18 114/52 L 97 01/17/17 04:00 01/17/17 08:02 01/17/17 08:02 01/17/17 08:02 01/17/17 08:02 Intake and Output: 01/17/17 01/17/17 06:59 18:59 Intake Total 1611.6 359.0 Output Total 820 565 Balance 791.6 -206.0 - Medications Medications: Current Medications Acetaminophen (Tylenol 650mg/20.3ml Solution Ud) 650 mg PO Q6 PRN PRN Reason: Fever >100.4 F Last Admin: 01/16/17 08:23 Dose: 650 mg Metronidazole (Flagyl) 100 mls @ 100 mls/hr IVPB Q8H [facility] Last Admin: 01/17/17 06:30 Dose: 100 mls/hr Propofol (Diprivan) 100 mls @ 2.722 mls/hr IV .Q24H PRN; Protocol; 5 MCG/KG/MIN PRN Reason: TITRATE PER MD ORDER Last Admin: 01/17/17 07:16 Dose: 21.8 mls/hr Ciprofloxacin (Cipro 400mg/200ml Dsw) 200 mls @ 133 mls/hr IVPB Q12H [facility] Last Admin: 01/17/17 13:09 Dose: 133 mls/hr Piperacillin Sod/Tazobactam Sod (Zosyn 3.375 Gm Iv Premix) 50 mls @ 100 mls/hr IVPB Q6H [facility] Last Admin: 01/17/17 11:43 Dose: 100 mls/hr Insulin Glargine (Lantus) 10 unit SC HS [facility] Last Admin: 01/16/17 22:35 Dose: 10 units Insulin Human Regular (Novolin R) 0 unit SC Q6 [facility] PRN Reason: Protocol Last Admin: 01/17/17 06:39 Dose: 8 unit Pantoprazole Sodium (Protonix Inj) 40 mg IVP DAILY [facility] Last Admin: 01/17/17 10:09 Dose: 40 mg Sodium Hypochlorite (Dakins Solution 0.125%) 0 appl TOP DAILY [facility] - Labs Labs: 01/17/17 06:42 01/17/17 06:42 PT 19.9 SECONDS (9.7-12.2) H 01/15/17 06:45 INR 1.7 01/15/17 06:45 APTT 39 SECONDS (21-34) H 01/15/17 06:45 - Constitutional Appears: Non-toxic, Unkempt, Chronically Ill - Head Exam Head Exam: NORMAL INSPECTION - Eye Exam Eye Exam: EOMI - ENT Exam ENT Exam: Mucous Membranes Dry - Respiratory Exam Respiratory Exam: Decreased Breath Sounds. absent: Rales, Rhonchi, Respiratory Distress Additional comments: on vent; intubated - Cardiovascular Exam Cardiovascular Exam: REGULAR RHYTHM, +S1, +S2 - GI/Abdominal Exam GI & Abdominal Exam: Soft, Normal Bowel Sounds. absent: Distended, Guarding, Rigid, Tenderness, Rebound - Extremities Exam Additional comments: DERM: Heavy malodor present bilaterally, with active drainage noted bilaterally. Diffuse continuous erythema noted bilaterally extending distally from level of proximal 1/3 of legs, bilaterally. No interdigital maceration or hyperkeratotic lesion noted bilaterally. Right: Lateral leg partial thickness ulceration measuring 7.5 x 6 cm with a 60% fibrotic to 40% granular wound base. Absent undermining margins. Heel necrotic eschar with active weeping drainage from posterior margin noted. Eschar measures 6.5 x 7 cm. 5 cm lateral margin fibrotic plaque extension noted. Left: Medial 1st metatarsal head region full thickness ulceration measuring 2 x 1.9 cm with 100% fibrotic base absent undermining margins. Fluctuant necrotic heel eschar with active weeping drainage from posterior margin noted. Eschar measures 9 x 7.8 cm. Lateral leg full thickness ulceration measuring 13 x 7 cm with a 80% fibrotic to 20% necrotic base. VASC: DP and PT pulses non-palpable secondary to non-pitting edema. Absent pedal hair growth. - Skin Skin Exam: Dry, Warm Assessment and Plan (1) Severe sepsis Status: Acute (2) Anemia Status: Acute (3) Bacteremia Status: Acute (4) Coagulopathy Status: Acute (5) Diabetic ulcer of both lower extremities Status: Acute (6) Atrial fibrillation Status: Chronic (7) Pacemaker Status: Chronic (8) DM2 (diabetes mellitus, type 2) Status: Chronic (9) HTN (hypertension) Status: Chronic (10) Prophylactic measure Status: Acute - Assessment and Plan (Free Text) Assessment: (1) Severe sepsis Assessment and Plan: 01/17: WBC: 19.8 Na+ 154: Cr: 1.4 Criteria: leukocytosis (28.6): RR>20, and confirmed source of infection including b/l lower extremities; bactermia and likely osteomyelitis and/or gangrene; symptomatic: altered mental status, lethargic, responsive to painful stimuli; creatinine >0.5, coagulation abnormalities INR>1.5 Blood culture (01/09/17): Peptostreptoccus Baltazar X2 Wound culture (01/09/17) Left leg: enterobacter Cloacae Sssp Cloac; Gram negative garret X3, Bacillus speciies; Leg Right: Enterobacter Cloacae X2, Bacillus Chest xray (01/12/17): persistent severe cardiomegaly and interval improvement in pulmonary venous congestion Blood culture (01/12/17): no growth after 4 days X2 Urine culture (01/12/17): no growth Urine culture (01/11/17) no growth Abx: Ciprofloxcin 400mg IV Q 12hours (active since 01/16/17) Flagyl 500mg IV Q 8hours (active since 01/12/17) Zosyn 3.375 IV Q 6 hours (active since 01/16/17) ABG (01/12): mild metabolic acidosis; lactate: 0.8 Patient appears clinically dried at time of rapid. Patient transferred to ICU on 01/12/17. Patient may require amputation;however, patient's refuses amputation Patient unable to get MRI given has pacemaker. Infectious disease (Dr. Blum) on board Nephrology (Dr. Sanchez) on board Podiatry (Dr. Davenport) on board Vascular surgery (Dr. Granger) on board---amputation safest treatment; poor prognosis Cardiology (Dr. Lerma) for cardiac clearance Procalcitonin: 2.11 Status: Acute (2) Coagulopathy Assessment and Plan: possible related to sepsis INR 15.0, PT 191-->INR:2.6-->1.8-->1.6-->1.7 Patient given 10mg of Vitamin K IV over one hour and 6 units of fresh frozen plasma on 01/12 Patient to given additional 2 units of FFP prior central line placement for inr : 1.8 on 01/13 Will be given 1 unit of PRBC today on 01/14 Will need to monitor patient for signs of bleeding. CT scan of the head was negative (01/12/17) for any intracrainal bleed. He was on Eliqius 2.5mg bid since admission which was on 01/08/17-01/12/17 for history of atrial fibrillation Heme-onc (Dr. Stephenson) consult on case given coagulopathy. Patient did have BM during rapid which was NOT black and appeared nonbloody. Status: Acute (3) Diabetic ulcer of both lower extremities Assessment and Plan: Patient has severe ulcers on both legs. Hgba1c: 12.4 (uncontrolled) Accuchecks Q 6hours Regular insulin sliding scale subq 6hours 01/11/17 Bone scan: negative study for acute osseous process. Specifically no evidence to suggest acute osteomyelitis left foot. Findings on the left 1st toe apparent on the prior study 03/27/16. Patient unable to give MRI given he has ICD Wound culture (01/09/17): Enterocloace, Bacilus cerus, and pending third organism bilaterally Dr. lBum (infectious disease) on board-->discussed with ICU, patient to receive one dose of Daptomycin today Abx: Ciprofloxcin 400mg IV Q 12hours (active since 01/16/17) Flagyl 500mg IV Q 8hours (active since 01/12/17) Zosyn 3.375 IV Q 6 hours (active since 01/16/17) Surgery on board (Dr. Granger) on board Podiatry on board (Dr. Davenport) on board Infectious disease on board (Dr. Blum) on board Status: Acute (4) Bacteremia Assessment and Plan: Blood culture (01/09/17): Peptostreptoccus Baltazar X2 Blood culture (01/12/17): no growth after 4 days X2 Abx: Ciprofloxcin 400mg IV Q 12hours (active since 01/16/17) Flagyl 500mg IV Q 8hours (active since 01/12/17) Zosyn 3.375 IV Q 6 hours (active since 01/16/17) Echocardiogram (01/15/17): normal LV systolic function, dilated LA, trace MR, moderate TR Status: Acute (5) Acute delirium Assessment and Plan: Propofol sedation likely related to sepsis Status: Acute (6) Acute renal failure Assessment and Plan: monitor BUN/Cr; C 1.4 Cr baseline before that was around 0.8. Nephrology: Dr. Sanchez is consulted. Patient appears volume depleted at the time of rapid. Received 6 units of FFP and 10mg IV Vitamin K 01/12 and then gentle IV hydration NS 50cc/hr Will receive additional 2 units of FFP 01/13/17 prior to central line placement Status: Acute (7) Atrial fibrillation with slow ventricular response Status: Chronic Comment: Patient has a pace maker; 100% V-Paced. Echocardiogram (01/15/17): normal LV systolic function, dilated LA, trace MR, moderate TR CHADS: 2 (HTN, DM) HASBLED: 4 (HTN, abnormal renal function, labile INR, and age>65) Patient has PPM; will need to find out information regarding pacemaker Cardiology (Dr. Lerma) for cardiac clearance for prior anticipated BKA; which has refused; has signed off (8) DM2 (diabetes mellitus, type 2) Status: Chronic Comment: Accu checks Q6H and sliding scale insulin Q6H per protocol. Uncontrolled; 12.4 a1c start Lantus 14 units subq HS (9) HTN (hypertension) Status: Chronic Comment: monitor vitals sign in light of severe sepsis off anti-hypertensive medications patient is on sedation (10) Prophylactic measure Assessment and Plan: OFF VTE given elevated INR Wound Care : Dolores Birch (contact number: [phone]) Consent for blood products in the hardcopy chart Intubated 01/12 On sedation Status: Acute
--- NOTE | 2017-01-17 15:41 | CP.PCM.PN ---
Subjective - Date & Time of Evaluation Date of Evaluation: 01/17/17 Time of Evaluation: 01:00 - Subjective Subjective: Patient intubated , unable to obtain ROS Objective - Vital Signs/Intake and Output Vital Signs (last 24 hours): Temp Pulse Resp BP Pulse Ox 97 F L 61 15 109/38 L 99 01/17/17 04:00 01/17/17 15:00 01/17/17 15:00 01/17/17 13:02 01/17/17 15:00 Intake and Output: 01/17/17 01/17/17 06:59 18:59 Intake Total 1611.6 342.7 Output Total 820 565 Balance 791.6 -222.3 - Medications Medications: Current Medications Acetaminophen (Tylenol 650mg/20.3ml Solution Ud) 650 mg PO Q6 PRN PRN Reason: Fever >100.4 F Last Admin: 01/16/17 08:23 Dose: 650 mg Metronidazole (Flagyl) 100 mls @ 100 mls/hr IVPB Q8H [facility] Last Admin: 01/17/17 06:30 Dose: 100 mls/hr Propofol (Diprivan) 100 mls @ 2.722 mls/hr IV .Q24H PRN; Protocol; 5 MCG/KG/MIN PRN Reason: TITRATE PER MD ORDER Last Admin: 01/17/17 07:16 Dose: 21.8 mls/hr Ciprofloxacin (Cipro 400mg/200ml Dsw) 200 mls @ 133 mls/hr IVPB Q12H [facility] Last Admin: 01/17/17 13:09 Dose: 133 mls/hr Piperacillin Sod/Tazobactam Sod (Zosyn 3.375 Gm Iv Premix) 50 mls @ 100 mls/hr IVPB Q6H [facility] Last Admin: 01/17/17 11:43 Dose: 100 mls/hr Insulin Glargine (Lantus) 14 unit SC HS [facility] Insulin Human Regular (Novolin R) 0 unit SC Q6 [facility] PRN Reason: Protocol Last Admin: 01/17/17 06:39 Dose: 8 unit Pantoprazole Sodium (Protonix Inj) 40 mg IVP DAILY [facility] Last Admin: 01/17/17 10:09 Dose: 40 mg Sodium Hypochlorite (Dakins Solution 0.125%) 0 appl TOP DAILY [facility] - Labs Labs: 01/17/17 06:42 01/17/17 06:42 PT 19.9 SECONDS (9.7-12.2) H 01/15/17 06:45 INR 1.7 01/15/17 06:45 APTT 39 SECONDS (21-34) H 01/15/17 06:45 - Constitutional Appears: Chronically Ill - Head Exam Head Exam: ATRAUMATIC - Eye Exam Eye Exam: Normal appearance Pupil Exam: NORMAL ACCOMODATION - ENT Exam ENT Exam: Mucous Membranes Dry - Neck Exam Neck Exam: Normal Inspection - Respiratory Exam Respiratory Exam: Decreased Breath Sounds Additional comments: On MV - Cardiovascular Exam Cardiovascular Exam: Tachycardia - GI/Abdominal Exam GI & Abdominal Exam: Hypoactive Bowel Sounds - Rectal Exam Rectal Exam: Deferred - Exam Additional comments: Conner cath - Extremities Exam Additional comments: Severe infection of diabetic ulcers - Neurological Exam Neurological Exam: Alert, Altered Neuro motor strength exam: Left Upper Extremity: 2/1, Right Upper Extremity: 2/1 , Left Lower Extremity: 2/1, Right Lower Extremity: 2/1 - Psychiatric Exam Psychiatric exam: Flat Affect - Skin Skin Exam: Pallor Assessment and Plan - Assessment and Plan (Free Text) Assessment: Patient remains clinically the same. Severe infection of LE diabetic ulcers, suspicious for osteomyelitis still persists. decided against amputation. Her goal for patient is to remain as comfortable as possible and with dignity. Patient will be tried on CPAP today. I further discussed with patient's Riana the Code status. She was clear that if patient does not tolerate CPAP, she would not want him re intubated again. Riana strongly believes, patient would not want it either. She is making arrangements and is planing on cremating her . I assisted Riana in creating new POLST, calling for DNR/DNI. Old POLST was VOID. I shared this with Doctor Joselin and Doctor Henry. Impression * This is a chronically ill patient with severe infection of diabetic ulcers, suspicious of osteomyelitis * decided against amputation * CPAP trial * If patient does not tolerate CPAP, would not want him re intubated. She would want him to naturally with dignity Suggestion * Symptoms control * Agree with DNR/DNI
--- NOTE | 2017-01-17 16:03 | CP.CCUPN ---
<Barbara Barksdale - Last Filed: 01/17/17 16:12> CCU Subjective - Physician Review Subjective (Free Text): 01/15/17 16:00 Pt seen and examined in no acute distress. Pt still intubated and sedated at this time. Patient's spoke with [employer] Sue this morning and indicated that patient would not like his legs amputated. In addition POLST forms were signed for DNR. Pt can not comply with ROS at the moment due to clinical status. 01/16/17 12:51 Pt seen and examined in no apparent distress. Patient remains intubated and sedated. Patient's more open to DNI measures though no final decision yet. Pt still intubated and sedated and cannot comply to ROS due to clinical state. 01/17/17 16:00 Pt seen and examined in no acute distress. Patient stable, intubated and sedated at this time. Pt tolerated CPAP yesterday. No ROS at this time due to clinical state. CCU Objective - Vital Signs / Intake & Output Vital Signs (Last 4 hours): Vital Signs Pulse Resp BP Pulse Ox 01/17/17 15:00 61 15 99 01/17/17 14:00 60 26 H 99 01/17/17 13:02 60 20 109/38 L 96 01/17/17 13:00 60 18 98 Intake and Output (Last 8hrs): Intake & Output 01/17/17 01/17/17 01/17/17 06:59 14:59 22:59 Intake Total 924.4 503.7 55.5 Output Total 505 770 100 Balance 419.4 -266.3 -44.5 Intake: Intake, IV Amount 524.4 103.7 5.5 Right Proximal Port 174.4 103.7 5.5 Internal Jugular Right Medial Port 350 Internal Jugular Tube Feeding 400 400 50 Output: Urine 505 770 100 Urethral (Conner) 505 770 100 - Physical Exam Head: Positive for: Atraumatic, Normocephalic Mouth: Positive for: Moist Mucous Membranes Neck: Positive for: Trachea Midline Respiratory/Chest: Positive for: Clear to Auscultation Cardiovascular: Positive for: Regular Rate and Rhythm Abdomen: Positive for: Normal Bowel Sounds Upper Extremity: Positive for: Normal Inspection, Edema Lower Extremity: Positive for: Edema, Capillary Refill < 2 s, Other (LE dressing b/l; malodorous scent noted). Negative for: NORMAL PULSES Neurological: Positive for: Other Skin: Positive for: Dry, Rashes, Erythematous, Abrasion Psychiatric: Negative for: Alert, Oriented x 3 - Medications Active Medications: Active Medications Generic Name Dose Route Start Last Admin Trade Name Freq PRN Reason Stop Dose Admin Acetaminophen 650 mg 01/15/17 13:53 01/16/17 08:23 Tylenol 650mg/20.3ml Solution Ud PO 650 mg Q6 PRN Administration Fever >100.4 F Metronidazole 100 mls @ 100 mls/hr 01/12/17 23:30 01/17/17 06:30 Flagyl IVPB 100 mls/hr Q8H MICHAEL Administration Propofol 100 mls @ 2.722 mls/hr 01/13/17 00:10 01/17/17 07:16 Diprivan IV 21.8 mls/hr .Q24H PRN Administration TITRATE PER MD ORDER Protocol 5 MCG/KG/MIN Ciprofloxacin 200 mls @ 133 mls/hr 01/16/17 12:00 01/17/17 13:09 Cipro 400mg/200ml Dsw IVPB 133 mls/hr Q12H MICHAEL Administration Piperacillin Sod/Tazobactam Sod 50 mls @ 100 mls/hr 01/16/17 12:00 01/17/17 11: 43 Zosyn 3.375 Gm Iv Premix IVPB 100 mls/hr Q6H MICHAEL Administration Insulin Glargine 14 unit 01/17/17 22:00 Lantus SC HS MICHAEL Insulin Human Regular 0 unit 01/12/17 13:15 01/17/17 06:39 Novolin R SC 8 unit Q6 MICHAEL Administration Protocol Pantoprazole Sodium 40 mg 01/13/17 10:00 01/17/17 10:09 Protonix Inj IVP 40 mg DAILY MICHAEL Administration Sodium Hypochlorite 0 appl 01/17/17 10:00 Dakins Solution 0.125% TOP DAILY MICHAEL - Patient Studies Lab Studies: Microbiology Studies 01/12/17 03:30 Blood Culture - Preliminary Blood NO GROWTH AFTER 4 DAYS 01/12/17 03:45 Blood Culture - Preliminary Blood NO GROWTH AFTER 4 DAYS Lab Studies 01/17/17 01/17/17 01/17/17 Range/Units 11:44 06:42 05:34 WBC 19.8 H (4.8-10.8) K/uL RBC 3.43 L (4.40-5.90) Mil/uL Hgb 8.9 L (12.0-18.0) g/dL Hct 28.6 L (35.0-51.0) % MCV 83.3 (80.0-94.0) fL MCH 25.8 L (27.0-31.0) pg MCHC 31.0 L (33.0-37.0) g/dL RDW 17.1 H (11.5-14.5) % Plt Count 243 (130-400) K/uL MPV 8.1 (7.2-11.7) fL Neut % (Auto) 87.7 H (50.0-75.0) % Lymph % (Auto) 6.6 L (20.0-40.0) % Pike % (Auto) 2.8 (0.0-10.0) % Eos % (Auto) 2.0 (0.0-4.0) % Baso % (Auto) 0.9 (0.0-2.0) % Neut # 17.3 H (1.8-7.0) K/uL Lymph # 1.3 (1.0-4.3) K/uL Pike # 0.6 (0.0-0.8) K/uL Eos # 0.4 (0.0-0.7) K/uL Baso # 0.2 (0.0-0.2) K/uL Neutrophils % (Manual) 86 H (50-75) % Band Neutrophils % 7 H (0-2) % Lymphocytes % (Manual) 3 L (20-40) % Monocytes % (Manual) 2 (0-10) % Eosinophils % (Manual) 2 (0-4) % Toxic Granulation Present Platelet Estimate Normal (NORMAL) Anisocytosis (manual) Slight Puncture Site pCO2 (35-45) mm/Hg pO2 (80-100) mm/Hg HCO3 (21-28) mmol/L ABG pH (7.35-7.45) ABG Total CO2 (22-28) mmol/L ABG O2 Saturation (95-98) % ABG Base Excess (-2.0-3.0) mmol/L ABG Hemoglobin (11.7-17.4) g/dL ABG Carboxyhemoglobin (0.5-1.5) % POC ABG HHb (Measured) (0.0-5.0) % ABG Methemoglobin (0.0-3.0) % Carter Test A-a O2 Difference mm/Hg Respiratory Index Hgb O2 Saturation (95.0-98.0) % Mechanical Rate FiO2 % Tidal Volume PEEP Sodium 154 H (132-148) mmol/L Potassium 4.9 (3.6-5.2) mmol/L Chloride 118 H (98-107) mmol/L Carbon Dioxide 23 (22-30) mmol/L Anion Gap 18 (10-20) BUN 48 H (9-20) mg/dL Creatinine 1.4 (0.8-1.5) MG/DL Est GFR ( Amer) > 60 Est GFR (Non-Af Amer) 50 POC Glucose (mg/dL) 371 H 317 H (65-110) mg/dL Random Glucose 297 H (75-110) mg/dL Calcium 7.7 L (8.6-10.4) mg/dl Phosphorus 3.1 (2.5-4.5) mg/dL Magnesium 2.8 H (1.6-2.3) mg/dL Total Bilirubin 1.2 (0.2-1.3) mg/dL AST 33 (17-59) U/L ALT 21 (21-72) U/L Alkaline Phosphatase 168 H (38-126) U/L Total Protein 7.5 (6.3-8.3) g/dL Albumin 2.8 L (3.5-5.0) g/dL Globulin 4.6 H (2.2-3.9) gm/dL Albumin/Globulin Ratio 0.6 L (1.0-2.1) 01/17/17 01/17/17 01/16/17 Range/Units 04:20 00:10 17:44 WBC (4.8-10.8) K/uL RBC (4.40-5.90) Mil/uL Hgb (12.0-18.0) g/dL Hct (35.0-51.0) % MCV (80.0-94.0) fL MCH (27.0-31.0) pg MCHC (33.0-37.0) g/dL RDW (11.5-14.5) % Plt Count (130-400) K/uL MPV (7.2-11.7) fL Neut % (Auto) (50.0-75.0) % Lymph % (Auto) (20.0-40.0) % Pike % (Auto) (0.0-10.0) % Eos % (Auto) (0.0-4.0) % Baso % (Auto) (0.0-2.0) % Neut # (1.8-7.0) K/uL Lymph # (1.0-4.3) K/uL Pike # (0.0-0.8) K/uL Eos # (0.0-0.7) K/uL Baso # (0.0-0.2) K/uL Neutrophils % (Manual) (50-75) % Band Neutrophils % (0-2) % Lymphocytes % (Manual) (20-40) % Monocytes % (Manual) (0-10) % Eosinophils % (Manual) (0-4) % Toxic Granulation Platelet Estimate (NORMAL) Anisocytosis (manual) Puncture Site Rr pCO2 41 (35-45) mm/Hg pO2 84 (80-100) mm/Hg HCO3 24.8 (21-28) mmol/L ABG pH 7.39 (7.35-7.45) ABG Total CO2 26.1 (22-28) mmol/L ABG O2 Saturation 98.6 H (95-98) % ABG Base Excess -0.2 (-2.0-3.0) mmol/L ABG Hemoglobin 8.3 L (11.7-17.4) g/dL ABG Carboxyhemoglobin 2.1 H (0.5-1.5) % POC ABG HHb (Measured) 1.4 (0.0-5.0) % ABG Methemoglobin 1.3 (0.0-3.0) % Carter Test Pos A-a O2 Difference 150.0 mm/Hg Respiratory Index 1.8 Hgb O2 Saturation 95.2 (95.0-98.0) % Mechanical Rate 14 FiO2 40.0 % Tidal Volume 450 PEEP 5 Sodium (132-148) mmol/L Potassium (3.6-5.2) mmol/L Chloride (98-107) mmol/L Carbon Dioxide (22-30) mmol/L Anion Gap (10-20) BUN (9-20) mg/dL Creatinine (0.8-1.5) MG/DL Est GFR ( Amer) Est GFR (Non-Af Amer) POC Glucose (mg/dL) 346 H 244 H (65-110) mg/dL Random Glucose (75-110) mg/dL Calcium (8.6-10.4) mg/dl Phosphorus (2.5-4.5) mg/dL Magnesium (1.6-2.3) mg/dL Total Bilirubin (0.2-1.3) mg/dL AST (17-59) U/L ALT (21-72) U/L Alkaline Phosphatase (38-126) U/L Total Protein (6.3-8.3) g/dL Albumin (3.5-5.0) g/dL Globulin (2.2-3.9) gm/dL Albumin/Globulin Ratio (1.0-2.1) Laboratory Results - last 24 hr 01/16/17 01/17/17 01/17/17 17:44 00:10 04:20 WBC RBC Hgb Hct MCV MCH MCHC RDW Plt Count MPV Neut % (Auto) Lymph % (Auto) Pike % (Auto) Eos % (Auto) Baso % (Auto) Neut # Lymph # Pike # Eos # Baso # Neutrophils % (Manual) Band Neutrophils % Lymphocytes % (Manual) Monocytes % (Manual) Eosinophils % (Manual) Toxic Granulation Platelet Estimate Anisocytosis (manual) Puncture Site Rr pCO2 41 pO2 84 HCO3 24.8 ABG pH 7.39 ABG Total CO2 26.1 ABG O2 Saturation 98.6 H ABG Base Excess -0.2 ABG Hemoglobin 8.3 L ABG Carboxyhemoglobin 2.1 H POC ABG HHb (Measured) 1.4 ABG Methemoglobin 1.3 Carter Test Pos A-a O2 Difference 150.0 Respiratory Index 1.8 Hgb O2 Saturation 95.2 Mechanical Rate 14 FiO2 40.0 Tidal Volume 450 PEEP 5 Sodium Potassium Chloride Carbon Dioxide Anion Gap BUN Creatinine Est GFR ( Amer) Est GFR (Non-Af Amer) POC Glucose (mg/dL) 244 H 346 H Random Glucose Calcium Phosphorus Magnesium Total Bilirubin AST ALT Alkaline Phosphatase Total Protein Albumin Globulin Albumin/Globulin Ratio 01/17/17 01/17/17 01/17/17 05:34 06:42 11:44 WBC 19.8 H RBC 3.43 L Hgb 8.9 L Hct 28.6 L MCV 83.3 MCH 25.8 L MCHC 31.0 L RDW 17.1 H Plt Count 243 MPV 8.1 Neut % (Auto) 87.7 H Lymph % (Auto) 6.6 L Pike % (Auto) 2.8 Eos % (Auto) 2.0 Baso % (Auto) 0.9 Neut # 17.3 H Lymph # 1.3 Pike # 0.6 Eos # 0.4 Baso # 0.2 Neutrophils % (Manual) 86 H Band Neutrophils % 7 H Lymphocytes % (Manual) 3 L Monocytes % (Manual) 2 Eosinophils % (Manual) 2 Toxic Granulation Present Platelet Estimate Normal Anisocytosis (manual) Slight Puncture Site pCO2 pO2 HCO3 ABG pH ABG Total CO2 ABG O2 Saturation ABG Base Excess ABG Hemoglobin ABG Carboxyhemoglobin POC ABG HHb (Measured) ABG Methemoglobin Carter Test A-a O2 Difference Respiratory Index Hgb O2 Saturation Mechanical Rate FiO2 Tidal Volume PEEP Sodium 154 H Potassium 4.9 Chloride 118 H Carbon Dioxide 23 Anion Gap 18 BUN 48 H Creatinine 1.4 Est GFR ( Amer) > 60 Est GFR (Non-Af Amer) 50 POC Glucose (mg/dL) 317 H 371 H Random Glucose 297 H Calcium 7.7 L Phosphorus 3.1 Magnesium 2.8 H Total Bilirubin 1.2 AST 33 ALT 21 Alkaline Phosphatase 168 H Total Protein 7.5 Albumin 2.8 L Globulin 4.6 H Albumin/Globulin Ratio 0.6 L Fingerstick Blood Sugar Results: 317 Review of Systems - Review of Systems Systems not reviewed;Unavailable: Intubated Review of Systems: see subjective Critical Care Progress Note - Nutrition Nutrition: Nutrition Category Date Time Status Consistent Carbohydrate [DIET] Diets 01/10/17 Breakfast Active Assessment/Plan - Assessment and Plan (Free Text) Assessment: 71 year old patient with PMHx significant for HTN, DM, A-fib with slow ventricular response and cataracts initially presented with worsening bilateral LE cellulitis for which patient was septic. Pt also had elevated INR of 15. Patient admitted to ICU for close monitoring. Patient now DNR/DNI Plan: Neuro: Wean off sedation. Cardio: Hypotension at times- BP meds held If BP remains stable, low dose betablocker can be added on per Cardiology. Cardiology signed off. Pulm: Acute respiratory failure secondary to severe sepsis secondary to bilateral LE cellulitis Patient to attempt CPAP trial again today. May attempt extubation if pt can tolerate GI: Diabetisource with water flushes 200cc Q8h Nephro/: Renal insufficiency noted however improved today Hypernatremia- Free water flushes 250cc Q6 UO greater than 2L Continue IV fluids Nephro on the case Heme: stable, cont to monitor H/H Endo: Diabetic ulcers of lower extremities noted Accuchecks Lantus 10 units QHS ISS Monitor ID: WBC minimal change, Bands inc to 7 Initially presented with severe sepsis On Ricci Marks Cipro ID Dr. Blum on the case MSK: Recommendations for BKA surgery however patient's has decided against the procedure bc she feels that the patient would not consent to amputation. She is acting in his best interests ( as per his expected wishes). Dressing changes per Podiatry- Continued conservative care No MRI at this point due to hx of pacemaker Palliative: If patient is to be extubated, patient's agreeable to DNI for comfort measures. DNR/DNI at this time. will not consent for BKA at this time. Prophylaxis: PPI daily DVT prophylaxis held in light of initial elevated INR. Will check coags in the AM and then restart appropriate agent. <Chacho Figueroa - Last Filed: 01/17/17 17:10> CCU Objective - Vital Signs / Intake & Output Vital Signs (Last 4 hours): Vital Signs Pulse Resp Pulse Ox 01/17/17 15:00 61 15 99 01/17/17 14:00 60 26 H 99 Intake and Output (Last 8hrs): Intake & Output 01/17/17 01/17/17 01/17/17 06:59 14:59 22:59 Intake Total 924.4 503.7 55.5 Output Total 505 770 100 Balance 419.4 -266.3 -44.5 Intake: Intake, IV Amount 524.4 103.7 5.5 Right Proximal Port 174.4 103.7 5.5 Internal Jugular Right Medial Port 350 Internal Jugular Tube Feeding 400 400 50 Output: Urine 505 770 100 Urethral (Conner) 505 770 100 - Medications Active Medications: Active Medications Generic Name Dose Route Start Last Admin Trade Name Freq PRN Reason Stop Dose Admin Acetaminophen 650 mg 01/15/17 13:53 01/16/17 08:23 Tylenol 650mg/20.3ml Solution Ud PO 650 mg Q6 PRN Administration Fever >100.4 F Metronidazole 100 mls @ 100 mls/hr 01/12/17 23:30 01/17/17 16:40 Flagyl IVPB 100 mls/hr Q8H MICHAEL Administration Propofol 100 mls @ 2.722 mls/hr 01/13/17 00:10 01/17/17 07:16 Diprivan IV 21.8 mls/hr .Q24H PRN Administration TITRATE PER MD ORDER Protocol 5 MCG/KG/MIN Ciprofloxacin 200 mls @ 133 mls/hr 01/16/17 12:00 01/17/17 13:09 Cipro 400mg/200ml Dsw IVPB 133 mls/hr Q12H MICHAEL Administration Piperacillin Sod/Tazobactam Sod 50 mls @ 100 mls/hr 01/16/17 12:00 01/17/17 11: 43 Zosyn 3.375 Gm Iv Premix IVPB 100 mls/hr Q6H MICHAEL Administration Insulin Glargine 14 unit 01/17/17 22:00 Lantus SC HS MICHAEL Insulin Human Regular 0 unit 01/12/17 13:15 01/17/17 06:39 Novolin R SC 8 unit Q6 MICHAEL Administration Protocol Pantoprazole Sodium 40 mg 01/13/17 10:00 01/17/17 10:09 Protonix Inj IVP 40 mg DAILY MICHAEL Administration Sodium Hypochlorite 0 appl 01/17/17 10:00 Dakins Solution 0.125% TOP DAILY MICHAEL - Patient Studies Lab Studies: Microbiology Studies 01/12/17 03:30 Blood Culture - Final Blood NO GROWTH AFTER 5 DAYS Gram Stain - Final 01/12/17 03:45 Blood Culture - Final Blood NO GROWTH AFTER 5 DAYS Gram Stain - Final TEST NOT PERFORMED Lab Studies 01/17/17 01/17/17 01/17/17 Range/Units 11:44 06:42 05:34 WBC 19.8 H (4.8-10.8) K/uL RBC 3.43 L (4.40-5.90) Mil/uL Hgb 8.9 L (12.0-18.0) g/dL Hct 28.6 L (35.0-51.0) % MCV 83.3 (80.0-94.0) fL MCH 25.8 L (27.0-31.0) pg MCHC 31.0 L (33.0-37.0) g/dL RDW 17.1 H (11.5-14.5) % Plt Count 243 (130-400) K/uL MPV 8.1 (7.2-11.7) fL Neut % (Auto) 87.7 H (50.0-75.0) % Lymph % (Auto) 6.6 L (20.0-40.0) % Pike % (Auto) 2.8 (0.0-10.0) % Eos % (Auto) 2.0 (0.0-4.0) % Baso % (Auto) 0.9 (0.0-2.0) % Neut # 17.3 H (1.8-7.0) K/uL Lymph # 1.3 (1.0-4.3) K/uL Pike # 0.6 (0.0-0.8) K/uL Eos # 0.4 (0.0-0.7) K/uL Baso # 0.2 (0.0-0.2) K/uL Neutrophils % (Manual) 86 H (50-75) % Band Neutrophils % 7 H (0-2) % Lymphocytes % (Manual) 3 L (20-40) % Monocytes % (Manual) 2 (0-10) % Eosinophils % (Manual) 2 (0-4) % Toxic Granulation Present Platelet Estimate Normal (NORMAL) Anisocytosis (manual) Slight Puncture Site pCO2 (35-45) mm/Hg pO2 (80-100) mm/Hg HCO3 (21-28) mmol/L ABG pH (7.35-7.45) ABG Total CO2 (22-28) mmol/L ABG O2 Saturation (95-98) % ABG Base Excess (-2.0-3.0) mmol/L ABG Hemoglobin (11.7-17.4) g/dL ABG Carboxyhemoglobin (0.5-1.5) % POC ABG HHb (Measured) (0.0-5.0) % ABG Methemoglobin (0.0-3.0) % Carter Test A-a O2 Difference mm/Hg Respiratory Index Hgb O2 Saturation (95.0-98.0) % Mechanical Rate FiO2 % Tidal Volume PEEP Sodium 154 H (132-148) mmol/L Potassium 4.9 (3.6-5.2) mmol/L Chloride 118 H (98-107) mmol/L Carbon Dioxide 23 (22-30) mmol/L Anion Gap 18 (10-20) BUN 48 H (9-20) mg/dL Creatinine 1.4 (0.8-1.5) MG/DL Est GFR ( Amer) > 60 Est GFR (Non-Af Amer) 50 POC Glucose (mg/dL) 371 H 317 H (65-110) mg/dL Random Glucose 297 H (75-110) mg/dL Calcium 7.7 L (8.6-10.4) mg/dl Phosphorus 3.1 (2.5-4.5) mg/dL Magnesium 2.8 H (1.6-2.3) mg/dL Total Bilirubin 1.2 (0.2-1.3) mg/dL AST 33 (17-59) U/L ALT 21 (21-72) U/L Alkaline Phosphatase 168 H (38-126) U/L Total Protein 7.5 (6.3-8.3) g/dL Albumin 2.8 L (3.5-5.0) g/dL Globulin 4.6 H (2.2-3.9) gm/dL Albumin/Globulin Ratio 0.6 L (1.0-2.1) 01/17/17 01/17/17 01/16/17 Range/Units 04:20 00:10 17:44 WBC (4.8-10.8) K/uL RBC (4.40-5.90) Mil/uL Hgb (12.0-18.0) g/dL Hct (35.0-51.0) % MCV (80.0-94.0) fL MCH (27.0-31.0) pg MCHC (33.0-37.0) g/dL RDW (11.5-14.5) % Plt Count (130-400) K/uL MPV (7.2-11.7) fL Neut % (Auto) (50.0-75.0) % Lymph % (Auto) (20.0-40.0) % Pike % (Auto) (0.0-10.0) % Eos % (Auto) (0.0-4.0) % Baso % (Auto) (0.0-2.0) % Neut # (1.8-7.0) K/uL Lymph # (1.0-4.3) K/uL Pike # (0.0-0.8) K/uL Eos # (0.0-0.7) K/uL Baso # (0.0-0.2) K/uL Neutrophils % (Manual) (50-75) % Band Neutrophils % (0-2) % Lymphocytes % (Manual) (20-40) % Monocytes % (Manual) (0-10) % Eosinophils % (Manual) (0-4) % Toxic Granulation Platelet Estimate (NORMAL) Anisocytosis (manual) Puncture Site Rr pCO2 41 (35-45) mm/Hg pO2 84 (80-100) mm/Hg HCO3 24.8 (21-28) mmol/L ABG pH 7.39 (7.35-7.45) ABG Total CO2 26.1 (22-28) mmol/L ABG O2 Saturation 98.6 H (95-98) % ABG Base Excess -0.2 (-2.0-3.0) mmol/L ABG Hemoglobin 8.3 L (11.7-17.4) g/dL ABG Carboxyhemoglobin 2.1 H (0.5-1.5) % POC ABG HHb (Measured) 1.4 (0.0-5.0) % ABG Methemoglobin 1.3 (0.0-3.0) % Carter Test Pos A-a O2 Difference 150.0 mm/Hg Respiratory Index 1.8 Hgb O2 Saturation 95.2 (95.0-98.0) % Mechanical Rate 14 FiO2 40.0 % Tidal Volume 450 PEEP 5 Sodium (132-148) mmol/L Potassium (3.6-5.2) mmol/L Chloride (98-107) mmol/L Carbon Dioxide (22-30) mmol/L Anion Gap (10-20) BUN (9-20) mg/dL Creatinine (0.8-1.5) MG/DL Est GFR ( Amer) Est GFR (Non-Af Amer) POC Glucose (mg/dL) 346 H 244 H (65-110) mg/dL Random Glucose (75-110) mg/dL Calcium (8.6-10.4) mg/dl Phosphorus (2.5-4.5) mg/dL Magnesium (1.6-2.3) mg/dL Total Bilirubin (0.2-1.3) mg/dL AST (17-59) U/L ALT (21-72) U/L Alkaline Phosphatase (38-126) U/L Total Protein (6.3-8.3) g/dL Albumin (3.5-5.0) g/dL Globulin (2.2-3.9) gm/dL Albumin/Globulin Ratio (1.0-2.1) Laboratory Results - last 24 hr 01/16/17 01/17/17 01/17/17 17:44 00:10 04:20 WBC RBC Hgb Hct MCV MCH MCHC RDW Plt Count MPV Neut % (Auto) Lymph % (Auto) Pike % (Auto) Eos % (Auto) Baso % (Auto) Neut # Lymph # Pike # Eos # Baso # Neutrophils % (Manual) Band Neutrophils % Lymphocytes % (Manual) Monocytes % (Manual) Eosinophils % (Manual) Toxic Granulation Platelet Estimate Anisocytosis (manual) Puncture Site Rr pCO2 41 pO2 84 HCO3 24.8 ABG pH 7.39 ABG Total CO2 26.1 ABG O2 Saturation 98.6 H ABG Base Excess -0.2 ABG Hemoglobin 8.3 L ABG Carboxyhemoglobin 2.1 H POC ABG HHb (Measured) 1.4 ABG Methemoglobin 1.3 Carter Test Pos A-a O2 Difference 150.0 Respiratory Index 1.8 Hgb O2 Saturation 95.2 Mechanical Rate 14 FiO2 40.0 Tidal Volume 450 PEEP 5 Sodium Potassium Chloride Carbon Dioxide Anion Gap BUN Creatinine Est GFR ( Amer) Est GFR (Non-Af Amer) POC Glucose (mg/dL) 244 H 346 H Random Glucose Calcium Phosphorus Magnesium Total Bilirubin AST ALT Alkaline Phosphatase Total Protein Albumin Globulin Albumin/Globulin Ratio 01/17/17 01/17/17 01/17/17 05:34 06:42 11:44 WBC 19.8 H RBC 3.43 L Hgb 8.9 L Hct 28.6 L MCV 83.3 MCH 25.8 L MCHC 31.0 L RDW 17.1 H Plt Count 243 MPV 8.1 Neut % (Auto) 87.7 H Lymph % (Auto) 6.6 L Pike % (Auto) 2.8 Eos % (Auto) 2.0 Baso % (Auto) 0.9 Neut # 17.3 H Lymph # 1.3 Pike # 0.6 Eos # 0.4 Baso # 0.2 Neutrophils % (Manual) 86 H Band Neutrophils % 7 H Lymphocytes % (Manual) 3 L Monocytes % (Manual) 2 Eosinophils % (Manual) 2 Toxic Granulation Present Platelet Estimate Normal Anisocytosis (manual) Slight Puncture Site pCO2 pO2 HCO3 ABG pH ABG Total CO2 ABG O2 Saturation ABG Base Excess ABG Hemoglobin ABG Carboxyhemoglobin POC ABG HHb (Measured) ABG Methemoglobin Carter Test A-a O2 Difference Respiratory Index Hgb O2 Saturation Mechanical Rate FiO2 Tidal Volume PEEP Sodium 154 H Potassium 4.9 Chloride 118 H Carbon Dioxide 23 Anion Gap 18 BUN 48 H Creatinine 1.4 Est GFR ( Amer) > 60 Est GFR (Non-Af Amer) 50 POC Glucose (mg/dL) 317 H 371 H Random Glucose 297 H Calcium 7.7 L Phosphorus 3.1 Magnesium 2.8 H Total Bilirubin 1.2 AST 33 ALT 21 Alkaline Phosphatase 168 H Total Protein 7.5 Albumin 2.8 L Globulin 4.6 H Albumin/Globulin Ratio 0.6 L Critical Care Progress Note - Nutrition Nutrition: Nutrition Category Date Time Status Consistent Carbohydrate [DIET] Diets 01/10/17 Breakfast Active Assessment/Plan (1) Acute respiratory failure with hypercapnia Current Visit: Yes Status: Acute Comment: Continue ventilatory support and reduce FiO2 as tolerated, no weaning Continue IV antibiotics Transfuse packed RBCs and follow up CBC Follow-up culture and sensitivity (2) Diabetic ulcer of both lower extremities Current Visit: Yes Status: Acute Comment: Vascular recommending potential knee level amputation Continue antibiotics for now wants to decide for surgery after discussing with seed expert (3) Bacteremia Current Visit: Yes Status: Acute (4) CKD stage 4 due to type 2 diabetes mellitus Current Visit: Yes Status: Acute (5) Coagulopathy Current Visit: Yes Status: Acute (6) Diabetic foot infection Current Visit: Yes Status: Acute Attending/Attestation - Attestation I have personally seen and examined this patient.: Yes I have fully participated in the care of the patient.: Yes I have reviewed all pertinent clinical information: Yes Notes (Text): 01/17/17 17:09 patient seen and examined in the intensive care unit. Case discussed with staff in the morning rounds. Tolerating CPAP since morning and more awake and responsive On antibiotics Continue feeding DNR/DNI
--- NOTE | 2017-01-17 16:23 | CP.PCM.PN ---
Subjective - Date & Time of Evaluation Date of Evaluation: 01/17/17 Time of Evaluation: 09:00 - Subjective Subjective: awake alert on cpap nad at bedside Objective - Vital Signs/Intake and Output Vital Signs (last 24 hours): Temp Pulse Resp BP Pulse Ox 97 F L 61 15 109/38 L 99 01/17/17 04:00 01/17/17 15:00 01/17/17 15:00 01/17/17 13:02 01/17/17 15:00 Intake and Output: 01/17/17 01/17/17 06:59 18:59 Intake Total 1611.6 559.2 Output Total 820 870 Balance 791.6 -310.8 - Medications Medications: Current Medications Acetaminophen (Tylenol 650mg/20.3ml Solution Ud) 650 mg PO Q6 PRN PRN Reason: Fever >100.4 F Last Admin: 01/16/17 08:23 Dose: 650 mg Metronidazole (Flagyl) 100 mls @ 100 mls/hr IVPB Q8H [facility] Last Admin: 01/17/17 06:30 Dose: 100 mls/hr Propofol (Diprivan) 100 mls @ 2.722 mls/hr IV .Q24H PRN; Protocol; 5 MCG/KG/MIN PRN Reason: TITRATE PER MD ORDER Last Admin: 01/17/17 07:16 Dose: 21.8 mls/hr Ciprofloxacin (Cipro 400mg/200ml Dsw) 200 mls @ 133 mls/hr IVPB Q12H [facility] Last Admin: 01/17/17 13:09 Dose: 133 mls/hr Piperacillin Sod/Tazobactam Sod (Zosyn 3.375 Gm Iv Premix) 50 mls @ 100 mls/hr IVPB Q6H [facility] Last Admin: 01/17/17 11:43 Dose: 100 mls/hr Insulin Glargine (Lantus) 14 unit SC HS [facility] Insulin Human Regular (Novolin R) 0 unit SC Q6 [facility] PRN Reason: Protocol Last Admin: 01/17/17 06:39 Dose: 8 unit Pantoprazole Sodium (Protonix Inj) 40 mg IVP DAILY [facility] Last Admin: 01/17/17 10:09 Dose: 40 mg Sodium Hypochlorite (Dakins Solution 0.125%) 0 appl TOP DAILY MICHAEL - Labs Labs: 01/17/17 06:42 01/17/17 06:42 PT 19.9 SECONDS (9.7-12.2) H 01/15/17 06:45 INR 1.7 01/15/17 06:45 APTT 39 SECONDS (21-34) H 01/15/17 06:45 - Constitutional Appears: Non-toxic, Chronically Ill - Head Exam Head Exam: NORMOCEPHALIC - Eye Exam Eye Exam: absent: Scleral icterus - Neck Exam Neck Exam: absent: Lymphadenopathy - Respiratory Exam Respiratory Exam: Decreased Breath Sounds, Clear to Ausculation Bilateral - Cardiovascular Exam Cardiovascular Exam: REGULAR RHYTHM, +S1, +S2 - GI/Abdominal Exam GI & Abdominal Exam: Distended, Soft. absent: Tenderness - Extremities Exam Extremities Exam: Pedal Edema, Tenderness - Back Exam Back Exam: absent: CVA tenderness (L), CVA tenderness (R) Assessment and Plan (1) Acute renal failure Status: Resolved (2) Diabetic foot infection Status: Acute (3) Diabetic ulcer of both lower extremities Status: Acute (4) Leukocytosis Status: Acute (5) ARSENIO (acute kidney injury) Status: Resolved (6) Abdominal distension Status: Acute (7) Atrial fibrillation with slow ventricular response Status: Chronic (8) Cellulitis Status: Acute
--- NOTE | 2017-01-17 17:09 | CP.PCM.PN ---
Subjective - Date & Time of Evaluation Date of Evaluation: 01/17/17 Time of Evaluation: 17:08 - Subjective Subjective: 71 y/o male with b/l Le cellultis with sepsis. patient on cpap responsive to sound but cannot speak. Objective - Vital Signs/Intake and Output Vital Signs (last 24 hours): Temp Pulse Resp BP Pulse Ox 97 F L 61 15 109/38 L 99 01/17/17 04:00 01/17/17 15:00 01/17/17 15:00 01/17/17 13:02 01/17/17 15:00 Intake and Output: 01/17/17 01/17/17 06:59 18:59 Intake Total 1611.6 559.2 Output Total 820 870 Balance 791.6 -310.8 - Medications Medications: Current Medications Acetaminophen (Tylenol 650mg/20.3ml Solution Ud) 650 mg PO Q6 PRN PRN Reason: Fever >100.4 F Last Admin: 01/16/17 08:23 Dose: 650 mg Metronidazole (Flagyl) 100 mls @ 100 mls/hr IVPB Q8H [facility] Last Admin: 01/17/17 16:40 Dose: 100 mls/hr Propofol (Diprivan) 100 mls @ 2.722 mls/hr IV .Q24H PRN; Protocol; 5 MCG/KG/MIN PRN Reason: TITRATE PER MD ORDER Last Admin: 01/17/17 07:16 Dose: 21.8 mls/hr Ciprofloxacin (Cipro 400mg/200ml Dsw) 200 mls @ 133 mls/hr IVPB Q12H [facility] Last Admin: 01/17/17 13:09 Dose: 133 mls/hr Piperacillin Sod/Tazobactam Sod (Zosyn 3.375 Gm Iv Premix) 50 mls @ 100 mls/hr IVPB Q6H [facility] Last Admin: 01/17/17 11:43 Dose: 100 mls/hr Insulin Glargine (Lantus) 14 unit SC HS [facility] Insulin Human Regular (Novolin R) 0 unit SC Q6 [facility] PRN Reason: Protocol Last Admin: 01/17/17 06:39 Dose: 8 unit Pantoprazole Sodium (Protonix Inj) 40 mg IVP DAILY [facility] Last Admin: 01/17/17 10:09 Dose: 40 mg Sodium Hypochlorite (Dakins Solution 0.125%) 0 appl TOP DAILY [facility] - Labs Labs: 01/17/17 06:42 01/17/17 06:42 PT 19.9 SECONDS (9.7-12.2) H 01/15/17 06:45 INR 1.7 01/15/17 06:45 APTT 39 SECONDS (21-34) H 01/15/17 06:45 - Constitutional Appears: Toxic - Additional Findings Additional findings: Lower extremity focused. DERM: Heavy [id number] present bilaterally, with active drainage noted bilaterally. Diffuse continuous erythema noted bilaterally extending distally from level of proximal 1/3 of legs, bilaterally. No interdigital maceratin or hyperkeratotic lesion noted bilaterally. Right: Lateral leg partial thickness ulceration measuring 7.5 x 6 cm with a 60% fibrotic to 40% granular wound base. Absent undermining margins. Heel necrotic eschar with active weeping drainage from posterior margin noted. Eschar measures 6.5 x 7 cm. 5 cm lateral magin fibrotic plaque extension noted. Left: Medial 1st metatarsal head region full thickness ulceration measuring 2 x 1.9 cm with 100% fibrotic base absent undermining margins. Fluctuant necrotic heel eschar with active weeping drainage from posterior margin noted. Eschar measures 9 x 7.8 cm. Lateral leg full thickness ulceration measuring 13 x 7 cm with a 80% fibrotic to 20% necrotic base. increased erythema noted with increased drainage VASC: DP and PT pulses non-palpable secondary to non-pitting edema. Absent pedal hair growth. Negative Homann and Talbot's signs bilaterally. Cappilarry refill time <5 seconds to digits. NERUO: Sensation grossly diminished distal to ankle joint bilaterally. Ortho: No gross deformities noted. Largely deferred to to patients refusal to participate. Assessment and Plan - Assessment and Plan (Free Text) Assessment: 71 year old male with infected bilateral lower extremity wounds and cellulits. 3 total Gottlieb grade 2 ulcerations & 2 total non-stagable ulcerations to heels bilaterally, all secondary to diabetic neuropathy. Plan: Patient evaluated and chart reviewed Discussed with Dr Davenport.. Upon exam right leg looks mildly improved but left is further deteriorated No BKA for now per family; will continue conservative care; Will follow while admitted.
[2017-01-17] MEDS ORDERED: (Lantus) Insulin Glargine, Recombinant SC SCH (22:00)
[2017-01-18] MEDS: Ciprofloxacin 400mg/200ml D5W 200 ML IVPB SCH ×2 (00:30→11:22)
[2017-01-18] MEDS: (Novolin R) Insulin Human Regular 100 units/ml vial SC SCH ×4 (02:11→18:38)
[2017-01-18 04:16] LABS: ABG ALLEN TEST POS; ABG MECHANICAL RATE 14; ARTERIAL BLOOD HGB O2 SAT 96.1 % (95.0-98.0); ATERIAL BLOOD GAS PEEP 5; CARBOXYHEMOGLOBIN 1.7 % (0.5-1.5); DRAW SITE RR; HHB 0.9 % (0.0-5.0); METHEMOGLOBIN 1.3 % (0.0-3.0)
[2017-01-18] MEDS: Piperacill/Tazo 3.375gm in Dex 50 ML IVPB SCH ×5 (05:32→23:30)
[2017-01-18 06:21] LABS: CHLORIDE 118 mmol/L (98-107); POTASSIUM 4.6 mmol/L (3.6-5.2); SODIUM 154 mmol/L (132-148)
[2017-01-18 06:23] LABS: ALB/GLOB RATIO 0.6 (1.0-2.1); ALKALINE PHOSPHATASE 161 U/L (38-126); AST/SGOT 38 U/L (17-59); BILIRUBIN,TOTAL 1.1 mg/dL (0.2-1.3); BLOOD UREA NITROGEN 44 mg/dL (9-20); CARBON DIOXIDE 25 mmol/L (22-30); GFR AFRICAN-AMERICAN > 60; GLUCOSE,RANDOM 245 mg/dL (75-110); TOTAL PROTEIN 7.2 g/dL (6.3-8.3)
[2017-01-18 06:24] LABS: ALT/SGPT 18 U/L (21-72); CALCIUM 7.8 mg/dl (8.6-10.4); MAGNESIUM 2.7 mg/dL (1.6-2.3); PHOSPHOROUS 3.1 mg/dL (2.5-4.5)
[2017-01-18 06:27] LABS: INR 1.9
[2017-01-18 07:03] LABS: BASO # 0.1 K/uL (0.0-0.2); BASO % 0.6 % (0.0-2.0); EOS # 0.4 K/uL (0.0-0.7); EOS % 2.6 % (0.0-4.0); HEMATOCRIT 28.4 % (35.0-51.0); LYMPH # 1.1 K/uL (1.0-4.3); LYMPH % 6.6 % (20.0-40.0); MEAN CELL VOLUME 83.2 fL (80.0-94.0); MEAN CORPUSCULAR HEMOGLOBIN 26.3 pg (27.0-31.0); MEAN CORPUSCULAR HGB CONC 31.6 g/dL (33.0-37.0); MEAN PLATELET VOLUME 8.2 fL (7.2-11.7); MONO # 0.4 K/uL (0.0-0.8); MONO % 2.6 % (0.0-10.0); PLATELET COUNT 248 K/uL (130-400); RED CELL DISTRIBUTION WIDTH 17.5 % (11.5-14.5); WHITE BLOOD COUNT 16.7 K/uL (4.8-10.8)
[2017-01-18] MEDS: metroNIDAZOLE IV 500 mg/100 ml 100 ML IVPB SCH ×3 (07:09→22:30)
[2017-01-18 08:31] LABS: EOSINOPHIL 2 % (0-4); NEUTROPHIL 86 % (50-75); TOTAL CELLS COUNTED 100
[2017-01-18 08:32] LABS: LARGE PLATELETS PRESENT
--- NOTE | 2017-01-18 09:45 | CP.PCM.PN ---
Subjective - Date & Time of Evaluation Date of Evaluation: 01/18/17 Time of Evaluation: 07:00 - Subjective Subjective: Patient seen and examined in the intensive care unit. Remains intubated on ventilatory support tolerated CPAP for many hours yesterday and switched to assist control mode overnight Response to vocal commands Afebrile Objective - Vital Signs/Intake and Output Vital Signs (last 24 hours): Temp Pulse Resp BP Pulse Ox 97.7 F 60 18 149/67 96 01/18/17 04:00 01/18/17 06:00 01/18/17 06:00 01/18/17 06:00 01/18/17 06:00 Intake and Output: 01/18/17 01/18/17 06:59 18:59 Intake Total 1464.6 121.8 Output Total 825 135 Balance 639.6 -13.2 - Medications Medications: Current Medications Acetaminophen (Tylenol 650mg/20.3ml Solution Ud) 650 mg PO Q6 PRN PRN Reason: Fever >100.4 F Last Admin: 01/16/17 08:23 Dose: 650 mg Metronidazole (Flagyl) 100 mls @ 100 mls/hr IVPB Q8H [facility] Last Admin: 01/18/17 07:09 Dose: 100 mls/hr Propofol (Diprivan) 100 mls @ 2.722 mls/hr IV .Q24H PRN; Protocol; 5 MCG/KG/MIN PRN Reason: TITRATE PER MD ORDER Last Admin: 01/18/17 05:21 Dose: 10.9 mls/hr Ciprofloxacin (Cipro 400mg/200ml Dsw) 200 mls @ 133 mls/hr IVPB Q12H [facility] Last Admin: 01/18/17 00:30 Dose: 133 mls/hr Piperacillin Sod/Tazobactam Sod (Zosyn 3.375 Gm Iv Premix) 50 mls @ 100 mls/hr IVPB Q6H [facility] Last Admin: 01/18/17 05:32 Dose: 100 mls/hr Insulin Glargine (Lantus) 14 unit SC HS [facility] Last Admin: 01/18/17 02:01 Dose: 14 u Insulin Human Regular (Novolin R) 0 unit SC Q6 [facility] PRN Reason: Protocol Last Admin: 01/18/17 06:45 Dose: 6 unit Pantoprazole Sodium (Protonix Inj) 40 mg IVP DAILY [facility] Last Admin: 01/17/17 10:09 Dose: 40 mg Sodium Hypochlorite (Dakins Solution 0.125%) 0 appl TOP DAILY [facility] Last Admin: 01/17/17 16:30 Dose: 20 appl - Labs Labs: 01/18/17 05:54 01/18/17 05:54 PT 22.2 SECONDS (9.7-12.2) H 01/18/17 05:54 INR 1.9 01/18/17 05:54 APTT 36 SECONDS (21-34) H 01/18/17 05:54 - Head Exam Head Exam: ATRAUMATIC, NORMOCEPHALIC - ENT Exam ENT Exam: Mucous Membranes Moist - Neck Exam Neck Exam: Normal Inspection - Respiratory Exam Respiratory Exam: Clear to Ausculation Bilateral - Cardiovascular Exam Cardiovascular Exam: REGULAR RHYTHM - GI/Abdominal Exam GI & Abdominal Exam: Soft, Normal Bowel Sounds Assessment and Plan (1) Acute respiratory failure with hypercapnia Assessment & Plan: CPAP trial and possible extubation Continue antibiotics per infectious disease Patient seen by podiatry refused below-knee amputation Status: Acute (2) Diabetic ulcer of both lower extremities Status: Acute (3) Bacteremia Status: Acute (4) CKD stage 4 due to type 2 diabetes mellitus Status: Acute (5) Coagulopathy Status: Acute (6) Diabetic foot infection Status: Acute
--- NOTE | 2017-01-18 09:57 | CP.PCM.PN ---
Subjective - Date & Time of Evaluation Date of Evaluation: 01/18/17 Time of Evaluation: 09:54 - Subjective Subjective: Remains on vent; was on CPAP overnight Good UO; renal function stable Still with hypernatremia- recently started No amputation- family resisting this Remains on IV antibiotics for foot infections Objective - Vital Signs/Intake and Output Vital Signs (last 24 hours): Temp Pulse Resp BP Pulse Ox 97.7 F 60 18 149/67 96 01/18/17 04:00 01/18/17 06:00 01/18/17 06:00 01/18/17 06:00 01/18/17 06:00 Intake and Output: 01/18/17 01/18/17 06:59 18:59 Intake Total 1464.6 121.8 Output Total 825 135 Balance 639.6 -13.2 - Medications Medications: Current Medications Acetaminophen (Tylenol 650mg/20.3ml Solution Ud) 650 mg PO Q6 PRN PRN Reason: Fever >100.4 F Last Admin: 01/16/17 08:23 Dose: 650 mg Metronidazole (Flagyl) 100 mls @ 100 mls/hr IVPB Q8H [facility] Last Admin: 01/18/17 07:09 Dose: 100 mls/hr Propofol (Diprivan) 100 mls @ 2.722 mls/hr IV .Q24H PRN; Protocol; 5 MCG/KG/MIN PRN Reason: TITRATE PER MD ORDER Last Admin: 01/18/17 05:21 Dose: 10.9 mls/hr Ciprofloxacin (Cipro 400mg/200ml Dsw) 200 mls @ 133 mls/hr IVPB Q12H [facility] Last Admin: 01/18/17 00:30 Dose: 133 mls/hr Piperacillin Sod/Tazobactam Sod (Zosyn 3.375 Gm Iv Premix) 50 mls @ 100 mls/hr IVPB Q6H [facility] Last Admin: 01/18/17 05:32 Dose: 100 mls/hr Insulin Glargine (Lantus) 14 unit SC HS [facility] Last Admin: 01/18/17 02:01 Dose: 14 u Insulin Human Regular (Novolin R) 0 unit SC Q6 [facility] PRN Reason: Protocol Last Admin: 01/18/17 06:45 Dose: 6 unit Pantoprazole Sodium (Protonix Inj) 40 mg IVP DAILY [facility] Last Admin: 01/17/17 10:09 Dose: 40 mg Sodium Hypochlorite (Dakins Solution 0.125%) 0 appl TOP DAILY [facility] Last Admin: 01/17/17 16:30 Dose: 20 appl - Labs Labs: 01/18/17 05:54 01/18/17 05:54 PT 22.2 SECONDS (9.7-12.2) H 01/18/17 05:54 INR 1.9 01/18/17 05:54 APTT 36 SECONDS (21-34) H 01/18/17 05:54 - Constitutional Appears: In Acute Distress, Chronically Ill - Head Exam Head Exam: ATRAUMATIC, NORMAL INSPECTION - Neck Exam Neck Exam: Normal Inspection. absent: Tenderness - Respiratory Exam Respiratory Exam: Rhonchi, Respiratory Distress - Cardiovascular Exam Cardiovascular Exam: REGULAR RHYTHM, +S1 - GI/Abdominal Exam GI & Abdominal Exam: Soft. absent: Tenderness - Extremities Exam Extremities Exam: Normal Inspection. absent: Tenderness - Neurological Exam Neurological Exam: Altered, Motor Sensory Deficit - Skin Skin Exam: Dry, Warm Assessment and Plan (1) Diabetic ulcer of both lower extremities Status: Acute (2) Atrial fibrillation with slow ventricular response Status: Chronic (3) Cellulitis Status: Acute (4) DM2 (diabetes mellitus, type 2) Status: Chronic (5) HTN (hypertension) Status: Chronic (6) CKD stage 4 due to type 2 diabetes mellitus Status: Acute (7) Hypernatremia Status: Acute - Assessment and Plan (Free Text) Plan: Monitor lytes; can add D5W if hypernatremia worsens Continue IV ABs Monitor renal function Respiratory care as per ICU
--- NOTE | 2017-01-18 11:38 | CP.CCUPN ---
<Barbara Barksdale - Last Filed: 01/18/17 16:28> CCU Subjective - Physician Review Subjective (Free Text): 01/15/17 16:00 Pt seen and examined in no acute distress. Pt still intubated and sedated at this time. Patient's spoke with Chaplain Bhatt this morning and indicated that patient would not like his legs amputated. In addition POLST forms were signed for DNR. Pt can not comply with ROS at the moment due to clinical status. 01/16/17 12:51 Pt seen and examined in no apparent distress. Patient remains intubated and sedated. Patient's more open to DNI measures though no final decision yet. Pt still intubated and sedated and cannot comply to ROS due to clinical state. 01/17/17 16:00 Pt seen and examined in no acute distress. Patient stable, intubated and sedated at this time. Pt tolerated CPAP yesterday. No ROS at this time due to clinical state. 01/18/17 16:28 Pt seen and examined in no acute distress. Patient to attempt CPAP therapy with PS today again in hopes of extubating soon. and niece available with questions and answers addressed. At this time, ROS not obtained as patient sedated and intubated. CCU Objective - Vital Signs / Intake & Output Intake and Output (Last 8hrs): Intake & Output 01/17/17 01/18/17 01/18/17 22:59 06:59 14:59 Intake Total 449.4 1237.2 121.8 Output Total 690 510 135 Balance -240.6 727.2 -13.2 Intake: Intake, IV Amount 49.4 437.2 21.8 Left Forearm 0 Right Proximal Port 49.4 87.2 21.8 Internal Jugular Right Medial Port 350 0 Internal Jugular Tube Feeding 400 400 100 Other 400 Output: Urine 690 510 135 Urethral (Conner) 690 510 135 - Physical Exam Head: Positive for: Atraumatic, Normocephalic Mouth: Positive for: Moist Mucous Membranes Neck: Positive for: Trachea Midline Respiratory/Chest: Positive for: Clear to Auscultation Cardiovascular: Positive for: Regular Rate and Rhythm Abdomen: Positive for: Normal Bowel Sounds Upper Extremity: Positive for: Normal Inspection, Edema Lower Extremity: Positive for: Edema, Capillary Refill < 2 s, Other (LE dressing b/l; malodorous scent noted). Negative for: NORMAL PULSES Neurological: Positive for: Other Skin: Positive for: Dry, Rashes, Erythematous, Abrasion Psychiatric: Negative for: Alert, Oriented x 3 - Medications Active Medications: Active Medications Generic Name Dose Route Start Last Admin Trade Name Freq PRN Reason Stop Dose Admin Acetaminophen 650 mg 01/15/17 13:53 01/16/17 08:23 Tylenol 650mg/20.3ml Solution Ud PO 650 mg Q6 PRN Administration Fever >100.4 F Metronidazole 100 mls @ 100 mls/hr 01/12/17 23:30 01/18/17 07:09 Flagyl IVPB 100 mls/hr Q8H MICHAEL Administration Propofol 100 mls @ 2.722 mls/hr 01/13/17 00:10 01/18/17 05:21 Diprivan IV 10.9 mls/hr .Q24H PRN Administration TITRATE PER MD ORDER Protocol 5 MCG/KG/MIN Ciprofloxacin 200 mls @ 133 mls/hr 01/16/17 12:00 01/18/17 11:22 Cipro 400mg/200ml Dsw IVPB 133 mls/hr Q12H MICHAEL Administration Piperacillin Sod/Tazobactam Sod 50 mls @ 100 mls/hr 01/16/17 12:00 01/18/17 11: 21 Zosyn 3.375 Gm Iv Premix IVPB 100 mls/hr Q6H MCIHAEL Administration Insulin Glargine 14 unit 01/17/17 22:00 01/18/17 02:01 Lantus SC 14 u HS MICHAEL Administration Insulin Human Regular 0 unit 01/12/17 13:15 01/18/17 06:45 Novolin R SC 6 unit Q6 MICHAEL Administration Protocol Pantoprazole Sodium 40 mg 01/13/17 10:00 01/18/17 11:20 Protonix Inj IVP 40 mg DAILY MICHAEL Administration Sodium Hypochlorite 0 appl 01/17/17 10:00 01/17/17 16:30 Dakins Solution 0.125% TOP 20 appl DAILY MICHAEL Administration - Patient Studies Lab Studies: Microbiology Studies 01/12/17 03:30 Blood Culture - Final Blood NO GROWTH AFTER 5 DAYS Gram Stain - Final 01/12/17 03:45 Blood Culture - Final Blood NO GROWTH AFTER 5 DAYS Gram Stain - Final TEST NOT PERFORMED Lab Studies 01/18/17 01/18/17 01/18/17 Range/Units 05:54 05:42 04:10 WBC 16.7 H (4.8-10.8) K/uL RBC 3.41 L (4.40-5.90) Mil/uL Hgb 9.0 L (12.0-18.0) g/dL Hct 28.4 L (35.0-51.0) % MCV 83.2 (80.0-94.0) fL MCH 26.3 L (27.0-31.0) pg MCHC 31.6 L (33.0-37.0) g/dL RDW 17.5 H (11.5-14.5) % Plt Count 248 (130-400) K/uL MPV 8.2 (7.2-11.7) fL Neut % (Auto) 87.6 H (50.0-75.0) % Lymph % (Auto) 6.6 L (20.0-40.0) % [place] % (Auto) 2.6 (0.0-10.0) % Eos % (Auto) 2.6 (0.0-4.0) % Baso % (Auto) 0.6 (0.0-2.0) % Neut # 14.6 H (1.8-7.0) K/uL Lymph # 1.1 (1.0-4.3) K/uL [place] # 0.4 (0.0-0.8) K/uL Eos # 0.4 (0.0-0.7) K/uL Baso # 0.1 (0.0-0.2) K/uL Neutrophils % (Manual) 86 H (50-75) % Lymphocytes % (Manual) 10 L (20-40) % Monocytes % (Manual) 2 (0-10) % Eosinophils % (Manual) 2 (0-4) % Platelet Estimate Normal (NORMAL) Large Platelets Present Hypochromasia (manual) Slight Poikilocytosis (manual Slight Anisocytosis (manual) Slight PT 22.2 H (9.7-12.2) SECONDS INR 1.9 APTT 36 H (21-34) SECONDS Puncture Site Rr pCO2 38 (35-45) mm/Hg pO2 111 H (80-100) mm/Hg HCO3 27.3 (21-28) mmol/L ABG pH 7.46 H (7.35-7.45) ABG Total CO2 28.2 H (22-28) mmol/L ABG O2 Saturation 99.1 H (95-98) % ABG Base Excess 3.0 (-2.0-3.0) mmol/L ABG Hemoglobin 8.7 L (11.7-17.4) g/dL ABG Carboxyhemoglobin 1.7 H (0.5-1.5) % POC ABG HHb (Measured) 0.9 (0.0-5.0) % ABG Methemoglobin 1.3 (0.0-3.0) % Carter Test Pos A-a O2 Difference 127.0 mm/Hg Respiratory Index 1.1 Hgb O2 Saturation 96.1 (95.0-98.0) % Mechanical Rate 14 FiO2 40.0 % Tidal Volume 450 PEEP 5 Sodium 154 H (132-148) mmol/L Potassium 4.6 (3.6-5.2) mmol/L Chloride 118 H (98-107) mmol/L Carbon Dioxide 25 (22-30) mmol/L Anion Gap 16 (10-20) BUN 44 H (9-20) mg/dL Creatinine 1.4 (0.8-1.5) MG/DL Est GFR ( Amer) > 60 Est GFR (Non-Af Amer) 50 POC Glucose (mg/dL) 260 H (65-110) mg/dL Random Glucose 245 H (75-110) mg/dL Calcium 7.8 L (8.6-10.4) mg/dl Phosphorus 3.1 (2.5-4.5) mg/dL Magnesium 2.7 H (1.6-2.3) mg/dL Total Bilirubin 1.1 (0.2-1.3) mg/dL AST 38 (17-59) U/L ALT 18 L (21-72) U/L Alkaline Phosphatase 161 H (38-126) U/L Total Protein 7.2 (6.3-8.3) g/dL Albumin 2.8 L (3.5-5.0) g/dL Globulin 4.4 H (2.2-3.9) gm/dL Albumin/Globulin Ratio 0.6 L (1.0-2.1) 01/17/17 01/17/17 01/17/17 Range/Units 23:42 17:49 11:44 WBC (4.8-10.8) K/uL RBC (4.40-5.90) Mil/uL Hgb (12.0-18.0) g/dL Hct (35.0-51.0) % MCV (80.0-94.0) fL MCH (27.0-31.0) pg MCHC (33.0-37.0) g/dL RDW (11.5-14.5) % Plt Count (130-400) K/uL MPV (7.2-11.7) fL Neut % (Auto) (50.0-75.0) % Lymph % (Auto) (20.0-40.0) % [place] % (Auto) (0.0-10.0) % Eos % (Auto) (0.0-4.0) % Baso % (Auto) (0.0-2.0) % Neut # (1.8-7.0) K/uL Lymph # (1.0-4.3) K/uL [place] # (0.0-0.8) K/uL Eos # (0.0-0.7) K/uL Baso # (0.0-0.2) K/uL Neutrophils % (Manual) (50-75) % Lymphocytes % (Manual) (20-40) % Monocytes % (Manual) (0-10) % Eosinophils % (Manual) (0-4) % Platelet Estimate (NORMAL) Large Platelets Hypochromasia (manual) Poikilocytosis (manual Anisocytosis (manual) PT (9.7-12.2) SECONDS INR APTT (21-34) SECONDS Puncture Site pCO2 (35-45) mm/Hg pO2 (80-100) mm/Hg HCO3 (21-28) mmol/L ABG pH (7.35-7.45) ABG Total CO2 (22-28) mmol/L ABG O2 Saturation (95-98) % ABG Base Excess (-2.0-3.0) mmol/L ABG Hemoglobin (11.7-17.4) g/dL ABG Carboxyhemoglobin (0.5-1.5) % POC ABG HHb (Measured) (0.0-5.0) % ABG Methemoglobin (0.0-3.0) % Carter Test A-a O2 Difference mm/Hg Respiratory Index Hgb O2 Saturation (95.0-98.0) % Mechanical Rate FiO2 % Tidal Volume PEEP Sodium (132-148) mmol/L Potassium (3.6-5.2) mmol/L Chloride (98-107) mmol/L Carbon Dioxide (22-30) mmol/L Anion Gap (10-20) BUN (9-20) mg/dL Creatinine (0.8-1.5) MG/DL Est GFR ( Amer) Est GFR (Non-Af Amer) POC Glucose (mg/dL) 285 H 301 H 371 H (65-110) mg/dL Random Glucose (75-110) mg/dL Calcium (8.6-10.4) mg/dl Phosphorus (2.5-4.5) mg/dL Magnesium (1.6-2.3) mg/dL Total Bilirubin (0.2-1.3) mg/dL AST (17-59) U/L ALT (21-72) U/L Alkaline Phosphatase (38-126) U/L Total Protein (6.3-8.3) g/dL Albumin (3.5-5.0) g/dL Globulin (2.2-3.9) gm/dL Albumin/Globulin Ratio (1.0-2.1) Laboratory Results - last 24 hr 01/17/17 01/17/17 01/17/17 11:44 17:49 23:42 WBC RBC Hgb Hct MCV MCH MCHC RDW Plt Count MPV Neut % (Auto) Lymph % (Auto) [place] % (Auto) Eos % (Auto) Baso % (Auto) Neut # Lymph # [place] # Eos # Baso # Neutrophils % (Manual) Lymphocytes % (Manual) Monocytes % (Manual) Eosinophils % (Manual) Platelet Estimate Large Platelets Hypochromasia (manual) Poikilocytosis (manual Anisocytosis (manual) PT INR APTT Puncture Site pCO2 pO2 HCO3 ABG pH ABG Total CO2 ABG O2 Saturation ABG Base Excess ABG Hemoglobin ABG Carboxyhemoglobin POC ABG HHb (Measured) ABG Methemoglobin Carter Test A-a O2 Difference Respiratory Index Hgb O2 Saturation Mechanical Rate FiO2 Tidal Volume PEEP Sodium Potassium Chloride Carbon Dioxide Anion Gap BUN Creatinine Est GFR ( Amer) Est GFR (Non-Af Amer) POC Glucose (mg/dL) 371 H 301 H 285 H Random Glucose Calcium Phosphorus Magnesium Total Bilirubin AST ALT Alkaline Phosphatase Total Protein Albumin Globulin Albumin/Globulin Ratio 01/18/17 01/18/17 01/18/17 04:10 05:42 05:54 WBC 16.7 H RBC 3.41 L Hgb 9.0 L Hct 28.4 L MCV 83.2 MCH 26.3 L MCHC 31.6 L RDW 17.5 H Plt Count 248 MPV 8.2 Neut % (Auto) 87.6 H Lymph % (Auto) 6.6 L [place] % (Auto) 2.6 Eos % (Auto) 2.6 Baso % (Auto) 0.6 Neut # 14.6 H Lymph # 1.1 [place] # 0.4 Eos # 0.4 Baso # 0.1 Neutrophils % (Manual) 86 H Lymphocytes % (Manual) 10 L Monocytes % (Manual) 2 Eosinophils % (Manual) 2 Platelet Estimate Normal Large Platelets Present Hypochromasia (manual) Slight Poikilocytosis (manual Slight Anisocytosis (manual) Slight PT 22.2 H INR 1.9 APTT 36 H Puncture Site Rr pCO2 38 pO2 111 H HCO3 27.3 ABG pH 7.46 H ABG Total CO2 28.2 H ABG O2 Saturation 99.1 H ABG Base Excess 3.0 ABG Hemoglobin 8.7 L ABG Carboxyhemoglobin 1.7 H POC ABG HHb (Measured) 0.9 ABG Methemoglobin 1.3 Carter Test Pos A-a O2 Difference 127.0 Respiratory Index 1.1 Hgb O2 Saturation 96.1 Mechanical Rate 14 FiO2 40.0 Tidal Volume 450 PEEP 5 Sodium 154 H Potassium 4.6 Chloride 118 H Carbon Dioxide 25 Anion Gap 16 BUN 44 H Creatinine 1.4 Est GFR ( Amer) > 60 Est GFR (Non-Af Amer) 50 POC Glucose (mg/dL) 260 H Random Glucose 245 H Calcium 7.8 L Phosphorus 3.1 Magnesium 2.7 H Total Bilirubin 1.1 AST 38 ALT 18 L Alkaline Phosphatase 161 H Total Protein 7.2 Albumin 2.8 L Globulin 4.4 H Albumin/Globulin Ratio 0.6 L Fingerstick Blood Sugar Results: 250 Review of Systems - Review of Systems Review of Systems: see subjective Critical Care Progress Note - Nutrition Nutrition: Nutrition Category Date Time Status Consistent Carbohydrate [DIET] Diets 01/10/17 Breakfast Active Assessment/Plan - Assessment and Plan (Free Text) Assessment: 71 year old patient with PMHx significant for HTN, DM, A-fib with slow ventricular response and cataracts initially presented with worsening bilateral LE cellulitis for which patient was septic. Pt also had elevated INR of 15. Patient admitted to ICU for close monitoring. Patient DNR/DNI. Plan: Neuro: Wean off sedation. Cardio: Hypotension at times- BP meds held If BP remains stable, low dose betablocker can be added on per Cardiology. Cardiology signed off. Pulm: Acute respiratory failure secondary to severe sepsis secondary to bilateral LE cellulitis Patient to attempt CPAP trial again today. Tolerated ~ 10 hrs yesterday and ~ 6 hrs the day before. May attempt extubation if pt can tolerate Lasix 540 mg IV GI: Diabetisource with water flushes 300cc Q6 Nephro/: Renal insufficiency noted however improved today Hypernatremia- Free water flushes 300cc Q6 UO greater than 2L Continue IV fluids Nephro on the case Heme: stable, cont to monitor H/H Endo: Diabetic ulcers of lower extremities noted Accuchecks Lantus inc to 14 units Q12 ISS Monitor ID: WBC minimal change Initially presented with severe sepsis On Ricci Marks Cipro ID Dr. Blum on the case MSK: Recommendations for BKA surgery however patient's has decided against the procedure bc she feels that the patient would not consent to amputation. She is acting in his best interests ( as per his expected wishes). Dressing changes per Podiatry- Continued conservative care No MRI at this point due to hx of pacemaker Palliative: If patient is to be extubated, patient's agreeable to DNI for comfort measures. DNR/DNI at this time. will not consent for BKA at this time. Prophylaxis: PPI daily DVT prophylaxis held in light of initial elevated INR. Will check coags in the AM and then restart appropriate agent. <Bert Elkins - Last Filed: 01/18/17 17:04> CCU Objective - Vital Signs / Intake & Output Vital Signs (Last 4 hours): Vital Signs Pulse Resp Pulse Ox 01/18/17 14:00 60 22 99 Intake and Output (Last 8hrs): Intake & Output 01/18/17 01/18/17 01/18/17 06:59 14:59 22:59 Intake Total 1237.2 737.2 Output Total 510 520 Balance 727.2 217.2 Intake: Intake, IV Amount 437.2 337.2 Right Proximal Port 87.2 87.2 Internal Jugular Right Medial Port 350 250 Internal Jugular Tube Feeding 400 400 Other 400 Output: Urine 510 520 Urethral (Conner) 510 520 - Medications Active Medications: Active Medications Generic Name Dose Route Start Last Admin Trade Name Freq PRN Reason Stop Dose Admin Acetaminophen 650 mg 01/15/17 13:53 01/16/17 08:23 Tylenol 650mg/20.3ml Solution Ud PO 650 mg Q6 PRN Administration Fever >100.4 F Furosemide 40 mg 01/18/17 11:45 01/18/17 11:45 Lasix IVP 40 mg Q12 MICHAEL Administration Metronidazole 100 mls @ 100 mls/hr 01/12/17 23:30 01/18/17 16:49 Flagyl IVPB 100 mls/hr Q8H MICHAEL Administration Ciprofloxacin 200 mls @ 133 mls/hr 01/16/17 12:00 01/18/17 11:22 Cipro 400mg/200ml Dsw IVPB 133 mls/hr Q12H MICHAEL Administration Piperacillin Sod/Tazobactam Sod 50 mls @ 100 mls/hr 01/16/17 12:00 01/18/17 11: 21 Zosyn 3.375 Gm Iv Premix IVPB 100 mls/hr Q6H MICHAEL Administration Propofol 100 mls @ 2.722 mls/hr 01/13/17 00:10 01/18/17 15:37 Diprivan IV 10 mcg/kg/min .Q24H PRN Titration TITRATE PER MD ORDER Protocol 5 MCG/KG/MIN Insulin Glargine 14 unit 01/18/17 22:00 Lantus SC Q12 MICHAEL Insulin Human Regular 0 unit 01/12/17 13:15 01/18/17 12:00 Novolin R SC 6 unit Q6 MICHAEL Administration Protocol Pantoprazole Sodium 40 mg 01/13/17 10:00 01/18/17 11:20 Protonix Inj IVP 40 mg DAILY MICHAEL Administration Sodium Hypochlorite 0 appl 01/17/17 10:00 01/17/17 16:30 Dakins Solution 0.125% TOP 20 appl DAILY MICHAEL Administration - Patient Studies Lab Studies: Microbiology Studies 01/12/17 03:30 Blood Culture - Final Blood NO GROWTH AFTER 5 DAYS Gram Stain - Final 01/12/17 03:45 Blood Culture - Final Blood NO GROWTH AFTER 5 DAYS Gram Stain - Final TEST NOT PERFORMED Lab Studies 01/18/17 01/18/17 01/18/17 Range/Units 12:01 05:54 05:42 WBC 16.7 H (4.8-10.8) K/uL RBC 3.41 L (4.40-5.90) Mil/uL Hgb 9.0 L (12.0-18.0) g/dL Hct 28.4 L (35.0-51.0) % MCV 83.2 (80.0-94.0) fL MCH 26.3 L (27.0-31.0) pg MCHC 31.6 L (33.0-37.0) g/dL RDW 17.5 H (11.5-14.5) % Plt Count 248 (130-400) K/uL MPV 8.2 (7.2-11.7) fL Neut % (Auto) 87.6 H (50.0-75.0) % Lymph % (Auto) 6.6 L (20.0-40.0) % [place] % (Auto) 2.6 (0.0-10.0) % Eos % (Auto) 2.6 (0.0-4.0) % Baso % (Auto) 0.6 (0.0-2.0) % Neut # 14.6 H (1.8-7.0) K/uL Lymph # 1.1 (1.0-4.3) K/uL [place] # 0.4 (0.0-0.8) K/uL Eos # 0.4 (0.0-0.7) K/uL Baso # 0.1 (0.0-0.2) K/uL Neutrophils % (Manual) 86 H (50-75) % Lymphocytes % (Manual) 10 L (20-40) % Monocytes % (Manual) 2 (0-10) % Eosinophils % (Manual) 2 (0-4) % Platelet Estimate Normal (NORMAL) Large Platelets Present Hypochromasia (manual) Slight Poikilocytosis (manual Slight Anisocytosis (manual) Slight PT 22.2 H (9.7-12.2) SECONDS INR 1.9 APTT 36 H (21-34) SECONDS Puncture Site pCO2 (35-45) mm/Hg pO2 (80-100) mm/Hg HCO3 (21-28) mmol/L ABG pH (7.35-7.45) ABG Total CO2 (22-28) mmol/L ABG O2 Saturation (95-98) % ABG Base Excess (-2.0-3.0) mmol/L ABG Hemoglobin (11.7-17.4) g/dL ABG Carboxyhemoglobin (0.5-1.5) % POC ABG HHb (Measured) (0.0-5.0) % ABG Methemoglobin (0.0-3.0) % Carter Test A-a O2 Difference mm/Hg Respiratory Index Hgb O2 Saturation (95.0-98.0) % Mechanical Rate FiO2 % Tidal Volume PEEP Sodium 154 H (132-148) mmol/L Potassium 4.6 (3.6-5.2) mmol/L Chloride 118 H (98-107) mmol/L Carbon Dioxide 25 (22-30) mmol/L Anion Gap 16 (10-20) BUN 44 H (9-20) mg/dL Creatinine 1.4 (0.8-1.5) MG/DL Est GFR ( Amer) > 60 Est GFR (Non-Af Amer) 50 POC Glucose (mg/dL) 251 H 260 H (65-110) mg/dL Random Glucose 245 H (75-110) mg/dL Calcium 7.8 L (8.6-10.4) mg/dl Phosphorus 3.1 (2.5-4.5) mg/dL Magnesium 2.7 H (1.6-2.3) mg/dL Total Bilirubin 1.1 (0.2-1.3) mg/dL AST 38 (17-59) U/L ALT 18 L (21-72) U/L Alkaline Phosphatase 161 H (38-126) U/L Total Protein 7.2 (6.3-8.3) g/dL Albumin 2.8 L (3.5-5.0) g/dL Globulin 4.4 H (2.2-3.9) gm/dL Albumin/Globulin Ratio 0.6 L (1.0-2.1) 01/18/17 01/17/17 01/17/17 Range/Units 04:10 23:42 17:49 WBC (4.8-10.8) K/uL RBC (4.40-5.90) Mil/uL Hgb (12.0-18.0) g/dL Hct (35.0-51.0) % MCV (80.0-94.0) fL MCH (27.0-31.0) pg MCHC (33.0-37.0) g/dL RDW (11.5-14.5) % Plt Count (130-400) K/uL MPV (7.2-11.7) fL Neut % (Auto) (50.0-75.0) % Lymph % (Auto) (20.0-40.0) % [place] % (Auto) (0.0-10.0) % Eos % (Auto) (0.0-4.0) % Baso % (Auto) (0.0-2.0) % Neut # (1.8-7.0) K/uL Lymph # (1.0-4.3) K/uL [place] # (0.0-0.8) K/uL Eos # (0.0-0.7) K/uL Baso # (0.0-0.2) K/uL Neutrophils % (Manual) (50-75) % Lymphocytes % (Manual) (20-40) % Monocytes % (Manual) (0-10) % Eosinophils % (Manual) (0-4) % Platelet Estimate (NORMAL) Large Platelets Hypochromasia (manual) Poikilocytosis (manual Anisocytosis (manual) PT (9.7-12.2) SECONDS INR APTT (21-34) SECONDS Puncture Site Rr pCO2 38 (35-45) mm/Hg pO2 111 H (80-100) mm/Hg HCO3 27.3 (21-28) mmol/L ABG pH 7.46 H (7.35-7.45) ABG Total CO2 28.2 H (22-28) mmol/L ABG O2 Saturation 99.1 H (95-98) % ABG Base Excess 3.0 (-2.0-3.0) mmol/L ABG Hemoglobin 8.7 L (11.7-17.4) g/dL ABG Carboxyhemoglobin 1.7 H (0.5-1.5) % POC ABG HHb (Measured) 0.9 (0.0-5.0) % ABG Methemoglobin 1.3 (0.0-3.0) % Carter Test Pos A-a O2 Difference 127.0 mm/Hg Respiratory Index 1.1 Hgb O2 Saturation 96.1 (95.0-98.0) % Mechanical Rate 14 FiO2 40.0 % Tidal Volume 450 PEEP 5 Sodium (132-148) mmol/L Potassium (3.6-5.2) mmol/L Chloride (98-107) mmol/L Carbon Dioxide (22-30) mmol/L Anion Gap (10-20) BUN (9-20) mg/dL Creatinine (0.8-1.5) MG/DL Est GFR ( Amer) Est GFR (Non-Af Amer) POC Glucose (mg/dL) 285 H 301 H (65-110) mg/dL Random Glucose (75-110) mg/dL Calcium (8.6-10.4) mg/dl Phosphorus (2.5-4.5) mg/dL Magnesium (1.6-2.3) mg/dL Total Bilirubin (0.2-1.3) mg/dL AST (17-59) U/L ALT (21-72) U/L Alkaline Phosphatase (38-126) U/L Total Protein (6.3-8.3) g/dL Albumin (3.5-5.0) g/dL Globulin (2.2-3.9) gm/dL Albumin/Globulin Ratio (1.0-2.1) Laboratory Results - last 24 hr 01/17/17 01/17/17 01/18/17 17:49 23:42 04:10 WBC RBC Hgb Hct MCV MCH MCHC RDW Plt Count MPV Neut % (Auto) Lymph % (Auto) [place] % (Auto) Eos % (Auto) Baso % (Auto) Neut # Lymph # [place] # Eos # Baso # Neutrophils % (Manual) Lymphocytes % (Manual) Monocytes % (Manual) Eosinophils % (Manual) Platelet Estimate Large Platelets Hypochromasia (manual) Poikilocytosis (manual Anisocytosis (manual) PT INR APTT Puncture Site Rr pCO2 38 pO2 111 H HCO3 27.3 ABG pH 7.46 H ABG Total CO2 28.2 H ABG O2 Saturation 99.1 H ABG Base Excess 3.0 ABG Hemoglobin 8.7 L ABG Carboxyhemoglobin 1.7 H POC ABG HHb (Measured) 0.9 ABG Methemoglobin 1.3 Carter Test Pos A-a O2 Difference 127.0 Respiratory Index 1.1 Hgb O2 Saturation 96.1 Mechanical Rate 14 FiO2 40.0 Tidal Volume 450 PEEP 5 Sodium Potassium Chloride Carbon Dioxide Anion Gap BUN Creatinine Est GFR ( Amer) Est GFR (Non-Af Amer) POC Glucose (mg/dL) 301 H 285 H Random Glucose Calcium Phosphorus Magnesium Total Bilirubin AST ALT Alkaline Phosphatase Total Protein Albumin Globulin Albumin/Globulin Ratio 01/18/17 01/18/17 01/18/17 05:42 05:54 12:01 WBC 16.7 H RBC 3.41 L Hgb 9.0 L Hct 28.4 L MCV 83.2 MCH 26.3 L MCHC 31.6 L RDW 17.5 H Plt Count 248 MPV 8.2 Neut % (Auto) 87.6 H Lymph % (Auto) 6.6 L [place] % (Auto) 2.6 Eos % (Auto) 2.6 Baso % (Auto) 0.6 Neut # 14.6 H Lymph # 1.1 [place] # 0.4 Eos # 0.4 Baso # 0.1 Neutrophils % (Manual) 86 H Lymphocytes % (Manual) 10 L Monocytes % (Manual) 2 Eosinophils % (Manual) 2 Platelet Estimate Normal Large Platelets Present Hypochromasia (manual) Slight Poikilocytosis (manual Slight Anisocytosis (manual) Slight PT 22.2 H INR 1.9 APTT 36 H Puncture Site pCO2 pO2 HCO3 ABG pH ABG Total CO2 ABG O2 Saturation ABG Base Excess ABG Hemoglobin ABG Carboxyhemoglobin POC ABG HHb (Measured) ABG Methemoglobin Carter Test A-a O2 Difference Respiratory Index Hgb O2 Saturation Mechanical Rate FiO2 Tidal Volume PEEP Sodium 154 H Potassium 4.6 Chloride 118 H Carbon Dioxide 25 Anion Gap 16 BUN 44 H Creatinine 1.4 Est GFR ( Amer) > 60 Est GFR (Non-Af Amer) 50 POC Glucose (mg/dL) 260 H 251 H Random Glucose 245 H Calcium 7.8 L Phosphorus 3.1 Magnesium 2.7 H Total Bilirubin 1.1 AST 38 ALT 18 L Alkaline Phosphatase 161 H Total Protein 7.2 Albumin 2.8 L Globulin 4.4 H Albumin/Globulin Ratio 0.6 L Critical Care Progress Note - Nutrition Nutrition: Nutrition Category Date Time Status Consistent Carbohydrate [DIET] Diets 01/10/17 Breakfast Active Attending/Attestation - Attestation I have personally seen and examined this patient.: Yes I have fully participated in the care of the patient.: Yes I have reviewed all pertinent clinical information: Yes Notes (Text): 01/18/17 17:01 I have seen and examined the patient. Medical records, lab studies, and imaging were reviewed by me and a management plan was formulated on multidisciplinary rounds with resident Dr. Woodall. I agree with their above documented assessment and plan. Still trying to extubate. 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 will start aggressive diuresis for extubation. Critical Care Time 35 minutes. Multi-disciplinary rounds were performed with house staff, nursing, speech therapy, respiratory therapy, pharmacy and nutrition with integrated input from the primary team/attending and other consulting services. The documented time is cumulative and includes review of patient data/exams/labs/chart review and examination of the patient on rounds and throughout the day; time is exclusive of any procedures or teaching time.
--- NOTE | 2017-01-18 12:04 | RAD ---
HISTORY: intubated COMPARISON: 01/17/2017 FINDINGS: LUNGS: Lines tubes in stable position. Left-sided pacemaker. Moderate venous congestion. Right hilar prominence. Bibasilar airspace opacities with small bilateral pleural effusions. Biapical pleural thickening with upper lobe granulomatous changes. PLEURA: As above. CARDIOVASCULAR: Cardiomegaly. Calcification at the aortic knob. Left-sided pacemaker. OSSEOUS STRUCTURES: Degenerative changes in the spine and shoulders. VISUALIZED UPPER ABDOMEN: Normal. OTHER FINDINGS: None. IMPRESSION: Lines tubes in stable position. Left-sided pacemaker. Moderate venous congestion. Right hilar prominence. Bibasilar airspace opacities with small bilateral pleural effusions. Biapical pleural thickening with upper lobe granulomatous changes.
--- NOTE | 2017-01-18 14:01 | CP.PCM.PN ---
Subjective - Date & Time of Evaluation Date of Evaluation: 01/18/17 Time of Evaluation: 11:30 - Subjective Subjective: PODIATRY PROGRESS NOTE FOR DR. DAVENPORT: 71 yo male patient seen at bedside in the ICU today for f/u of bilateral lowers extremity ulcerations. Pt seen sedated and intubated in bed at time of visit. Nursing reports no acute events overnight and that family does not want leg amputations. Pt somewhat responsive to verbal stimuli at time of visit. Pt is for possible extubation today. Objective - Vital Signs/Intake and Output Vital Signs (last 24 hours): Temp Pulse Resp BP Pulse Ox 97.7 F 60 18 149/67 96 01/18/17 04:00 01/18/17 06:00 01/18/17 06:00 01/18/17 06:00 01/18/17 06:00 Intake and Output: 01/18/17 01/18/17 06:59 18:59 Intake Total 1464.6 121.8 Output Total 825 135 Balance 639.6 -13.2 - Medications Medications: Current Medications Acetaminophen (Tylenol 650mg/20.3ml Solution Ud) 650 mg PO Q6 PRN PRN Reason: Fever >100.4 F Last Admin: 01/16/17 08:23 Dose: 650 mg Furosemide (Lasix) 40 mg IVP Q12 [facility] Metronidazole (Flagyl) 100 mls @ 100 mls/hr IVPB Q8H [facility] Last Admin: 01/18/17 07:09 Dose: 100 mls/hr Ciprofloxacin (Cipro 400mg/200ml Dsw) 200 mls @ 133 mls/hr IVPB Q12H [facility] Last Admin: 01/18/17 11:22 Dose: 133 mls/hr Piperacillin Sod/Tazobactam Sod (Zosyn 3.375 Gm Iv Premix) 50 mls @ 100 mls/hr IVPB Q6H [facility] Last Admin: 01/18/17 11:21 Dose: 100 mls/hr Propofol (Diprivan) 100 mls @ 2.722 mls/hr IV .Q24H PRN; Protocol; 5 MCG/KG/MIN PRN Reason: TITRATE PER MD ORDER Insulin Glargine (Lantus) 14 unit SC Q12 [facility] Insulin Human Regular (Novolin R) 0 unit SC Q6 [facility] PRN Reason: Protocol Last Admin: 01/18/17 06:45 Dose: 6 unit Pantoprazole Sodium (Protonix Inj) 40 mg IVP DAILY [facility] Last Admin: 01/18/17 11:20 Dose: 40 mg Sodium Hypochlorite (Dakins Solution 0.125%) 0 appl TOP DAILY [facility] Last Admin: 01/17/17 16:30 Dose: 20 appl - Labs Labs: 01/18/17 05:54 01/18/17 05:54 PT 22.2 SECONDS (9.7-12.2) H 01/18/17 05:54 INR 1.9 01/18/17 05:54 APTT 36 SECONDS (21-34) H 01/18/17 05:54 - Constitutional Appears: Non-toxic, No Acute Distress, Chronically Ill - Extremities Exam Additional comments: BL lower extremity exam: VASC: DP/ PT pulses are non-palpable BL, skin temperature runs warm to warm BL, capillary refill <5 sec to digits x 10, 2+ pitting edema noted to anterior aspect of legs BL NEURO: gross pedal sensation is diminished BL DERM: dressings appear c/d/i, heavy malodor noted BL with active serous drainage noted upon removal of bandages, erythema noted to distal 1/3 of legs BL Right: there is a partial thickness ulceration noted to lateral aspect of leg measuring approx. 7.0 x6.0 cm with 70% fibrotic and 30% granular wound base (no sinus tracking noted, no probe to bone), there is also a necrotic heel eschar which measures approx 7.0x7.0cm with serous drainage noted (no sinus tracking) Left: medial aspect 1st metatarsal head region full thickness ulceration measuring 2 x 2 cm with 100% fibrotic base absent undermining margins. Fluctuant necrotic heel eschar with active weeping drainage from posterior margin noted. Eschar measures 9 x 8 cm. Lateral leg full thickness ulceration measuring 13 x 7.5 cm with 80% fibrotic to 20% necrotic base (no sinus tracking , no probe to bone, serous drainage noted) ORTHO: no gross deformities noted, unable to assess further due to pt sedation - Neurological Exam Neurological Exam: absent: Awake, Oriented x3 - Psychiatric Exam Additional comments: unable to assess Assessment and Plan - Assessment and Plan (Free Text) Assessment: 71 yo diabetic male patient w/ cellulilitis, infected lower extremity ulcerations, and 2 non-stageable heel ulcerations all secondary to diabetic neuropathy Plan: -Patient seen and evaluated at bedside -Chart, labs, vitals reviewed: afebrile, WBC trending down 16.7 (from 19.8) -Plan discussed with attending Dr. Davenport -Family is refusing BKA's, will continue w/ conservative care at this time. -Legs/feet cleansed with 1/4 Dakin's solution + normal saline. -xeroform gauze and W2D dressing applied BL -legs elevated on pillows -will continue to follow
--- NOTE | 2017-01-18 17:55 | CP.PCM.PN ---
Subjective - Date & Time of Evaluation Date of Evaluation: 01/18/17 Time of Evaluation: 10:00 - Subjective Subjective: overall improved still intubated Objective - Vital Signs/Intake and Output Vital Signs (last 24 hours): Temp Pulse Resp BP Pulse Ox 97.7 F 60 22 122/44 L 99 01/18/17 04:00 01/18/17 14:00 01/18/17 14:00 01/18/17 12:02 01/18/17 14:00 Intake and Output: 01/18/17 01/18/17 06:59 18:59 Intake Total 1464.6 737.2 Output Total 825 520 Balance 639.6 217.2 - Medications Medications: Current Medications Acetaminophen (Tylenol 650mg/20.3ml Solution Ud) 650 mg PO Q6 PRN PRN Reason: Fever >100.4 F Last Admin: 01/16/17 08:23 Dose: 650 mg Furosemide (Lasix) 40 mg IVP Q12 [facility] Last Admin: 01/18/17 11:45 Dose: 40 mg Metronidazole (Flagyl) 100 mls @ 100 mls/hr IVPB Q8H [facility] Last Admin: 01/18/17 16:49 Dose: 100 mls/hr Ciprofloxacin (Cipro 400mg/200ml Dsw) 200 mls @ 133 mls/hr IVPB Q12H [facility] Last Admin: 01/18/17 11:22 Dose: 133 mls/hr Piperacillin Sod/Tazobactam Sod (Zosyn 3.375 Gm Iv Premix) 50 mls @ 100 mls/hr IVPB Q6H [facility] Last Admin: 01/18/17 11:21 Dose: 100 mls/hr Propofol (Diprivan) 100 mls @ 2.722 mls/hr IV .Q24H PRN; Protocol; 5 MCG/KG/MIN PRN Reason: TITRATE PER MD ORDER Last Titration: 01/18/17 15:37 Dose: 10 mcg/kg/min Insulin Glargine (Lantus) 14 unit SC Q12 [facility] Insulin Human Regular (Novolin R) 0 unit SC Q6 [facility] PRN Reason: Protocol Last Admin: 01/18/17 12:00 Dose: 6 unit Pantoprazole Sodium (Protonix Inj) 40 mg IVP DAILY [facility] Last Admin: 01/18/17 11:20 Dose: 40 mg Sodium Hypochlorite (Dakins Solution 0.125%) 0 appl TOP DAILY [facility] Last Admin: 01/17/17 16:30 Dose: 20 appl - Labs Labs: 01/18/17 05:54 01/18/17 05:54 PT 22.2 SECONDS (9.7-12.2) H 01/18/17 05:54 INR 1.9 01/18/17 05:54 APTT 36 SECONDS (21-34) H 01/18/17 05:54 - Constitutional Appears: Non-toxic, Chronically Ill - Head Exam Head Exam: NORMOCEPHALIC - Eye Exam Eye Exam: absent: Scleral icterus - ENT Exam ENT Exam: Mucous Membranes Dry - Neck Exam Neck Exam: absent: Lymphadenopathy - Respiratory Exam Respiratory Exam: Decreased Breath Sounds, Rhonchi - Cardiovascular Exam Cardiovascular Exam: REGULAR RHYTHM, +S1, +S2 - GI/Abdominal Exam GI & Abdominal Exam: Distended, Soft. absent: Tenderness - Rectal Exam Rectal Exam: Deferred - Exam Exam: NORMAL INSPECTION - Extremities Exam Extremities Exam: absent: Pedal Edema Additional comments: BL lower extremity exam: VASC: DP/ PT pulses are non-palpable BL, skin temperature runs warm to warm BL, capillary refill <5 sec to digits x 10, 2+ pitting edema noted to anterior aspect of legs BL NEURO: gross pedal sensation is diminished BL DERM: dressings appear c/d/i, heavy malodor noted BL with active serous drainage noted upon removal of bandages, erythema noted to distal 1/3 of legs BL Right: there is a partial thickness ulceration noted to lateral aspect of leg measuring approx. 7.0 x6.0 cm with 70% fibrotic and 30% granular wound base (no sinus tracking noted, no probe to bone), there is also a necrotic heel eschar which measures approx 7.0x7.0cm with serous drainage noted (no sinus tracking) Left: medial aspect 1st metatarsal head region full thickness ulceration measuring 2 x 2 cm with 100% fibrotic base absent undermining margins. Fluctuant necrotic heel eschar with active weeping drainage from posterior margin noted. Eschar measures 9 x 8 cm. Lateral leg full thickness ulceration measuring 13 x 7.5 cm with 80% fibrotic to 20% necrotic base (no sinus tracking , no probe to bone, serous drainage noted) ORTHO: no gross deformities noted, unable to assess further due to pt sedation - Back Exam Back Exam: absent: CVA tenderness (L), CVA tenderness (R) - Neurological Exam Neurological Exam: Alert - Psychiatric Exam Psychiatric exam: Depressed Assessment and Plan (1) Acute renal failure Status: Resolved (2) Diabetic foot infection Status: Acute (3) Diabetic ulcer of both lower extremities Status: Acute (4) Leukocytosis Status: Acute (5) ARSENIO (acute kidney injury) Status: Resolved (6) Abdominal distension Status: Acute (7) Atrial fibrillation with slow ventricular response Status: Chronic (8) Cellulitis Status: Acute
[2017-01-18] MEDS: (Lantus) Insulin Glargine, Recombinant SC SCH (23:00)
--- NOTE | 2017-01-19 00:10 | CP.PCM.PN ---
Subjective - Date & Time of Evaluation Date of Evaluation: 01/18/17 Time of Evaluation: 19:30 - Subjective Subjective: Vented Objective - Vital Signs/Intake and Output Vital Signs (last 24 hours): Temp Pulse Resp BP Pulse Ox 98 F 60 22 119/40 L 95 01/18/17 19:00 01/18/17 17:02 01/18/17 17:02 01/18/17 17:02 01/18/17 17:02 Intake and Output: 01/18/17 01/19/17 18:59 06:59 Intake Total 1109.2 Output Total 2700 Balance -1590.8 - Medications Medications: Current Medications Acetaminophen (Tylenol 650mg/20.3ml Solution Ud) 650 mg PO Q6 PRN PRN Reason: Fever >100.4 F Last Admin: 01/16/17 08:23 Dose: 650 mg Furosemide (Lasix) 40 mg IVP Q12 [facility] Last Admin: 01/18/17 11:45 Dose: 40 mg Metronidazole (Flagyl) 100 mls @ 100 mls/hr IVPB Q8H [facility] Last Admin: 01/18/17 16:49 Dose: 100 mls/hr Ciprofloxacin (Cipro 400mg/200ml Dsw) 200 mls @ 133 mls/hr IVPB Q12H [facility] Last Admin: 01/18/17 11:22 Dose: 133 mls/hr Piperacillin Sod/Tazobactam Sod (Zosyn 3.375 Gm Iv Premix) 50 mls @ 100 mls/hr IVPB Q6H [facility] Last Admin: 01/18/17 18:39 Dose: 100 mls/hr Propofol (Diprivan) 100 mls @ 2.722 mls/hr IV .Q24H PRN; Protocol; 5 MCG/KG/MIN PRN Reason: TITRATE PER MD ORDER Last Titration: 01/18/17 15:37 Dose: 10 mcg/kg/min Insulin Glargine (Lantus) 14 unit SC Q12 [facility] Insulin Human Regular (Novolin R) 0 unit SC Q6 [facility] PRN Reason: Protocol Last Admin: 01/18/17 18:38 Dose: 6 unit Pantoprazole Sodium (Protonix Inj) 40 mg IVP DAILY [facility] Last Admin: 01/18/17 11:20 Dose: 40 mg Sodium Hypochlorite (Dakins Solution 0.125%) 0 appl TOP DAILY [facility] Last Admin: 01/18/17 12:30 Dose: 20 appl - Labs Labs: 01/18/17 05:54 01/18/17 05:54 PT 22.2 SECONDS (9.7-12.2) H 01/18/17 05:54 INR 1.9 01/18/17 05:54 APTT 36 SECONDS (21-34) H 01/18/17 05:54 - Head Exam Head Exam: ATRAUMATIC - Eye Exam Eye Exam: Normal appearance - ENT Exam ENT Exam: Mucous Membranes Dry - Respiratory Exam Respiratory Exam: NORMAL BREATHING PATTERN - Cardiovascular Exam Cardiovascular Exam: +S1, +S2 - GI/Abdominal Exam GI & Abdominal Exam: Normal Bowel Sounds - Extremities Exam Additional comments: B/L LE dressing Assessment and Plan (1) Coagulopathy Assessment & Plan: nutritional Status: Acute (2) Leukocytosis Assessment & Plan: on antibiotics Status: Acute (3) Anemia Assessment & Plan: chronic disease Status: Acute
[2017-01-19 05:37] LABS: ABG ALLEN TEST POS; ARTERIAL BLOOD HGB O2 SAT 95.7 % (95.0-98.0); CARBOXYHEMOGLOBIN 1.6 % (0.5-1.5); DRAW SITE LR; HHB 1.1 % (0.0-5.0); METHEMOGLOBIN 1.6 % (0.0-3.0)
[2017-01-19] MEDS: Piperacill/Tazo 3.375gm in Dex 50 ML IVPB SCH ×4 (06:00→23:30)
[2017-01-19] MEDS: metroNIDAZOLE IV 500 mg/100 ml 100 ML IVPB SCH ×3 (06:30→22:30)
[2017-01-19 06:35] LABS: BASO # 0.1 K/uL (0.0-0.2); BASO % 0.6 % (0.0-2.0); EOS # 0.1 K/uL (0.0-0.7); EOS % 0.9 % (0.0-4.0); HEMATOCRIT 29.5 % (35.0-51.0); LYMPH # 1.3 K/uL (1.0-4.3); LYMPH % 8.2 % (20.0-40.0); MEAN CELL VOLUME 83.2 fL (80.0-94.0); MEAN CORPUSCULAR HEMOGLOBIN 26.5 pg (27.0-31.0); MEAN CORPUSCULAR HGB CONC 31.9 g/dL (33.0-37.0); MEAN PLATELET VOLUME 8.4 fL (7.2-11.7); MONO # 0.6 K/uL (0.0-0.8); MONO % 3.7 % (0.0-10.0); PLATELET COUNT 255 K/uL (130-400); RED CELL DISTRIBUTION WIDTH 17.1 % (11.5-14.5); WHITE BLOOD COUNT 15.6 K/uL (4.8-10.8)
[2017-01-19] MEDS: (Novolin R) Insulin Human Regular 100 units/ml vial SC SCH ×4 (06:52→18:19)
[2017-01-19 06:55] LABS: CHLORIDE 109 mmol/L (98-107); SODIUM 155 mmol/L (132-148)
[2017-01-19 06:56] LABS: POTASSIUM 4.5 mmol/L (3.6-5.2)
[2017-01-19 06:58] LABS: ALB/GLOB RATIO 0.6 (1.0-2.1); ALKALINE PHOSPHATASE 173 U/L (38-126); ALT/SGPT 19 U/L (21-72); AST/SGOT 48 U/L (17-59); BILIRUBIN,TOTAL 1.3 mg/dL (0.2-1.3); BLOOD UREA NITROGEN 46 mg/dL (9-20); CARBON DIOXIDE 31 mmol/L (22-30); GFR AFRICAN-AMERICAN > 60; GLUCOSE,RANDOM 262 mg/dL (75-110); PHOSPHOROUS 3.3 mg/dL (2.5-4.5); TOTAL PROTEIN 7.3 g/dL (6.3-8.3)
[2017-01-19 06:59] LABS: MAGNESIUM 2.3 mg/dL (1.6-2.3)
[2017-01-19 08:21] LABS: EOSINOPHIL 1 % (0-4); NEUTROPHIL 84 % (50-75); TOTAL CELLS COUNTED 100
--- NOTE | 2017-01-19 09:02 | CP.CCUPN ---
<Barbara Barksdale - Last Filed: 01/19/17 09:15> CCU Subjective - Physician Review Subjective (Free Text): 01/15/17 16:00 Pt seen and examined in no acute distress. Pt still intubated and sedated at this time. Patient's spoke with U[employer] Developer Designer Sue this morning and indicated that patient would not like his legs amputated. In addition POLST forms were signed for DNR. Pt can not comply with ROS at the moment due to clinical status. 01/16/17 12:51 Pt seen and examined in no apparent distress. Patient remains intubated and sedated. Patient's more open to DNI measures though no final decision yet. Pt still intubated and sedated and cannot comply to ROS due to clinical state. 01/17/17 16:00 Pt seen and examined in no acute distress. Patient stable, intubated and sedated at this time. Pt tolerated CPAP yesterday. No ROS at this time due to clinical state. 01/18/17 16:28 Pt seen and examined in no acute distress. Patient to attempt CPAP therapy with PS today again in hopes of extubating soon. and niece available with questions and answers addressed. At this time, ROS not obtained as patient sedated and intubated. 01/19/17 08:57 Pt seen and examined in no acute distress. Per nursing, patient has rexamined on CPAP since 2pm 01/18/17 with maintaining good saturation. Patient's present stated that family and friend's have been present bedside. reiterated 's wishes on not having legs removed. Will reassess once patient is extubated. At this time, patient is awake and relatively alert. Patient denies 01/19/17 09:15 CCU Objective - Vital Signs / Intake & Output Vital Signs (Last 4 hours): Vital Signs Temp Pulse Resp BP Pulse Ox 01/19/17 08:35 99.7 F H 60 14 142/72 98 01/19/17 06:00 61 15 125/54 L 99 01/19/17 05:00 60 19 136/57 L 100 Intake and Output (Last 8hrs): Intake & Output 01/18/17 01/19/17 01/19/17 22:59 06:59 14:59 Intake Total 522.0 800 100 Output Total 1610 1680 410 Balance -1088.0 -880 -310 Intake: Intake, IV Amount 172.0 400 Right Proximal Port 22.0 50 Internal Jugular Right Medial Port 150 350 Internal Jugular Tube Feeding 350 400 100 Output: Urine 1610 1680 410 Urethral (Conner) 1610 1680 410 Other: # Bowel Movements 1 - Physical Exam Head: Positive for: Atraumatic, Normocephalic Mouth: Positive for: Moist Mucous Membranes Neck: Positive for: Trachea Midline Respiratory/Chest: Positive for: Clear to Auscultation Cardiovascular: Positive for: Regular Rate and Rhythm Abdomen: Positive for: Normal Bowel Sounds Upper Extremity: Positive for: Normal Inspection, Edema Lower Extremity: Positive for: Edema, Capillary Refill < 2 s, Other (LE dressing b/l; malodorous scent noted). Negative for: NORMAL PULSES Neurological: Positive for: Other Skin: Positive for: Dry, Rashes, Erythematous, Abrasion Psychiatric: Negative for: Alert, Oriented x 3 - Medications Active Medications: Active Medications Generic Name Dose Route Start Last Admin Trade Name Freq PRN Reason Stop Dose Admin Acetaminophen 650 mg 01/15/17 13:53 01/16/17 08:23 Tylenol 650mg/20.3ml Solution Ud PO 650 mg Q6 PRN Administration Fever >100.4 F Furosemide 40 mg 01/18/17 11:45 01/18/17 23:00 Lasix IVP 40 mg Q12 MICHAEL Administration Metronidazole 100 mls @ 100 mls/hr 01/12/17 23:30 01/19/17 06:30 Flagyl IVPB 100 mls/hr Q8H MICHAEL Administration Ciprofloxacin 200 mls @ 133 mls/hr 01/16/17 12:00 01/19/17 00:00 Cipro 400mg/200ml Dsw IVPB 133 mls/hr Q12H MICHAEL Administration Piperacillin Sod/Tazobactam Sod 50 mls @ 100 mls/hr 01/16/17 12:00 01/19/17 06: 00 Zosyn 3.375 Gm Iv Premix IVPB 100 mls/hr Q6H MICHAEL Administration Propofol 100 mls @ 2.722 mls/hr 01/13/17 00:10 01/18/17 15:37 Diprivan IV 10 mcg/kg/min .Q24H PRN Titration TITRATE PER MD ORDER Protocol 5 MCG/KG/MIN Insulin Glargine 14 unit 01/18/17 22:00 01/18/17 23:00 Lantus SC 14 u Q12 MICHAEL Administration Insulin Human Regular 0 unit 01/12/17 13:15 01/19/17 06:52 Novolin R SC 6 unit Q6 MICHAEL Administration Protocol Pantoprazole Sodium 40 mg 01/13/17 10:00 01/18/17 11:20 Protonix Inj IVP 40 mg DAILY MICHAEL Administration Sodium Hypochlorite 0 appl 01/17/17 10:00 01/18/17 12:30 Dakins Solution 0.125% TOP 20 appl DAILY MICHAEL Administration - Patient Studies Lab Studies: Lab Studies 01/19/17 01/19/17 01/19/17 Range/Units 06:31 05:35 05:22 WBC 15.6 H (4.8-10.8) K/uL RBC 3.54 L (4.40-5.90) Mil/uL Hgb 9.4 L (12.0-18.0) g/dL Hct 29.5 L (35.0-51.0) % MCV 83.2 (80.0-94.0) fL MCH 26.5 L (27.0-31.0) pg MCHC 31.9 L (33.0-37.0) g/dL RDW 17.1 H (11.5-14.5) % Plt Count 255 (130-400) K/uL MPV 8.4 (7.2-11.7) fL Neut % (Auto) 86.6 H (50.0-75.0) % Lymph % (Auto) 8.2 L (20.0-40.0) % Churchill % (Auto) 3.7 (0.0-10.0) % Eos % (Auto) 0.9 (0.0-4.0) % Baso % (Auto) 0.6 (0.0-2.0) % Neut # 13.5 H (1.8-7.0) K/uL Lymph # 1.3 (1.0-4.3) K/uL Churchill # 0.6 (0.0-0.8) K/uL Eos # 0.1 (0.0-0.7) K/uL Baso # 0.1 (0.0-0.2) K/uL Neutrophils % (Manual) 84 H (50-75) % Lymphocytes % (Manual) 9 L (20-40) % Monocytes % (Manual) 6 (0-10) % Eosinophils % (Manual) 1 (0-4) % Platelet Estimate Normal (NORMAL) Hypochromasia (manual) Slight Poikilocytosis (manual Slight Anisocytosis (manual) Slight Tear Drop Cells Slight Puncture Site Lr pCO2 42 (35-45) mm/Hg pO2 122 H (80-100) mm/Hg HCO3 32.4 H (21-28) mmol/L ABG pH 7.51 H (7.35-7.45) ABG Total CO2 34.8 H (22-28) mmol/L ABG O2 Saturation 98.9 H (95-98) % ABG Base Excess 9.6 H (-2.0-3.0) mmol/L ABG Hemoglobin 9.8 L (11.7-17.4) g/dL ABG Carboxyhemoglobin 1.6 H (0.5-1.5) % POC ABG HHb (Measured) 1.1 (0.0-5.0) % ABG Methemoglobin 1.6 (0.0-3.0) % Carter Test Pos A-a O2 Difference 111.0 mm/Hg Respiratory Index 0.9 Hgb O2 Saturation 95.7 (95.0-98.0) % FiO2 40.0 % Pressure Support 12 CPAP 5 Sodium 155 H (132-148) mmol/L Potassium 4.5 (3.6-5.2) mmol/L Chloride 109 H (98-107) mmol/L Carbon Dioxide 31 H (22-30) mmol/L Anion Gap 20 (10-20) BUN 46 H (9-20) mg/dL Creatinine 1.4 (0.8-1.5) MG/DL Est GFR ( Amer) > 60 Est GFR (Non-Af Amer) 50 POC Glucose (mg/dL) 269 H (65-110) mg/dL Random Glucose 262 H (75-110) mg/dL Calcium 8.0 L (8.6-10.4) mg/dl Phosphorus 3.3 (2.5-4.5) mg/dL Magnesium 2.3 (1.6-2.3) mg/dL Total Bilirubin 1.3 (0.2-1.3) mg/dL AST 48 (17-59) U/L ALT 19 L (21-72) U/L Alkaline Phosphatase 173 H (38-126) U/L Total Protein 7.3 (6.3-8.3) g/dL Albumin 2.7 L (3.5-5.0) g/dL Globulin 4.6 H (2.2-3.9) gm/dL Albumin/Globulin Ratio 0.6 L (1.0-2.1) 01/19/17 01/18/17 01/18/17 Range/Units 00:15 17:39 12:01 WBC (4.8-10.8) K/uL RBC (4.40-5.90) Mil/uL Hgb (12.0-18.0) g/dL Hct (35.0-51.0) % MCV (80.0-94.0) fL MCH (27.0-31.0) pg MCHC (33.0-37.0) g/dL RDW (11.5-14.5) % Plt Count (130-400) K/uL MPV (7.2-11.7) fL Neut % (Auto) (50.0-75.0) % Lymph % (Auto) (20.0-40.0) % Churchill % (Auto) (0.0-10.0) % Eos % (Auto) (0.0-4.0) % Baso % (Auto) (0.0-2.0) % Neut # (1.8-7.0) K/uL Lymph # (1.0-4.3) K/uL Churchill # (0.0-0.8) K/uL Eos # (0.0-0.7) K/uL Baso # (0.0-0.2) K/uL Neutrophils % (Manual) (50-75) % Lymphocytes % (Manual) (20-40) % Monocytes % (Manual) (0-10) % Eosinophils % (Manual) (0-4) % Platelet Estimate (NORMAL) Hypochromasia (manual) Poikilocytosis (manual Anisocytosis (manual) Tear Drop Cells Puncture Site pCO2 (35-45) mm/Hg pO2 (80-100) mm/Hg HCO3 (21-28) mmol/L ABG pH (7.35-7.45) ABG Total CO2 (22-28) mmol/L ABG O2 Saturation (95-98) % ABG Base Excess (-2.0-3.0) mmol/L ABG Hemoglobin (11.7-17.4) g/dL ABG Carboxyhemoglobin (0.5-1.5) % POC ABG HHb (Measured) (0.0-5.0) % ABG Methemoglobin (0.0-3.0) % Carter Test A-a O2 Difference mm/Hg Respiratory Index Hgb O2 Saturation (95.0-98.0) % FiO2 % Pressure Support CPAP Sodium (132-148) mmol/L Potassium (3.6-5.2) mmol/L Chloride (98-107) mmol/L Carbon Dioxide (22-30) mmol/L Anion Gap (10-20) BUN (9-20) mg/dL Creatinine (0.8-1.5) MG/DL Est GFR ( Amer) Est GFR (Non-Af Amer) POC Glucose (mg/dL) 256 H 275 H 251 H (65-110) mg/dL Random Glucose (75-110) mg/dL Calcium (8.6-10.4) mg/dl Phosphorus (2.5-4.5) mg/dL Magnesium (1.6-2.3) mg/dL Total Bilirubin (0.2-1.3) mg/dL AST (17-59) U/L ALT (21-72) U/L Alkaline Phosphatase (38-126) U/L Total Protein (6.3-8.3) g/dL Albumin (3.5-5.0) g/dL Globulin (2.2-3.9) gm/dL Albumin/Globulin Ratio (1.0-2.1) Laboratory Results - last 24 hr 01/18/17 01/18/17 01/19/17 12:01 17:39 00:15 WBC RBC Hgb Hct MCV MCH MCHC RDW Plt Count MPV Neut % (Auto) Lymph % (Auto) Churchill % (Auto) Eos % (Auto) Baso % (Auto) Neut # Lymph # Churchill # Eos # Baso # Neutrophils % (Manual) Lymphocytes % (Manual) Monocytes % (Manual) Eosinophils % (Manual) Platelet Estimate Hypochromasia (manual) Poikilocytosis (manual Anisocytosis (manual) Tear Drop Cells Puncture Site pCO2 pO2 HCO3 ABG pH ABG Total CO2 ABG O2 Saturation ABG Base Excess ABG Hemoglobin ABG Carboxyhemoglobin POC ABG HHb (Measured) ABG Methemoglobin Carter Test A-a O2 Difference Respiratory Index Hgb O2 Saturation FiO2 Pressure Support CPAP Sodium Potassium Chloride Carbon Dioxide Anion Gap BUN Creatinine Est GFR ( Amer) Est GFR (Non-Af Amer) POC Glucose (mg/dL) 251 H 275 H 256 H Random Glucose Calcium Phosphorus Magnesium Total Bilirubin AST ALT Alkaline Phosphatase Total Protein Albumin Globulin Albumin/Globulin Ratio 01/19/17 01/19/17 01/19/17 05:22 05:35 06:31 WBC 15.6 H RBC 3.54 L Hgb 9.4 L Hct 29.5 L MCV 83.2 MCH 26.5 L MCHC 31.9 L RDW 17.1 H Plt Count 255 MPV 8.4 Neut % (Auto) 86.6 H Lymph % (Auto) 8.2 L Churchill % (Auto) 3.7 Eos % (Auto) 0.9 Baso % (Auto) 0.6 Neut # 13.5 H Lymph # 1.3 Churchill # 0.6 Eos # 0.1 Baso # 0.1 Neutrophils % (Manual) 84 H Lymphocytes % (Manual) 9 L Monocytes % (Manual) 6 Eosinophils % (Manual) 1 Platelet Estimate Normal Hypochromasia (manual) Slight Poikilocytosis (manual Slight Anisocytosis (manual) Slight Tear Drop Cells Slight Puncture Site Lr pCO2 42 pO2 122 H HCO3 32.4 H ABG pH 7.51 H ABG Total CO2 34.8 H ABG O2 Saturation 98.9 H ABG Base Excess 9.6 H ABG Hemoglobin 9.8 L ABG Carboxyhemoglobin 1.6 H POC ABG HHb (Measured) 1.1 ABG Methemoglobin 1.6 Carter Test Pos A-a O2 Difference 111.0 Respiratory Index 0.9 Hgb O2 Saturation 95.7 FiO2 40.0 Pressure Support 12 CPAP 5 Sodium 155 H Potassium 4.5 Chloride 109 H Carbon Dioxide 31 H Anion Gap 20 BUN 46 H Creatinine 1.4 Est GFR ( Amer) > 60 Est GFR (Non-Af Amer) 50 POC Glucose (mg/dL) 269 H Random Glucose 262 H Calcium 8.0 L Phosphorus 3.3 Magnesium 2.3 Total Bilirubin 1.3 AST 48 ALT 19 L Alkaline Phosphatase 173 H Total Protein 7.3 Albumin 2.7 L Globulin 4.6 H Albumin/Globulin Ratio 0.6 L Fingerstick Blood Sugar Results: 256 Critical Care Progress Note - Nutrition Nutrition: Nutrition Category Date Time Status Consistent Carbohydrate [DIET] Diets 01/10/17 Breakfast Active <Anel St - Last Filed: 01/19/17 16:38> CCU Objective - Vital Signs / Intake & Output Vital Signs (Last 4 hours): Vital Signs Pulse Resp BP Pulse Ox 01/19/17 15:00 60 13 128/62 01/19/17 14:00 60 12 134/68 99 01/19/17 13:00 60 14 119/52 L 99 Intake and Output (Last 8hrs): Intake & Output 01/19/17 01/19/17 01/19/17 06:59 14:59 22:59 Intake Total 800 850 150 Output Total 1680 1935 100 Balance -880 -1085 50 Intake: Intake, IV Amount 400 250 Right Proximal Port 50 50 Internal Jugular Right Medial Port 350 200 Internal Jugular Tube Feeding 400 400 50 Other 200 100 Output: Urine 1679 1934 100 Urethral (Conner) 1679 1934 100 Other: # Bowel Movements 1 - Medications Active Medications: Active Medications Generic Name Dose Route Start Last Admin Trade Name Freq PRN Reason Stop Dose Admin Acetaminophen 650 mg 01/15/17 13:53 01/16/17 08:23 Tylenol 650mg/20.3ml Solution Ud PO 650 mg Q6 PRN Administration Fever >100.4 F Albuterol/Ipratropium 3 ml 01/19/17 14:00 01/19/17 13:26 Duoneb 3 Mg/0.5 Mg (3 Ml) Ud INH 3 ml RQ6 MICHAEL Administration Furosemide 40 mg 01/18/17 11:45 01/19/17 09:11 Lasix IVP 40 mg Q12 MICHAEL Administration Metronidazole 100 mls @ 100 mls/hr 01/12/17 23:30 01/19/17 14:33 Flagyl IVPB 100 mls/hr Q8H MICHAEL Administration Ciprofloxacin 200 mls @ 133 mls/hr 04/04/17 12:00 01/19/17 11:04 Cipro 400mg/200ml Dsw IVPB 133 mls/hr Q12H MICHAEL Administration Piperacillin Sod/Tazobactam Sod 50 mls @ 100 mls/hr 01/16/17 12:00 01/19/17 11: 07 Zosyn 3.375 Gm Iv Premix IVPB 100 mls/hr Q6H MICHAEL Administration Propofol 100 mls @ 2.722 mls/hr 01/19/17 10:28 01/19/17 11:00 Diprivan IV 2.722 mls/hr .Q24H PRN Administration TITRATE PER MD ORDER Protocol 5 MCG/KG/MIN Insulin Glargine 14 unit 01/18/17 22:00 01/19/17 09:16 Lantus SC 14 u Q12 MICHAEL Administration Insulin Human Regular 0 unit 01/12/17 13:15 01/19/17 12:55 Novolin R SC 6 unit Q6 MICHAEL Administration Protocol Pantoprazole Sodium 40 mg 01/13/17 10:00 01/19/17 09:10 Protonix Inj IVP 40 mg DAILY MICHAEL Administration Sodium Hypochlorite 0 appl 01/17/17 10:00 01/19/17 09:17 Dakins Solution 0.125% TOP Not Given DAILY MICHAEL - Patient Studies Lab Studies: Lab Studies 01/19/17 01/19/17 01/19/17 Range/Units 12:00 06:31 05:35 WBC 15.6 H (4.8-10.8) K/uL RBC 3.54 L (4.40-5.90) Mil/uL Hgb 9.4 L (12.0-18.0) g/dL Hct 29.5 L (35.0-51.0) % MCV 83.2 (80.0-94.0) fL MCH 26.5 L (27.0-31.0) pg MCHC 31.9 L (33.0-37.0) g/dL RDW 17.1 H (11.5-14.5) % Plt Count 255 (130-400) K/uL MPV 8.4 (7.2-11.7) fL Neut % (Auto) 86.6 H (50.0-75.0) % Lymph % (Auto) 8.2 L (20.0-40.0) % Churchill % (Auto) 3.7 (0.0-10.0) % Eos % (Auto) 0.9 (0.0-4.0) % Baso % (Auto) 0.6 (0.0-2.0) % Neut # 13.5 H (1.8-7.0) K/uL Lymph # 1.3 (1.0-4.3) K/uL Churchill # 0.6 (0.0-0.8) K/uL Eos # 0.1 (0.0-0.7) K/uL Baso # 0.1 (0.0-0.2) K/uL Neutrophils % (Manual) 84 H (50-75) % Lymphocytes % (Manual) 9 L (20-40) % Monocytes % (Manual) 6 (0-10) % Eosinophils % (Manual) 1 (0-4) % Platelet Estimate Normal (NORMAL) Hypochromasia (manual) Slight Poikilocytosis (manual Slight Anisocytosis (manual) Slight Tear Drop Cells Slight Puncture Site pCO2 (35-45) mm/Hg pO2 (80-100) mm/Hg HCO3 (21-28) mmol/L ABG pH (7.35-7.45) ABG Total CO2 (22-28) mmol/L ABG O2 Saturation (95-98) % ABG Base Excess (-2.0-3.0) mmol/L ABG Hemoglobin (11.7-17.4) g/dL ABG Carboxyhemoglobin (0.5-1.5) % POC ABG HHb (Measured) (0.0-5.0) % ABG Methemoglobin (0.0-3.0) % Carter Test A-a O2 Difference mm/Hg Respiratory Index Hgb O2 Saturation (95.0-98.0) % FiO2 % Pressure Support CPAP Sodium 155 H (132-148) mmol/L Potassium 4.5 (3.6-5.2) mmol/L Chloride 109 H (98-107) mmol/L Carbon Dioxide 31 H (22-30) mmol/L Anion Gap 20 (10-20) BUN 46 H (9-20) mg/dL Creatinine 1.4 (0.8-1.5) MG/DL Est GFR ( Amer) > 60 Est GFR (Non-Af Amer) 50 POC Glucose (mg/dL) 276 H 269 H (65-110) mg/dL Random Glucose 262 H (75-110) mg/dL Calcium 8.0 L (8.6-10.4) mg/dl Phosphorus 3.3 (2.5-4.5) mg/dL Magnesium 2.3 (1.6-2.3) mg/dL Total Bilirubin 1.3 (0.2-1.3) mg/dL AST 48 (17-59) U/L ALT 19 L (21-72) U/L Alkaline Phosphatase 173 H (38-126) U/L Total Protein 7.3 (6.3-8.3) g/dL Albumin 2.7 L (3.5-5.0) g/dL Globulin 4.6 H (2.2-3.9) gm/dL Albumin/Globulin Ratio 0.6 L (1.0-2.1) 01/19/17 01/19/17 01/18/17 Range/Units 05:22 00:15 17:39 WBC (4.8-10.8) K/uL RBC (4.40-5.90) Mil/uL Hgb (12.0-18.0) g/dL Hct (35.0-51.0) % MCV (80.0-94.0) fL MCH (27.0-31.0) pg MCHC (33.0-37.0) g/dL RDW (11.5-14.5) % Plt Count (130-400) K/uL MPV (7.2-11.7) fL Neut % (Auto) (50.0-75.0) % Lymph % (Auto) (20.0-40.0) % Churchill % (Auto) (0.0-10.0) % Eos % (Auto) (0.0-4.0) % Baso % (Auto) (0.0-2.0) % Neut # (1.8-7.0) K/uL Lymph # (1.0-4.3) K/uL Churchill # (0.0-0.8) K/uL Eos # (0.0-0.7) K/uL Baso # (0.0-0.2) K/uL Neutrophils % (Manual) (50-75) % Lymphocytes % (Manual) (20-40) % Monocytes % (Manual) (0-10) % Eosinophils % (Manual) (0-4) % Platelet Estimate (NORMAL) Hypochromasia (manual) Poikilocytosis (manual Anisocytosis (manual) Tear Drop Cells Puncture Site Lr pCO2 42 (35-45) mm/Hg pO2 122 H (80-100) mm/Hg HCO3 32.4 H (21-28) mmol/L ABG pH 7.51 H (7.35-7.45) ABG Total CO2 34.8 H (22-28) mmol/L ABG O2 Saturation 98.9 H (95-98) % ABG Base Excess 9.6 H (-2.0-3.0) mmol/L ABG Hemoglobin 9.8 L (11.7-17.4) g/dL ABG Carboxyhemoglobin 1.6 H (0.5-1.5) % POC ABG HHb (Measured) 1.1 (0.0-5.0) % ABG Methemoglobin 1.6 (0.0-3.0) % Carter Test Pos A-a O2 Difference 111.0 mm/Hg Respiratory Index 0.9 Hgb O2 Saturation 95.7 (95.0-98.0) % FiO2 40.0 % Pressure Support 12 CPAP 5 Sodium (132-148) mmol/L Potassium (3.6-5.2) mmol/L Chloride (98-107) mmol/L Carbon Dioxide (22-30) mmol/L Anion Gap (10-20) BUN (9-20) mg/dL Creatinine (0.8-1.5) MG/DL Est GFR ( Amer) Est GFR (Non-Af Amer) POC Glucose (mg/dL) 256 H 275 H (65-110) mg/dL Random Glucose (75-110) mg/dL Calcium (8.6-10.4) mg/dl Phosphorus (2.5-4.5) mg/dL Magnesium (1.6-2.3) mg/dL Total Bilirubin (0.2-1.3) mg/dL AST (17-59) U/L ALT (21-72) U/L Alkaline Phosphatase (38-126) U/L Total Protein (6.3-8.3) g/dL Albumin (3.5-5.0) g/dL Globulin (2.2-3.9) gm/dL Albumin/Globulin Ratio (1.0-2.1) Laboratory Results - last 24 hr 01/18/17 01/19/17 01/19/17 17:39 00:15 05:22 WBC RBC Hgb Hct MCV MCH MCHC RDW Plt Count MPV Neut % (Auto) Lymph % (Auto) Churchill % (Auto) Eos % (Auto) Baso % (Auto) Neut # Lymph # Churchill # Eos # Baso # Neutrophils % (Manual) Lymphocytes % (Manual) Monocytes % (Manual) Eosinophils % (Manual) Platelet Estimate Hypochromasia (manual) Poikilocytosis (manual Anisocytosis (manual) Tear Drop Cells Puncture Site Lr pCO2 42 pO2 122 H HCO3 32.4 H ABG pH 7.51 H ABG Total CO2 34.8 H ABG O2 Saturation 98.9 H ABG Base Excess 9.6 H ABG Hemoglobin 9.8 L ABG Carboxyhemoglobin 1.6 H POC ABG HHb (Measured) 1.1 ABG Methemoglobin 1.6 Carter Test Pos A-a O2 Difference 111.0 Respiratory Index 0.9 Hgb O2 Saturation 95.7 FiO2 40.0 Pressure Support 12 CPAP 5 Sodium Potassium Chloride Carbon Dioxide Anion Gap BUN Creatinine Est GFR ( Amer) Est GFR (Non-Af Amer) POC Glucose (mg/dL) 275 H 256 H Random Glucose Calcium Phosphorus Magnesium Total Bilirubin AST ALT Alkaline Phosphatase Total Protein Albumin Globulin Albumin/Globulin Ratio 01/19/17 01/19/17 01/19/17 05:35 06:31 12:00 WBC 15.6 H RBC 3.54 L Hgb 9.4 L Hct 29.5 L MCV 83.2 MCH 26.5 L MCHC 31.9 L RDW 17.1 H Plt Count 255 MPV 8.4 Neut % (Auto) 86.6 H Lymph % (Auto) 8.2 L Churchill % (Auto) 3.7 Eos % (Auto) 0.9 Baso % (Auto) 0.6 Neut # 13.5 H Lymph # 1.3 Churchill # 0.6 Eos # 0.1 Baso # 0.1 Neutrophils % (Manual) 84 H Lymphocytes % (Manual) 9 L Monocytes % (Manual) 6 Eosinophils % (Manual) 1 Platelet Estimate Normal Hypochromasia (manual) Slight Poikilocytosis (manual Slight Anisocytosis (manual) Slight Tear Drop Cells Slight Puncture Site pCO2 pO2 HCO3 ABG pH ABG Total CO2 ABG O2 Saturation ABG Base Excess ABG Hemoglobin ABG Carboxyhemoglobin POC ABG HHb (Measured) ABG Methemoglobin Carter Test A-a O2 Difference Respiratory Index Hgb O2 Saturation FiO2 Pressure Support CPAP Sodium 155 H Potassium 4.5 Chloride 109 H Carbon Dioxide 31 H Anion Gap 20 BUN 46 H Creatinine 1.4 Est GFR ( Amer) > 60 Est GFR (Non-Af Amer) 50 POC Glucose (mg/dL) 269 H 276 H Random Glucose 262 H Calcium 8.0 L Phosphorus 3.3 Magnesium 2.3 Total Bilirubin 1.3 AST 48 ALT 19 L Alkaline Phosphatase 173 H Total Protein 7.3 Albumin 2.7 L Globulin 4.6 H Albumin/Globulin Ratio 0.6 L Critical Care Progress Note - Nutrition Nutrition: Nutrition Category Date Time Status Consistent Carbohydrate [DIET] Diets 01/10/17 Breakfast Active Attending/Attestation - Attestation I have personally seen and examined this patient.: Yes I have fully participated in the care of the patient.: Yes I have reviewed all pertinent clinical information: Yes Notes (Text): 01/19/17 16:27 Patient seen and examined this morning, was doing well on BiPAP, but desaturated late in am to the 80's despite diuresis, he is confused. Leg evaluation with cellulites and scars unchanged, lower parts of the left toes with with gangrenous looking tissue, also on the right mild on the anterior ball of the foot. wbc coming down, last fever on 01/16, last blood cultures negative. spoke to this am who wants to honor his husbands wishes on not amputating the legs. Unable to extubate due to desaturation in the 80's.
[2017-01-19] MEDS: (Lantus) Insulin Glargine, Recombinant SC SCH ×2 (09:16→21:10)
--- NOTE | 2017-01-19 09:16 | CP.PCM.PN ---
Subjective - Date & Time of Evaluation Date of Evaluation: 01/19/17 Time of Evaluation: 07:00 - Subjective Subjective: patient seen and examined in the intensive care unit. Tolerating CPAP since yesterday Much more awake and responsive Afebrile Objective - Vital Signs/Intake and Output Vital Signs (last 24 hours): Temp Pulse Resp BP Pulse Ox 99.7 F H 60 14 137/69 98 01/19/17 08:35 01/19/17 08:35 01/19/17 08:35 01/19/17 09:11 01/19/17 08:35 Intake and Output: 01/19/17 01/19/17 06:59 18:59 Intake Total 950 100 Output Total 2310 410 Balance -1360 -310 - Medications Medications: Current Medications Acetaminophen (Tylenol 650mg/20.3ml Solution Ud) 650 mg PO Q6 PRN PRN Reason: Fever >100.4 F Last Admin: 01/16/17 08:23 Dose: 650 mg Furosemide (Lasix) 40 mg IVP Q12 [facility] Last Admin: 01/19/17 09:11 Dose: 40 mg Metronidazole (Flagyl) 100 mls @ 100 mls/hr IVPB Q8H MICHAEL Last Admin: 01/19/17 06:30 Dose: 100 mls/hr Ciprofloxacin (Cipro 400mg/200ml Dsw) 200 mls @ 133 mls/hr IVPB Q12H [facility] Last Admin: 01/19/17 00:00 Dose: 133 mls/hr Piperacillin Sod/Tazobactam Sod (Zosyn 3.375 Gm Iv Premix) 50 mls @ 100 mls/hr IVPB Q6H [facility] Last Admin: 01/19/17 06:00 Dose: 100 mls/hr Insulin Glargine (Lantus) 14 unit SC Q12 [facility] Last Admin: 01/18/17 23:00 Dose: 14 u Insulin Human Regular (Novolin R) 0 unit SC Q6 [facility] PRN Reason: Protocol Last Admin: 01/19/17 06:52 Dose: 6 unit Pantoprazole Sodium (Protonix Inj) 40 mg IVP DAILY [facility] Last Admin: 01/19/17 09:10 Dose: 40 mg Sodium Hypochlorite (Dakins Solution 0.125%) 0 appl TOP DAILY [facility] Last Admin: 01/18/17 12:30 Dose: 20 appl - Labs Labs: 01/19/17 06:31 01/19/17 06:31 PT 22.2 SECONDS (9.7-12.2) H 01/18/17 05:54 INR 1.9 01/18/17 05:54 APTT 36 SECONDS (21-34) H 01/18/17 05:54 - Head Exam Head Exam: ATRAUMATIC, NORMOCEPHALIC - ENT Exam ENT Exam: Mucous Membranes Moist - Neck Exam Neck Exam: Normal Inspection - Respiratory Exam Respiratory Exam: Clear to Ausculation Bilateral - GI/Abdominal Exam GI & Abdominal Exam: Soft, Normal Bowel Sounds - Extremities Exam Extremities Exam: Pedal Edema Assessment and Plan (1) Acute respiratory failure with hypercapnia Assessment & Plan: plan to extubate Continue nebulizer treatment and antibiotics Status: Acute (2) Diabetic ulcer of both lower extremities Status: Acute (3) Bacteremia Status: Acute (4) CKD stage 4 due to type 2 diabetes mellitus Status: Acute (5) Coagulopathy Status: Acute (6) Diabetic foot infection Status: Acute
--- NOTE | 2017-01-19 10:47 | RAD ---
HISTORY: intubated COMPARISON: 01/18/2017 FINDINGS: LUNGS: Persistent patchy opacity at right lung base. PLEURA: Probable small left pleural effusion, unchanged. No right pleural effusion identified. CARDIOVASCULAR: Endotracheal tube tip positioned at tracheal xavi and should be repositioned more proximally. Nasogastric tube extends to left upper quadrant of abdomen. Right IJ central venous catheter noted. Permanent pacemaker. OSSEOUS STRUCTURES: No significant abnormalities. VISUALIZED UPPER ABDOMEN: Normal. OTHER FINDINGS: None. IMPRESSION: Endotracheal tube tip at tracheal xavi and should be repositioned more proximally. Patchy right basilar opacity unchanged. Probable small left pleural effusion. Finding discussed with patient's nurse, Marivel, at 10:40 a.m. on 01/19/2017.
[2017-01-19] MEDS: Ciprofloxacin 400mg/200ml D5W 200 ML IVPB SCH ×2 (11:04)
[2017-01-19] MEDS: Albuterol-Ipratrop 3 mg / 0.5 (3 ml) UD INH SCH ×2 (13:26→20:27)
--- NOTE | 2017-01-19 13:46 | CP.PCM.PN ---
Subjective - Date & Time of Evaluation Date of Evaluation: 01/19/17 Time of Evaluation: 13:43 - Subjective Subjective: Remains on vent, lethargic now good UO with addition IV lasix. More hypernatremic now- likely from lasix addition, increased UO Renal function, BP stable On ABs for foot infection Objective - Vital Signs/Intake and Output Vital Signs (last 24 hours): Temp Pulse Resp BP Pulse Ox 99 F 60 14 119/52 L 99 01/19/17 12:00 01/19/17 13:00 01/19/17 13:00 01/19/17 13:00 01/19/17 13:00 Intake and Output: 01/19/17 01/19/17 06:59 18:59 Intake Total 950 800 Output Total 2310 1835 Balance -1360 -1035 - Medications Medications: Current Medications Acetaminophen (Tylenol 650mg/20.3ml Solution Ud) 650 mg PO Q6 PRN PRN Reason: Fever >100.4 F Last Admin: 01/16/17 08:23 Dose: 650 mg Albuterol/Ipratropium (Duoneb 3 Mg/0.5 Mg (3 Ml) Ud) 3 ml INH RQ6 MICHAEL Last Admin: 01/19/17 13:26 Dose: 3 ml Furosemide (Lasix) 40 mg IVP Q12 MICHAEL Last Admin: 01/19/17 09:11 Dose: 40 mg Metronidazole (Flagyl) 100 mls @ 100 mls/hr IVPB Q8H MICHAEL Last Admin: 01/19/17 06:30 Dose: 100 mls/hr Ciprofloxacin (Cipro 400mg/200ml Dsw) 200 mls @ 133 mls/hr IVPB Q12H MICHAEL Last Admin: 01/19/17 11:04 Dose: 133 mls/hr Piperacillin Sod/Tazobactam Sod (Zosyn 3.375 Gm Iv Premix) 50 mls @ 100 mls/hr IVPB Q6H MICHAEL Last Admin: 01/19/17 11:07 Dose: 100 mls/hr Propofol (Diprivan) 100 mls @ 2.722 mls/hr IV .Q24H PRN; Protocol; 5 MCG/KG/MIN PRN Reason: TITRATE PER MD ORDER Last Admin: 01/19/17 11:00 Dose: 2.722 mls/hr Insulin Glargine (Lantus) 14 unit SC Q12 COUNTS INCLUDE 234 BEDS AT THE [facility] Last Admin: 01/19/17 09:16 Dose: 14 u Insulin Human Regular (Novolin R) 0 unit SC Q6 MICHAEL PRN Reason: Protocol Last Admin: 01/19/17 12:55 Dose: 6 unit Pantoprazole Sodium (Protonix Inj) 40 mg IVP DAILY COUNTS INCLUDE 234 BEDS AT THE [facility] Last Admin: 01/19/17 09:10 Dose: 40 mg Sodium Hypochlorite (Dakins Solution 0.125%) 0 appl TOP DAILY MICHAEL Last Admin: 01/19/17 09:17 Dose: Not Given - Labs Labs: 01/19/17 06:31 01/19/17 06:31 PT 22.2 SECONDS (9.7-12.2) H 01/18/17 05:54 INR 1.9 01/18/17 05:54 APTT 36 SECONDS (21-34) H 01/18/17 05:54 - Constitutional Appears: In Acute Distress, Chronically Ill - Head Exam Head Exam: ATRAUMATIC, NORMAL INSPECTION - Neck Exam Neck Exam: Normal Inspection. absent: Tenderness - Respiratory Exam Respiratory Exam: Clear to Ausculation Bilateral, NORMAL BREATHING PATTERN - Cardiovascular Exam Cardiovascular Exam: REGULAR RHYTHM, +S1 - GI/Abdominal Exam GI & Abdominal Exam: Soft. absent: Tenderness - Extremities Exam Extremities Exam: Tenderness. absent: Pedal Edema - Neurological Exam Neurological Exam: Altered, Motor Sensory Deficit - Skin Skin Exam: Dry, Warm Assessment and Plan (1) Diabetic ulcer of both lower extremities Status: Acute (2) Atrial fibrillation with slow ventricular response Status: Chronic (3) Cellulitis Status: Acute (4) DM2 (diabetes mellitus, type 2) Status: Chronic (5) HTN (hypertension) Status: Chronic (6) CKD stage 4 due to type 2 diabetes mellitus Status: Acute (7) Hypernatremia Status: Acute - Assessment and Plan (Free Text) Plan: Increase free water flushes Might need IV D5W if hypernatremia worsens
[2017-01-19] MEDS ORDERED: Morphine 4 MG/ML VIAL ONE (15:11)
--- NOTE | 2017-01-19 15:25 | CP.PCM.PN ---
Subjective - Date & Time of Evaluation Date of Evaluation: 01/19/17 Time of Evaluation: 12:58 - Subjective Subjective: non verbal on vent sedated awake confused Objective - Vital Signs/Intake and Output Vital Signs (last 24 hours): Temp Pulse Resp BP Pulse Ox 99 F 60 13 128/62 99 01/19/17 12:00 01/19/17 15:00 01/19/17 15:00 01/19/17 15:00 01/19/17 14:00 Intake and Output: 01/19/17 01/19/17 06:59 18:59 Intake Total 950 1000 Output Total 2310 2034 Balance -8700 -7486 - Medications Medications: Current Medications Acetaminophen (Tylenol 650mg/20.3ml Solution Ud) 650 mg PO Q6 PRN PRN Reason: Fever >100.4 F Last Admin: 01/16/17 08:23 Dose: 650 mg Albuterol/Ipratropium (Duoneb 3 Mg/0.5 Mg (3 Ml) Ud) 3 ml INH RQ6 MICHAEL Last Admin: 01/19/17 13:26 Dose: 3 ml Furosemide (Lasix) 40 mg IVP Q12 MICHAEL Last Admin: 01/19/17 09:11 Dose: 40 mg Metronidazole (Flagyl) 100 mls @ 100 mls/hr IVPB Q8H MICHAEL Last Admin: 01/19/17 14:33 Dose: 100 mls/hr Ciprofloxacin (Cipro 400mg/200ml Dsw) 200 mls @ 133 mls/hr IVPB Q12H MICHAEL Last Admin: 01/19/17 11:04 Dose: 133 mls/hr Piperacillin Sod/Tazobactam Sod (Zosyn 3.375 Gm Iv Premix) 50 mls @ 100 mls/hr IVPB Q6H MICHAEL Last Admin: 01/19/17 11:07 Dose: 100 mls/hr Propofol (Diprivan) 100 mls @ 2.722 mls/hr IV .Q24H PRN; Protocol; 5 MCG/KG/MIN PRN Reason: TITRATE PER MD ORDER Last Admin: 01/19/17 11:00 Dose: 2.722 mls/hr Insulin Glargine (Lantus) 14 unit SC Q12 MICHAEL Last Admin: 01/19/17 09:16 Dose: 14 u Insulin Human Regular (Novolin R) 0 unit SC Q6 [facility] PRN Reason: Protocol Last Admin: 01/19/17 12:55 Dose: 6 unit Pantoprazole Sodium (Protonix Inj) 40 mg IVP DAILY [facility] Last Admin: 01/19/17 09:10 Dose: 40 mg Sodium Hypochlorite (Dakins Solution 0.125%) 0 appl TOP DAILY [facility] Last Admin: 01/19/17 09:17 Dose: Not Given - Labs Labs: 01/19/17 06:31 01/19/17 06:31 PT 22.2 SECONDS (9.7-12.2) H 01/18/17 05:54 INR 1.9 01/18/17 05:54 APTT 36 SECONDS (21-34) H 01/18/17 05:54 - Constitutional Appears: Non-toxic - Head Exam Head Exam: ATRAUMATIC - Eye Exam Additional comments: et tube - Respiratory Exam Respiratory Exam: absent: Clear to Ausculation Bilateral Additional comments: coarse bs - Cardiovascular Exam Cardiovascular Exam: Irregular Rhythm, +S1, +S2 - GI/Abdominal Exam GI & Abdominal Exam: Soft, Normal Bowel Sounds. absent: Tenderness Additional comments: obese - Extremities Exam Additional comments: extensive necrotic tissue left lower ext dorsal side area of calf ischemic dry gangrene of left lower ext toes bilateral heel necrotic and dry gangrene foul smelling - Neurological Exam Neurological Exam: Alert, Awake. absent: Oriented x3 - Skin Skin Exam: absent: Normal Color Assessment and Plan - Assessment and Plan (Free Text) Assessment: (1) Severe sepsis Assessment and Plan: 01/17: WBC: 19.8 Na+ 154: Cr: 1.4 Criteria: leukocytosis (28.6): RR>20, and confirmed source of infection including b/l lower extremities; bactermia and likely osteomyelitis and/or gangrene; symptomatic: altered mental status, lethargic, responsive to painful stimuli; creatinine >0.5, coagulation abnormalities INR>1.5 Blood culture (01/09/17): Peptostreptoccus Baltazar X2 Wound culture (01/09/17) Left leg: enterobacter Cloacae Sssp Cloac; Gram negative garret X3, Bacillus speciies; Leg Right: Enterobacter Cloacae X2, Bacillus Chest xray (01/12/17): persistent severe cardiomegaly and interval improvement in pulmonary venous congestion Blood culture (01/12/17): no growth after 4 days X2 Urine culture (01/12/17): no growth Urine culture (01/11/17) no growth Abx: Ciprofloxcin 400mg IV Q 12hours (active since 01/16/17) Flagyl 500mg IV Q 8hours (active since 01/12/17) Zosyn 3.375 IV Q 6 hours (active since 01/16/17) ABG (01/12): mild metabolic acidosis; lactate: 0.8 Patient appears clinically dried at time of rapid. Patient transferred to ICU on 01/12/17. Patient may require amputation due to dry gangrene of toes and ischemic necrotic ulcers of bilateral heels as well as large area dorsal side of left lower extremity;however, patient's refuses amputation likely PVD - Patient unable to get MRI given has pacemaker. Infectious disease (Dr. Blum) on board Nephrology (Dr. Sanchez) on board Podiatry (Dr. Davenport) on board Vascular surgery (Dr. Granger) on board---amputation safest treatment; poor prognosis overall Cardiology (Dr. Lerma) for cardiac clearance Procalcitonin: 2.11 Status: Acute (2) Coagulopathy Assessment and Plan: possible related to sepsis INR 15.0, PT 191-->INR:2.6-->1.8-->1.6-->1.7 Patient given 10mg of Vitamin K IV over one hour and 6 units of fresh frozen plasma on 01/12 Patient to given additional 2 units of FFP prior central line placement for inr : 1.8 on 01/13 Given 1 unit of PRBC today on 01/14 Will need to monitor patient for signs of bleeding. CT scan of the head was negative (01/12/17) for any intracrainal bleed. He was on Eliqius 2.5mg bid since admission which was on 01/08/17-01/12/17 for history of atrial fibrillation Heme-onc (Dr. Stephenson) consult on case given coagulopathy. Patient did have BM during rapid which was NOT black and appeared nonbloody. Status: Acute (3) Diabetic ulcer of both lower extremities Assessment and Plan: Patient has severe ulcers on both legs. Hgba1c: 12.4 (uncontrolled) Accuchecks Q 6hours Regular insulin sliding scale subq 6hours 01/11/17 Bone scan: negative study for acute osseous process. Specifically no evidence to suggest acute osteomyelitis left foot. Findings on the left 1st toe apparent on the prior study 03/27/16. Patient unable to give MRI given he has ICD Wound culture (01/09/17): Enterocloace, Bacilus cerus, and pending third organism bilaterally Dr. Blum (infectious disease) on board-->discussed with ICU, patient to receive one dose of Daptomycin today Abx: Ciprofloxcin 400mg IV Q 12hours (active since 01/16/17) Flagyl 500mg IV Q 8hours (active since 01/12/17) Zosyn 3.375 IV Q 6 hours (active since 01/16/17) Surgery on board (Dr. Granger) on board Podiatry on board (Dr. Davenport) on board Infectious disease on board (Dr. Blum) on board Status: Acute (4) Bacteremia Assessment and Plan: Blood culture (01/09/17): Peptostreptoccus Baltazar X2 Blood culture (01/12/17): no growth after 4 days X2 Abx: Ciprofloxcin 400mg IV Q 12hours (active since 01/16/17) Flagyl 500mg IV Q 8hours (active since 01/12/17) Zosyn 3.375 IV Q 6 hours (active since 01/16/17) Echocardiogram (01/15/17): normal LV systolic function, dilated LA, trace MR, moderate TR Status: Acute (5) Acute delirium Assessment and Plan: Propofol sedation likely related to sepsis Status: Acute (6) Acute renal failure Assessment and Plan: monitor BUN/Cr; C 1.8 Cr baseline before that was around 0.8. Nephrology: Dr. Sanchez is consulted. Patient appears volume depleted at the time of rapid. Received 6 units of FFP and 10mg IV Vitamin K 01/12 and then gentle IV hydration NS 50cc/hr Will receive additional 2 units of FFP 01/13/17 prior to central line placement Status: Acute (7) Atrial fibrillation with slow ventricular response Status: Chronic Comment: Patient has a pace maker; 100% V-Paced. Echocardiogram (01/15/17): normal LV systolic function, dilated LA, trace MR, moderate TR CHADS: 2 (HTN, DM) HASBLED: 4 (HTN, abnormal renal function, labile INR, and age>65) Patient has PPM; will need to find out information regarding pacemaker Cardiology (Dr. Lerma) for cardiac clearance for prior anticipated BKA; which has refused; has signed off Not on antiocoagulation due to bleeding of lower extremeties and had been given ffp/vitamin k to reverse high INR cont to monitor INR (8) DM2 (diabetes mellitus, type 2) Status: Chronic Comment: Accu checks Q6H and sliding scale insulin Q6H per protocol. Uncontrolled; 12.4 a1c start Lantus (9) HTN (hypertension) Status: Chronic Comment: monitor vitals sign in light of severe sepsis off anti-hypertensive medications patient is on sedation (10) Prophylactic measure Assessment and Plan: OFF VTE given elevated INR and Bleeding Wound Care : Dolores Birch (contact number: [phone]) Consent for blood products in the hardcopy chart Intubated 01/12 On sedation Status: Acute
--- NOTE | 2017-01-19 16:49 | CP.PCM.PN ---
Subjective - Date & Time of Evaluation Date of Evaluation: 01/19/17 Time of Evaluation: 15:45 - Subjective Subjective: PODIATRY PROGRESS NOTE FOR DR. DAVENPORT: 71 yo male patient S&E at the bedside in the ICU today for f/u of bilateral lower extremity ulcerations. Pt seen resting in bed, remains intubated, seems slightly more arousable today to verbal stimuli. Pt appears to be in NAD. Dressings to legs appear to be clean, dry, intact. No acute events reported overnight. Objective - Vital Signs/Intake and Output Vital Signs (last 24 hours): Temp Pulse Resp BP Pulse Ox 99 F 60 20 144/55 L 99 01/19/17 12:00 01/19/17 16:00 01/19/17 16:00 01/19/17 16:00 01/19/17 14:00 Intake and Output: 01/19/17 01/19/17 06:59 18:59 Intake Total 950 1150 Output Total 2310 2135 Balance -1360 -985 - Medications Medications: Current Medications Acetaminophen (Tylenol 650mg/20.3ml Solution Ud) 650 mg PO Q6 PRN PRN Reason: Fever >100.4 F Last Admin: 01/16/17 08:23 Dose: 650 mg Albuterol/Ipratropium (Duoneb 3 Mg/0.5 Mg (3 Ml) Ud) 3 ml INH RQ6 MICHAEL Last Admin: 01/19/17 13:26 Dose: 3 ml Furosemide (Lasix) 40 mg IVP Q12 MICHAEL Last Admin: 01/19/17 09:11 Dose: 40 mg Metronidazole (Flagyl) 100 mls @ 100 mls/hr IVPB Q8H MICHAEL Last Admin: 01/19/17 14:33 Dose: 100 mls/hr Ciprofloxacin (Cipro 400mg/200ml Dsw) 200 mls @ 133 mls/hr IVPB Q12H MICHAEL Last Admin: 01/19/17 11:04 Dose: 133 mls/hr Piperacillin Sod/Tazobactam Sod (Zosyn 3.375 Gm Iv Premix) 50 mls @ 100 mls/hr IVPB Q6H MICHAEL Last Admin: 01/19/17 11:07 Dose: 100 mls/hr Propofol (Diprivan) 100 mls @ 2.722 mls/hr IV .Q24H PRN; Protocol; 5 MCG/KG/MIN PRN Reason: TITRATE PER MD ORDER Last Admin: 01/19/17 11:00 Dose: 2.722 mls/hr Insulin Glargine (Lantus) 14 unit SC Q12 [facility] Last Admin: 01/19/17 09:16 Dose: 14 u Insulin Human Regular (Novolin R) 0 unit SC Q6 MICHAEL PRN Reason: Protocol Last Admin: 01/19/17 12:55 Dose: 6 unit Pantoprazole Sodium (Protonix Inj) 40 mg IVP DAILY [facility] Last Admin: 01/19/17 09:10 Dose: 40 mg Sodium Hypochlorite (Dakins Solution 0.125%) 0 appl TOP DAILY MICHAEL Last Admin: 01/19/17 09:17 Dose: Not Given - Labs Labs: 01/19/17 06:31 01/19/17 06:31 PT 22.2 SECONDS (9.7-12.2) H 01/18/17 05:54 INR 1.9 01/18/17 05:54 APTT 36 SECONDS (21-34) H 01/18/17 05:54 - Constitutional Appears: Non-toxic, No Acute Distress, Chronically Ill - Extremities Exam Additional comments: Bilateral lower extremity exam: Vascular: DP/ PT pulses are non-palpable B, skin temp runs warm to warm BL, capillary refill time is delayed to digits x 10, 2+ pitting edema noted to anterior shins and anterior aspect of feet BL Neuro: gross protective pedal sensation is diminished BL Dermatologic: dressings to legs appear to be c/d/i bl, there is heavy malodor evident to both legs, heavy serous drainage noted upon removal of bandages. Right- partial thickness ulceration noted to lateral aspect of leg measures approx. 7.2 x 6.4 cm with 70% fibrotic and 30% granular wound base (no sinus tracking noted, no probe to bone, no fluctance), there is also a necrotic heel eschar which measures approx 7.2 x 7.0cm with serous drainage noted, no fluctuance however heel does feel boggy to touch, no sinus tracking. Of note today, there appears to be some darkened discoloration noted to the plantar sulcus of digits 2-3 Left: medial aspect 1st metatarsal head region full thickness ulceration measuring 2.0 x 2 cm with 100% fibrotic base absent undermining margins. Fluctuant necrotic heel eschar with active weeping drainage from posterior margin noted. Eschar measures 9 x 8 cm. Lateral leg full thickness ulceration measuring 13 x 7.5 cm with 80% fibrotic to 20% necrotic base (no sinus tracking , no probe to bone, serous drainage noted), Of note, there also appears to be some darkened discoloration to plantar sulcus of digits 2-3 Ortho : no gross deformities noted, unable to assess further due to pt sedation - Neurological Exam Neurological Exam: absent: Alert, Awake, Oriented x3 - Psychiatric Exam Additional comments: unable to assess Assessment and Plan - Assessment and Plan (Free Text) Assessment: 71 yo diabetic male patient w/ infected lower extremity ulcerations, and 2 non- stageable heel ulcerations all secondary to diabetic neuropathy and ischemic limb changes Plan: Plan: -Patient seen and evaluated at bedside -Chart, labs, vitals reviewed: afebrile, WBC trending down 15.6 today -Plan discussed with attending Dr. Davenport -Podiatry recommends BKA's -Spoke with lead java developer architect Dr. Hennessy- family still refusing BKA's at this time. -Legs/feet cleansed with 1/4 Dakin's solution + normal saline. Dressings left off per Dr. Hennessy' request so that family may be given opportunity to see condition of the legs later today. -Spoke to nurse who will apply xeroform, DSD and kerlix to legs later today. -legs elevated on pillows -will continue to follow
[2017-01-19] MEDS: HYDROmorphone 1 mg/ml ISec IVP PRN (17:15)
[2017-01-19] MEDS ORDERED: Morphine 4 MG/ML VIAL IV SCH (17:15)
--- NOTE | 2017-01-19 17:57 | CP.PCM.PN ---
Subjective - Date & Time of Evaluation Date of Evaluation: 01/19/17 Time of Evaluation: 07:00 - Subjective Subjective: still on vent iv rx in progress nad denies chest pain Objective - Vital Signs/Intake and Output Vital Signs (last 24 hours): Temp Pulse Resp BP Pulse Ox 99.3 F 60 23 144/55 L 100 01/19/17 16:00 01/19/17 17:00 01/19/17 17:00 01/19/17 16:00 01/19/17 17:00 Intake and Output: 01/19/17 01/19/17 06:59 18:59 Intake Total 950 1260 Output Total 2310 2260 Balance -1360 -1000 - Medications Medications: Current Medications Acetaminophen (Tylenol 650mg/20.3ml Solution Ud) 650 mg PO Q6 PRN PRN Reason: Fever >100.4 F Last Admin: 01/16/17 08:23 Dose: 650 mg Albuterol/Ipratropium (Duoneb 3 Mg/0.5 Mg (3 Ml) Ud) 3 ml INH RQ6 MICHAEL Last Admin: 01/19/17 13:26 Dose: 3 ml Furosemide (Lasix) 40 mg IVP Q12 MICHAEL Last Admin: 01/19/17 09:11 Dose: 40 mg Hydromorphone HCl (Dilaudid) 1 mg IVP Q6H PRN PRN Reason: Pain, moderate (4-7) Last Admin: 01/19/17 17:15 Dose: 1 mg Metronidazole (Flagyl) 100 mls @ 100 mls/hr IVPB Q8H MICHAEL Last Admin: 01/19/17 14:33 Dose: 100 mls/hr Ciprofloxacin (Cipro 400mg/200ml Dsw) 200 mls @ 133 mls/hr IVPB Q12H MICHAEL Last Admin: 01/19/17 11:04 Dose: 133 mls/hr Piperacillin Sod/Tazobactam Sod (Zosyn 3.375 Gm Iv Premix) 50 mls @ 100 mls/hr IVPB Q6H MICHAEL Last Admin: 01/19/17 11:07 Dose: 100 mls/hr Propofol (Diprivan) 100 mls @ 2.722 mls/hr IV .Q24H PRN; Protocol; 5 MCG/KG/MIN PRN Reason: TITRATE PER MD ORDER Last Titration: 01/19/17 16:00 Dose: 12.86 mcg/kg/min Insulin Glargine (Lantus) 14 unit SC Q12 [facility] Last Admin: 01/19/17 09:16 Dose: 14 u Insulin Human Regular (Novolin R) 0 unit SC Q6 [facility] PRN Reason: Protocol Last Admin: 01/19/17 12:55 Dose: 6 unit Morphine Sulfate (Morphine) 10 mg PO Q4H [facility] Pantoprazole Sodium (Protonix Inj) 40 mg IVP DAILY [facility] Last Admin: 01/19/17 09:10 Dose: 40 mg Sodium Hypochlorite (Dakins Solution 0.125%) 0 appl TOP DAILY [facility] Last Admin: 01/19/17 09:17 Dose: Not Given - Labs Labs: 01/19/17 06:31 01/19/17 06:31 PT 22.2 SECONDS (9.7-12.2) H 01/18/17 05:54 INR 1.9 01/18/17 05:54 APTT 36 SECONDS (21-34) H 01/18/17 05:54 - Constitutional Appears: Non-toxic, Chronically Ill - Head Exam Head Exam: NORMOCEPHALIC - Eye Exam Eye Exam: absent: Scleral icterus - ENT Exam ENT Exam: Mucous Membranes Dry - Neck Exam Neck Exam: absent: Lymphadenopathy - Respiratory Exam Respiratory Exam: Decreased Breath Sounds - Cardiovascular Exam Cardiovascular Exam: REGULAR RHYTHM, +S1, +S2 - GI/Abdominal Exam GI & Abdominal Exam: Distended, Soft - Rectal Exam Rectal Exam: Deferred - Exam Exam: NORMAL INSPECTION - Extremities Exam Extremities Exam: Pedal Edema, Tenderness Additional comments: foul smelling wounds lower extrem - Back Exam Back Exam: absent: CVA tenderness (L), CVA tenderness (R) Assessment and Plan (1) Diabetic foot infection Status: Acute (2) Diabetic ulcer of both lower extremities Status: Acute (3) Leukocytosis Status: Acute (4) Abdominal distension Status: Acute (5) Atrial fibrillation with slow ventricular response Status: Chronic (6) Cellulitis Status: Acute - Assessment and Plan (Free Text) Assessment: await surgical debridement or amputation poor prognosis
[2017-01-19] MEDS: Acetaminophen 650mg/20.3ml solution UD PO PRN (22:15)
[2017-01-20] MEDS: (Novolin R) Insulin Human Regular 100 units/ml vial SC SCH ×4 (00:21→19:45)
[2017-01-20] MEDS: Piperacill/Tazo 3.375gm in Dex 50 ML IVPB SCH ×4 (05:00→23:30)
[2017-01-20 05:38] LABS: ABG ALLEN TEST POS; ABG MECHANICAL RATE 14; ARTERIAL BLOOD HGB O2 SAT 96.7 % (95.0-98.0); ATERIAL BLOOD GAS PEEP 5; CARBOXYHEMOGLOBIN 1.6 % (0.5-1.5); DRAW SITE LR; HHB 0.5 % (0.0-5.0); METHEMOGLOBIN 1.3 % (0.0-3.0)
[2017-01-20] MEDS: HYDROmorphone 1 mg/ml ISec IVP PRN ×2 (05:38→11:11)
[2017-01-20 06:42] LABS: BASO # 0.1 K/uL (0.0-0.2); BASO % 0.8 % (0.0-2.0); EOS # 0.1 K/uL (0.0-0.7); EOS % 0.4 % (0.0-4.0); HEMATOCRIT 27.9 % (35.0-51.0); LYMPH # 1.3 K/uL (1.0-4.3); LYMPH % 8.6 % (20.0-40.0); MEAN CELL VOLUME 83.5 fL (80.0-94.0); MEAN CORPUSCULAR HEMOGLOBIN 26.5 pg (27.0-31.0); MEAN CORPUSCULAR HGB CONC 31.7 g/dL (33.0-37.0); MEAN PLATELET VOLUME 8.5 fL (7.2-11.7); MONO # 0.6 K/uL (0.0-0.8); MONO % 4.1 % (0.0-10.0); PLATELET COUNT 243 K/uL (130-400); RED CELL DISTRIBUTION WIDTH 16.8 % (11.5-14.5); WHITE BLOOD COUNT 15.3 K/uL (4.8-10.8)
[2017-01-20 07:01] LABS: POTASSIUM 3.9 mmol/L (3.6-5.2)
[2017-01-20 07:03] LABS: ALB/GLOB RATIO 0.6 (1.0-2.1); BILIRUBIN,TOTAL 1.4 mg/dL (0.2-1.3)
[2017-01-20 07:04] LABS: CALCIUM 7.8 mg/dl (8.6-10.4); MAGNESIUM 2.1 mg/dL (1.6-2.3); PHOSPHOROUS 4.2 mg/dL (2.5-4.5)
--- NOTE | 2017-01-20 07:55 | CP.PCM.PN ---
Subjective - Date & Time of Evaluation Date of Evaluation: 01/20/17 Time of Evaluation: 07:55 - Subjective Subjective: 71 yo male patient seen and evaluated at the bedside in the ICU today with Dr. Davenport for f/u of bilateral lower extremity ulcerations. Pt seen resting in bed, remains intubated, seems slightly more arousable today to verbal stimuli. Pt appears to be in NAD. Dressings to legs appear to be clean, dry, intact. No acute events reported overnight. Patient's presents at bedside. Objective - Vital Signs/Intake and Output Vital Signs (last 24 hours): Temp Pulse Resp BP Pulse Ox 98.9 F 60 19 106/50 L 100 01/20/17 00:00 01/20/17 07:00 01/20/17 07:00 01/20/17 07:00 01/20/17 07:00 Intake and Output: 01/20/17 01/20/17 06:59 18:59 Intake Total 1181.7 52.7 Output Total 1937 167 Balance -755.3 -114.3 - Medications Medications: Current Medications Acetaminophen (Tylenol 650mg/20.3ml Solution Ud) 650 mg PO Q6 PRN PRN Reason: Fever >100.4 F Last Admin: 01/19/17 22:15 Dose: 650 mg Albuterol/Ipratropium (Duoneb 3 Mg/0.5 Mg (3 Ml) Ud) 3 ml INH RQ6 [facility] Last Admin: 01/19/17 20:27 Dose: 3 ml Enoxaparin Sodium (Lovenox) 40 mg SC DAILY [facility] Furosemide (Lasix) 40 mg IVP Q12 [facility] Last Admin: 01/19/17 21:10 Dose: 40 mg Hydromorphone HCl (Dilaudid) 1 mg IVP Q6H PRN PRN Reason: Pain, moderate (4-7) Last Admin: 01/20/17 05:38 Dose: 1 mg Hydromorphone HCl (Dilaudid) 2 mg PO Q4H PRN PRN Reason: Pain, Mild (1-3) Metronidazole (Flagyl) 100 mls @ 100 mls/hr IVPB Q8H [facility] Last Admin: 01/19/17 22:30 Dose: 100 mls/hr Ciprofloxacin (Cipro 400mg/200ml Dsw) 200 mls @ 133 mls/hr IVPB Q12H [facility] Last Admin: 01/20/17 00:00 Dose: 133 mls/hr Piperacillin Sod/Tazobactam Sod (Zosyn 3.375 Gm Iv Premix) 50 mls @ 100 mls/hr IVPB Q6H [facility] Last Admin: 01/20/17 05:00 Dose: 100 mls/hr Propofol (Diprivan) 100 mls @ 2.722 mls/hr IV .Q24H PRN; Protocol; 5 MCG/KG/MIN PRN Reason: TITRATE PER MD ORDER Last Titration: 01/19/17 18:20 Dose: 4.96 mcg/kg/min Insulin Glargine (Lantus) 14 unit SC Q12 [facility] Last Admin: 01/19/17 21:10 Dose: 14 u Insulin Human Regular (Novolin R) 0 unit SC Q6 [facility] PRN Reason: Protocol Last Admin: 01/20/17 05:37 Dose: 4 unit Pantoprazole Sodium (Protonix Inj) 40 mg IVP DAILY [facility] Last Admin: 01/19/17 09:10 Dose: 40 mg Sodium Hypochlorite (Dakins Solution 0.125%) 0 appl TOP DAILY [facility] Last Admin: 01/19/17 09:17 Dose: Not Given - Labs Labs: 01/20/17 06:34 01/20/17 06:35 PT 22.2 SECONDS (9.7-12.2) H 01/18/17 05:54 INR 1.9 01/18/17 05:54 APTT 36 SECONDS (21-34) H 01/18/17 05:54 - Extremities Exam Additional comments: Vascular: DP/ PT pulses are non-palpable B, skin temp runs warm to warm BL, capillary refill time is delayed to digits x 10, 2+ pitting edema noted to anterior shins and anterior aspect of feet BL Neuro: gross protective pedal sensation is diminished BL Dermatologic: dressings to legs appear to be c/d/i bl, there is heavy malodor evident to both legs, heavy serous drainage noted upon removal of bandages. Right- partial thickness ulceration noted to lateral aspect of leg measures approx. 7.2 x 6.4 cm with 70% fibrotic and 30% granular wound base (no sinus tracking noted, no probe to bone, no fluctance), there is also a necrotic heel eschar which measures approx 7.2 x 7.0cm with serous drainage noted, no fluctuance however heel does feel boggy to touch, no sinus tracking. Of note today, there appears to be some darkened discoloration noted to the plantar sulcus of digits 2-3 Left: medial aspect 1st metatarsal head region full thickness ulceration measuring 2.0 x 2 cm with 100% fibrotic base absent undermining margins. Fluctuant necrotic heel eschar with active weeping drainage from posterior margin noted. Eschar measures 9 x 8 cm. Lateral leg full thickness ulceration measuring 13 x 7.5 cm with 80% fibrotic to 20% necrotic base (no sinus tracking , no probe to bone, serous drainage noted), Of note, there also appears to be some darkened discoloration to plantar sulcus of digits 2-3 Ortho : no gross deformities noted, unable to assess further due to pt sedation - Neurological Exam Neurological Exam: Alert Assessment and Plan - Assessment and Plan (Free Text) Assessment: 71 yo diabetic male patient w/ infected lower extremity ulcerations, and 2 non- stageable heel ulcerations all secondary to diabetic neuropathy and ischemic limb changes Plan: Patient seen and evaluated at bedside in ICU with attending Dr. Davenport Chart, labs, vitals reviewed: afebrile, WBC trending down 15.3 today Podiatry recommends BKA's however family still refusing BKA's at this time. Legs/feet cleansed with 1/4 Dakin's solution + normal saline. Dressing was applied with Xeroform and DSD Continue IV anx as per ID Legs elevated on pillows Podiatry will continue to follow while patient remains in house.
[2017-01-20] MEDS: Albuterol-Ipratrop 3 mg / 0.5 (3 ml) UD INH SCH ×2 (07:59→13:09)
[2017-01-20] MEDS: metroNIDAZOLE IV 500 mg/100 ml 100 ML IVPB SCH ×3 (08:00→21:30)
[2017-01-20 08:40] LABS: NEUTROPHIL 85 % (50-75); TOTAL CELLS COUNTED 100
--- NOTE | 2017-01-20 09:54 | CP.PCM.PN ---
Subjective - Date & Time of Evaluation Date of Evaluation: 01/20/17 Time of Evaluation: 09:51 - Subjective Subjective: More alert; remains on vent UO - increased with lasix IV Still hypernatremic Spoke to about infected foot- claims shes aware Creat increased likely from increased diuresis Objective - Vital Signs/Intake and Output Vital Signs (last 24 hours): Temp Pulse Resp BP Pulse Ox 98.9 F 61 19 110/54 L 100 01/20/17 00:00 01/20/17 09:00 01/20/17 09:00 01/20/17 08:31 01/20/17 09:00 Intake and Output: 01/20/17 01/20/17 06:59 18:59 Intake Total 1181.7 258.1 Output Total 1937 367 Balance -755.3 -108.9 - Medications Medications: Current Medications Acetaminophen (Tylenol 650mg/20.3ml Solution Ud) 650 mg PO Q6 PRN PRN Reason: Fever >100.4 F Last Admin: 01/19/17 22:15 Dose: 650 mg Albuterol/Ipratropium (Duoneb 3 Mg/0.5 Mg (3 Ml) Ud) 3 ml INH RQ6 [facility] Last Admin: 01/20/17 07:59 Dose: 3 ml Enoxaparin Sodium (Lovenox) 40 mg SC DAILY [facility] Hydromorphone HCl (Dilaudid) 1 mg IVP Q6H PRN PRN Reason: Pain, moderate (4-7) Last Admin: 01/20/17 05:38 Dose: 1 mg Metronidazole (Flagyl) 100 mls @ 100 mls/hr IVPB Q8H [facility] Last Admin: 01/19/17 22:30 Dose: 100 mls/hr Ciprofloxacin (Cipro 400mg/200ml Dsw) 200 mls @ 133 mls/hr IVPB Q12H [facility] Last Admin: 01/20/17 00:00 Dose: 133 mls/hr Piperacillin Sod/Tazobactam Sod (Zosyn 3.375 Gm Iv Premix) 50 mls @ 100 mls/hr IVPB Q6H [facility] Last Admin: 01/20/17 05:00 Dose: 100 mls/hr Propofol (Diprivan) 100 mls @ 2.722 mls/hr IV .Q24H PRN; Protocol; 5 MCG/KG/MIN PRN Reason: TITRATE PER MD ORDER Last Titration: 01/19/17 18:20 Dose: 4.96 mcg/kg/min Insulin Glargine (Lantus) 24 unit SC Q12 [facility] Insulin Human Regular (Novolin R) 0 unit SC Q6 [facility] PRN Reason: Protocol Last Admin: 01/20/17 05:37 Dose: 4 unit Pantoprazole Sodium (Protonix Inj) 40 mg IVP DAILY [facility] Last Admin: 01/19/17 09:10 Dose: 40 mg Sodium Hypochlorite (Dakins Solution 0.125%) 0 appl TOP DAILY [facility] Last Admin: 01/19/17 09:17 Dose: Not Given - Labs Labs: 01/20/17 06:34 01/20/17 06:35 PT 22.2 SECONDS (9.7-12.2) H 01/18/17 05:54 INR 1.9 01/18/17 05:54 APTT 36 SECONDS (21-34) H 01/18/17 05:54 - Constitutional Appears: Confused, Chronically Ill - Head Exam Head Exam: ATRAUMATIC, NORMAL INSPECTION - Eye Exam Eye Exam: EOMI, Normal appearance - Neck Exam Neck Exam: Normal Inspection. absent: Tenderness - Respiratory Exam Respiratory Exam: Decreased Breath Sounds, Respiratory Distress - Cardiovascular Exam Cardiovascular Exam: REGULAR RHYTHM - GI/Abdominal Exam GI & Abdominal Exam: Soft. absent: Tenderness - Extremities Exam Extremities Exam: Pedal Edema, Tenderness - Neurological Exam Neurological Exam: Awake, CN II-XII Intact - Skin Skin Exam: Dry, Warm Assessment and Plan (1) Diabetic ulcer of both lower extremities Status: Acute (2) Atrial fibrillation with slow ventricular response Status: Chronic (3) Cellulitis Status: Acute (4) DM2 (diabetes mellitus, type 2) Status: Chronic (5) HTN (hypertension) Status: Chronic (6) CKD stage 4 due to type 2 diabetes mellitus Status: Acute (7) Hypernatremia Status: Acute - Assessment and Plan (Free Text) Plan: Decrease lasix dose Mild IV D5W for hypernatremia
--- NOTE | 2017-01-20 10:03 | RAD ---
PROCEDURE: CHEST RADIOGRAPH, 1 VIEW HISTORY: ICU routine COMPARISON: 01/19/2017 FINDINGS: LUNGS: Lines and tubes in stable position. Moderate venous congestion with left basilar airspace opacity and small to moderate left pleural effusion. Right hilar prominence. . PLEURA: As above. CARDIOVASCULAR: Cardiomegaly. Calcification at the aortic knob. Left-sided pacemaker. OSSEOUS STRUCTURES: Question calcific tendinopathy of the right proximal humerus. VISUALIZED UPPER ABDOMEN: Normal. OTHER FINDINGS: None. IMPRESSION: No significant interval change.
[2017-01-20] MEDS: Ciprofloxacin 400mg/200ml D5W 200 ML IVPB SCH ×2 (11:09)
[2017-01-20] MEDS: (Lantus) Insulin Glargine, Recombinant SC SCH ×2 (11:12→22:35)
[2017-01-20] MEDS: POLYETHYLENE GLYCOL 3350 17 GM/Dose PACKET PO SCH (11:14)
[2017-01-20] MEDS: Enoxaparin 40 mg Syringe SC SCH (11:24)
--- NOTE | 2017-01-20 12:59 | CP.PCM.PN ---
Subjective - Date & Time of Evaluation Date of Evaluation: 01/20/17 Time of Evaluation: 12:59 - Subjective Subjective: non verbal on vent awake confused Objective - Vital Signs/Intake and Output Vital Signs (last 24 hours): Temp Pulse Resp BP Pulse Ox 98.9 F 60 19 101/46 L 97 01/20/17 00:00 01/20/17 12:00 01/20/17 12:00 01/20/17 11:31 01/20/17 12:00 Intake and Output: 01/20/17 01/20/17 06:59 18:59 Intake Total 1181.7 258.1 Output Total 1937 367 Balance -755.3 -108.9 - Medications Medications: Current Medications Acetaminophen (Tylenol 650mg/20.3ml Solution Ud) 650 mg PO Q6 PRN PRN Reason: Fever >100.4 F Last Admin: 01/19/17 22:15 Dose: 650 mg Albuterol/Ipratropium (Duoneb 3 Mg/0.5 Mg (3 Ml) Ud) 3 ml INH RQ6 [facility] Last Admin: 01/20/17 07:59 Dose: 3 ml Enoxaparin Sodium (Lovenox) 40 mg SC DAILY [facility] Last Admin: 01/20/17 11:24 Dose: 40 mg Furosemide (Lasix) 40 mg IVP DAILY [facility] Last Admin: 01/20/17 11:10 Dose: 40 mg Hydromorphone HCl (Dilaudid) 1 mg IVP Q6H PRN PRN Reason: Pain, moderate (4-7) Last Admin: 01/20/17 11:11 Dose: 1 mg Metronidazole (Flagyl) 100 mls @ 100 mls/hr IVPB Q8H [facility] Last Admin: 01/19/17 22:30 Dose: 100 mls/hr Ciprofloxacin (Cipro 400mg/200ml Dsw) 200 mls @ 133 mls/hr IVPB Q12H [facility] Last Admin: 01/20/17 11:09 Dose: 133 mls/hr Piperacillin Sod/Tazobactam Sod (Zosyn 3.375 Gm Iv Premix) 50 mls @ 100 mls/hr IVPB Q6H [facility] Last Admin: 01/20/17 11:09 Dose: 100 mls/hr Propofol (Diprivan) 100 mls @ 2.722 mls/hr IV .Q24H PRN; Protocol; 5 MCG/KG/MIN PRN Reason: TITRATE PER MD ORDER Last Titration: 01/19/17 18:20 Dose: 4.96 mcg/kg/min Dextrose (Dextrose 5% In Water 1000 Ml) 1,000 mls @ 40 mls/hr IV .Q24H [facility] Stop: 01/21/17 10:00 Last Admin: 01/20/17 11:14 Dose: 40 mls/hr Insulin Glargine (Lantus) 24 unit SC Q12 [facility] Last Admin: 01/20/17 11:12 Dose: 24 unit Insulin Human Regular (Novolin R) 0 unit SC Q6 [facility] PRN Reason: Protocol Last Admin: 01/20/17 05:37 Dose: 4 unit Pantoprazole Sodium (Protonix Inj) 40 mg IVP DAILY [facility] Last Admin: 01/20/17 11:11 Dose: 40 mg Polyethylene Glycol (Miralax) 17 gm PO DAILY [facility] Last Admin: 01/20/17 11:14 Dose: 17 gm Sodium Hypochlorite (Dakins Solution 0.125%) 0 appl TOP DAILY [facility] Last Admin: 01/19/17 09:17 Dose: Not Given - Labs Labs: 01/20/17 06:34 01/20/17 06:35 PT 22.2 SECONDS (9.7-12.2) H 01/18/17 05:54 INR 1.9 01/18/17 05:54 APTT 36 SECONDS (21-34) H 01/18/17 05:54 - Constitutional Appears: Non-toxic, Confused - Head Exam Head Exam: absent: ATRAUMATIC - ENT Exam Additional comments: et tube - Respiratory Exam Additional comments: coarse bs - Cardiovascular Exam Cardiovascular Exam: Irregular Rhythm, +S1, +S2 - GI/Abdominal Exam GI & Abdominal Exam: Soft, Normal Bowel Sounds. absent: Tenderness Additional comments: obese - Extremities Exam Extremities Exam: absent: Normal Inspection Additional comments: extensive necrotic tissue left lower ext dorsal side area of calf ischemic dry gangrene of left lower ext toes bilateral heel necrotic and dry gangrene foul smelling - Neurological Exam Neurological Exam: Alert, Awake. absent: Oriented x3 - Skin Skin Exam: absent: Normal Color Assessment and Plan - Assessment and Plan (Free Text) Assessment: (1) Severe sepsis Assessment and Plan: 4/5: WBC: 19.8 Na+ 154: Cr: 1.4 Criteria: leukocytosis (28.6): RR>20, and confirmed source of infection including b/l lower extremities; bactermia and likely osteomyelitis and/or gangrene; symptomatic: altered mental status, lethargic, responsive to painful stimuli; creatinine >0.5, coagulation abnormalities INR>1.5 Blood culture (01/09/17): Peptostreptoccus Baltazar X2 Wound culture (01/09/17) Left leg: enterobacter Cloacae Sssp Cloac; Gram negative garret X3, Bacillus speciies; Leg Right: Enterobacter Cloacae X2, Bacillus Chest xray (01/12/17): persistent severe cardiomegaly and interval improvement in pulmonary venous congestion Blood culture (01/12/17): no growth after 4 days X2 Urine culture (01/12/17): no growth Urine culture (01/11/17) no growth Abx: Ciprofloxcin 400mg IV Q 12hours (active since 01/16/17) Flagyl 500mg IV Q 8hours (active since 01/12/17) Zosyn 3.375 IV Q 6 hours (active since 01/16/17) ABG (01/12): mild metabolic acidosis; lactate: 0.8 Patient appears clinically dried at time of rapid. Patient transferred to ICU on 01/12/17. Patient may require amputation due to dry gangrene of toes and ischemic necrotic ulcers of bilateral heels as well as large area dorsal side of left lower extremity;however, patient's refuses amputation likely PVD - Patient unable to get MRI given has pacemaker. Infectious disease (Dr. Blum) on board Nephrology (Dr. Sanchez) on board Podiatry (Dr. Davenport) on board Vascular surgery (Dr. Granger) on board---amputation safest treatment; poor prognosis overall Cardiology (Dr. Lerma) for cardiac clearance Procalcitonin: 2.11 Status: Acute (2) Coagulopathy Assessment and Plan: possible related to sepsis INR 15.0, PT 191-->INR:2.6-->1.8-->1.6-->1.7 Patient given 10mg of Vitamin K IV over one hour and 6 units of fresh frozen plasma on 01/12 Patient to given additional 2 units of FFP prior central line placement for inr : 1.8 on 01/13 Given 1 unit of PRBC today on 01/14 Will need to monitor patient for signs of bleeding. CT scan of the head was negative (01/12/17) for any intracrainal bleed. He was on Eliqius 2.5mg bid since admission which was on 01/08/17-01/12/17 for history of atrial fibrillation Heme-onc (Dr. Stephenson) consult on case given coagulopathy. Patient did have BM during rapid which was NOT black and appeared nonbloody. Status: Acute (3) Diabetic ulcer of both lower extremities Assessment and Plan: Patient has severe ulcers on both legs. Hgba1c: 12.4 (uncontrolled) Accuchecks Q 6hours Regular insulin sliding scale subq 6hours 01/11/17 Bone scan: negative study for acute osseous process. Specifically no evidence to suggest acute osteomyelitis left foot. Findings on the left 1st toe apparent on the prior study 03/27/16. Patient unable to give MRI given he has ICD Wound culture (01/09/17): Enterocloace, Bacilus cerus, and pending third organism bilaterally Dr. Blum (infectious disease) on board-->discussed with ICU, patient to receive one dose of Daptomycin today Abx: Ciprofloxcin 400mg IV Q 12hours (active since 01/16/17) Flagyl 500mg IV Q 8hours (active since 01/12/17) Zosyn 3.375 IV Q 6 hours (active since 01/16/17) Surgery on board (Dr. Granger) on board Podiatry on board (Dr. Davenport) on board Infectious disease on board (Dr. Blum) on board Status: Acute (4) Bacteremia Assessment and Plan: Blood culture (01/09/17): Peptostreptoccus Baltazar X2 Blood culture (01/12/17): no growth after 4 days X2 Abx: Ciprofloxcin 400mg IV Q 12hours (active since 01/16/17) Flagyl 500mg IV Q 8hours (active since 01/12/17) Zosyn 3.375 IV Q 6 hours (active since 01/16/17) Echocardiogram (01/15/17): normal LV systolic function, dilated LA, trace MR, moderate TR Status: Acute (5) Acute delirium Assessment and Plan: Propofol sedation likely related to sepsis Status: Acute (6) Acute renal failure Assessment and Plan: monitor BUN/Cr; C 1.8 Cr baseline before that was around 0.8. Nephrology: Dr. Sanchez is consulted. Patient appears volume depleted at the time of rapid. Received 6 units of FFP and 10mg IV Vitamin K 01/12 and then gentle IV hydration NS 50cc/hr Will receive additional 2 units of FFP 01/13/17 prior to central line placement Status: Acute (7) Atrial fibrillation with slow ventricular response Status: Chronic Comment: Patient has a pace maker; 100% V-Paced. Echocardiogram (01/15/17): normal LV systolic function, dilated LA, trace MR, moderate TR CHADS: 2 (HTN, DM) HASBLED: 4 (HTN, abnormal renal function, labile INR, and age>65) Patient has PPM; will need to find out information regarding pacemaker Cardiology (Dr. Lerma) for cardiac clearance for prior anticipated BKA; which has refused; has signed off Not on antiocoagulation due to bleeding of lower extremeties and had been given ffp/vitamin k to reverse high INR cont to monitor INR (8) DM2 (diabetes mellitus, type 2) Status: Chronic Comment: Accu checks Q6H and sliding scale insulin Q6H per protocol. Uncontrolled; 12.4 a1c start Lantus (9) HTN (hypertension) Status: Chronic Comment: monitor vitals sign in light of severe sepsis off anti-hypertensive medications patient is on sedation (10) Prophylactic measure Assessment and Plan: OFF VTE given elevated INR and Bleeding Wound Care : Dolores Birch (contact number: [phone]) Consent for blood products in the hardcopy chart Intubated 01/12 On sedation Status: Acute
--- NOTE | 2017-01-20 13:57 | CP.CCUPN ---
CCU Subjective - Physician Review Events Since Last Encounter (Free Text): 01/20/17 13:50 Patient seen and examined this morning, stable. I was able to decrease FiO2 to 40% again. Looks more comfortable after stating morphine around the clock. ros unable pe: bp 120/55 mmhg, hr 60 bpm, o2 99% on 40% fiow, rr 20 follows some minimal commands and is able to nod his head yes and not s1, s2 rrr lungs good bilateral air of entry abdomen global soft legs with black scar in both feed and posterior left leg with black scar as well , diffuse cellulites and interrupted integrity of skin gangrenous skin in both toes, more left than right a/p: cellulitis and dry gangrene: continue same antibiotic management, last fever 100.9 on 01/19 at 8 pm, wbc count stil increased ARF:, d/c lasix, increse free water, do not start IV fluids for now Respiratory failure: patent is not ready to be extubated, most likely will fail , very fragile at this time, perhaps will attempt weaning in am Updated family CCU Objective - Vital Signs / Intake & Output Vital Signs (Last 4 hours): Vital Signs Pulse Resp BP Pulse Ox 01/20/17 12:00 60 19 97 01/20/17 11:31 61 17 101/46 L 98 01/20/17 11:10 133/58 L 01/20/17 11:00 63 16 97 01/20/17 10:31 62 22 133/58 L 98 01/20/17 10:00 60 18 98 Intake and Output (Last 8hrs): Intake & Output 01/19/17 01/20/17 01/20/17 22:59 06:59 14:59 Intake Total 842.1 821.6 258.1 Output Total 1001 1336 367 Balance -158.9 -514.4 -108.9 Intake: Intake, IV Amount 282.1 421.6 108.1 Right Proximal Port 32.1 21.6 8.1 Internal Jugular Right Medial Port 250 400 100 Internal Jugular Tube Feeding 400 400 150 Other 160 Output: Urine 1001 1336 367 Urethral (Conner) 1001 1336 367 - Physical Exam Head: Positive for: Atraumatic, Normocephalic Mouth: Positive for: Moist Mucous Membranes Neck: Positive for: Trachea Midline Respiratory/Chest: Positive for: Clear to Auscultation Cardiovascular: Positive for: Regular Rate and Rhythm Abdomen: Positive for: Normal Bowel Sounds Upper Extremity: Positive for: Normal Inspection, Edema Lower Extremity: Positive for: Edema, Capillary Refill < 2 s, Other (LE dressing b/l; malodorous scent noted). Negative for: NORMAL PULSES Neurological: Positive for: Other Skin: Positive for: Dry, Rashes, Erythematous, Abrasion Psychiatric: Negative for: Alert, Oriented x 3 - Medications Active Medications: Active Medications Generic Name Dose Route Start Last Admin Trade Name Freq PRN Reason Stop Dose Admin Acetaminophen 650 mg 01/15/17 13:53 01/19/17 22:15 Tylenol 650mg/20.3ml Solution Ud PO 650 mg Q6 PRN Administration Fever >100.4 F Albuterol/Ipratropium 3 ml 01/19/17 14:00 01/20/17 13:09 Duoneb 3 Mg/0.5 Mg (3 Ml) Ud INH 3 ml RQ6 MICHAEL Administration Enoxaparin Sodium 40 mg 01/20/17 10:00 01/20/17 11:24 Lovenox SC 40 mg DAILY MICHAEL Administration Furosemide 40 mg 01/20/17 10:00 01/20/17 11:10 Lasix IVP 40 mg DAILY MICHAEL Administration Hydromorphone HCl 1 mg 01/19/17 17:01 01/20/17 11:11 Dilaudid IVP 1 mg Q6H PRN Administration Pain, moderate (4-7) Metronidazole 100 mls @ 100 mls/hr 01/12/17 23:30 01/19/17 22:30 Flagyl IVPB 100 mls/hr Q8H MICHAEL Administration Ciprofloxacin 200 mls @ 133 mls/hr 01/16/17 12:00 01/20/17 11:09 Cipro 400mg/200ml Dsw IVPB 133 mls/hr Q12H MICHAEL Administration Piperacillin Sod/Tazobactam Sod 50 mls @ 100 mls/hr 01/16/17 12:00 01/20/17 11: 09 Zosyn 3.375 Gm Iv Premix IVPB 100 mls/hr Q6H MICHAEL Administration Propofol 100 mls @ 2.722 mls/hr 01/19/17 10:28 01/19/17 18:20 Diprivan IV 4.96 mcg/kg/min .Q24H PRN Titration TITRATE PER MD ORDER Protocol 5 MCG/KG/MIN Dextrose 1,000 mls @ 40 mls/hr 01/20/17 10:00 01/20/17 11:14 Dextrose 5% In Water 1000 Ml IV 01/21/17 10:00 40 mls/hr .Q24H MICHAEL Administration Insulin Glargine 24 unit 01/20/17 09:50 01/20/17 11:12 Lantus SC 24 unit Q12 MICHAEL Administration Insulin Human Regular 0 unit 01/12/17 13:15 01/20/17 05:37 Novolin R SC 4 unit Q6 MICHAEL Administration Protocol Pantoprazole Sodium 40 mg 01/13/17 10:00 01/20/17 11:11 Protonix Inj IVP 40 mg DAILY MICHAEL Administration Polyethylene Glycol 17 gm 01/20/17 10:00 01/20/17 11:14 Miralax PO 17 gm DAILY MICHAEL Administration Sodium Hypochlorite 0 appl 01/17/17 10:00 01/19/17 09:17 Dakins Solution 0.125% TOP Not Given DAILY MICHAEL - Patient Studies Lab Studies: Lab Studies 01/20/17 01/20/17 01/20/17 Range/Units 11:48 06:35 06:34 WBC 15.3 H (4.8-10.8) K/uL RBC 3.35 L (4.40-5.90) Mil/uL Hgb 8.9 L (12.0-18.0) g/dL Hct 27.9 L (35.0-51.0) % MCV 83.5 (80.0-94.0) fL MCH 26.5 L (27.0-31.0) pg MCHC 31.7 L (33.0-37.0) g/dL RDW 16.8 H (11.5-14.5) % Plt Count 243 (130-400) K/uL MPV 8.5 (7.2-11.7) fL Neut % (Auto) 86.1 H (50.0-75.0) % Lymph % (Auto) 8.6 L (20.0-40.0) % [place] % (Auto) 4.1 (0.0-10.0) % Eos % (Auto) 0.4 (0.0-4.0) % Baso % (Auto) 0.8 (0.0-2.0) % Neut # 13.2 H (1.8-7.0) K/uL Lymph # 1.3 (1.0-4.3) K/uL [place] # 0.6 (0.0-0.8) K/uL Eos # 0.1 (0.0-0.7) K/uL Baso # 0.1 (0.0-0.2) K/uL Neutrophils % (Manual) 85 H (50-75) % Band Neutrophils % 1 (0-2) % Lymphocytes % (Manual) 8 L (20-40) % Monocytes % (Manual) 6 (0-10) % Toxic Granulation Present Platelet Estimate Normal (NORMAL) Polychromasia Slight Hypochromasia (manual) Slight Anisocytosis (manual) Slight Puncture Site pCO2 (35-45) mm/Hg pO2 (80-100) mm/Hg HCO3 (21-28) mmol/L ABG pH (7.35-7.45) ABG Total CO2 (22-28) mmol/L ABG O2 Saturation (95-98) % ABG Base Excess (-2.0-3.0) mmol/L ABG Hemoglobin (11.7-17.4) g/dL ABG Carboxyhemoglobin (0.5-1.5) % POC ABG HHb (Measured) (0.0-5.0) % ABG Methemoglobin (0.0-3.0) % Carter Test A-a O2 Difference mm/Hg Respiratory Index Hgb O2 Saturation (95.0-98.0) % Mechanical Rate FiO2 % Tidal Volume PEEP Sodium 155 H (132-148) mmol/L Potassium 3.9 (3.6-5.2) mmol/L Chloride 105 (98-107) mmol/L Carbon Dioxide 34 H (22-30) mmol/L Anion Gap 20 (10-20) BUN 49 H (9-20) mg/dL Creatinine 1.8 H (0.8-1.5) MG/DL Est GFR ( Amer) 45 Est GFR (Non-Af Amer) 38 POC Glucose (mg/dL) 241 H (65-110) mg/dL Random Glucose 171 H (75-110) mg/dL Calcium 7.8 L (8.6-10.4) mg/dl Phosphorus 4.2 (2.5-4.5) mg/dL Magnesium 2.1 (1.6-2.3) mg/dL Total Bilirubin 1.4 H (0.2-1.3) mg/dL AST 73 H D (17-59) U/L ALT 22 (21-72) U/L Alkaline Phosphatase 142 H (38-126) U/L Total Protein 7.0 (6.3-8.3) g/dL Albumin 2.7 L (3.5-5.0) g/dL Globulin 4.3 H (2.2-3.9) gm/dL Albumin/Globulin Ratio 0.6 L (1.0-2.1) 01/20/17 01/20/17 01/19/17 Range/Units 05:33 05:28 23:50 WBC (4.8-10.8) K/uL RBC (4.40-5.90) Mil/uL Hgb (12.0-18.0) g/dL Hct (35.0-51.0) % MCV (80.0-94.0) fL MCH (27.0-31.0) pg MCHC (33.0-37.0) g/dL RDW (11.5-14.5) % Plt Count (130-400) K/uL MPV (7.2-11.7) fL Neut % (Auto) (50.0-75.0) % Lymph % (Auto) (20.0-40.0) % [place] % (Auto) (0.0-10.0) % Eos % (Auto) (0.0-4.0) % Baso % (Auto) (0.0-2.0) % Neut # (1.8-7.0) K/uL Lymph # (1.0-4.3) K/uL [place] # (0.0-0.8) K/uL Eos # (0.0-0.7) K/uL Baso # (0.0-0.2) K/uL Neutrophils % (Manual) (50-75) % Band Neutrophils % (0-2) % Lymphocytes % (Manual) (20-40) % Monocytes % (Manual) (0-10) % Toxic Granulation Platelet Estimate (NORMAL) Polychromasia Hypochromasia (manual) Anisocytosis (manual) Puncture Site Lr pCO2 42 (35-45) mm/Hg pO2 219 H (80-100) mm/Hg HCO3 33.8 H (21-28) mmol/L ABG pH 7.53 H (7.35-7.45) ABG Total CO2 36.4 H (22-28) mmol/L ABG O2 Saturation 99.5 H (95-98) % ABG Base Excess 11.3 H (-2.0-3.0) mmol/L ABG Hemoglobin 9.1 L (11.7-17.4) g/dL ABG Carboxyhemoglobin 1.6 H (0.5-1.5) % POC ABG HHb (Measured) 0.5 (0.0-5.0) % ABG Methemoglobin 1.3 (0.0-3.0) % Carter Test Pos A-a O2 Difference 228.0 mm/Hg Respiratory Index 1.0 Hgb O2 Saturation 96.7 (95.0-98.0) % Mechanical Rate 14 FiO2 70.0 % Tidal Volume 450 PEEP 5 Sodium (132-148) mmol/L Potassium (3.6-5.2) mmol/L Chloride (98-107) mmol/L Carbon Dioxide (22-30) mmol/L Anion Gap (10-20) BUN (9-20) mg/dL Creatinine (0.8-1.5) MG/DL Est GFR ( Amer) Est GFR (Non-Af Amer) POC Glucose (mg/dL) 218 H 237 H (65-110) mg/dL Random Glucose (75-110) mg/dL Calcium (8.6-10.4) mg/dl Phosphorus (2.5-4.5) mg/dL Magnesium (1.6-2.3) mg/dL Total Bilirubin (0.2-1.3) mg/dL AST (17-59) U/L ALT (21-72) U/L Alkaline Phosphatase (38-126) U/L Total Protein (6.3-8.3) g/dL Albumin (3.5-5.0) g/dL Globulin (2.2-3.9) gm/dL Albumin/Globulin Ratio (1.0-2.1) 01/19/17 Range/Units 17:44 WBC (4.8-10.8) K/uL RBC (4.40-5.90) Mil/uL Hgb (12.0-18.0) g/dL Hct (35.0-51.0) % MCV (80.0-94.0) fL MCH (27.0-31.0) pg MCHC (33.0-37.0) g/dL RDW (11.5-14.5) % Plt Count (130-400) K/uL MPV (7.2-11.7) fL Neut % (Auto) (50.0-75.0) % Lymph % (Auto) (20.0-40.0) % [place] % (Auto) (0.0-10.0) % Eos % (Auto) (0.0-4.0) % Baso % (Auto) (0.0-2.0) % Neut # (1.8-7.0) K/uL Lymph # (1.0-4.3) K/uL [place] # (0.0-0.8) K/uL Eos # (0.0-0.7) K/uL Baso # (0.0-0.2) K/uL Neutrophils % (Manual) (50-75) % Band Neutrophils % (0-2) % Lymphocytes % (Manual) (20-40) % Monocytes % (Manual) (0-10) % Toxic Granulation Platelet Estimate (NORMAL) Polychromasia Hypochromasia (manual) Anisocytosis (manual) Puncture Site pCO2 (35-45) mm/Hg pO2 (80-100) mm/Hg HCO3 (21-28) mmol/L ABG pH (7.35-7.45) ABG Total CO2 (22-28) mmol/L ABG O2 Saturation (95-98) % ABG Base Excess (-2.0-3.0) mmol/L ABG Hemoglobin (11.7-17.4) g/dL ABG Carboxyhemoglobin (0.5-1.5) % POC ABG HHb (Measured) (0.0-5.0) % ABG Methemoglobin (0.0-3.0) % Carter Test A-a O2 Difference mm/Hg Respiratory Index Hgb O2 Saturation (95.0-98.0) % Mechanical Rate FiO2 % Tidal Volume PEEP Sodium (132-148) mmol/L Potassium (3.6-5.2) mmol/L Chloride (98-107) mmol/L Carbon Dioxide (22-30) mmol/L Anion Gap (10-20) BUN (9-20) mg/dL Creatinine (0.8-1.5) MG/DL Est GFR ( Amer) Est GFR (Non-Af Amer) POC Glucose (mg/dL) 216 H (65-110) mg/dL Random Glucose (75-110) mg/dL Calcium (8.6-10.4) mg/dl Phosphorus (2.5-4.5) mg/dL Magnesium (1.6-2.3) mg/dL Total Bilirubin (0.2-1.3) mg/dL AST (17-59) U/L ALT (21-72) U/L Alkaline Phosphatase (38-126) U/L Total Protein (6.3-8.3) g/dL Albumin (3.5-5.0) g/dL Globulin (2.2-3.9) gm/dL Albumin/Globulin Ratio (1.0-2.1) Laboratory Results - last 24 hr 01/19/17 01/19/17 01/20/17 17:44 23:50 05:28 WBC RBC Hgb Hct MCV MCH MCHC RDW Plt Count MPV Neut % (Auto) Lymph % (Auto) [place] % (Auto) Eos % (Auto) Baso % (Auto) Neut # Lymph # [place] # Eos # Baso # Neutrophils % (Manual) Band Neutrophils % Lymphocytes % (Manual) Monocytes % (Manual) Toxic Granulation Platelet Estimate Polychromasia Hypochromasia (manual) Anisocytosis (manual) Puncture Site Lr pCO2 42 pO2 219 H HCO3 33.8 H ABG pH 7.53 H ABG Total CO2 36.4 H ABG O2 Saturation 99.5 H ABG Base Excess 11.3 H ABG Hemoglobin 9.1 L ABG Carboxyhemoglobin 1.6 H POC ABG HHb (Measured) 0.5 ABG Methemoglobin 1.3 Carter Test Pos A-a O2 Difference 228.0 Respiratory Index 1.0 Hgb O2 Saturation 96.7 Mechanical Rate 14 FiO2 70.0 Tidal Volume 450 PEEP 5 Sodium Potassium Chloride Carbon Dioxide Anion Gap BUN Creatinine Est GFR ( Amer) Est GFR (Non-Af Amer) POC Glucose (mg/dL) 216 H 237 H Random Glucose Calcium Phosphorus Magnesium Total Bilirubin AST ALT Alkaline Phosphatase Total Protein Albumin Globulin Albumin/Globulin Ratio 01/20/17 01/20/17 01/20/17 05:33 06:34 06:35 WBC 15.3 H RBC 3.35 L Hgb 8.9 L Hct 27.9 L MCV 83.5 MCH 26.5 L MCHC 31.7 L RDW 16.8 H Plt Count 243 MPV 8.5 Neut % (Auto) 86.1 H Lymph % (Auto) 8.6 L [place] % (Auto) 4.1 Eos % (Auto) 0.4 Baso % (Auto) 0.8 Neut # 13.2 H Lymph # 1.3 [place] # 0.6 Eos # 0.1 Baso # 0.1 Neutrophils % (Manual) 85 H Band Neutrophils % 1 Lymphocytes % (Manual) 8 L Monocytes % (Manual) 6 Toxic Granulation Present Platelet Estimate Normal Polychromasia Slight Hypochromasia (manual) Slight Anisocytosis (manual) Slight Puncture Site pCO2 pO2 HCO3 ABG pH ABG Total CO2 ABG O2 Saturation ABG Base Excess ABG Hemoglobin ABG Carboxyhemoglobin POC ABG HHb (Measured) ABG Methemoglobin Carter Test A-a O2 Difference Respiratory Index Hgb O2 Saturation Mechanical Rate FiO2 Tidal Volume PEEP Sodium 155 H Potassium 3.9 Chloride 105 Carbon Dioxide 34 H Anion Gap 20 BUN 49 H Creatinine 1.8 H Est GFR ( Amer) 45 Est GFR (Non-Af Amer) 38 POC Glucose (mg/dL) 218 H Random Glucose 171 H Calcium 7.8 L Phosphorus 4.2 Magnesium 2.1 Total Bilirubin 1.4 H AST 73 H D ALT 22 Alkaline Phosphatase 142 H Total Protein 7.0 Albumin 2.7 L Globulin 4.3 H Albumin/Globulin Ratio 0.6 L 01/20/17 11:48 WBC RBC Hgb Hct MCV MCH MCHC RDW Plt Count MPV Neut % (Auto) Lymph % (Auto) [place] % (Auto) Eos % (Auto) Baso % (Auto) Neut # Lymph # [place] # Eos # Baso # Neutrophils % (Manual) Band Neutrophils % Lymphocytes % (Manual) Monocytes % (Manual) Toxic Granulation Platelet Estimate Polychromasia Hypochromasia (manual) Anisocytosis (manual) Puncture Site pCO2 pO2 HCO3 ABG pH ABG Total CO2 ABG O2 Saturation ABG Base Excess ABG Hemoglobin ABG Carboxyhemoglobin POC ABG HHb (Measured) ABG Methemoglobin Carter Test A-a O2 Difference Respiratory Index Hgb O2 Saturation Mechanical Rate FiO2 Tidal Volume PEEP Sodium Potassium Chloride Carbon Dioxide Anion Gap BUN Creatinine Est GFR ( Amer) Est GFR (Non-Af Amer) POC Glucose (mg/dL) 241 H Random Glucose Calcium Phosphorus Magnesium Total Bilirubin AST ALT Alkaline Phosphatase Total Protein Albumin Globulin Albumin/Globulin Ratio Fingerstick Blood Sugar Results: 218 Critical Care Progress Note - Nutrition Nutrition: Nutrition Category Date Time Status Consistent Carbohydrate [DIET] Diets 01/10/17 Breakfast Active
--- NOTE | 2017-01-20 17:42 | CP.PCM.PN ---
Subjective - Date & Time of Evaluation Date of Evaluation: 01/20/17 Time of Evaluation: 07:55 - Subjective Subjective: pt seen this am for tx of infected ulcers of heels and both lower legs . Objective - Vital Signs/Intake and Output Vital Signs (last 24 hours): Temp Pulse Resp BP Pulse Ox 98.9 F 60 19 101/46 L 97 01/20/17 00:00 01/20/17 12:00 01/20/17 12:00 01/20/17 11:31 01/20/17 12:00 Intake and Output: 01/20/17 01/20/17 06:59 18:59 Intake Total 1181.7 258.1 Output Total 1937 367 Balance -755.3 -108.9 - Medications Medications: Current Medications Acetaminophen (Tylenol 650mg/20.3ml Solution Ud) 650 mg PO Q6 PRN PRN Reason: Fever >100.4 F Last Admin: 01/19/17 22:15 Dose: 650 mg Albuterol/Ipratropium (Duoneb 3 Mg/0.5 Mg (3 Ml) Ud) 3 ml INH RQ6 [facility] Last Admin: 01/20/17 13:09 Dose: 3 ml Enoxaparin Sodium (Lovenox) 40 mg SC DAILY [facility] Last Admin: 01/20/17 11:24 Dose: 40 mg Furosemide (Lasix) 40 mg IVP DAILY [facility] Last Admin: 01/20/17 11:10 Dose: 40 mg Hydromorphone HCl (Dilaudid) 1 mg IVP Q6H PRN PRN Reason: Pain, moderate (4-7) Last Admin: 01/20/17 11:11 Dose: 1 mg Metronidazole (Flagyl) 100 mls @ 100 mls/hr IVPB Q8H [facility] Last Admin: 01/19/17 22:30 Dose: 100 mls/hr Ciprofloxacin (Cipro 400mg/200ml Dsw) 200 mls @ 133 mls/hr IVPB Q12H [facility] Last Admin: 01/20/17 11:09 Dose: 133 mls/hr Piperacillin Sod/Tazobactam Sod (Zosyn 3.375 Gm Iv Premix) 50 mls @ 100 mls/hr IVPB Q6H [facility] Last Admin: 01/20/17 11:09 Dose: 100 mls/hr Propofol (Diprivan) 100 mls @ 2.722 mls/hr IV .Q24H PRN; Protocol; 5 MCG/KG/MIN PRN Reason: TITRATE PER MD ORDER Last Titration: 01/19/17 18:20 Dose: 4.96 mcg/kg/min Dextrose (Dextrose 5% In Water 1000 Ml) 1,000 mls @ 40 mls/hr IV .Q24H MICHAEL Stop: 01/21/17 10:00 Last Admin: 01/20/17 11:14 Dose: 40 mls/hr Insulin Glargine (Lantus) 24 unit SC Q12 MICHAEL Last Admin: 01/20/17 11:12 Dose: 24 unit Insulin Human Regular (Novolin R) 0 unit SC Q6 MICHAEL PRN Reason: Protocol Last Admin: 01/20/17 15:33 Dose: Not Given Pantoprazole Sodium (Protonix Inj) 40 mg IVP DAILY MICHAEL Last Admin: 01/20/17 11:11 Dose: 40 mg Polyethylene Glycol (Miralax) 17 gm PO DAILY MICHAEL Last Admin: 01/20/17 11:14 Dose: 17 gm Sodium Hypochlorite (Dakins Solution 0.125%) 0 appl TOP DAILY MICHAEL Last Admin: 01/19/17 09:17 Dose: Not Given - Labs Labs: 01/20/17 06:34 01/20/17 06:35 PT 22.2 SECONDS (9.7-12.2) H 01/18/17 05:54 INR 1.9 01/18/17 05:54 APTT 36 SECONDS (21-34) H 01/18/17 05:54
--- NOTE | 2017-01-20 17:57 | CP.PCM.PN ---
Subjective - Date & Time of Evaluation Date of Evaluation: 01/20/17 Time of Evaluation: 17:20 - Subjective Subjective: Vented Objective - Vital Signs/Intake and Output Vital Signs (last 24 hours): Temp Pulse Resp BP Pulse Ox 98.9 F 60 19 101/46 L 97 01/20/17 00:00 01/20/17 12:00 01/20/17 12:00 01/20/17 11:31 01/20/17 12:00 Intake and Output: 01/20/17 01/20/17 06:59 18:59 Intake Total 1181.7 258.1 Output Total 1937 367 Balance -755.3 -108.9 - Medications Medications: Current Medications Acetaminophen (Tylenol 650mg/20.3ml Solution Ud) 650 mg PO Q6 PRN PRN Reason: Fever >100.4 F Last Admin: 01/19/17 22:15 Dose: 650 mg Albuterol/Ipratropium (Duoneb 3 Mg/0.5 Mg (3 Ml) Ud) 3 ml INH RQ6 [facility] Last Admin: 01/20/17 13:09 Dose: 3 ml Enoxaparin Sodium (Lovenox) 40 mg SC DAILY [facility] Last Admin: 01/20/17 11:24 Dose: 40 mg Furosemide (Lasix) 40 mg IVP DAILY [facility] Last Admin: 01/20/17 11:10 Dose: 40 mg Hydromorphone HCl (Dilaudid) 1 mg IVP Q6H PRN PRN Reason: Pain, moderate (4-7) Last Admin: 01/20/17 11:11 Dose: 1 mg Metronidazole (Flagyl) 100 mls @ 100 mls/hr IVPB Q8H [facility] Last Admin: 01/19/17 22:30 Dose: 100 mls/hr Ciprofloxacin (Cipro 400mg/200ml Dsw) 200 mls @ 133 mls/hr IVPB Q12H [facility] Last Admin: 01/20/17 11:09 Dose: 133 mls/hr Piperacillin Sod/Tazobactam Sod (Zosyn 3.375 Gm Iv Premix) 50 mls @ 100 mls/hr IVPB Q6H [facility] Last Admin: 01/20/17 11:09 Dose: 100 mls/hr Propofol (Diprivan) 100 mls @ 2.722 mls/hr IV .Q24H PRN; Protocol; 5 MCG/KG/MIN PRN Reason: TITRATE PER MD ORDER Last Titration: 01/19/17 18:20 Dose: 4.96 mcg/kg/min Dextrose (Dextrose 5% In Water 1000 Ml) 1,000 mls @ 40 mls/hr IV .Q24H MICHAEL Stop: 01/21/17 10:00 Last Admin: 01/20/17 11:14 Dose: 40 mls/hr Insulin Glargine (Lantus) 24 unit SC Q12 MICHAEL Last Admin: 01/20/17 11:12 Dose: 24 unit Insulin Human Regular (Novolin R) 0 unit SC Q6 MICHAEL PRN Reason: Protocol Last Admin: 01/20/17 15:33 Dose: Not Given Pantoprazole Sodium (Protonix Inj) 40 mg IVP DAILY [facility] Last Admin: 01/20/17 11:11 Dose: 40 mg Polyethylene Glycol (Miralax) 17 gm PO DAILY [facility] Last Admin: 01/20/17 11:14 Dose: 17 gm Sodium Hypochlorite (Dakins Solution 0.125%) 0 appl TOP DAILY [facility] Last Admin: 01/19/17 09:17 Dose: Not Given - Labs Labs: 01/20/17 06:34 01/20/17 06:35 PT 22.2 SECONDS (9.7-12.2) H 01/18/17 05:54 INR 1.9 01/18/17 05:54 APTT 36 SECONDS (21-34) H 01/18/17 05:54 - Head Exam Head Exam: ATRAUMATIC - Eye Exam Eye Exam: Normal appearance - ENT Exam ENT Exam: Mucous Membranes Dry - Respiratory Exam Respiratory Exam: NORMAL BREATHING PATTERN - Cardiovascular Exam Cardiovascular Exam: +S1, +S2 - GI/Abdominal Exam GI & Abdominal Exam: Normal Bowel Sounds - Extremities Exam Additional comments: B/L LE dressings Assessment and Plan (1) Coagulopathy Assessment & Plan: nutritional Status: Acute (2) Leukocytosis Assessment & Plan: on antibiotics Status: Acute (3) Anemia Assessment & Plan: chronic disease Status: Acute
[2017-01-20] MEDS: Acetaminophen 650mg/20.3ml solution UD PO PRN (22:50)
[2017-01-21] MEDS: (Novolin R) Insulin Human Regular 100 units/ml vial SC SCH ×4 (00:48→17:54)
[2017-01-21] MEDS: Albuterol-Ipratrop 3 mg / 0.5 (3 ml) UD INH SCH ×4 (01:03→19:50)
[2017-01-21 04:24] LABS: ABG ALLEN TEST POS; ABG MECHANICAL RATE 14; ARTERIAL BLOOD HGB O2 SAT 96.6 % (95.0-98.0); ATERIAL BLOOD GAS PEEP 5; CARBOXYHEMOGLOBIN 1.6 % (0.5-1.5); DRAW SITE RR; HHB 0.4 % (0.0-5.0); METHEMOGLOBIN 1.3 % (0.0-3.0)
[2017-01-21] MEDS: Acetaminophen 650mg/20.3ml solution UD PO PRN (04:50)
[2017-01-21] MEDS: Piperacill/Tazo 3.375gm in Dex 50 ML IVPB SCH ×4 (05:00→23:29)
[2017-01-21] MEDS: metroNIDAZOLE IV 500 mg/100 ml 100 ML IVPB SCH ×3 (06:29→23:28)
[2017-01-21 06:42] LABS: BASO # 0.1 K/uL (0.0-0.2); BASO % 0.8 % (0.0-2.0); EOS # 0.1 K/uL (0.0-0.7); EOS % 0.7 % (0.0-4.0); HEMATOCRIT 26.5 % (35.0-51.0); LYMPH # 1.4 K/uL (1.0-4.3); LYMPH % 10.1 % (20.0-40.0); MEAN CELL VOLUME 83.8 fL (80.0-94.0); MEAN CORPUSCULAR HEMOGLOBIN 26.1 pg (27.0-31.0); MEAN CORPUSCULAR HGB CONC 31.1 g/dL (33.0-37.0); MEAN PLATELET VOLUME 8.6 fL (7.2-11.7); MONO # 0.7 K/uL (0.0-0.8); MONO % 5.3 % (0.0-10.0); RED CELL DISTRIBUTION WIDTH 16.9 % (11.5-14.5); WHITE BLOOD COUNT 13.4 K/uL (4.8-10.8)
[2017-01-21 06:51] LABS: POTASSIUM 3.6 mmol/L (3.6-5.2)
[2017-01-21 06:53] LABS: BILIRUBIN,TOTAL 1.3 mg/dL (0.2-1.3)
[2017-01-21 06:54] LABS: PHOSPHOROUS 3.5 mg/dL (2.5-4.5); TOTAL PROTEIN 6.7 g/dL (6.3-8.3)
[2017-01-21 06:55] LABS: CALCIUM 7.4 mg/dl (8.6-10.4); MAGNESIUM 2.2 mg/dL (1.6-2.3)
[2017-01-21 06:57] LABS: ALB/GLOB RATIO 0.7 (1.0-2.1)
--- NOTE | 2017-01-21 07:57 | RAD ---
PROCEDURE: CHEST RADIOGRAPH, 1 VIEW HISTORY: ICU Routine COMPARISON: 01/20/2017 FINDINGS: LUNGS: Lines and tubes in stable position. Moderate venous congestion with left basilar airspace opacity. Right hilar prominence. Small left pleural effusion. Upper lobe granulomatous changes. . PLEURA: As above. CARDIOVASCULAR: Cardiomegaly. Left-sided pacemaker. OSSEOUS STRUCTURES: No significant abnormalities. VISUALIZED UPPER ABDOMEN: Normal. OTHER FINDINGS: None. IMPRESSION: Lines and tubes in stable position. Moderate venous congestion with left basilar airspace opacity. Right hilar prominence. Small left pleural effusion. Upper lobe granulomatous changes. .
[2017-01-21] MEDS: POLYETHYLENE GLYCOL 3350 17 GM/Dose PACKET PO SCH ×2 (10:00→17:46)
[2017-01-21] MEDS ORDERED: Scopolamine 1.5 mg/24 hr Patch TD SCH (10:15)
[2017-01-21] MEDS: Enoxaparin 40 mg Syringe SC SCH (10:53)
[2017-01-21] MEDS: (Lantus) Insulin Glargine, Recombinant SC SCH ×2 (10:53→21:51)
[2017-01-21] MEDS: Ciprofloxacin 400mg/200ml D5W 200 ML IVPB SCH ×2 (10:59)
--- NOTE | 2017-01-21 13:11 | CP.PCM.PN ---
Subjective - Date & Time of Evaluation Date of Evaluation: 01/21/17 Time of Evaluation: 13:11 - Subjective Subjective: non verbal on vent sedated Objective - Vital Signs/Intake and Output Vital Signs (last 24 hours): Temp Pulse Resp BP Pulse Ox 99.8 F H 61 21 126/55 L 100 01/21/17 06:00 01/21/17 08:00 01/21/17 08:00 01/21/17 07:31 01/21/17 08:00 Intake and Output: 01/21/17 01/21/17 06:59 18:59 Intake Total 1608 198 Output Total 2663 383 Balance -1055 -185 - Medications Medications: Current Medications Acetaminophen (Tylenol 650mg/20.3ml Solution Ud) 650 mg PO Q6 PRN PRN Reason: Fever >100.4 F Last Admin: 01/21/17 04:50 Dose: 650 mg Albuterol/Ipratropium (Duoneb 3 Mg/0.5 Mg (3 Ml) Ud) 3 ml INH RQ6 [facility] Last Admin: 01/21/17 08:05 Dose: 3 ml Enoxaparin Sodium (Lovenox) 40 mg SC DAILY [facility] Last Admin: 01/21/17 10:53 Dose: 40 mg Hydromorphone HCl (Dilaudid) 1 mg IVP Q6H PRN PRN Reason: Pain, moderate (4-7) Last Admin: 01/20/17 11:11 Dose: 1 mg Metronidazole (Flagyl) 100 mls @ 100 mls/hr IVPB Q8H [facility] Last Admin: 01/21/17 06:29 Dose: 100 mls/hr Ciprofloxacin (Cipro 400mg/200ml Dsw) 200 mls @ 133 mls/hr IVPB Q12H [facility] Last Admin: 01/21/17 10:59 Dose: 133 mls/hr Piperacillin Sod/Tazobactam Sod (Zosyn 3.375 Gm Iv Premix) 50 mls @ 100 mls/hr IVPB Q6H [facility] Last Admin: 01/21/17 10:59 Dose: 100 mls/hr Propofol (Diprivan) 100 mls @ 2.722 mls/hr IV .Q24H PRN; Protocol; 5 MCG/KG/MIN PRN Reason: TITRATE PER MD ORDER Last Admin: 01/21/17 12:51 Dose: 9 mls/hr Insulin Glargine (Lantus) 24 unit SC Q12 [facility] Last Admin: 01/21/17 10:53 Dose: 24 unit Insulin Human Regular (Novolin R) 0 unit SC Q6 [facility] PRN Reason: Protocol Last Admin: 01/21/17 12:54 Dose: 8 unit Pantoprazole Sodium (Protonix Inj) 40 mg IVP DAILY [facility] Last Admin: 01/21/17 10:53 Dose: 40 mg Polyethylene Glycol (Miralax) 17 gm PO DAILY [facility] Last Admin: 01/20/17 11:14 Dose: 17 gm Scopolamine (Transderm-Scop) 1 patch TD Q3D [facility] Last Admin: 01/21/17 12:56 Dose: 1 patch Sodium Hypochlorite (Dakins Solution 0.125%) 0 appl TOP DAILY [facility] Last Admin: 01/21/17 11:00 Dose: 20 appl - Labs Labs: 01/21/17 06:37 01/21/17 06:34 PT 22.2 SECONDS (9.7-12.2) H 01/18/17 05:54 INR 1.9 01/18/17 05:54 APTT 36 SECONDS (21-34) H 01/18/17 05:54 - Constitutional Appears: Non-toxic - Head Exam Head Exam: ATRAUMATIC - Eye Exam Eye Exam: Normal appearance - Neck Exam Additional comments: et tube - Cardiovascular Exam Cardiovascular Exam: REGULAR RHYTHM, +S1, +S2 - GI/Abdominal Exam GI & Abdominal Exam: Soft, Normal Bowel Sounds. absent: Tenderness, Organomegaly Additional comments: obese - Neurological Exam Neurological Exam: absent: Alert, Awake, Oriented x3 Assessment and Plan - Assessment and Plan (Free Text) Assessment: spoke with family and brother of patient answered all questions they understand current dx and recommended treatment of sever pvd/necrotic wounds and gangrene they are still deciding re future plan of course they agree pain control is a priority and may want comfort measures in future currently they agree re DNR patient currently intubated unable to be extubated (1) Severe sepsis Assessment and Plan: 01/17: WBC: 19.8 Na+ 154: Cr: 1.4 Criteria: leukocytosis (28.6): RR>20, and confirmed source of infection including b/l lower extremities; bactermia and likely osteomyelitis and/or gangrene; symptomatic: altered mental status, lethargic, responsive to painful stimuli; creatinine >0.5, coagulation abnormalities INR>1.5 Blood culture (01/09/17): Peptostreptoccus Baltazar X2 Wound culture (01/09/17) Left leg: enterobacter Cloacae Sssp Cloac; Gram negative garret X3, Bacillus speciies; Leg Right: Enterobacter Cloacae X2, Bacillus Chest xray (01/12/17): persistent severe cardiomegaly and interval improvement in pulmonary venous congestion Blood culture (01/12/17): no growth after 4 days X2 Urine culture (01/12/17): no growth Urine culture (01/11/17) no growth Abx: Ciprofloxcin 400mg IV Q 12hours (active since 01/16/17) Flagyl 500mg IV Q 8hours (active since 01/12/17) Zosyn 3.375 IV Q 6 hours (active since 01/16/17) ABG (01/12): mild metabolic acidosis; lactate: 0.8 Patient appears clinically dried at time of rapid. Patient transferred to ICU on 01/12/17. Patient may require amputation due to dry gangrene of toes and ischemic necrotic ulcers of bilateral heels as well as large area dorsal side of left lower extremity;however, patient's refuses amputation likely PVD - Patient unable to get MRI given has pacemaker. Infectious disease (Dr. Blum) on board Nephrology (Dr. Sanchez) on board Podiatry (Dr. Davenport) on board Vascular surgery (Dr. Granger) on board---amputation safest treatment; poor prognosis overall Cardiology (Dr. Lerma) for cardiac clearance Procalcitonin: 2.11 Status: Acute (2) Coagulopathy Assessment and Plan: possible related to sepsis INR 15.0, PT 191-->INR:2.6-->1.8-->1.6-->1.7 Patient given 10mg of Vitamin K IV over one hour and 6 units of fresh frozen plasma on 01/12 Patient to given additional 2 units of FFP prior central line placement for inr : 1.8 on 01/13 Given 1 unit of PRBC today on 01/14 Will need to monitor patient for signs of bleeding. CT scan of the head was negative (01/12/17) for any intracrainal bleed. He was on Eliqius 2.5mg bid since admission which was on 01/08/17-01/12/17 for history of atrial fibrillation Heme-onc (Dr. Stephenson) consult on case given coagulopathy. Patient did have BM during rapid which was NOT black and appeared nonbloody. Status: Acute (3) Diabetic ulcer of both lower extremities Assessment and Plan: Patient has severe ulcers on both legs. Hgba1c: 12.4 (uncontrolled) Accuchecks Q 6hours Regular insulin sliding scale subq 6hours 01/11/17 Bone scan: negative study for acute osseous process. Specifically no evidence to suggest acute osteomyelitis left foot. Findings on the left 1st toe apparent on the prior study 03/27/16. Patient unable to give MRI given he has ICD Wound culture (01/09/17): Enterocloace, Bacilus cerus, and pending third organism bilaterally Dr. Blum (infectious disease) on board-->discussed with ICU, patient to receive one dose of Daptomycin today Abx: Ciprofloxcin 400mg IV Q 12hours (active since 01/16/17) Flagyl 500mg IV Q 8hours (active since 01/12/17) Zosyn 3.375 IV Q 6 hours (active since 01/16/17) Surgery on board (Dr. Granger) on board Podiatry on board (Dr. Davenport) on board Infectious disease on board (Dr. Blum) on board Status: Acute (4) Bacteremia Assessment and Plan: Blood culture (01/09/17): Peptostreptoccus Baltazar X2 Blood culture (01/12/17): no growth after 4 days X2 Abx: Ciprofloxcin 400mg IV Q 12hours (active since 01/16/17) Flagyl 500mg IV Q 8hours (active since 01/12/17) Zosyn 3.375 IV Q 6 hours (active since 01/16/17) Echocardiogram (01/15/17): normal LV systolic function, dilated LA, trace MR, moderate TR Status: Acute (5) Acute delirium Assessment and Plan: Propofol sedation likely related to sepsis Status: Acute (6) Acute renal failure Assessment and Plan: monitor BUN/Cr; C 1.8 Cr baseline before that was around 0.8. Nephrology: Dr. Sanchez is consulted. Patient appears volume depleted at the time of rapid. Received 6 units of FFP and 10mg IV Vitamin K 01/12 and then gentle IV hydration NS 50cc/hr Will receive additional 2 units of FFP 01/13/17 prior to central line placement Status: Acute (7) Atrial fibrillation with slow ventricular response Status: Chronic Comment: Patient has a pace maker; 100% V-Paced. Echocardiogram (01/15/17): normal LV systolic function, dilated LA, trace MR, moderate TR CHADS: 2 (HTN, DM) HASBLED: 4 (HTN, abnormal renal function, labile INR, and age>65) Patient has PPM; will need to find out information regarding pacemaker Cardiology (Dr. Lerma) for cardiac clearance for prior anticipated BKA; which has refused; has signed off Not on antiocoagulation due to bleeding of lower extremeties and had been given ffp/vitamin k to reverse high INR cont to monitor INR (8) DM2 (diabetes mellitus, type 2) Status: Chronic Comment: Accu checks Q6H and sliding scale insulin Q6H per protocol. Uncontrolled; 12.4 a1c start Lantus (9) HTN (hypertension) Status: Chronic Comment: monitor vitals sign in light of severe sepsis off anti-hypertensive medications patient is on sedation (10) Prophylactic measure Assessment and Plan: OFF VTE given elevated INR and Bleeding Wound Care : Dolores Birch (contact number: [phone]) Consent for blood products in the hardcopy chart Intubated 01/12 On sedation Status: Acute
--- NOTE | 2017-01-21 13:49 | CP.PCM.PN ---
Subjective - Date & Time of Evaluation Date of Evaluation: 01/21/17 Time of Evaluation: 13:00 - Subjective Subjective: 71 yo male patient seen and evaluated at the bedside in the ICU today for f/u of bilateral lower extremity ulcerations. Pt seen resting in bed, remains intubated, seems slightly more arousable today to verbal stimuli. Pt appears to be in NAD. Dressings to legs appear to be clean, dry, intact. No acute events reported overnight. Patient's presents at bedside. Objective - Vital Signs/Intake and Output Vital Signs (last 24 hours): Temp Pulse Resp BP Pulse Ox 99.8 F H 60 19 113/48 L 100 01/21/17 06:00 01/21/17 13:00 01/21/17 13:00 01/21/17 12:31 01/21/17 13:00 Intake and Output: 01/21/17 01/21/17 06:59 18:59 Intake Total 1608 693 Output Total 2663 908 Balance -1055 -215 - Medications Medications: Current Medications Acetaminophen (Tylenol 650mg/20.3ml Solution Ud) 650 mg PO Q6 PRN PRN Reason: Fever >100.4 F Last Admin: 01/21/17 04:50 Dose: 650 mg Albuterol/Ipratropium (Duoneb 3 Mg/0.5 Mg (3 Ml) Ud) 3 ml INH RQ6 [facility] Last Admin: 01/21/17 13:28 Dose: 3 ml Enoxaparin Sodium (Lovenox) 40 mg SC DAILY [facility] Last Admin: 01/21/17 10:53 Dose: 40 mg Hydromorphone HCl (Dilaudid) 1 mg IVP Q6H PRN PRN Reason: Pain, moderate (4-7) Last Admin: 01/20/17 11:11 Dose: 1 mg Metronidazole (Flagyl) 100 mls @ 100 mls/hr IVPB Q8H [facility] Last Admin: 01/21/17 06:29 Dose: 100 mls/hr Ciprofloxacin (Cipro 400mg/200ml Dsw) 200 mls @ 133 mls/hr IVPB Q12H [facility] Last Admin: 01/21/17 10:59 Dose: 133 mls/hr Piperacillin Sod/Tazobactam Sod (Zosyn 3.375 Gm Iv Premix) 50 mls @ 100 mls/hr IVPB Q6H [facility] Last Admin: 01/21/17 10:59 Dose: 100 mls/hr Propofol (Diprivan) 100 mls @ 2.722 mls/hr IV .Q24H PRN; Protocol; 5 MCG/KG/MIN PRN Reason: TITRATE PER MD ORDER Last Admin: 01/21/17 12:51 Dose: 9 mls/hr Insulin Glargine (Lantus) 24 unit SC Q12 [facility] Last Admin: 01/21/17 10:53 Dose: 24 unit Insulin Human Regular (Novolin R) 0 unit SC Q6 [facility] PRN Reason: Protocol Last Admin: 01/21/17 12:54 Dose: 8 unit Pantoprazole Sodium (Protonix Inj) 40 mg IVP DAILY [facility] Last Admin: 01/21/17 10:53 Dose: 40 mg Polyethylene Glycol (Miralax) 17 gm PO DAILY [facility] Last Admin: 01/20/17 11:14 Dose: 17 gm Scopolamine (Transderm-Scop) 1 patch TD Q3D [facility] Last Admin: 01/21/17 12:56 Dose: 1 patch Sodium Hypochlorite (Dakins Solution 0.125%) 0 appl TOP DAILY [facility] Last Admin: 01/21/17 11:00 Dose: 20 appl - Labs Labs: 01/21/17 06:37 01/21/17 06:34 PT 22.2 SECONDS (9.7-12.2) H 01/18/17 05:54 INR 1.9 01/18/17 05:54 APTT 36 SECONDS (21-34) H 01/18/17 05:54 - Constitutional Appears: Non-toxic - Extremities Exam Additional comments: Vascular: DP/ PT pulses are non-palpable B, skin temp runs warm to warm BL, capillary refill time is delayed to digits x 10, 2+ pitting edema noted to anterior shins and anterior aspect of feet BL Neuro: gross protective pedal sensation is diminished BL Dermatologic: dressings to legs appear to be c/d/i bl, there is heavy malodor evident to both legs, heavy serous drainage noted upon removal of bandages. Right- partial thickness ulceration noted to lateral aspect of leg measures approx. 7.2 x 6.4 cm with 70% fibrotic and 30% granular wound base (no sinus tracking noted, no probe to bone, no fluctance), there is also a necrotic heel eschar which measures approx 7.2 x 7.0cm with serous drainage noted, no fluctuance however heel does feel boggy to touch, no sinus tracking. Of note today, there appears to be some darkened discoloration noted to the plantar sulcus of digits 2-3 Left: medial aspect 1st metatarsal head region full thickness ulceration measuring 2.0 x 2 cm with 100% fibrotic base absent undermining margins. Fluctuant necrotic heel eschar with active weeping drainage from posterior margin noted. Eschar measures 9 x 8 cm. Lateral leg full thickness ulceration measuring 13 x 7.5 cm with 80% fibrotic to 20% necrotic base (no sinus tracking , no probe to bone, serous drainage noted), Of note, there also appears to be some darkened discoloration to plantar sulcus of digits 2-3 Ortho : no gross deformities noted, unable to assess further due to pt sedation - Neurological Exam Neurological Exam: Alert Assessment and Plan - Assessment and Plan (Free Text) Assessment: 71 yo diabetic male patient w/ infected lower extremity ulcerations, and 2 non- stageable heel ulcerations all secondary to diabetic neuropathy and ischemic limb changes Plan: Patient seen and evaluated at bedside in ICU Chart, labs, vitals reviewed: afebrile, WBC trending down 13.4 today Podiatry recommends BKA's however family still refusing BKA's at this time. Legs/feet cleansed with 1/4 Dakin's solution + normal saline. Dressing was applied with Xeroform and DSD Continue IV anx as per ID Legs elevated on pillows Podiatry will continue to follow while patient remains in house.
--- NOTE | 2017-01-21 14:46 | CP.PCM.PN ---
Subjective - Date & Time of Evaluation Date of Evaluation: 01/21/17 Time of Evaluation: 08:00 - Subjective Subjective: events noed now DNR/DNI intubated and sedated wbc trending down severe gangrenous cellulitis with bacteremia requiring surgery which the family not consenting too Objective - Vital Signs/Intake and Output Vital Signs (last 24 hours): Temp Pulse Resp BP Pulse Ox 99.8 F H 60 19 113/48 L 100 01/21/17 06:00 01/21/17 13:00 01/21/17 13:00 01/21/17 12:31 01/21/17 13:00 Intake and Output: 01/21/17 01/21/17 06:59 18:59 Intake Total 1608 693 Output Total 2663 908 Balance -1055 -215 - Medications Medications: Current Medications Acetaminophen (Tylenol 650mg/20.3ml Solution Ud) 650 mg PO Q6 PRN PRN Reason: Fever >100.4 F Last Admin: 01/21/17 04:50 Dose: 650 mg Albuterol/Ipratropium (Duoneb 3 Mg/0.5 Mg (3 Ml) Ud) 3 ml INH RQ6 [facility] Last Admin: 01/21/17 13:28 Dose: 3 ml Enoxaparin Sodium (Lovenox) 40 mg SC DAILY [facility] Last Admin: 01/21/17 10:53 Dose: 40 mg Hydromorphone HCl (Dilaudid) 1 mg IVP Q6H PRN PRN Reason: Pain, moderate (4-7) Last Admin: 01/20/17 11:11 Dose: 1 mg Metronidazole (Flagyl) 100 mls @ 100 mls/hr IVPB Q8H [facility] Last Admin: 01/21/17 06:29 Dose: 100 mls/hr Ciprofloxacin (Cipro 400mg/200ml Dsw) 200 mls @ 133 mls/hr IVPB Q12H [facility] Last Admin: 01/21/17 10:59 Dose: 133 mls/hr Piperacillin Sod/Tazobactam Sod (Zosyn 3.375 Gm Iv Premix) 50 mls @ 100 mls/hr IVPB Q6H [facility] Last Admin: 01/21/17 10:59 Dose: 100 mls/hr Propofol (Diprivan) 100 mls @ 2.722 mls/hr IV .Q24H PRN; Protocol; 5 MCG/KG/MIN PRN Reason: TITRATE PER MD ORDER Last Admin: 01/21/17 12:51 Dose: 9 mls/hr Insulin Glargine (Lantus) 24 unit SC Q12 [facility] Last Admin: 01/21/17 10:53 Dose: 24 unit Insulin Human Regular (Novolin R) 0 unit SC Q6 [facility] PRN Reason: Protocol Last Admin: 01/21/17 12:54 Dose: 8 unit Pantoprazole Sodium (Protonix Inj) 40 mg IVP DAILY [facility] Last Admin: 01/21/17 10:53 Dose: 40 mg Polyethylene Glycol (Miralax) 17 gm PO DAILY [facility] Last Admin: 01/20/17 11:14 Dose: 17 gm Scopolamine (Transderm-Scop) 1 patch TD Q3D [facility] Last Admin: 01/21/17 12:56 Dose: 1 patch Sodium Hypochlorite (Dakins Solution 0.125%) 0 appl TOP DAILY [facility] Last Admin: 01/21/17 11:00 Dose: 20 appl - Labs Labs: 01/21/17 06:37 01/21/17 06:34 PT 22.2 SECONDS (9.7-12.2) H 01/18/17 05:54 INR 1.9 01/18/17 05:54 APTT 36 SECONDS (21-34) H 01/18/17 05:54 - Constitutional Appears: Chronically Ill - Head Exam Head Exam: NORMOCEPHALIC - Eye Exam Eye Exam: absent: Scleral icterus - ENT Exam ENT Exam: Mucous Membranes Dry, Normal External Ear Exam - Neck Exam Neck Exam: absent: Lymphadenopathy - Respiratory Exam Respiratory Exam: Decreased Breath Sounds - Cardiovascular Exam Cardiovascular Exam: REGULAR RHYTHM - GI/Abdominal Exam GI & Abdominal Exam: Distended, Soft - Rectal Exam Rectal Exam: Deferred - Exam Exam: NORMAL INSPECTION - Extremities Exam Extremities Exam: Pedal Edema. absent: Calf Tenderness - Back Exam Back Exam: absent: CVA tenderness (L), CVA tenderness (R) - Neurological Exam Neurological Exam: Altered Assessment and Plan (1) Diabetic foot infection Status: Acute (2) Diabetic ulcer of both lower extremities Status: Acute (3) Leukocytosis Status: Acute (4) Abdominal distension Status: Acute (5) Atrial fibrillation with slow ventricular response Status: Chronic (6) Cellulitis Status: Acute - Assessment and Plan (Free Text) Assessment: antibiotics reordered
--- NOTE | 2017-01-21 15:37 | CP.CCUPN ---
CCU Subjective - Physician Review Events Since Last Encounter (Free Text): 01/21/17 15:32 Patient seen and examined this morning, stable. He is able to communicate despite intubation, today is alert, awake, following commands. His pain is controlled with dilaudid prn. Not tried CPAP trial since the would prefer not to do it today since is "Palm Sunday and today is a special day to him". I believe that he will pass cpap trial, but he will need re intubation due to weakness. I spoke to the patient and in the room. The patient does not want his legs to be amputated , he understands this is the only way to get rid of infection and gangrene, medical management will not do it. He wants to be extubated and he is at peace if he dies if he is not able to breathe properly. is supportive of her husbands wishes. pe: bp 128/53 mmhg, hr 60 bpm, o2 100% on 40% fiow, rr 22 follows some minimal commands and is able to nod his head yes and not s1, s2 rrr lungs good bilateral air of entry abdomen global soft legs with black scar in both feed and posterior left leg with black scar as well , diffuse cellulites and interrupted integrity of skin gangrenous skin in both toes, more left than right a/p: cellulitis and dry gangrene: continue same antibiotic management, wbc count stable ARF: Cr stable with out lasix, continue to hold lasix, good UO Respiratory failure: see above CCU Objective - Vital Signs / Intake & Output Vital Signs (Last 4 hours): Vital Signs Pulse Resp BP Pulse Ox 01/21/17 13:00 60 19 100 01/21/17 12:31 60 20 113/48 L 100 01/21/17 12:00 60 22 98 Intake and Output (Last 8hrs): Intake & Output 01/21/17 01/21/17 01/21/17 06:59 14:59 22:59 Intake Total 1192 693 Output Total 1864 908 Balance -672 -215 Intake: Intake, IV Amount 792 343 Right Proximal Port 72 63 Internal Jugular Right Medial Port 400 Internal Jugular Right Distal Port 320 280 Internal Jugular Tube Feeding 400 350 Output: Urine 1864 908 Urethral (Conner) 1864 908 - Physical Exam Head: Positive for: Atraumatic, Normocephalic Mouth: Positive for: Moist Mucous Membranes Neck: Positive for: Trachea Midline Respiratory/Chest: Positive for: Clear to Auscultation Cardiovascular: Positive for: Regular Rate and Rhythm Abdomen: Positive for: Normal Bowel Sounds Upper Extremity: Positive for: Normal Inspection, Edema Lower Extremity: Positive for: Edema, Capillary Refill < 2 s, Other (LE dressing b/l; malodorous scent noted). Negative for: NORMAL PULSES Neurological: Positive for: Other Skin: Positive for: Dry, Rashes, Erythematous, Abrasion Psychiatric: Negative for: Alert, Oriented x 3 - Medications Active Medications: Active Medications Generic Name Dose Route Start Last Admin Trade Name Freq PRN Reason Stop Dose Admin Acetaminophen 650 mg 01/15/17 13:53 01/21/17 04:50 Tylenol 650mg/20.3ml Solution Ud PO 650 mg Q6 PRN Administration Fever >100.4 F Albuterol/Ipratropium 3 ml 01/19/17 14:00 01/21/17 13:28 Duoneb 3 Mg/0.5 Mg (3 Ml) Ud INH 3 ml RQ6 MICHAEL Administration Enoxaparin Sodium 40 mg 01/20/17 10:00 01/21/17 10:53 Lovenox SC 40 mg DAILY MICHAEL Administration Hydromorphone HCl 1 mg 01/19/17 17:01 01/20/17 11:11 Dilaudid IVP 1 mg Q6H PRN Administration Pain, moderate (4-7) Metronidazole 100 mls @ 100 mls/hr 01/12/17 23:30 01/21/17 06:29 Flagyl IVPB 100 mls/hr Q8H MICHAEL Administration Ciprofloxacin 200 mls @ 133 mls/hr 01/16/17 12:00 01/21/17 10:59 Cipro 400mg/200ml Dsw IVPB 133 mls/hr Q12H MICHAEL Administration Piperacillin Sod/Tazobactam Sod 50 mls @ 100 mls/hr 01/16/17 12:00 01/21/17 10: 59 Zosyn 3.375 Gm Iv Premix IVPB 100 mls/hr Q6H MICHAEL Administration Propofol 100 mls @ 2.722 mls/hr 01/19/17 10:28 01/21/17 12:51 Diprivan IV 9 mls/hr .Q24H PRN Administration TITRATE PER MD ORDER Protocol 5 MCG/KG/MIN Insulin Glargine 24 unit 01/20/17 09:50 01/21/17 10:53 Lantus SC 24 unit Q12 MICHAEL Administration Insulin Human Regular 0 unit 01/12/17 13:15 01/21/17 12:54 Novolin R SC 8 unit Q6 MICHAEL Administration Protocol Pantoprazole Sodium 40 mg 01/13/17 10:00 01/21/17 10:53 Protonix Inj IVP 40 mg DAILY MICHAEL Administration Polyethylene Glycol 17 gm 01/20/17 10:00 01/20/17 11:14 Miralax PO 17 gm DAILY MICHAEL Administration Scopolamine 1 patch 01/21/17 10:15 01/21/17 12:56 Transderm-Scop TD 1 patch Q3D MICHAEL Administration Sodium Hypochlorite 0 appl 01/17/17 10:00 01/21/17 11:00 Dakins Solution 0.125% TOP 20 appl DAILY MICHAEL Administration - Patient Studies Lab Studies: Lab Studies 01/21/17 01/21/17 01/21/17 Range/Units 12:28 06:37 06:34 WBC 13.4 H (4.8-10.8) K/uL RBC 3.16 L (4.40-5.90) Mil/uL Hgb 8.3 L (12.0-18.0) g/dL Hct 26.5 L (35.0-51.0) % MCV 83.8 (80.0-94.0) fL MCH 26.1 L (27.0-31.0) pg MCHC 31.1 L (33.0-37.0) g/dL RDW 16.9 H (11.5-14.5) % Plt Count 223 (130-400) K/uL MPV 8.6 (7.2-11.7) fL Neut % (Auto) 83.1 H (50.0-75.0) % Lymph % (Auto) 10.1 L (20.0-40.0) % Troup % (Auto) 5.3 (0.0-10.0) % Eos % (Auto) 0.7 (0.0-4.0) % Baso % (Auto) 0.8 (0.0-2.0) % Neut # 11.1 H (1.8-7.0) K/uL Lymph # 1.4 (1.0-4.3) K/uL Troup # 0.7 (0.0-0.8) K/uL Eos # 0.1 (0.0-0.7) K/uL Baso # 0.1 (0.0-0.2) K/uL Puncture Site pCO2 (35-45) mm/Hg pO2 (80-100) mm/Hg HCO3 (21-28) mmol/L ABG pH (7.35-7.45) ABG Total CO2 (22-28) mmol/L ABG O2 Saturation (95-98) % ABG Base Excess (-2.0-3.0) mmol/L ABG Hemoglobin (11.7-17.4) g/dL ABG Carboxyhemoglobin (0.5-1.5) % POC ABG HHb (Measured) (0.0-5.0) % ABG Methemoglobin (0.0-3.0) % Carter Test A-a O2 Difference mm/Hg Respiratory Index Hgb O2 Saturation (95.0-98.0) % Mechanical Rate FiO2 % Tidal Volume PEEP Sodium 151 H (132-148) mmol/L Potassium 3.6 (3.6-5.2) mmol/L Chloride 103 (98-107) mmol/L Carbon Dioxide 34 H (22-30) mmol/L Anion Gap 18 (10-20) BUN 53 H (9-20) mg/dL Creatinine 1.8 H (0.8-1.5) MG/DL Est GFR ( Amer) 45 Est GFR (Non-Af Amer) 38 POC Glucose (mg/dL) 308 H (65-110) mg/dL Random Glucose 248 H (75-110) mg/dL Calcium 7.4 L (8.6-10.4) mg/dl Phosphorus 3.5 (2.5-4.5) mg/dL Magnesium 2.2 (1.6-2.3) mg/dL Total Bilirubin 1.3 (0.2-1.3) mg/dL AST 92 H D (17-59) U/L ALT 24 (21-72) U/L Alkaline Phosphatase 140 H (38-126) U/L Total Protein 6.7 (6.3-8.3) g/dL Albumin 2.6 L (3.5-5.0) g/dL Globulin 4.0 H (2.2-3.9) gm/dL Albumin/Globulin Ratio 0.7 L (1.0-2.1) 01/21/17 01/21/17 01/20/17 Range/Units 05:26 04:20 23:56 WBC (4.8-10.8) K/uL RBC (4.40-5.90) Mil/uL Hgb (12.0-18.0) g/dL Hct (35.0-51.0) % MCV (80.0-94.0) fL MCH (27.0-31.0) pg MCHC (33.0-37.0) g/dL RDW (11.5-14.5) % Plt Count (130-400) K/uL MPV (7.2-11.7) fL Neut % (Auto) (50.0-75.0) % Lymph % (Auto) (20.0-40.0) % Troup % (Auto) (0.0-10.0) % Eos % (Auto) (0.0-4.0) % Baso % (Auto) (0.0-2.0) % Neut # (1.8-7.0) K/uL Lymph # (1.0-4.3) K/uL Troup # (0.0-0.8) K/uL Eos # (0.0-0.7) K/uL Baso # (0.0-0.2) K/uL Puncture Site Rr pCO2 43 (35-45) mm/Hg pO2 263 H (80-100) mm/Hg HCO3 32.3 H (21-28) mmol/L ABG pH 7.50 H (7.35-7.45) ABG Total CO2 34.8 H (22-28) mmol/L ABG O2 Saturation 99.6 H (95-98) % ABG Base Excess 9.4 H (-2.0-3.0) mmol/L ABG Hemoglobin 8.0 L (11.7-17.4) g/dL ABG Carboxyhemoglobin 1.6 H (0.5-1.5) % POC ABG HHb (Measured) 0.4 (0.0-5.0) % ABG Methemoglobin 1.3 (0.0-3.0) % Carter Test Pos A-a O2 Difference 182.0 mm/Hg Respiratory Index 0.7 Hgb O2 Saturation 96.6 (95.0-98.0) % Mechanical Rate 14 FiO2 70.0 % Tidal Volume 450 PEEP 5 Sodium (132-148) mmol/L Potassium (3.6-5.2) mmol/L Chloride (98-107) mmol/L Carbon Dioxide (22-30) mmol/L Anion Gap (10-20) BUN (9-20) mg/dL Creatinine (0.8-1.5) MG/DL Est GFR ( Amer) Est GFR (Non-Af Amer) POC Glucose (mg/dL) 295 H 258 H (65-110) mg/dL Random Glucose (75-110) mg/dL Calcium (8.6-10.4) mg/dl Phosphorus (2.5-4.5) mg/dL Magnesium (1.6-2.3) mg/dL Total Bilirubin (0.2-1.3) mg/dL AST (17-59) U/L ALT (21-72) U/L Alkaline Phosphatase (38-126) U/L Total Protein (6.3-8.3) g/dL Albumin (3.5-5.0) g/dL Globulin (2.2-3.9) gm/dL Albumin/Globulin Ratio (1.0-2.1) 01/20/17 Range/Units 19:18 WBC (4.8-10.8) K/uL RBC (4.40-5.90) Mil/uL Hgb (12.0-18.0) g/dL Hct (35.0-51.0) % MCV (80.0-94.0) fL MCH (27.0-31.0) pg MCHC (33.0-37.0) g/dL RDW (11.5-14.5) % Plt Count (130-400) K/uL MPV (7.2-11.7) fL Neut % (Auto) (50.0-75.0) % Lymph % (Auto) (20.0-40.0) % Troup % (Auto) (0.0-10.0) % Eos % (Auto) (0.0-4.0) % Baso % (Auto) (0.0-2.0) % Neut # (1.8-7.0) K/uL Lymph # (1.0-4.3) K/uL Troup # (0.0-0.8) K/uL Eos # (0.0-0.7) K/uL Baso # (0.0-0.2) K/uL Puncture Site pCO2 (35-45) mm/Hg pO2 (80-100) mm/Hg HCO3 (21-28) mmol/L ABG pH (7.35-7.45) ABG Total CO2 (22-28) mmol/L ABG O2 Saturation (95-98) % ABG Base Excess (-2.0-3.0) mmol/L ABG Hemoglobin (11.7-17.4) g/dL ABG Carboxyhemoglobin (0.5-1.5) % POC ABG HHb (Measured) (0.0-5.0) % ABG Methemoglobin (0.0-3.0) % Carter Test A-a O2 Difference mm/Hg Respiratory Index Hgb O2 Saturation (95.0-98.0) % Mechanical Rate FiO2 % Tidal Volume PEEP Sodium (132-148) mmol/L Potassium (3.6-5.2) mmol/L Chloride (98-107) mmol/L Carbon Dioxide (22-30) mmol/L Anion Gap (10-20) BUN (9-20) mg/dL Creatinine (0.8-1.5) MG/DL Est GFR ( Amer) Est GFR (Non-Af Amer) POC Glucose (mg/dL) 217 H (65-110) mg/dL Random Glucose (75-110) mg/dL Calcium (8.6-10.4) mg/dl Phosphorus (2.5-4.5) mg/dL Magnesium (1.6-2.3) mg/dL Total Bilirubin (0.2-1.3) mg/dL AST (17-59) U/L ALT (21-72) U/L Alkaline Phosphatase (38-126) U/L Total Protein (6.3-8.3) g/dL Albumin (3.5-5.0) g/dL Globulin (2.2-3.9) gm/dL Albumin/Globulin Ratio (1.0-2.1) Laboratory Results - last 24 hr 01/20/17 01/20/17 01/21/17 19:18 23:56 04:20 WBC RBC Hgb Hct MCV MCH MCHC RDW Plt Count MPV Neut % (Auto) Lymph % (Auto) Troup % (Auto) Eos % (Auto) Baso % (Auto) Neut # Lymph # Troup # Eos # Baso # Puncture Site Rr pCO2 43 pO2 263 H HCO3 32.3 H ABG pH 7.50 H ABG Total CO2 34.8 H ABG O2 Saturation 99.6 H ABG Base Excess 9.4 H ABG Hemoglobin 8.0 L ABG Carboxyhemoglobin 1.6 H POC ABG HHb (Measured) 0.4 ABG Methemoglobin 1.3 Carter Test Pos A-a O2 Difference 182.0 Respiratory Index 0.7 Hgb O2 Saturation 96.6 Mechanical Rate 14 FiO2 70.0 Tidal Volume 450 PEEP 5 Sodium Potassium Chloride Carbon Dioxide Anion Gap BUN Creatinine Est GFR ( Amer) Est GFR (Non-Af Amer) POC Glucose (mg/dL) 217 H 258 H Random Glucose Calcium Phosphorus Magnesium Total Bilirubin AST ALT Alkaline Phosphatase Total Protein Albumin Globulin Albumin/Globulin Ratio 01/21/17 01/21/17 01/21/17 05:26 06:34 06:37 WBC 13.4 H RBC 3.16 L Hgb 8.3 L Hct 26.5 L MCV 83.8 MCH 26.1 L MCHC 31.1 L RDW 16.9 H Plt Count 223 MPV 8.6 Neut % (Auto) 83.1 H Lymph % (Auto) 10.1 L Troup % (Auto) 5.3 Eos % (Auto) 0.7 Baso % (Auto) 0.8 Neut # 11.1 H Lymph # 1.4 Troup # 0.7 Eos # 0.1 Baso # 0.1 Puncture Site pCO2 pO2 HCO3 ABG pH ABG Total CO2 ABG O2 Saturation ABG Base Excess ABG Hemoglobin ABG Carboxyhemoglobin POC ABG HHb (Measured) ABG Methemoglobin Carter Test A-a O2 Difference Respiratory Index Hgb O2 Saturation Mechanical Rate FiO2 Tidal Volume PEEP Sodium 151 H Potassium 3.6 Chloride 103 Carbon Dioxide 34 H Anion Gap 18 BUN 53 H Creatinine 1.8 H Est GFR ( Amer) 45 Est GFR (Non-Af Amer) 38 POC Glucose (mg/dL) 295 H Random Glucose 248 H Calcium 7.4 L Phosphorus 3.5 Magnesium 2.2 Total Bilirubin 1.3 AST 92 H D ALT 24 Alkaline Phosphatase 140 H Total Protein 6.7 Albumin 2.6 L Globulin 4.0 H Albumin/Globulin Ratio 0.7 L 01/21/17 12:28 WBC RBC Hgb Hct MCV MCH MCHC RDW Plt Count MPV Neut % (Auto) Lymph % (Auto) Troup % (Auto) Eos % (Auto) Baso % (Auto) Neut # Lymph # Troup # Eos # Baso # Puncture Site pCO2 pO2 HCO3 ABG pH ABG Total CO2 ABG O2 Saturation ABG Base Excess ABG Hemoglobin ABG Carboxyhemoglobin POC ABG HHb (Measured) ABG Methemoglobin Carter Test A-a O2 Difference Respiratory Index Hgb O2 Saturation Mechanical Rate FiO2 Tidal Volume PEEP Sodium Potassium Chloride Carbon Dioxide Anion Gap BUN Creatinine Est GFR ( Amer) Est GFR (Non-Af Amer) POC Glucose (mg/dL) 308 H Random Glucose Calcium Phosphorus Magnesium Total Bilirubin AST ALT Alkaline Phosphatase Total Protein Albumin Globulin Albumin/Globulin Ratio Fingerstick Blood Sugar Results: 295 Critical Care Progress Note - Nutrition Nutrition: Nutrition Category Date Time Status Consistent Carbohydrate [DIET] Diets 01/10/17 Breakfast Active
[2017-01-21] MEDS: HYDROmorphone 1 mg/ml ISec IVP PRN (18:45)
[2017-01-22] MEDS: (Novolin R) Insulin Human Regular 100 units/ml vial SC SCH ×4 (00:10→18:14)
[2017-01-22] MEDS: Ciprofloxacin 400mg/200ml D5W 200 ML IVPB SCH ×2 (00:12→12:01)
[2017-01-22] MEDS: Albuterol-Ipratrop 3 mg / 0.5 (3 ml) UD INH SCH ×4 (01:12→19:28)
[2017-01-22] MEDS: Piperacill/Tazo 3.375gm in Dex 50 ML IVPB SCH ×3 (05:30→18:12)
[2017-01-22] MEDS: metroNIDAZOLE IV 500 mg/100 ml 100 ML IVPB SCH ×3 (06:56→23:34)
--- NOTE | 2017-01-22 10:16 | CP.PCM.PN ---
Subjective - Date & Time of Evaluation Date of Evaluation: 01/22/17 Time of Evaluation: 10:13 - Subjective Subjective: Remains on vent Renal function stble UO- 3500ml; IV lasix now stopped Na better at 151 No decision about foot surgery yet discussed case with Objective - Vital Signs/Intake and Output Vital Signs (last 24 hours): Temp Pulse Resp BP Pulse Ox 98 F 60 18 118/55 L 99 01/22/17 04:00 01/22/17 07:00 01/22/17 07:00 01/22/17 07:03 01/22/17 07:00 Intake and Output: 01/22/17 01/22/17 06:59 18:59 Intake Total 1972.0 159 Output Total 835 220 Balance 1137.0 -61 - Medications Medications: Current Medications Acetaminophen (Tylenol 650mg/20.3ml Solution Ud) 650 mg PO Q6 PRN PRN Reason: Fever >100.4 F Last Admin: 01/21/17 04:50 Dose: 650 mg Albuterol/Ipratropium (Duoneb 3 Mg/0.5 Mg (3 Ml) Ud) 3 ml INH RQ6 MICHAEL Last Admin: 01/22/17 07:53 Dose: 3 ml Enoxaparin Sodium (Lovenox) 40 mg SC DAILY MICHAEL Last Admin: 01/21/17 10:53 Dose: 40 mg Hydromorphone HCl (Dilaudid) 1 mg IVP Q6H PRN PRN Reason: Pain, moderate (4-7) Last Admin: 01/21/17 18:45 Dose: 1 mg Metronidazole (Flagyl) 100 mls @ 100 mls/hr IVPB Q8H MICHAEL Last Admin: 01/22/17 06:56 Dose: 100 mls/hr Ciprofloxacin (Cipro 400mg/200ml Dsw) 200 mls @ 133 mls/hr IVPB Q12H MICHAEL Last Admin: 01/22/17 00:12 Dose: 133 mls/hr Piperacillin Sod/Tazobactam Sod (Zosyn 3.375 Gm Iv Premix) 50 mls @ 100 mls/hr IVPB Q6H MICHAEL Last Admin: 01/22/17 05:30 Dose: 100 mls/hr Propofol (Diprivan) 100 mls @ 2.722 mls/hr IV .Q24H PRN; Protocol; 5 MCG/KG/MIN PRN Reason: TITRATE PER MD ORDER Last Admin: 01/22/17 05:29 Dose: 9 mls/hr Insulin Glargine (Lantus) 24 unit SC Q12 [facility] Last Admin: 01/21/17 21:51 Dose: 24 unit Insulin Human Regular (Novolin R) 0 unit SC Q6 MICHAEL PRN Reason: Protocol Last Admin: 01/22/17 06:55 Dose: 2 unit Pantoprazole Sodium (Protonix Inj) 40 mg IVP DAILY [facility] Last Admin: 01/21/17 10:53 Dose: 40 mg Polyethylene Glycol (Miralax) 17 gm PO DAILY MICHAEL Last Admin: 01/21/17 10:00 Dose: 17 gm Scopolamine (Transderm-Scop) 1 patch TD Q3D [facility] Last Admin: 01/21/17 12:56 Dose: 1 patch Sodium Hypochlorite (Dakins Solution 0.125%) 0 appl TOP DAILY [facility] Last Admin: 01/21/17 11:00 Dose: 20 appl - Labs Labs: 01/21/17 06:37 01/21/17 06:34 PT 22.2 SECONDS (9.7-12.2) H 01/18/17 05:54 INR 1.9 01/18/17 05:54 APTT 36 SECONDS (21-34) H 01/18/17 05:54 - Constitutional Appears: In Acute Distress, Chronically Ill - Head Exam Head Exam: ATRAUMATIC, NORMAL INSPECTION - Neck Exam Neck Exam: Normal Inspection. absent: Tenderness - Respiratory Exam Respiratory Exam: Rhonchi, Respiratory Distress - GI/Abdominal Exam GI & Abdominal Exam: Soft. absent: Tenderness - Extremities Exam Extremities Exam: Normal Inspection. absent: Tenderness - Neurological Exam Neurological Exam: Altered, Motor Sensory Deficit - Skin Skin Exam: Dry, Warm Assessment and Plan (1) Diabetic ulcer of both lower extremities Status: Acute (2) Atrial fibrillation with slow ventricular response Status: Chronic (3) Cellulitis Status: Acute (4) DM2 (diabetes mellitus, type 2) Status: Chronic (5) HTN (hypertension) Status: Chronic (6) CKD stage 4 due to type 2 diabetes mellitus Status: Acute (7) Hypernatremia Status: Acute - Assessment and Plan (Free Text) Plan: Monitor lytes closely- hypernatremia should stabilize off IV lasix Monitor renal function Decision about foot surgery pending IV ABs as per ID Off IV fluids now- continue GT feeds
[2017-01-22] MEDS: Enoxaparin 40 mg Syringe SC SCH (10:27)
[2017-01-22] MEDS: HYDROmorphone 1 mg/ml ISec IVP PRN ×2 (10:27→21:27)
[2017-01-22] MEDS: POLYETHYLENE GLYCOL 3350 17 GM/Dose PACKET PO SCH (10:28)
[2017-01-22] MEDS: (Lantus) Insulin Glargine, Recombinant SC SCH ×2 (10:29→21:30)
--- NOTE | 2017-01-22 10:54 | CP.PCM.PN ---
Subjective - Date & Time of Evaluation Date of Evaluation: 01/22/17 Time of Evaluation: 07:00 - Subjective Subjective: Patient seen and examined in the intensive care unit. Remains intubated on ventilatory support now tolerating weaning Response to vocal commands by opening eyes Afebrile Objective - Vital Signs/Intake and Output Vital Signs (last 24 hours): Temp Pulse Resp BP Pulse Ox 98 F 60 18 118/55 L 99 01/22/17 04:00 01/22/17 07:00 01/22/17 07:00 01/22/17 07:03 01/22/17 07:00 Intake and Output: 01/22/17 01/22/17 06:59 18:59 Intake Total 1972.0 159 Output Total 835 220 Balance 1137.0 -61 - Medications Medications: Current Medications Acetaminophen (Tylenol 650mg/20.3ml Solution Ud) 650 mg PO Q6 PRN PRN Reason: Fever >100.4 F Last Admin: 01/21/17 04:50 Dose: 650 mg Albuterol/Ipratropium (Duoneb 3 Mg/0.5 Mg (3 Ml) Ud) 3 ml INH RQ6 MICHAEL Last Admin: 01/22/17 07:53 Dose: 3 ml Enoxaparin Sodium (Lovenox) 40 mg SC DAILY MICHAEL Last Admin: 01/22/17 10:27 Dose: 40 mg Hydromorphone HCl (Dilaudid) 1 mg IVP Q6H PRN PRN Reason: Pain, moderate (4-7) Last Admin: 01/22/17 10:27 Dose: 1 mg Metronidazole (Flagyl) 100 mls @ 100 mls/hr IVPB Q8H MICHAEL Last Admin: 01/22/17 06:56 Dose: 100 mls/hr Ciprofloxacin (Cipro 400mg/200ml Dsw) 200 mls @ 133 mls/hr IVPB Q12H MICHAEL Last Admin: 01/22/17 00:12 Dose: 133 mls/hr Piperacillin Sod/Tazobactam Sod (Zosyn 3.375 Gm Iv Premix) 50 mls @ 100 mls/hr IVPB Q6H MICHAEL Last Admin: 01/22/17 05:30 Dose: 100 mls/hr Propofol (Diprivan) 100 mls @ 2.722 mls/hr IV .Q24H PRN; Protocol; 5 MCG/KG/MIN PRN Reason: TITRATE PER MD ORDER Last Admin: 01/22/17 05:29 Dose: 9 mls/hr Insulin Glargine (Lantus) 24 unit SC Q12 [facility] Last Admin: 01/22/17 10:29 Dose: 24 unit Insulin Human Regular (Novolin R) 0 unit SC Q6 MICHAEL PRN Reason: Protocol Last Admin: 01/22/17 06:55 Dose: 2 unit Pantoprazole Sodium (Protonix Inj) 40 mg IVP DAILY [facility] Last Admin: 01/22/17 10:27 Dose: 40 mg Polyethylene Glycol (Miralax) 17 gm PO DAILY [facility] Last Admin: 01/22/17 10:28 Dose: 17 gm Scopolamine (Transderm-Scop) 1 patch TD Q3D [facility] Last Admin: 01/21/17 12:56 Dose: 1 patch Sodium Hypochlorite (Dakins Solution 0.125%) 0 appl TOP DAILY [facility] Last Admin: 01/22/17 10:30 Dose: 20 appl - Labs Labs: 01/21/17 06:37 01/21/17 06:34 PT 22.2 SECONDS (9.7-12.2) H 01/18/17 05:54 INR 1.9 01/18/17 05:54 APTT 36 SECONDS (21-34) H 01/18/17 05:54 - Head Exam Head Exam: ATRAUMATIC, NORMOCEPHALIC - Eye Exam Eye Exam: Normal appearance - ENT Exam ENT Exam: Mucous Membranes Moist - Neck Exam Neck Exam: Normal Inspection - Respiratory Exam Respiratory Exam: Rales - Cardiovascular Exam Cardiovascular Exam: REGULAR RHYTHM - GI/Abdominal Exam GI & Abdominal Exam: Soft, Normal Bowel Sounds Assessment and Plan (1) Acute respiratory failure with hypercapnia Assessment & Plan: CPAP trial Continue antibiotics per ID Continue nebulizer treatment Continue feeding Status: Acute (2) Diabetic ulcer of both lower extremities Status: Acute (3) Bacteremia Status: Acute (4) CKD stage 4 due to type 2 diabetes mellitus Status: Acute (5) Coagulopathy Status: Acute (6) Diabetic foot infection Status: Acute
--- NOTE | 2017-01-22 12:11 | CP.PCM.PN ---
Subjective - Date & Time of Evaluation Date of Evaluation: 01/22/17 Time of Evaluation: 06:00 - Subjective Subjective: Remains intubated on ventilatory support now tolerating weaning Response to vocal commands by opening eyes Afebrile Objective - Vital Signs/Intake and Output Vital Signs (last 24 hours): Temp Pulse Resp BP Pulse Ox 98 F 60 18 118/55 L 99 01/22/17 04:00 01/22/17 07:00 01/22/17 07:00 01/22/17 07:03 01/22/17 07:00 Intake and Output: 01/22/17 01/22/17 06:59 18:59 Intake Total 1972.0 159 Output Total 835 220 Balance 1137.0 -61 - Medications Medications: Current Medications Acetaminophen (Tylenol 650mg/20.3ml Solution Ud) 650 mg PO Q6 PRN PRN Reason: Fever >100.4 F Last Admin: 01/21/17 04:50 Dose: 650 mg Albuterol/Ipratropium (Duoneb 3 Mg/0.5 Mg (3 Ml) Ud) 3 ml INH RQ6 [facility] Last Admin: 01/22/17 07:53 Dose: 3 ml Enoxaparin Sodium (Lovenox) 40 mg SC DAILY [facility] Last Admin: 01/22/17 10:27 Dose: 40 mg Hydromorphone HCl (Dilaudid) 1 mg IVP Q6H PRN PRN Reason: Pain, moderate (4-7) Last Admin: 01/22/17 10:27 Dose: 1 mg Metronidazole (Flagyl) 100 mls @ 100 mls/hr IVPB Q8H [facility] Last Admin: 01/22/17 06:56 Dose: 100 mls/hr Ciprofloxacin (Cipro 400mg/200ml Dsw) 200 mls @ 133 mls/hr IVPB Q12H [facility] Last Admin: 01/22/17 12:01 Dose: 133 mls/hr Piperacillin Sod/Tazobactam Sod (Zosyn 3.375 Gm Iv Premix) 50 mls @ 100 mls/hr IVPB Q6H [facility] Last Admin: 01/22/17 12:00 Dose: 100 mls/hr Propofol (Diprivan) 100 mls @ 2.722 mls/hr IV .Q24H PRN; Protocol; 5 MCG/KG/MIN PRN Reason: TITRATE PER MD ORDER Last Admin: 01/22/17 05:29 Dose: 9 mls/hr Insulin Glargine (Lantus) 24 unit SC Q12 [facility] Last Admin: 01/22/17 10:29 Dose: 24 unit Insulin Human Regular (Novolin R) 0 unit SC Q6 MICHAEL PRN Reason: Protocol Last Admin: 01/22/17 06:55 Dose: 2 unit Pantoprazole Sodium (Protonix Inj) 40 mg IVP DAILY [facility] Last Admin: 01/22/17 10:27 Dose: 40 mg Polyethylene Glycol (Miralax) 17 gm PO DAILY [facility] Last Admin: 01/22/17 10:28 Dose: 17 gm Scopolamine (Transderm-Scop) 1 patch TD Q3D [facility] Last Admin: 01/21/17 12:56 Dose: 1 patch Sodium Hypochlorite (Dakins Solution 0.125%) 0 appl TOP DAILY [facility] Last Admin: 01/22/17 10:30 Dose: 20 appl - Labs Labs: 01/21/17 06:37 01/21/17 06:34 PT 22.2 SECONDS (9.7-12.2) H 01/18/17 05:54 INR 1.9 01/18/17 05:54 APTT 36 SECONDS (21-34) H 01/18/17 05:54 - Constitutional Appears: Non-toxic, Chronically Ill - Head Exam Head Exam: NORMOCEPHALIC - Eye Exam Eye Exam: absent: Scleral icterus - ENT Exam ENT Exam: Mucous Membranes Dry - Neck Exam Neck Exam: absent: Lymphadenopathy - Respiratory Exam Respiratory Exam: Decreased Breath Sounds, Clear to Ausculation Bilateral - Cardiovascular Exam Cardiovascular Exam: REGULAR RHYTHM Assessment and Plan (1) Diabetic foot infection Status: Acute (2) Diabetic ulcer of both lower extremities Status: Acute (3) Leukocytosis Status: Acute (4) Abdominal distension Status: Acute (5) Atrial fibrillation with slow ventricular response Status: Chronic (6) Cellulitis Status: Acute
--- NOTE | 2017-01-22 16:30 | CP.CCUPN ---
CCU Subjective - Physician Review Subjective (Free Text): 01/22/17 17:37 Pt seen and examined at bedside. He is currently in NAD. Nursing reports continued repositioning Q2H due to purple sacral discolorations. seen at bedside who reiterates desire not to undergo amputation. Patient remains intubated, but is able to communicate. He is awake, alert, and able to follow commands. He shook his head affirmatively when asked if pain controlled on current regimen. He denies chest pain, palpitations, abdominal pain, N/V/D/C. Critical Care Time Spent (in minutes): 45 CCU Objective - Vital Signs / Intake & Output Intake and Output (Last 8hrs): Intake & Output 01/22/17 01/22/17 01/22/17 06:59 14:59 22:59 Intake Total 1749.5 159 Output Total 730 220 Balance 1019.5 -61 Intake: Intake, IV Amount 449.5 109 Right Proximal Port 49.5 9 Internal Jugular Right Medial Port 300 Internal Jugular Right Distal Port 100 100 Internal Jugular Tube Feeding 400 50 Other 900 Output: Urine 730 220 Urethral (Conner) 730 220 - Physical Exam Head: Positive for: Atraumatic, Normocephalic Pupils: Positive for: PERRL Extroacular Muscles: Positive for: EOMI Conjunctiva: Positive for: Normal Mouth: Positive for: Moist Mucous Membranes Neck: Positive for: Trachea Midline Respiratory/Chest: Positive for: Clear to Auscultation Cardiovascular: Positive for: Regular Rate and Rhythm Abdomen: Positive for: Normal Bowel Sounds. Negative for: Tenderness, Distention Upper Extremity: Positive for: Normal Inspection, Edema Lower Extremity: Positive for: Edema, Capillary Refill < 2 s, Other (Black eschar noted on both feet, posterior left leg with black eschar as well. Drainage from wounds noted.). Negative for: NORMAL PULSES Neurological: Positive for: Other Skin: Positive for: Dry, Rashes, Erythematous, Abrasion Psychiatric: Positive for: Alert. Negative for: Oriented x 3 - Medications Active Medications: Active Medications Generic Name Dose Route Start Last Admin Trade Name Freq PRN Reason Stop Dose Admin Acetaminophen 650 mg 01/15/17 13:53 01/21/17 04:50 Tylenol 650mg/20.3ml Solution Ud PO 650 mg Q6 PRN Administration Fever >100.4 F Albuterol/Ipratropium 3 ml 01/19/17 14:00 01/22/17 13:40 Duoneb 3 Mg/0.5 Mg (3 Ml) Ud INH Not Given RQ6 MICHAEL Enoxaparin Sodium 40 mg 01/20/17 10:00 01/22/17 10:27 Lovenox SC 40 mg DAILY MICHAEL Administration Hydromorphone HCl 1 mg 01/19/17 17:01 01/22/17 10:27 Dilaudid IVP 1 mg Q6H PRN Administration Pain, moderate (4-7) Metronidazole 100 mls @ 100 mls/hr 01/12/17 23:30 01/22/17 15:26 Flagyl IVPB 100 mls/hr Q8H MICHAEL Administration Ciprofloxacin 200 mls @ 133 mls/hr 01/16/17 12:00 01/22/17 12:01 Cipro 400mg/200ml Dsw IVPB 133 mls/hr Q12H MICHAEL Administration Piperacillin Sod/Tazobactam Sod 50 mls @ 100 mls/hr 01/16/17 12:00 01/22/17 12: 00 Zosyn 3.375 Gm Iv Premix IVPB 100 mls/hr Q6H MICHAEL Administration Propofol 100 mls @ 2.722 mls/hr 01/19/17 10:28 01/22/17 15:33 Diprivan IV 9 mls/hr .Q24H PRN Administration TITRATE PER MD ORDER Protocol 5 MCG/KG/MIN Insulin Glargine 24 unit 01/20/17 09:50 01/22/17 10:29 Lantus SC 24 unit Q12 MICHAEL Administration Insulin Human Regular 0 unit 01/12/17 13:15 01/22/17 13:37 Novolin R SC 2 unit Q6 MICHAEL Administration Protocol Pantoprazole Sodium 40 mg 01/13/17 10:00 01/22/17 10:27 Protonix Inj IVP 40 mg DAILY MICHAEL Administration Polyethylene Glycol 17 gm 01/20/17 10:00 01/22/17 10:28 Miralax PO 17 gm DAILY MICHAEL Administration Scopolamine 1 patch 01/21/17 10:15 01/21/17 12:56 Transderm-Scop TD 1 patch Q3D MICHAEL Administration Sodium Hypochlorite 0 appl 01/17/17 10:00 01/22/17 10:30 Dakins Solution 0.125% TOP 20 appl DAILY MICHAEL Administration - Patient Studies Lab Studies: Lab Studies 01/22/17 01/22/17 01/21/17 Range/Units 12:08 06:26 23:50 POC Glucose (mg/dL) 174 H 188 H 189 H (65-110) mg/dL 01/21/17 Range/Units 17:51 POC Glucose (mg/dL) 329 H (65-110) mg/dL Laboratory Results - last 24 hr 01/21/17 01/21/17 01/22/17 17:51 23:50 06:26 POC Glucose (mg/dL) 329 H 189 H 188 H 01/22/17 12:08 POC Glucose (mg/dL) 174 H Fingerstick Blood Sugar Results: 171 Review of Systems - Constitutional Constitutional: absent: Fever, Chills - Cardiovascular Cardiovascular: absent: Chest Pain, Palpitations - Gastrointestinal Gastrointestinal: absent: Abdominal Pain, Nausea, Vomiting - Integumentary Integumentary: New Lesions, Wounds - Neurological Neurological: Numbness (in b/l LE) Critical Care Progress Note - Nutrition Nutrition: Nutrition Category Date Time Status Consistent Carbohydrate [DIET] Diets 01/10/17 Breakfast Active Assessment/Plan - Assessment and Plan (Free Text) Assessment: 71 year old patient with PMHx significant for HTN, DM, A-fib with slow ventricular response and cataracts initially presented with worsening bilateral LE cellulitis for which patient was septic. Pt also had elevated INR of 15. Patient admitted to ICU for close monitoring. Patient DNR/DNI. Plan: Neuro: Pt sedated with Propofol; intubated Awake, able to nod head, and follow commands Cardio: Hypotension at times- BP meds held If BP remains stable, low dose betablocker can be added on per Cardiology. Cardiology signed off. Pulm: Acute respiratory failure secondary to severe sepsis secondary to bilateral LE cellulitis Pt intubated Dr. Figueroa consulted on 01/14 for Pulmonary clearance - pt tolerating weaning from intubation - CPAP trial - continue nebulizer treatment, tube feedings of diabetisource with goal of 50 ml/hr Duoneb Q6H Lasix 40 mg IV Q12 GI: Diabetisource with water flushes 450cc Q6 Miralax 17 gm PO Daily Nephro/: CKD stage 4, due to Type 2 DM Hypernatremia- Free water flushes 300cc Q6 Dr. Sanchez consulted: - renal fxn stable, UO 3500ml - Na 151 today, should continue to stabilize off Lasix Continue IV fluids Nephro on the case Heme: stable, cont to monitor H/H Coagulopathy nutritional per Dr. Stpehenson Endo: Diabetic ulcers of lower extremities noted Accuchecks Lantus inc to 24 units Q12 ISS Monitor ID: WBC downtrending Initially presented with severe sepsis On Flagyl, Zosyn, Cipro ID Dr. Blum on the case MSK: Recommendations for BKA surgery however patient's has decided against the procedure bc she feels that the patient would not consent to amputation. She is acting in his best interests ( as per his expected wishes). Dressing changes per Podiatry- Continued conservative care No MRI at this point due to hx of pacemaker Dilaudid 1mg IV q6H Palliative: If patient is to be extubated, patient's agreeable to DNI for comfort measures. DNR/DNI at this time. will not consent for BKA at this time. Once patient is extubated, will revisit decision regarding amputation in case patient changes mind. Prophylaxis: PPI: Protonix 40mg IV daily DVT prophylaxis- Lovenox 40mg SC Daily
--- NOTE | 2017-01-22 21:44 | CP.PCM.PN ---
Subjective - Date & Time of Evaluation Date of Evaluation: 01/22/17 Time of Evaluation: 16:00 - Subjective Subjective: Vented, appears comfortable Objective - Vital Signs/Intake and Output Vital Signs (last 24 hours): Temp Pulse Resp BP Pulse Ox 98.6 F 60 20 110/44 L 97 01/22/17 20:00 01/22/17 20:03 01/22/17 20:03 01/22/17 20:03 01/22/17 20:03 Intake and Output: 01/22/17 01/23/17 18:59 06:59 Intake Total 1208 59 Output Total 1395 100 Balance -187 -41 - Medications Medications: Current Medications Acetaminophen (Tylenol 650mg/20.3ml Solution Ud) 650 mg PO Q6 PRN PRN Reason: Fever >100.4 F Last Admin: 01/21/17 04:50 Dose: 650 mg Albuterol/Ipratropium (Duoneb 3 Mg/0.5 Mg (3 Ml) Ud) 3 ml INH RQ6 [facility] Last Admin: 01/22/17 19:28 Dose: 3 ml Enoxaparin Sodium (Lovenox) 40 mg SC DAILY [facility] Last Admin: 01/22/17 10:27 Dose: 40 mg Hydromorphone HCl (Dilaudid) 1 mg IVP Q6H PRN PRN Reason: Pain, moderate (4-7) Last Admin: 01/22/17 21:27 Dose: 1 mg Metronidazole (Flagyl) 100 mls @ 100 mls/hr IVPB Q8H [facility] Last Admin: 01/22/17 15:26 Dose: 100 mls/hr Ciprofloxacin (Cipro 400mg/200ml Dsw) 200 mls @ 133 mls/hr IVPB Q12H [facility] Last Admin: 01/22/17 12:01 Dose: 133 mls/hr Piperacillin Sod/Tazobactam Sod (Zosyn 3.375 Gm Iv Premix) 50 mls @ 100 mls/hr IVPB Q6H [facility]HAEL Last Admin: 01/22/17 18:12 Dose: 100 mls/hr Propofol (Diprivan) 100 mls @ 2.722 mls/hr IV .Q24H PRN; Protocol; 5 MCG/KG/MIN PRN Reason: TITRATE PER MD ORDER Last Admin: 01/22/17 15:33 Dose: 9 mls/hr Insulin Glargine (Lantus) 24 unit SC Q12 [facility] Last Admin: 01/22/17 21:30 Dose: 24 unit Insulin Human Regular (Novolin R) 0 unit SC Q6 [facility] PRN Reason: Protocol Last Admin: 01/22/17 18:14 Dose: 2 unit Pantoprazole Sodium (Protonix Inj) 40 mg IVP DAILY [facility] Last Admin: 01/22/17 10:27 Dose: 40 mg Polyethylene Glycol (Miralax) 17 gm PO DAILY [facility] Last Admin: 01/22/17 10:28 Dose: 17 gm Scopolamine (Transderm-Scop) 1 patch TD Q3D [facility] Last Admin: 01/21/17 12:56 Dose: 1 patch Sodium Hypochlorite (Dakins Solution 0.125%) 0 appl TOP DAILY [facility] Last Admin: 01/22/17 10:30 Dose: 20 appl - Labs Labs: 01/21/17 06:37 01/21/17 06:34 PT 22.2 SECONDS (9.7-12.2) H 01/18/17 05:54 INR 1.9 01/18/17 05:54 APTT 36 SECONDS (21-34) H 01/18/17 05:54 - Head Exam Head Exam: ATRAUMATIC - Eye Exam Eye Exam: Normal appearance - ENT Exam ENT Exam: Mucous Membranes Dry - Respiratory Exam Respiratory Exam: NORMAL BREATHING PATTERN - Cardiovascular Exam Cardiovascular Exam: +S1, +S2 - GI/Abdominal Exam GI & Abdominal Exam: Normal Bowel Sounds - Extremities Exam Additional comments: B/L LE dressings Assessment and Plan (1) Coagulopathy Assessment & Plan: nutritional Status: Acute (2) Leukocytosis Assessment & Plan: on antibiotics Status: Acute (3) Anemia Assessment & Plan: chronic disease Status: Acute
--- NOTE | 2017-01-22 21:45 | CP.PCM.PN ---
Subjective - Date & Time of Evaluation Date of Evaluation: 01/22/17 Time of Evaluation: 13:35 - Subjective Subjective: Medical Attending Note: Follow-up: severe sepsis, bactermia, coagulopathy, b/l cellulitis, diabetic foot ulcers and strong suspicion for osteomyelitis, atrial fibrillation; pacemaker Patient seen, examined and discussed with ICU nurse, Halina Nayak Patient is currently sedated. Possible terminal extubation tomorrow. Patient is currently vented, sedated, intubated. Unable ROS given clinical condition. Objective - Vital Signs/Intake and Output Vital Signs (last 24 hours): Temp Pulse Resp BP Pulse Ox 98.6 F 60 20 110/44 L 97 01/22/17 20:00 01/22/17 20:03 01/22/17 20:03 01/22/17 20:03 01/22/17 20:03 Intake and Output: 01/22/17 01/23/17 18:59 06:59 Intake Total 1208 59 Output Total 1395 100 Balance -187 -41 - Medications Medications: Current Medications Acetaminophen (Tylenol 650mg/20.3ml Solution Ud) 650 mg PO Q6 PRN PRN Reason: Fever >100.4 F Last Admin: 01/21/17 04:50 Dose: 650 mg Albuterol/Ipratropium (Duoneb 3 Mg/0.5 Mg (3 Ml) Ud) 3 ml INH RQ6 MICHAEL Last Admin: 01/22/17 19:28 Dose: 3 ml Enoxaparin Sodium (Lovenox) 40 mg SC DAILY [facility] Last Admin: 01/22/17 10:27 Dose: 40 mg Hydromorphone HCl (Dilaudid) 1 mg IVP Q6H PRN PRN Reason: Pain, moderate (4-7) Last Admin: 01/22/17 21:27 Dose: 1 mg Metronidazole (Flagyl) 100 mls @ 100 mls/hr IVPB Q8H [facility]EL Last Admin: 01/22/17 15:26 Dose: 100 mls/hr Ciprofloxacin (Cipro 400mg/200ml Dsw) 200 mls @ 133 mls/hr IVPB Q12H [facility]EL Last Admin: 01/22/17 12:01 Dose: 133 mls/hr Piperacillin Sod/Tazobactam Sod (Zosyn 3.375 Gm Iv Premix) 50 mls @ 100 mls/hr IVPB Q6H [facility] Last Admin: 01/22/17 18:12 Dose: 100 mls/hr Propofol (Diprivan) 100 mls @ 2.722 mls/hr IV .Q24H PRN; Protocol; 5 MCG/KG/MIN PRN Reason: TITRATE PER MD ORDER Last Admin: 01/22/17 15:33 Dose: 9 mls/hr Insulin Glargine (Lantus) 24 unit SC Q12 [facility] Last Admin: 01/22/17 21:30 Dose: 24 unit Insulin Human Regular (Novolin R) 0 unit SC Q6 MICHAEL PRN Reason: Protocol Last Admin: 01/22/17 18:14 Dose: 2 unit Pantoprazole Sodium (Protonix Inj) 40 mg IVP DAILY [facility] Last Admin: 01/22/17 10:27 Dose: 40 mg Polyethylene Glycol (Miralax) 17 gm PO DAILY [facility] Last Admin: 01/22/17 10:28 Dose: 17 gm Scopolamine (Transderm-Scop) 1 patch TD Q3D [facility] Last Admin: 01/21/17 12:56 Dose: 1 patch Sodium Hypochlorite (Dakins Solution 0.125%) 0 appl TOP DAILY [facility] Last Admin: 01/22/17 10:30 Dose: 20 appl - Labs Labs: 01/21/17 06:37 01/21/17 06:34 PT 22.2 SECONDS (9.7-12.2) H 01/18/17 05:54 INR 1.9 01/18/17 05:54 APTT 36 SECONDS (21-34) H 01/18/17 05:54 - Constitutional Appears: Unkempt, Chronically Ill - Head Exam Head Exam: NORMAL INSPECTION Additional comments: sedated, intubated, ogt tube, vented - ENT Exam ENT Exam: Mucous Membranes Dry - Respiratory Exam Respiratory Exam: Decreased Breath Sounds, NORMAL BREATHING PATTERN - Cardiovascular Exam Cardiovascular Exam: Irregular Rhythm, +S1, +S2 - GI/Abdominal Exam GI & Abdominal Exam: Distended (obese habitus), Soft, Normal Bowel Sounds - Extremities Exam Additional comments: b/l lower extremities; wrapped in Amee dressing; appear erythematous and necrotic toes bilateral; malodorous - Skin Skin Exam: Warm Assessment and Plan (1) Severe sepsis Status: Acute (2) Acute respiratory failure Status: Acute (3) Anemia Status: Acute (4) Bacteremia Status: Acute (5) Coagulopathy Status: Acute (6) Diabetic ulcer of both lower extremities Status: Acute (7) Atrial fibrillation Status: Chronic (8) Pacemaker Status: Chronic (9) DM2 (diabetes mellitus, type 2) Status: Chronic (10) HTN (hypertension) Status: Chronic (11) Prophylactic measure Status: Acute - Assessment and Plan (Free Text) Assessment: (1) Severe sepsis Assessment and Plan: Criteria: leukocytosis (28.6): RR>20, and confirmed source of infection including b/l lower extremities; bactermia and likely osteomyelitis and/or gangrene; symptomatic: altered mental status, lethargic, responsive to painful stimuli; creatinine >0.5, coagulation abnormalities INR>1.5 Blood culture (01/09/17): Peptostreptoccus Baltazar X2 Wound culture (01/09/17) Left leg: enterobacter Cloacae Sssp Cloac; Gram negative garret X3, Bacillus speciies; Leg Right: Enterobacter Cloacae X2, Bacillus Chest xray (01/12/17): persistent severe cardiomegaly and interval improvement in pulmonary venous congestion Blood culture (01/12/17): no growth after 5 days Urine culture (01/12/17): no growth Urine culture (01/11/17) no growth Abx: Ciprofloxcin 400mg IV Q 12hours (active since 01/16/17) Flagyl 500mg IV Q 8hours (active since 01/12/17) Zosyn 3.375 IV Q 6 hours (active since 01/16/17) ABG (01/12): mild metabolic acidosis; lactate: 0.8 Patient appears clinically dried at time of rapid. Patient transferred to ICU on 01/12/17. Patient may require amputation;however, patient's refuses amputation and patient has refused amputation. Patient unable to get MRI given has pacemaker. Infectious disease (Dr. Blum) on board Nephrology (Dr. Sanchez) on board Podiatry (Dr. Davenport) on board Vascular surgery (Dr. Granger) on board---amputation safest treatment; poor prognosis Cardiology (Dr. Lerma) for cardiac clearance Procalcitonin: 2.11 Patient for terminal extubation tomorrow. DNR/DNI. Status: Acute (2) Acute respiratory failure * Per view of EMR; patient may be able to pass CPAP trial but possible reintubation given weakness; patient has had discussion as well as with ; permit for terminal extubation * Possible terminal extubation tomorrow, 01/23/17 (3) Coagulopathy Assessment and Plan: possible related to sepsis INR 15.0, PT 191-->INR:2.6-->1.8-->1.6-->1.7 Patient given 10mg of Vitamin K IV over one hour and 6 units of fresh frozen plasma on 01/12 Patient to given additional 2 units of FFP prior central line placement for inr : 1.8 on 01/13 Will be given 1 unit of PRBC on 01/14 Will need to monitor patient for signs of bleeding. CT scan of the head was negative (01/12/17) for any intracrainal bleed. He was on Eliqius 2.5mg bid since admission which was on 01/08/17-01/12/17 for history of atrial fibrillation Heme-onc (Dr. Stephenson) consult on case given coagulopathy. Patient did have BM during rapid which was NOT black and appeared nonbloody. Status: Acute (4) Diabetic ulcer of both lower extremities Assessment and Plan: Patient has severe ulcers on both legs. Hgba1c: 12.4 (uncontrolled) Accuchecks Q 6hours Regular insulin sliding scale subq 6hours 01/11/17 Bone scan: negative study for acute osseous process. Specifically no evidence to suggest acute osteomyelitis left foot. Findings on the left 1st toe apparent on the prior study 03/27/16. Patient unable to give MRI given he has ICD Wound culture (01/09/17): Enterocloace, Bacilus cerus, and pending third organism bilaterally Dr. Blum (infectious disease) on board--> Abx: Ciprofloxcin 400mg IV Q 12hours (active since 01/16/17) Flagyl 500mg IV Q 8hours (active since 01/12/17) Zosyn 3.375 IV Q 6 hours (active since 01/16/17) Surgery on board (Dr. Granger) on board Podiatry on board (Dr. Davenport) on board Infectious disease on board (Dr. Blum) on board refused amputation Status: Acute (5) Bacteremia Assessment and Plan: Blood culture (01/09/17): Peptostreptoccus Baltazar X2 Blood culture (01/12/17): no growth after 5 days X2 Abx: Ciprofloxcin 400mg IV Q 12hours (active since 01/16/17) Flagyl 500mg IV Q 8hours (active since 01/12/17) Zosyn 3.375 IV Q 6 hours (active since 01/16/17) Echocardiogram (01/15/17): normal LV systolic function, dilated LA, trace MR, moderate TR Status: Acute (6) Acute delirium Assessment and Plan: Propofol sedation likely related to sepsis Status: Acute (7) Acute renal failure Assessment and Plan: Patient for possible terminal extubation Patient appears volume depleted at the time of rapid. Received 6 units of FFP and 10mg IV Vitamin K 01/12 and then gentle IV hydration NS 50cc/hr Will receive additional 2 units of FFP 01/13/17 prior to central line placement Status: Acute (8) Atrial fibrillation with slow ventricular response Status: Chronic Comment: Patient has a pace maker; 100% V-Paced. Echocardiogram (01/15/17): normal LV systolic function, dilated LA, trace MR, moderate TR CHADS: 2 (HTN, DM) HASBLED: 4 (HTN, abnormal renal function, labile INR, and age>65) Patient has PPM; will need to find out information regarding pacemaker Cardiology (Dr. Lerma) for cardiac clearance for prior anticipated BKA; which has refused; has signed off (9) DM2 (diabetes mellitus, type 2) Status: Chronic Comment: Accu checks Q6H and sliding scale insulin Q6H per protocol. Uncontrolled; 12.4 a1c Lantus 24 units subq HS (10) HTN (hypertension) Status: Chronic Comment: monitor vitals sign in light of severe sepsis off anti-hypertensive medications patient is on sedation (11) Prophylactic measure Assessment and Plan: OFF VTE given elevated INR Wound Care : Dolores Birch (contact number: [phone]) Consent for blood products in the hardcopy chart Intubated 01/12 On sedation possible terminal extubation tomorrow 01/23 Status: Acute
--- NOTE | 2017-01-22 22:19 | CP.PCM.PN ---
Subjective - Date & Time of Evaluation Date of Evaluation: 01/22/17 Time of Evaluation: 22:16 - Subjective Subjective: 71 y/o male seen with b/l LE infected diabetic ulcerations. Patient is asleep on vetn at this time. From previous notes was able to respond to stimuli but non verbally. Probable plan for extubation tomorrow. Objective - Vital Signs/Intake and Output Vital Signs (last 24 hours): Temp Pulse Resp BP Pulse Ox 98.6 F 60 18 126/55 L 97 01/22/17 20:00 01/22/17 22:03 01/22/17 22:03 01/22/17 22:03 01/22/17 22:03 Intake and Output: 01/22/17 01/23/17 18:59 06:59 Intake Total 1208 177 Output Total 1395 275 Balance -187 -98 - Medications Medications: Current Medications Acetaminophen (Tylenol 650mg/20.3ml Solution Ud) 650 mg PO Q6 PRN PRN Reason: Fever >100.4 F Last Admin: 01/21/17 04:50 Dose: 650 mg Albuterol/Ipratropium (Duoneb 3 Mg/0.5 Mg (3 Ml) Ud) 3 ml INH RQ6 [facility] Last Admin: 01/22/17 19:28 Dose: 3 ml Enoxaparin Sodium (Lovenox) 40 mg SC DAILY [facility] Last Admin: 01/22/17 10:27 Dose: 40 mg Hydromorphone HCl (Dilaudid) 1 mg IVP Q6H PRN PRN Reason: Pain, moderate (4-7) Last Admin: 01/22/17 21:27 Dose: 1 mg Metronidazole (Flagyl) 100 mls @ 100 mls/hr IVPB Q8H [facility] Last Admin: 01/22/17 15:26 Dose: 100 mls/hr Ciprofloxacin (Cipro 400mg/200ml Dsw) 200 mls @ 133 mls/hr IVPB Q12H [facility] Last Admin: 01/22/17 12:01 Dose: 133 mls/hr Piperacillin Sod/Tazobactam Sod (Zosyn 3.375 Gm Iv Premix) 50 mls @ 100 mls/hr IVPB Q6H [facility] Last Admin: 01/22/17 18:12 Dose: 100 mls/hr Propofol (Diprivan) 100 mls @ 2.722 mls/hr IV .Q24H PRN; Protocol; 5 MCG/KG/MIN PRN Reason: TITRATE PER MD ORDER Last Admin: 01/22/17 15:33 Dose: 9 mls/hr Insulin Glargine (Lantus) 24 unit SC Q12 [facility] Last Admin: 01/22/17 21:30 Dose: 24 unit Insulin Human Regular (Novolin R) 0 unit SC Q6 [facility] PRN Reason: Protocol Last Admin: 01/22/17 18:14 Dose: 2 unit Pantoprazole Sodium (Protonix Inj) 40 mg IVP DAILY [facility] Last Admin: 01/22/17 10:27 Dose: 40 mg Polyethylene Glycol (Miralax) 17 gm PO DAILY [facility] Last Admin: 01/22/17 10:28 Dose: 17 gm Scopolamine (Transderm-Scop) 1 patch TD Q3D [facility] Last Admin: 01/21/17 12:56 Dose: 1 patch Sodium Hypochlorite (Dakins Solution 0.125%) 0 appl TOP DAILY [facility] Last Admin: 01/22/17 10:30 Dose: 20 appl - Labs Labs: 01/21/17 06:37 01/21/17 06:34 PT 22.2 SECONDS (9.7-12.2) H 01/18/17 05:54 INR 1.9 01/18/17 05:54 APTT 36 SECONDS (21-34) H 01/18/17 05:54 - Additional Findings Additional findings: Dressings left CDI at this time; was just changed by nursing staff. Assessment and Plan - Assessment and Plan (Free Text) Assessment: 71 y/o male with extensive b/l infected LE diabetic ulcerations Plan: Patient evaluated and chart reviewed. Disucssed with Dr. Davenport. Probable plan for extubation tomorrow. Dressings left c/d/i for tonight as just changed and will continue with conservative care tomorrow No MRI due to pacemaker. Refusing BKA still; aware of probable bone infection. Will continue follow.
[2017-01-23] MEDS: Ciprofloxacin 400mg/200ml D5W 200 ML IVPB SCH ×2 (00:08→12:55)
[2017-01-23] MEDS: (Novolin R) Insulin Human Regular 100 units/ml vial SC SCH ×3 (00:11→12:59)
[2017-01-23] MEDS: Albuterol-Ipratrop 3 mg / 0.5 (3 ml) UD INH SCH ×4 (01:12→19:26)
[2017-01-23] MEDS: Piperacill/Tazo 3.375gm in Dex 50 ML IVPB SCH ×4 (01:13→17:18)
[2017-01-23] MEDS: metroNIDAZOLE IV 500 mg/100 ml 100 ML IVPB SCH ×2 (06:45→15:30)
[2017-01-23] MEDS: HYDROmorphone 1 mg/ml ISec IVP PRN ×3 (07:31→21:18)
[2017-01-23] MEDS: Enoxaparin 40 mg Syringe SC SCH (09:49)
[2017-01-23] MEDS: POLYETHYLENE GLYCOL 3350 17 GM/Dose PACKET PO SCH (09:49)
[2017-01-23] MEDS: (Lantus) Insulin Glargine, Recombinant SC SCH ×2 (09:50→22:00)
--- NOTE | 2017-01-23 10:39 | CP.PCM.PN ---
Subjective - Date & Time of Evaluation Date of Evaluation: 01/23/17 Time of Evaluation: 10:36 - Subjective Subjective: Remains on vent; sedated No new labs Discussed with - family does not want amputation Unable to obtain ROS Objective - Vital Signs/Intake and Output Vital Signs (last 24 hours): Temp Pulse Resp BP Pulse Ox 98.6 F 60 20 122/51 L 96 01/23/17 04:00 01/23/17 08:03 01/23/17 08:03 01/23/17 08:03 01/23/17 08:03 Intake and Output: 01/23/17 01/23/17 06:59 18:59 Intake Total 2049 118 Output Total 975 200 Balance 1074 -82 - Medications Medications: Current Medications Acetaminophen (Tylenol 650mg/20.3ml Solution Ud) 650 mg PO Q6 PRN PRN Reason: Fever >100.4 F Last Admin: 01/21/17 04:50 Dose: 650 mg Albuterol/Ipratropium (Duoneb 3 Mg/0.5 Mg (3 Ml) Ud) 3 ml INH RQ6 MICHAEL Last Admin: 01/23/17 07:42 Dose: 3 ml Enoxaparin Sodium (Lovenox) 40 mg SC DAILY [facility] Last Admin: 01/23/17 09:49 Dose: 40 mg Hydromorphone HCl (Dilaudid) 1 mg IVP Q6H PRN PRN Reason: Pain, moderate (4-7) Last Admin: 01/23/17 07:31 Dose: 1 mg Metronidazole (Flagyl) 100 mls @ 100 mls/hr IVPB Q8H [facility] Last Admin: 01/23/17 06:45 Dose: 100 mls/hr Ciprofloxacin (Cipro 400mg/200ml Dsw) 200 mls @ 133 mls/hr IVPB Q12H MICHAEL Last Admin: 01/23/17 00:08 Dose: 133 mls/hr Piperacillin Sod/Tazobactam Sod (Zosyn 3.375 Gm Iv Premix) 50 mls @ 100 mls/hr IVPB Q6H MICHAEL Last Admin: 01/23/17 05:42 Dose: 100 mls/hr Propofol (Diprivan) 100 mls @ 2.722 mls/hr IV .Q24H PRN; Protocol; 5 MCG/KG/MIN PRN Reason: TITRATE PER MD ORDER Last Admin: 01/23/17 02:07 Dose: 9 mls/hr Insulin Glargine (Lantus) 24 unit SC Q12 [facility] Last Admin: 01/23/17 09:50 Dose: 24 unit Insulin Human Regular (Novolin R) 0 unit SC Q6 MICHAEL PRN Reason: Protocol Last Admin: 01/23/17 06:12 Dose: 2 unit Pantoprazole Sodium (Protonix Inj) 40 mg IVP DAILY [facility] Last Admin: 01/22/17 10:27 Dose: 40 mg Polyethylene Glycol (Miralax) 17 gm PO DAILY [facility] Last Admin: 01/23/17 09:49 Dose: 17 gm Scopolamine (Transderm-Scop) 1 patch TD Q3D [facility] Last Admin: 01/21/17 12:56 Dose: 1 patch Sodium Hypochlorite (Dakins Solution 0.125%) 0 appl TOP DAILY [facility] Last Admin: 01/22/17 10:30 Dose: 20 appl - Labs Labs: 01/21/17 06:37 01/21/17 06:34 PT 22.2 SECONDS (9.7-12.2) H 01/18/17 05:54 INR 1.9 01/18/17 05:54 APTT 36 SECONDS (21-34) H 01/18/17 05:54 - Constitutional Appears: In Acute Distress, Chronically Ill - Head Exam Head Exam: ATRAUMATIC, NORMAL INSPECTION - Neck Exam Neck Exam: Normal Inspection. absent: Tenderness - Respiratory Exam Respiratory Exam: Rhonchi, Respiratory Distress - Cardiovascular Exam Cardiovascular Exam: REGULAR RHYTHM, +S1 - GI/Abdominal Exam GI & Abdominal Exam: Soft. absent: Tenderness - Extremities Exam Extremities Exam: Pedal Edema. absent: Tenderness - Neurological Exam Neurological Exam: Altered, Motor Sensory Deficit - Skin Skin Exam: Dry, Warm Assessment and Plan (1) Diabetic ulcer of both lower extremities Status: Acute (2) Atrial fibrillation with slow ventricular response Status: Chronic (3) Cellulitis Status: Acute (4) DM2 (diabetes mellitus, type 2) Status: Chronic (5) HTN (hypertension) Status: Chronic (6) CKD stage 4 due to type 2 diabetes mellitus Status: Acute (7) Hypernatremia Status: Acute - Assessment and Plan (Free Text) Plan: Await new labs IV ABs Await further decision about treatments
[2017-01-23] MEDS ORDERED: HYDROmorphone 1 mg/ml ISec IVP STA (11:35)
--- NOTE | 2017-01-23 11:46 | CP.PCM.PN ---
Subjective - Date & Time of Evaluation Date of Evaluation: 01/23/17 Time of Evaluation: 11:44 - Subjective Subjective: 71 y/o male seen and evaluated with b/l infected LE infection. patient is just s/p extubation and is tolerant so far. Patients family at bedside. Objective - Vital Signs/Intake and Output Vital Signs (last 24 hours): Temp Pulse Resp BP Pulse Ox 98.6 F 60 20 122/51 L 96 01/23/17 04:00 01/23/17 08:03 01/23/17 08:03 01/23/17 08:03 01/23/17 08:03 Intake and Output: 01/23/17 01/23/17 06:59 18:59 Intake Total 2049 118 Output Total 975 200 Balance 1074 -82 - Medications Medications: Current Medications Acetaminophen (Tylenol 650mg/20.3ml Solution Ud) 650 mg PO Q6 PRN PRN Reason: Fever >100.4 F Last Admin: 01/21/17 04:50 Dose: 650 mg Albuterol/Ipratropium (Duoneb 3 Mg/0.5 Mg (3 Ml) Ud) 3 ml INH RQ6 MICHAEL Last Admin: 01/23/17 07:42 Dose: 3 ml Enoxaparin Sodium (Lovenox) 40 mg SC DAILY [facility] Last Admin: 01/23/17 09:49 Dose: 40 mg Hydromorphone HCl (Dilaudid) 1 mg IVP Q6H PRN PRN Reason: Pain, moderate (4-7) Last Admin: 01/23/17 07:31 Dose: 1 mg Metronidazole (Flagyl) 100 mls @ 100 mls/hr IVPB Q8H MICHAEL Last Admin: 01/23/17 06:45 Dose: 100 mls/hr Ciprofloxacin (Cipro 400mg/200ml Dsw) 200 mls @ 133 mls/hr IVPB Q12H [facility]EL Last Admin: 01/23/17 00:08 Dose: 133 mls/hr Piperacillin Sod/Tazobactam Sod (Zosyn 3.375 Gm Iv Premix) 50 mls @ 100 mls/hr IVPB Q6H [facility]EL Last Admin: 01/23/17 11:39 Dose: 100 mls/hr Propofol (Diprivan) 100 mls @ 2.722 mls/hr IV .Q24H PRN; Protocol; 5 MCG/KG/MIN PRN Reason: TITRATE PER MD ORDER Last Admin: 01/23/17 02:07 Dose: 9 mls/hr Insulin Glargine (Lantus) 24 unit SC Q12 [facility] Last Admin: 01/23/17 09:50 Dose: 24 unit Insulin Human Regular (Novolin R) 0 unit SC Q6 MICHAEL PRN Reason: Protocol Last Admin: 01/23/17 06:12 Dose: 2 unit Pantoprazole Sodium (Protonix Inj) 40 mg IVP DAILY [facility] Last Admin: 01/23/17 10:49 Dose: 40 mg Polyethylene Glycol (Miralax) 17 gm PO DAILY [facility]EL Last Admin: 01/23/17 09:49 Dose: 17 gm Scopolamine (Transderm-Scop) 1 patch TD Q3D [facility] Last Admin: 01/21/17 12:56 Dose: 1 patch Sodium Hypochlorite (Dakins Solution 0.125%) 0 appl TOP DAILY MICHAEL Last Admin: 01/22/17 10:30 Dose: 20 appl - Labs Labs: 01/21/17 06:37 01/21/17 06:34 PT 22.2 SECONDS (9.7-12.2) H 01/18/17 05:54 INR 1.9 01/18/17 05:54 APTT 36 SECONDS (21-34) H 01/18/17 05:54 - Skin Additional comments: Vascular: DP/ PT pulses are non-palpable B, skin temp runs warm to warm BL, capillary refill time is delayed to digits x 10, 2+ pitting edema noted to anterior shins and anterior aspect of feet BL Neuro: gross protective pedal sensation is diminished BL Dermatologic: dressings to legs appear to be c/d/i bl, there is heavy malodor evident to both legs, heavy serous drainage noted upon removal of bandages. Right- partial thickness ulceration noted to lateral aspect of leg measures approx. 7.2 x 6.4 cm with 70% fibrotic and 30% granular wound base (no sinus tracking noted, no probe to bone, no fluctance), there is also a necrotic heel eschar which measures approx 7.2 x 7.0cm with serous drainage noted, no fluctuance however heel does feel boggy to touch, no sinus tracking. Of note today, there appears to be some darkened discoloration noted to the plantar sulcus of digits 2-3 Left: medial aspect 1st metatarsal head region full thickness ulceration measuring 2.0 x 2 cm with 100% fibrotic base absent undermining margins. Fluctuant necrotic heel eschar with active weeping drainage from posterior margin noted. Eschar measures 9 x 8 cm. Lateral leg full thickness ulceration measuring 13 x 7.5 cm with 80% fibrotic to 20% necrotic base (no sinus tracking , no probe to bone, serous drainage noted), Of note, there also appears to be some darkened discoloration to plantar sulcus of digits 2-3 Ortho : no gross deformities noted, unable to assess further due to pt sedation Assessment and Plan - Assessment and Plan (Free Text) Assessment: 71 yo diabetic male patient w/ infected lower extremity ulcerations, and 2 non- stageable heel ulcerations all secondary to diabetic neuropathy and ischemic limb changes Plan: Patient evaluated and chart reviewed. Discussed with Dr. Davenport Labs reviewed; Legs cleansed with cleanser and redressed with xeroform DSD Patient extubated today and is tolerant thus far To continue to follow while admitted.
--- NOTE | 2017-01-23 13:19 | CP.CCUPN ---
<Jaime Underwood - Last Filed: 01/23/17 17:00> CCU Subjective - Physician Review Subjective (Free Text): 01/23/17 13:29 pm Pt seen and examined at bedside. Pt extubated in early AM. Pt and understand that the extubation is terminal and he will if he does not breathe properly. Hospice outdoor illuminating engineer to see patient today. Pt shakes his head no when asked about pain, but is seen wincing during dressing changes. ROS limited by patient condition. Critical Care Time Spent (in minutes): 40 CCU Objective - Vital Signs / Intake & Output Intake and Output (Last 8hrs): Intake & Output 01/22/17 01/23/17 01/23/17 22:59 06:59 14:59 Intake Total 563 1872 118 Output Total 675 700 200 Balance -112 1172 -82 Intake: Intake, IV Amount 213 572 18 Right Proximal Port 63 72 18 Internal Jugular Right Medial Port 500 Internal Jugular Right Distal Port 150 Internal Jugular Tube Feeding 350 400 100 Other 900 Output: Urine 675 700 200 Urethral (Conner) 675 700 200 Other: # Bowel Movements 0 0 - Physical Exam Head: Positive for: Atraumatic, Normocephalic Pupils: Positive for: PERRL Extroacular Muscles: Positive for: EOMI Conjunctiva: Positive for: Normal Mouth: Positive for: Dry Neck: Positive for: Trachea Midline Respiratory/Chest: Positive for: Clear to Auscultation Cardiovascular: Positive for: Normal S1, S2, Irregular Rhythm Abdomen: Positive for: Normal Bowel Sounds, Other. Negative for: Tenderness, Distention, Rebound, Guarding Upper Extremity: Positive for: Normal Inspection, Edema Lower Extremity: Positive for: Edema, Erythema, Other (Black eschar noted on both feet, posterior left leg with black eschar as well. Nectrotic toes.). Negative for: NORMAL PULSES Neurological: Positive for: Other Skin: Positive for: Dry, Rashes, Erythematous, Abrasion Psychiatric: Positive for: Alert. Negative for: Oriented x 3 - Medications Active Medications: Active Medications Generic Name Dose Route Start Last Admin Trade Name Freq PRN Reason Stop Dose Admin Acetaminophen 650 mg 01/15/17 13:53 01/21/17 04:50 Tylenol 650mg/20.3ml Solution Ud PO 650 mg Q6 PRN Administration Fever >100.4 F Albuterol/Ipratropium 3 ml 01/19/17 14:00 01/23/17 07:42 Duoneb 3 Mg/0.5 Mg (3 Ml) Ud INH 3 ml RQ6 MICHAEL Administration Enoxaparin Sodium 40 mg 01/20/17 10:00 01/23/17 09:49 Lovenox SC 40 mg DAILY MICHAEL Administration Hydromorphone HCl 1 mg 01/19/17 17:01 01/23/17 07:31 Dilaudid IVP 1 mg Q6H PRN Administration Pain, moderate (4-7) Metronidazole 100 mls @ 100 mls/hr 01/12/17 23:30 01/23/17 06:45 Flagyl IVPB 100 mls/hr Q8H MICHAEL Administration Ciprofloxacin 200 mls @ 133 mls/hr 01/16/17 12:00 01/23/17 12:55 Cipro 400mg/200ml Dsw IVPB 133 mls/hr Q12H MICHAEL Administration Piperacillin Sod/Tazobactam Sod 50 mls @ 100 mls/hr 01/16/17 12:00 01/23/17 11: 39 Zosyn 3.375 Gm Iv Premix IVPB 100 mls/hr Q6H MICHAEL Administration Propofol 100 mls @ 2.722 mls/hr 01/19/17 10:28 01/23/17 02:07 Diprivan IV 9 mls/hr .Q24H PRN Administration TITRATE PER MD ORDER Protocol 5 MCG/KG/MIN Insulin Glargine 24 unit 01/20/17 09:50 01/23/17 09:50 Lantus SC 24 unit Q12 MICHAEL Administration Insulin Human Regular 0 unit 01/12/17 13:15 01/23/17 12:59 Novolin R SC 2 unit Q6 MICHAEL Administration Protocol Pantoprazole Sodium 40 mg 01/13/17 10:00 01/23/17 10:49 Protonix Inj IVP 40 mg DAILY MICHAEL Administration Polyethylene Glycol 17 gm 01/20/17 10:00 01/23/17 09:49 Miralax PO 17 gm DAILY MICHAEL Administration Scopolamine 1 patch 01/21/17 10:15 01/21/17 12:56 Transderm-Scop TD 1 patch Q3D MICHAEL Administration Sodium Hypochlorite 0 appl 01/17/17 10:00 01/22/17 10:30 Dakins Solution 0.125% TOP 20 appl DAILY MICHAEL Administration - Patient Studies Lab Studies: Lab Studies 01/23/17 01/23/17 01/22/17 Range/Units 11:51 05:40 23:24 POC Glucose (mg/dL) 186 H 193 H 201 H (65-110) mg/dL 01/22/17 Range/Units 17:44 POC Glucose (mg/dL) 162 H (65-110) mg/dL Laboratory Results - last 24 hr 01/22/17 01/22/17 01/23/17 17:44 23:24 05:40 POC Glucose (mg/dL) 162 H 201 H 193 H 01/23/17 11:51 POC Glucose (mg/dL) 186 H Fingerstick Blood Sugar Results: 186 Review of Systems - Constitutional Constitutional: absent: Fever, Chills - Cardiovascular Cardiovascular: absent: Chest Pain - Gastrointestinal Gastrointestinal: absent: Abdominal Pain - Integumentary Integumentary: absent: Dry Skin, New Lesions - Neurological Neurological: absent: Tingling, Weakness Critical Care Progress Note - Nutrition Nutrition: Nutrition Category Date Time Status Consistent Carbohydrate [DIET] Diets 01/10/17 Breakfast Active Assessment/Plan - Assessment and Plan (Free Text) Assessment: 71 year old patient with PMHx significant for HTN, DM, A-fib with slow ventricular response and cataracts initially presented with worsening bilateral LE cellulitis for which patient was septic. Pt also had elevated INR of 15. Patient admitted to ICU for close monitoring. Terminal extubation today. Patient DNR/DNI. Plan: Neuro: Pt extubated this AM Sedated with propofol, shakes head when asked questions Cardio: Hypotension at times- BP meds held If BP remains stable, low dose betablocker can be added on per Cardiology. Cardiology signed off. Afib w slow ventricular response Pulm: Acute respiratory failure secondary to severe sepsis secondary to bilateral LE cellulitis Pt extubated (01/23/2017) Dr. Figueroa consulted on 01/14 for Pulmonary clearance - pt tolerating weaning from intubation - CPAP trial - continue nebulizer treatment, tube feedings of diabetisource with goal of 50 ml/hr Duoneb Q6H Lasix 40 mg IV Q12 GI: Diabetisource with water flushes 450cc Q6 Miralax 17 gm PO Daily Nephro/: CKD stage 4, due to Type 2 DM Hypernatremia- Free water flushes 300cc Q6 Dr. Sanchez consulted: - renal fxn stable, UO 3500ml - Na 151 today, should continue to stabilize off Lasix Continue IV fluids Heme: stable, cont to monitor H/H Coagulopathy nutritional per Dr. Stephenson Endo: Diabetic ulcers of lower extremities noted Accuchecks Lantus inc to 24 units Q12 [facility] Monitor ID: Initially presented with severe sepsis On Flagyl, Zosyn, Cipro Blood Cx (01/09/17): Peptostreptococcus Baltazar x2 Wound culture (01/09/17) Left leg: enterobacter Cloacae Sssp Cloac; Gram negative garret X3, Bacillus speciies; Leg Right: Enterobacter Cloacae X2, Bacillus ID Dr. Blum on the case MSK: Recommendations for BKA surgery however patient's has decided against the procedure bc she feels that the patient would not consent to amputation. She is acting in his best interests ( as per his expected wishes). Dressing changes per Podiatry- Continued conservative care No MRI at this point due to hx of pacemaker Dilaudid 1mg IV q6H Palliative: If patient is to be extubated, patient's agreeable to DNI for comfort measures. DNR/DNI at this time. will not consent for BKA at this time. Once patient is extubated, will revisit decision regarding amputation in case patient changes mind. Prophylaxis: PPI: Protonix 40mg IV daily DVT prophylaxis- Lovenox 40mg SC Daily <Chacho Figueroa S - Last Filed: 01/23/17 18:46> CCU Objective - Vital Signs / Intake & Output Vital Signs (Last 4 hours): Vital Signs Temp Pulse Resp BP Pulse Ox 01/23/17 18:00 56 L 21 82 L 01/23/17 17:04 61 22 141/113 H 91 L 01/23/17 17:00 63 30 H 91 L 01/23/17 16:03 67 24 137/49 L 94 L 01/23/17 16:00 99.4 F 59 L 17 95 01/23/17 15:04 61 20 127/47 L 92 L 01/23/17 15:00 64 23 91 L Intake and Output (Last 8hrs): Intake & Output 01/23/17 01/23/17 01/23/17 06:59 14:59 22:59 Intake Total 1872 431.5 Output Total 700 500 Balance 1172 -68.5 Intake: Intake, IV Amount 572 181.5 Right Proximal Port 72 31.5 Internal Jugular Right Medial Port 500 150 Internal Jugular Tube Feeding 400 250 Other 900 Output: Urine 700 500 Urethral (Conner) 700 500 Other: # Bowel Movements 0 - Medications Active Medications: Active Medications Generic Name Dose Route Start Last Admin Trade Name Freq PRN Reason Stop Dose Admin Acetaminophen 650 mg 01/15/17 13:53 01/21/17 04:50 Tylenol 650mg/20.3ml Solution Ud PO 650 mg Q6 PRN Administration Fever >100.4 F Albuterol/Ipratropium 3 ml 01/19/17 14:00 01/23/17 13:25 Duoneb 3 Mg/0.5 Mg (3 Ml) Ud INH Not Given RQ6 MICHAEL Enoxaparin Sodium 40 mg 01/20/17 10:00 01/23/17 09:49 Lovenox SC 40 mg DAILY MICHAEL Administration Hydromorphone HCl 1 mg 01/23/17 15:40 01/23/17 17:19 Dilaudid IVP 1 mg Q4H PRN Administration Pain, severe (8-10) Metronidazole 100 mls @ 100 mls/hr 01/12/17 23:30 01/23/17 15:30 Flagyl IVPB 100 mls/hr Q8H MICHAEL Administration Ciprofloxacin 200 mls @ 133 mls/hr 01/16/17 12:00 01/23/17 12:55 Cipro 400mg/200ml Dsw IVPB 133 mls/hr Q12H MICHAEL Administration Piperacillin Sod/Tazobactam Sod 50 mls @ 100 mls/hr 01/16/17 12:00 01/23/17 17: 18 Zosyn 3.375 Gm Iv Premix IVPB 100 mls/hr Q6H MICHAEL Administration Propofol 100 mls @ 2.722 mls/hr 01/19/17 10:28 01/23/17 02:07 Diprivan IV 9 mls/hr .Q24H PRN Administration TITRATE PER MD ORDER Protocol 5 MCG/KG/MIN Insulin Glargine 24 unit 01/20/17 09:50 01/23/17 09:50 Lantus SC 24 unit Q12 MICHAEL Administration Pantoprazole Sodium 40 mg 01/13/17 10:00 01/23/17 10:49 Protonix Inj IVP 40 mg DAILY MICHAEL Administration Polyethylene Glycol 17 gm 01/20/17 10:00 01/23/17 09:49 Miralax PO 17 gm DAILY MICHAEL Administration Scopolamine 1 patch 01/21/17 10:15 01/21/17 12:56 Transderm-Scop TD 1 patch Q3D MICHAEL Administration Sodium Hypochlorite 0 appl 01/17/17 10:00 01/23/17 13:00 Dakins Solution 0.125% TOP 20 appl DAILY MICHAEL Administration - Patient Studies Lab Studies: Lab Studies 01/23/17 01/23/17 01/22/17 Range/Units 11:51 05:40 23:24 POC Glucose (mg/dL) 186 H 193 H 201 H (65-110) mg/dL Laboratory Results - last 24 hr 01/22/17 01/23/17 01/23/17 23:24 05:40 11:51 POC Glucose (mg/dL) 201 H 193 H 186 H Critical Care Progress Note - Nutrition Nutrition: Nutrition Category Date Time Status Consistent Carbohydrate [DIET] Diets 01/10/17 Breakfast Active Assessment/Plan (1) Acute respiratory failure with hypercapnia Current Visit: Yes Status: Acute Comment: Continue ventilatory support and reduce FiO2 as tolerated, no weaning Continue IV antibiotics Transfuse packed RBCs and follow up CBC Follow-up culture and sensitivity (2) Diabetic ulcer of both lower extremities Current Visit: Yes Status: Acute Comment: Vascular recommending potential knee level amputation Continue antibiotics for now wants to decide for surgery after discussing with technical training manager (3) Bacteremia Current Visit: Yes Status: Acute (4) CKD stage 4 due to type 2 diabetes mellitus Current Visit: Yes Status: Acute (5) Coagulopathy Current Visit: Yes Status: Acute (6) Diabetic foot infection Current Visit: Yes Status: Acute Attending/Attestation - Attestation I have personally seen and examined this patient.: Yes I have fully participated in the care of the patient.: Yes I have reviewed all pertinent clinical information: Yes Notes (Text): 01/23/17 18:45 patient seen and examined in the intensive care unit. case discussed with house staff in the morning rounds. Patient terminally extubated DNR/DNI
[2017-01-23] MEDS ORDERED: HYDROmorphone 1 mg/ml ISec IVP PRN (14:16)
--- NOTE | 2017-01-23 14:19 | CP.PCM.PN ---
Subjective - Date & Time of Evaluation Date of Evaluation: 01/23/17 Time of Evaluation: 14:00 - Subjective Subjective: Medical Attending Note: Follow-up: Acute respiratory failure, severe sepsis, bactermia, coagulopathy, b/ l cellulitis, diabetic foot ulcers and strong suspicion for osteomyelitis/ gangrene, atrial fibrillation; pacemaker Patient seen, examined and discussed with patient's at bedside, Riana. Patient terminal extubated earlier this morning. Patient saturating 93%, bradycardia, appears comfortable. Patient is currently sedated. Unable to ROS given clinical condition. Objective - Vital Signs/Intake and Output Vital Signs (last 24 hours): Temp Pulse Resp BP Pulse Ox 98.6 F 57 L 22 115/49 L 91 L 01/23/17 04:00 01/23/17 13:03 01/23/17 13:03 01/23/17 13:03 01/23/17 13:03 Intake and Output: 01/23/17 01/23/17 06:59 18:59 Intake Total 2049 118 Output Total 975 200 Balance 1074 -82 - Medications Medications: Current Medications Acetaminophen (Tylenol 650mg/20.3ml Solution Ud) 650 mg PO Q6 PRN PRN Reason: Fever >100.4 F Last Admin: 01/21/17 04:50 Dose: 650 mg Albuterol/Ipratropium (Duoneb 3 Mg/0.5 Mg (3 Ml) Ud) 3 ml INH RQ6 MICHAEL Last Admin: 01/23/17 13:25 Dose: Not Given Enoxaparin Sodium (Lovenox) 40 mg SC DAILY [facility] Last Admin: 01/23/17 09:49 Dose: 40 mg Hydromorphone HCl (Dilaudid) 1 mg IVP Q6H PRN PRN Reason: Pain, moderate (4-7) Last Admin: 01/23/17 07:31 Dose: 1 mg Hydromorphone HCl (Dilaudid) 1 mg IVP Q6H PRN PRN Reason: Pain, severe (8-10) Metronidazole (Flagyl) 100 mls @ 100 mls/hr IVPB Q8H [facility] Last Admin: 01/23/17 06:45 Dose: 100 mls/hr Ciprofloxacin (Cipro 400mg/200ml Dsw) 200 mls @ 133 mls/hr IVPB Q12H [facility] Last Admin: 01/23/17 12:55 Dose: 133 mls/hr Piperacillin Sod/Tazobactam Sod (Zosyn 3.375 Gm Iv Premix) 50 mls @ 100 mls/hr IVPB Q6H [facility] Last Admin: 01/23/17 11:39 Dose: 100 mls/hr Propofol (Diprivan) 100 mls @ 2.722 mls/hr IV .Q24H PRN; Protocol; 5 MCG/KG/MIN PRN Reason: TITRATE PER MD ORDER Last Admin: 01/23/17 02:07 Dose: 9 mls/hr Insulin Glargine (Lantus) 24 unit SC Q12 [facility] Last Admin: 01/23/17 09:50 Dose: 24 unit Insulin Human Regular (Novolin R) 0 unit SC Q6 [facility] PRN Reason: Protocol Last Admin: 01/23/17 12:59 Dose: 2 unit Pantoprazole Sodium (Protonix Inj) 40 mg IVP DAILY [facility] Last Admin: 01/23/17 10:49 Dose: 40 mg Polyethylene Glycol (Miralax) 17 gm PO DAILY [facility] Last Admin: 01/23/17 09:49 Dose: 17 gm Scopolamine (Transderm-Scop) 1 patch TD Q3D [facility] Last Admin: 01/21/17 12:56 Dose: 1 patch Sodium Hypochlorite (Dakins Solution 0.125%) 0 appl TOP DAILY [facility] Last Admin: 01/22/17 10:30 Dose: 20 appl - Labs Labs: 01/21/17 06:37 01/21/17 06:34 PT 22.2 SECONDS (9.7-12.2) H 01/18/17 05:54 INR 1.9 01/18/17 05:54 APTT 36 SECONDS (21-34) H 01/18/17 05:54 - Constitutional Appears: Chronically Ill - Head Exam Head Exam: NORMAL INSPECTION - ENT Exam ENT Exam: Mucous Membranes Dry - Respiratory Exam Respiratory Exam: Decreased Breath Sounds, NORMAL BREATHING PATTERN. absent: Rales, Respiratory Distress, Stridor - Cardiovascular Exam Cardiovascular Exam: Bradycardia, +S1, +S2 - GI/Abdominal Exam GI & Abdominal Exam: Soft, Normal Bowel Sounds. absent: Distended, Guarding, Rigid, Tenderness, Rebound - Extremities Exam Additional comments: b/l lower extremities; wrapped in Amee dressing; appear erythematous and necrotic toes bilateral; malodorous - Skin Skin Exam: Warm Assessment and Plan (1) Severe sepsis Status: Acute (2) Acute respiratory failure Status: Acute (3) Anemia Status: Acute (4) Bacteremia Status: Acute (5) Coagulopathy Status: Acute (6) Diabetic ulcer of both lower extremities Status: Acute (7) Atrial fibrillation Status: Chronic (8) Pacemaker Status: Chronic (9) DM2 (diabetes mellitus, type 2) Status: Chronic (10) HTN (hypertension) Status: Chronic (11) Prophylactic measure Status: Acute - Assessment and Plan (Free Text) Assessment: (1) Severe sepsis Assessment and Plan: Criteria: leukocytosis (28.6): RR>20, and confirmed source of infection including b/l lower extremities; bactermia and likely osteomyelitis and/or gangrene; symptomatic: altered mental status, lethargic, responsive to painful stimuli; creatinine >0.5, coagulation abnormalities INR>1.5 Blood culture (01/09/17): Peptostreptoccus Baltazar X2 Wound culture (01/09/17) Left leg: enterobacter Cloacae Sssp Cloac; Gram negative garret X3, Bacillus speciies; Leg Right: Enterobacter Cloacae X2, Bacillus Chest xray (01/12/17): persistent severe cardiomegaly and interval improvement in pulmonary venous congestion Blood culture (01/12/17): no growth after 5 days Urine culture (01/12/17): no growth Urine culture (01/11/17) no growth Abx: Ciprofloxcin 400mg IV Q 12hours (active since 01/16/17) Flagyl 500mg IV Q 8hours (active since 01/12/17) Zosyn 3.375 IV Q 6 hours (active since 01/16/17) ABG (01/12): mild metabolic acidosis; lactate: 0.8 Patient appears clinically dried at time of rapid. Patient transferred to ICU on 01/12/17. Patient may require amputation;however, patient's refuses amputation and patient has refused amputation. Patient unable to get MRI given has pacemaker. Infectious disease (Dr. Blum) on board Nephrology (Dr. Sanchez) on board Podiatry (Dr. Davenport) on board Vascular surgery (Dr. Granger) on board---amputation safest treatment; poor prognosis Cardiology (Dr. Lerma) for cardiac clearance Procalcitonin: 2.11 Patient for terminal extubation this morning. Patient is DNR/DNI. Spoke with patient's and brother at bedside today. Status: Acute (2) Acute respiratory failure * Per view of EMR; patient may be able to pass CPAP trial but possible reintubation given weakness; patient has had discussion as well as with ; permit for terminal extubation * terminal extubation tomorrow, 01/23/17 (3) Coagulopathy Assessment and Plan: possible related to sepsis INR 15.0, PT 191-->INR:2.6-->1.8-->1.6-->1.7 Patient given 10mg of Vitamin K IV over one hour and 6 units of fresh frozen plasma on 01/12 Patient to given additional 2 units of FFP prior central line placement for inr : 1.8 on 01/13 Will be given 1 unit of PRBC on 01/14 Will need to monitor patient for signs of bleeding. CT scan of the head was negative (01/12/17) for any intracrainal bleed. He was on Eliqius 2.5mg bid since admission which was on 01/08/17-01/12/17 for history of atrial fibrillation Heme-onc (Dr. Stephenson) consult on case given coagulopathy. Patient did have BM during rapid which was NOT black and appeared nonbloody. Status: Acute (4) Diabetic ulcer of both lower extremities Assessment and Plan: Patient has severe ulcers on both legs. Hgba1c: 12.4 (uncontrolled) Accuchecks Q 6hours Regular insulin sliding scale subq 6hours 01/11/17 Bone scan: negative study for acute osseous process. Specifically no evidence to suggest acute osteomyelitis left foot. Findings on the left 1st toe apparent on the prior study 03/27/16. Patient unable to give MRI given he has ICD Wound culture (01/09/17): Enterocloace, Bacilus cerus, and pending third organism bilaterally Dr. Blum (infectious disease) on board--> Abx: Ciprofloxcin 400mg IV Q 12hours (active since 01/16/17) Flagyl 500mg IV Q 8hours (active since 01/12/17) Zosyn 3.375 IV Q 6 hours (active since 01/16/17) Surgery on board (Dr. Granger) on board Podiatry on board (Dr. Davenport) on board Infectious disease on board (Dr. Blum) on board and patient had refused amputation reviewed EMR Status: Acute (5) Bacteremia Assessment and Plan: Blood culture (01/09/17): Peptostreptoccus Baltazar X2 Blood culture (01/12/17): no growth after 5 days X2 Abx: Ciprofloxcin 400mg IV Q 12hours (active since 01/16/17) Flagyl 500mg IV Q 8hours (active since 01/12/17) Zosyn 3.375 IV Q 6 hours (active since 01/16/17) Echocardiogram (01/15/17): normal LV systolic function, dilated LA, trace MR, moderate TR Status: Acute (6) Acute delirium Assessment and Plan: Propofol sedation likely related to sepsis Status: Acute (7) Acute renal failure Assessment and Plan: terminal extubation today Patient appears volume depleted at the time of rapid. Received 6 units of FFP and 10mg IV Vitamin K 01/12 and then gentle IV hydration NS 50cc/hr Will receive additional 2 units of FFP 01/13/17 prior to central line placement Status: Acute (8) Atrial fibrillation with slow ventricular response Status: Chronic Comment: Patient has a pace maker; 100% V-Paced. Echocardiogram (01/15/17): normal LV systolic function, dilated LA, trace MR, moderate TR CHADS: 2 (HTN, DM) HASBLED: 4 (HTN, abnormal renal function, labile INR, and age>65) Patient has PPM; will need to find out information regarding pacemaker Cardiology (Dr. Lerma) for cardiac clearance for prior anticipated BKA; which has refused; has signed off (9) DM2 (diabetes mellitus, type 2) Status: Chronic Comment: Accu checks Q6H and sliding scale insulin Q6H per protocol. Uncontrolled; 12.4 a1c Lantus 24 units subq HS (10) HTN (hypertension) Status: Chronic Comment: monitor vitals sign in light of severe sepsis off anti-hypertensive medications patient is on sedation (11) Prophylactic measure Assessment and Plan: OFF VTE given elevated INR Wound Care : Dolores Birch (contact number: [phone]) Consent for blood products in the hardcopy chart Intubated 01/12 On sedation terminal extubation today Dilaudid 1mg IV Q 6hour PRn Status: Acute
[2017-01-23 18:39] VITALS: BP 141/113
[2017-01-24] MEDS: Ciprofloxacin 400mg/200ml D5W 200 ML IVPB SCH
[2017-01-24] MEDS: Piperacill/Tazo 3.375gm in Dex 50 ML IVPB SCH
[2017-01-24] MEDS: Albuterol-Ipratrop 3 mg / 0.5 (3 ml) UD INH SCH (01:03)
[2017-01-24] MEDS: HYDROmorphone 1 mg/ml ISec IVP PRN (01:37)
[2017-01-24 01:49] VITALS: PULSE 69; RESP 30; O2SAT 94
[2017-01-24 02:07] VITALS: TEMP 98.1
--- NOTE | 2017-01-24 08:33 | CP.PCM.DIS ---
Provider - Provider Date of Admission: 01/09/17 19:14 Attending physician: Lilia Olivera DO Time Spent in preparation of Discharge (in minutes): 29 Diagnosis - Discharge Diagnosis (1) Severe sepsis Status: Acute (2) Acute respiratory failure Status: Acute (3) Anemia Status: Acute (4) Bacteremia Status: Acute (5) Coagulopathy Status: Acute (6) Diabetic ulcer of both lower extremities Status: Acute (7) Atrial fibrillation Status: Chronic (8) Pacemaker Status: Chronic (9) DM2 (diabetes mellitus, type 2) Status: Chronic (10) HTN (hypertension) Status: Chronic (11) Prophylactic measure Status: Acute Hospital Course - Lab Results Lab Results: Micro Results 01/12/17 03:30 Blood Blood Culture - Final NO GROWTH AFTER 5 DAYS 01/12/17 03:30 Blood Gram Stain - Final 01/12/17 03:45 Blood Blood Culture - Final NO GROWTH AFTER 5 DAYS 01/12/17 03:45 Blood Gram Stain - Final TEST NOT PERFORMED 01/12/17 Unknown Urine Urine Culture - Final No Growth (<1,000 CFU/ML) 01/11/17 14:54 Urine,Catheterized Urine Culture - Final No Growth (<1,000 CFU/ML) Most Recent Lab Values WBC 13.4 K/uL (4.8-10.8) H 01/21/17 06:37 RBC 3.16 Mil/uL (4.40-5.90) L 01/21/17 06:37 Hgb 8.3 g/dL (12.0-18.0) L 01/21/17 06:37 Hct 26.5 % (35.0-51.0) L 01/21/17 06:37 MCV 83.8 fL (80.0-94.0) 01/21/17 06:37 MCH 26.1 pg (27.0-31.0) L 01/21/17 06:37 MCHC 31.1 g/dL (33.0-37.0) L 01/21/17 06:37 RDW 16.9 % (11.5-14.5) H 01/21/17 06:37 Plt Count 223 K/uL (130-400) 01/21/17 06:37 MPV 8.6 fL (7.2-11.7) 01/21/17 06:37 Neut % (Auto) 83.1 % (50.0-75.0) H 01/21/17 06:37 Lymph % (Auto) 10.1 % (20.0-40.0) L 01/21/17 06:37 Pitkin % (Auto) 5.3 % (0.0-10.0) 01/21/17 06:37 Eos % (Auto) 0.7 % (0.0-4.0) 01/21/17 06:37 Baso % (Auto) 0.8 % (0.0-2.0) 01/21/17 06:37 Neut # 11.1 K/uL (1.8-7.0) H 01/21/17 06:37 Lymph # 1.4 K/uL (1.0-4.3) 01/21/17 06:37 Pitkin # 0.7 K/uL (0.0-0.8) 01/21/17 06:37 Eos # 0.1 K/uL (0.0-0.7) 01/21/17 06:37 Baso # 0.1 K/uL (0.0-0.2) 01/21/17 06:37 Neutrophils % (Manual) 85 % (50-75) H 01/20/17 06:34 Band Neutrophils % 1 % (0-2) 01/20/17 06:34 Lymphocytes % (Manual) 8 % (20-40) L 01/20/17 06:34 Reactive Lymphs % 1 % (0-0) H 01/12/17 07:29 Monocytes % (Manual) 6 % (0-10) 01/20/17 06:34 Eosinophils % (Manual) 1 % (0-4) 01/19/17 06:31 Toxic Granulation Present 01/20/17 06:34 Platelet Estimate Normal (NORMAL) 01/20/17 06:34 Large Platelets Present 01/18/17 05:54 Polychromasia Slight 01/20/17 06:34 Hypochromasia (manual) Slight 01/20/17 06:34 Poikilocytosis (manual Slight 01/19/17 06:31 Anisocytosis (manual) Slight 01/20/17 06:34 Microcytosis (manual) Slight 01/13/17 07:04 Macrocytosis (manual) Slight 01/13/17 07:04 Spherocytes Slight 01/13/17 07:04 Target Cells Slight 01/16/17 06:44 Tear Drop Cells Slight 01/19/17 06:31 Ovalocytes Slight 01/16/17 06:44 [place] Cells Slight 01/12/17 07:29 ESR 125 mm/hr (0-15) H 01/09/17 16:20 Retic Count 1.2 % (0.5-1.5) 01/16/17 06:44 PT 22.2 SECONDS (9.7-12.2) H 01/18/17 05:54 INR 1.9 01/18/17 05:54 APTT 36 SECONDS (21-34) H 01/18/17 05:54 Fibrinogen 934 mg/dL (200-400) H 01/12/17 18:52 Fibrin Degrad Products Positive (NEGATIVE) H 01/12/17 18:52 Fibrin Degrad Prod, Qt >40 ug/mL (<10) H 01/12/17 18:52 Puncture Site Rr 01/21/17 04:20 pCO2 43 mm/Hg (35-45) 01/21/17 04:20 pO2 263 mm/Hg (80-100) H 01/21/17 04:20 HCO3 32.3 mmol/L (21-28) H 01/21/17 04:20 ABG pH 7.50 (7.35-7.45) H 01/21/17 04:20 ABG Total CO2 34.8 mmol/L (22-28) H 01/21/17 04:20 ABG O2 Saturation 99.6 % (95-98) H 01/21/17 04:20 ABG Base Excess 9.4 mmol/L (-2.0-3.0) H 01/21/17 04:20 ABG Hemoglobin 8.0 g/dL (11.7-17.4) L 01/21/17 04:20 ABG Carboxyhemoglobin 1.6 % (0.5-1.5) H 01/21/17 04:20 POC ABG HHb (Measured) 0.4 % (0.0-5.0) 01/21/17 04:20 ABG Methemoglobin 1.3 % (0.0-3.0) 01/21/17 04:20 Carter Test Pos 01/21/17 04:20 ABG Potassium 4.6 mmol/L (3.6-5.2) 01/12/17 08:26 A-a O2 Difference 182.0 mm/Hg 01/21/17 04:20 Respiratory Index 0.7 01/21/17 04:20 Hgb O2 Saturation 96.6 % (95.0-98.0) 01/21/17 04:20 Sodium 140.0 mmol/l (132-148) 01/12/17 08:26 Chloride 115.0 mmol/L (98-107) H 01/12/17 08:26 Glucose 139 mg/dl (75-110) H 01/12/17 08:26 Lactate 0.8 mmol/L (0.7-2.1) 01/12/17 08:26 Liter Flow 3.0 01/12/17 08:26 Mechanical Rate 14 01/21/17 04:20 FiO2 70.0 % 01/21/17 04:20 Tidal Volume 450 01/21/17 04:20 PEEP 5 01/21/17 04:20 Pressure Support 12 01/19/17 05:22 CPAP 5 01/19/17 05:22 Sodium 151 mmol/L (132-148) H 01/21/17 06:34 Potassium 3.6 mmol/L (3.6-5.2) 01/21/17 06:34 Chloride 103 mmol/L (98-107) 01/21/17 06:34 Carbon Dioxide 34 mmol/L (22-30) H 01/21/17 06:34 Anion Gap 18 (10-20) 01/21/17 06:34 BUN 53 mg/dL (9-20) H 01/21/17 06:34 Creatinine 1.8 MG/DL (0.8-1.5) H 01/21/17 06:34 Est GFR ( Amer) 45 01/21/17 06:34 Est GFR (Non-Af Amer) 38 01/21/17 06:34 POC Glucose (mg/dL) 186 mg/dL (65-110) H 01/23/17 11:51 Random Glucose 248 mg/dL (75-110) H 01/21/17 06:34 Hemoglobin A1c 12.4 % (4.2-6.5) H D 01/12/17 18:52 Lactic Acid 1.1 mmol/L (0.7-2.1) 01/10/17 14:21 Calcium 7.4 mg/dl (8.6-10.4) L 01/21/17 06:34 Phosphorus 3.5 mg/dL (2.5-4.5) 01/21/17 06:34 Magnesium 2.2 mg/dL (1.6-2.3) 01/21/17 06:34 Ferritin 453.0 ng/mL 01/16/17 06:44 Total Bilirubin 1.3 mg/dL (0.2-1.3) 01/21/17 06:34 AST 92 U/L (17-59) H D 01/21/17 06:34 ALT 24 U/L (21-72) 01/21/17 06:34 Alkaline Phosphatase 140 U/L (38-126) H 01/21/17 06:34 Total Creatine Kinase 371 U/L (55-170) H 01/12/17 07:29 C-React Prot High Sens > 15.00 mg/L (1.00-3.00) H 01/09/17 16:20 NT-Pro-B Natriuret Pep 3210 pg/mL (0-900) H 01/09/17 16:20 Total Protein 6.7 g/dL (6.3-8.3) 01/21/17 06:34 Albumin 2.6 g/dL (3.5-5.0) L 01/21/17 06:34 Globulin 4.0 gm/dL (2.2-3.9) H 01/21/17 06:34 Albumin/Globulin Ratio 0.7 (1.0-2.1) L 01/21/17 06:34 Vitamin B12 902 pg/mL (239-931) 01/16/17 06:44 Folate 14.6 ng/mL 01/16/17 06:44 Procalcitonin 2.11 NG/ML (0.19-0.49) H 01/12/17 18:52 PTH Intact Whole Molec 55 pg/mL (14-64) 01/12/17 07:29 Arterial Blood Potassium 4.6 mmol/L (3.6-5.2) 01/12/17 08:26 Urine Color Smita (YELLOW) 01/11/17 14:25 Urine Clarity Hazy (Clear) 01/11/17 14:25 Urine pH 5.0 (5.0-8.0) 01/11/17 14:25 Ur Specific [place] 1.013 (1.003-1.030) 01/11/17 14:25 Urine Protein Negative mg/dL (NEGATIVE) 01/11/17 14:25 Urine Glucose (UA) Normal mg/dL (Normal) 01/11/17 14:25 Urine Ketones Negative mg/dL (NEGATIVE) 01/11/17 14:25 Urine Blood 3+ (NEGATIVE) H 01/11/17 14:25 Urine Nitrate Negative (NEGATIVE) 01/11/17 14:25 Urine Bilirubin Negative (NEGATIVE) 01/11/17 14:25 Urine Urobilinogen Normal mg/dL (0.2-1.0) 01/11/17 14:25 Ur Leukocyte Esterase Trace Spencer/uL (Negative) 01/11/17 14:25 Urine WBC (Auto) 32 /hpf (0-5) H 01/11/17 14:25 Urine RBC (Auto) 852 /hpf (0-3) H 01/11/17 14:25 Ur Squamous Epith Cells 1 /hpf (0-5) 01/11/17 14:25 Urine Bacteria Rare (<OCC) 01/11/17 07:02 Urine Collection Time 24 HRS 01/12/17 17:09 Urine Total Volume 1225 mL 01/12/17 17:09 Ur Protein 24 Hr Calc 196.0 mg/24hr (42-225) 01/12/17 17:09 Vancomycin Trough 6.7 ug/mL (5.0-10.0) 01/11/17 08:02 Blood Type O POSITIVE 01/12/17 12:06 Blood Type Confirm O POSITIVE 01/12/17 12:06 Antibody Screen Negative 01/12/17 12:06 - Hospital Course Hospital Course: As per H&P, "HPI: Patient is a 71 year old male admitted on 01/08/17 for worsening bilateral lower leg ulcers. He is a patient who has been seing Dr. Cheikh Birmingham for [facility] care but has not been by him since February of last year according to Dr. Birmingham's staff. Patient was admitted under Dr. Beal and given IV antibiotics Vanc and Zosyn. He also had acute kidney injury as well. There were consults for Dr. Sanchez (Nephrology), Dr. Johnson (Surgery), Dr. Blum for infectious disease, and Dr. Davenport for podiatry. He was mentating normally according to the patient's who does not live with him and according to his neighbor in the room had not seen him in 5 months since before the admission. A rapid reponse was called when it was noted by the nurse that he had become less responsive since admission. It was also found that his INR was over 15 as well. Patient was taking Eliquis for afib. He was then taken to ICU for further evaluation. The patient's Neighbor says that he sees Dr. Birmingham for primary care but did not know when the last time he saw him nor does she know all of the patient's medical problems. Unable to patient history from patient because of his delirium. " Patient initially on private attending service and transferred to the hospitalist service during the course of hospitalization. Patient transferred to the ICU for furthering monitoring. Patient had severe sepsis secondary to multiple bilateral poor unhealing leg wounds that were necrotic, strong suspicion for gangrene and osteomyelitis and bacteremia and monitored for his coagulopathy which reversed with FFP and vitamin K. Podiatry, surgery, infectious disease, nephrology, hematology, cardiology, and pulmonary and palliative care were consulted during the course of patient's hospitalization. Patient's clinical status discussed with family and patient during the course of hospitalization. Patient at 220AM on 01/24/17 pronounced by ICU. Patient was terminally extubated day prior and provided comfort and supportive measures as requested and confirmed with family. EDRS completed. This is a summary of patient's hospitalization. Please see EMR for further details. Discharge Plan - Follow Up Plan Condition: Disposition: WITH WITHOUT AUTOPSY Instructions: Care For Your Stitches (DC), Implantable Cardioverter Defibrillator (DC)
== END 2017-01-24 03:41 | DRG 870 ==
LOC: C.ER 14:53 → C.9E 19:14 → C.6T 19:47 → C.9E 19:54 → C.3T 01-10 01:35 → C.5T 01-10 20:55 → C.9I 01-12 12:20
PROVIDERS: ADMIT Hospitalist; ATTEND Hospitalist
PROC: 30233K1 Transfusion of Nonautologous Frozen Plasma into Peripheral Vein, Percutaneous Approach (ICD-10-PCS; principal; 2017-01-09)
PROC: 5A1955Z Respiratory Ventilation, Greater than 96 Consecutive Hours (ICD-10-PCS; 2017-01-12)
PROC: 0BH17EZ Insertion of Endotracheal Airway into Trachea, Via Natural or Artificial Opening (ICD-10-PCS; 2017-01-12)
PROC: 05HM33Z Insertion of Infusion Device into Right Internal Jugular Vein, Percutaneous Approach (ICD-10-PCS; 2017-01-13)
DX: A41.9 Sepsis, unspecified organism (principal); J96.02 Acute respiratory failure with hypercapnia; N17.9 Acute kidney failure, unspecified; E87.0 Hyperosmolality and hypernatremia; E87.2 Acidosis; D68.9 Coagulation defect, unspecified; I70.268 Atherosclerosis of native arteries of extremities with gangrene, other extremity; N18.4 Chronic kidney disease, stage 4 (severe); E11.22 Type 2 diabetes mellitus with diabetic chronic kidney disease; I50.9 Heart failure, unspecified; I13.0 Hypertensive heart and chronic kidney disease with heart failure and stage 1 through stage 4 chronic kidney disease, or unspecified chronic kidney disease; L03.115 Cellulitis of right lower limb; L03.116 Cellulitis of left lower limb; E11.40 Type 2 diabetes mellitus with diabetic neuropathy, unspecified; E11.621 Type 2 diabetes mellitus with foot ulcer; E87.5 Hyperkalemia; R65.20 Severe sepsis without septic shock; I48.91 Unspecified atrial fibrillation; E78.00 Pure hypercholesterolemia, unspecified; Z79.4 Long term (current) use of insulin; H91.90 Unspecified hearing loss, unspecified ear; R41.0 Disorientation, unspecified; Z95.0 Presence of cardiac pacemaker; D64.9 Anemia, unspecified; N18.9 Chronic kidney disease, unspecified; Z91.14 Patient's other noncompliance with medication regimen; Z66 Do not resuscitate